=== PATIENT | female | born 1980 | race Two or more races ===

== ENCOUNTER 2020-09-22 17:05 | Outpatient (REF) | payer MEDICAID, SELFPAY | END 2020-09-22 17:06 | disposition home or self-care (01) | LOC: HO.LAB 17:05 | PROVIDERS: Visit Provider Internal Medicine | DX: Z20.828 Contact with and (suspected) exposure to other viral communicable diseases (principal) | CPT/HCPCS: U0003 ==

== ENCOUNTER 2021-02-01 07:57 | Emergency (ER) | payer MEDICAID, SELFPAY ==
[2021-02-01 08:07] VITALS: BP 135/83; PULSE 97; RESP 18; TEMP 37.4; O2SAT 100; BMI 24.9
--- NOTE | 2021-02-01 09:46 | ED_ITS ---
HPI - General Adult General Chief complaint: General Medical Stated complaint: sore throat, vomiting Time Seen by Provider: 02/01/21 09:06 Source: patient Mode of arrival: ambulatory Limitations: no limitations History of Present Illness HPI narrative: 40 female with complaints of sore throat since yesterday with chills. Painful swallowing. No difficulty swallowing. No fevers, cough, shortness of breath, chest pain, abdominal pain, vomiting, diarrhea. Patient tells me that she tested negative for COVID 2 days ago. She is fully vaccinated as well. Related Data Previous Rx's Medication Instructions Recorded amoxicillin 500 mg PO BID #14 cap 02/01/21 ibuprofen 600 mg PO Q8H PRN #20 tab 02/01/21 Allergies Allergy/AdvReac Type Severity Reaction Status Date / Time bee pollen [Bee Stings] Allergy Mild SWELLING Unverified 08/11/20 15:24 AT SITE Bee stings Allergy Unknown anaphylaxis Uncoded 12/08/18 00:00 Review of Systems Review of Systems: Yes all other systems are reviewed and are negative Constitutional: Constitutional: Reports no additional constitutional complaints, Denies body ache(s), Reports chills, Denies fever(s), Denies headache(s) and Denies weakness Eyes: Eyes: Reports no additional eye complaints and Denies change in vision ENT: Reports system reviewed and no additional complaints, except as documented, Denies dizziness, Denies headache(s), Denies nasal congestion, Denies nasal discharge, Denies neck pain and Reports sore throat Cardiovascular: Cardiovascular: Reports no additional cardiovascular complaints, Denies chest pain, Denies leg edema and Denies dyspnea Respiratory: Respiratory: Reports no additional respiratory complaints, Denies cough and Denies dyspnea Gastrointestinal: Gastrointestinal: Reports no additional gastrointestinal complaints, Denies abdominal pain, Denies diarrhea, Denies nausea and Denies vo miting Genitourinary: Genitourinary: Reports no additional female genitourinary complaints and Denies urinary incontinence Musculoskeletal: Musculoskeletal: Reports no additional musculoskeletal complaints, Denies back pain, Denies arthralgias, Denies joint swelling, Denies neck pain, Denies numbness and Denies tingling Integumentary/Breasts: Skin/Breast: Reports system reviewed and no additional complaints, except as docu and Denies rash Neurologic: Reports system reviewed and no additional complaints, except as d ocumented, Denies Abnormal speech present, Denies dizziness, Denies headache(s), Denies numbness, Denies tingling and Denies weakness [facility], LAT[facility] Past Medical History Attestation statement: The following information was validated with the patient. Source: old records reviewed and nursing notes reviewed Medical History No known health problems Social History Social History Advance Directives: Yes Advance Directives Information Provided: Yes Advance Directives on File: No Physical Exam Vital Signs: Vital Signs: Last Vital Signs Temp 99.3 F 02/01/21 08:07 Pulse 97 02/01/21 08:07 Resp 18 02/01/21 08:07 BP 135/83 02/01/21 08:07 Pulse Ox 100 02/01/21 08:07 Body Mass Index 24.9 Const: General: cooperative, healthy appearing, comfortable and no acute distress Orientation/consciousness: patient oriented x3 Limitations: no limitations HENMT: Head: Yes normal to inspection Ears: hearing grossly normal bilaterally General nose exam: Normal external nose present Face and sinus: Yes normal facial exam Mouth: Normal oral and palatal mucosa present Throat: Yes uvula midline and Yes abnormal tonsil (Bilateral tonsillar erythema and swelling. No exudate) Eyes: General: appearance normal, both eyes and all related structures Pupils: Equal, round and reactive pupils present Neck: Neck: Yes normal visual inspection Chest: Chest palpation & inspection: normal inspection of the chest Resp: Effort & Inspection: normal respiratory effort Auscultation: clear to auscultation bilaterally Cardio: Rate: regular rate Rhythm: regular rhythm Peripheral pulses: Peripheral pulses 2+ throughout GI: Inspection: Yes normal to inspection Palpation (GI): Soft to palpation and nontender Auscultation: normal bowel sounds Back/Spine/Pelvis: Thoracic/Lumbar Spine: thoracic and lumbar spine normal to inspection Skin: General skin exam: no rashes or lesions noted Neuro: General: patient oriented x3, no focal motor deficits and normal sensation to monofilament Cranial nerves: Yes Equal, round and reactive pupils present Cognition (Neuro): normal cognition Speech: No Abnormal speech present Gait exam (Neuro): Normal gait present Motor exam (neuro): 5/5 motor strength present throughout Extrem: General: Yes normal to inspection Course Course Course Narrative: Rapid strep negative. However exam is concerning for strep pharyngitis. Will send throat culture. Reviewed worrisome signs and symptoms and when to return to the emergency department. Comfortable discharge home. Discharge Plan Discharge Clinical Impression: Pharyngitis Patient Disposition: Home, Self-Care Instructions: Pharyngitis (ED) Additional Instructions: Salt water gargles take motrin or tylenol for pain or fever as needed Prescriptions: New amoxicillin 500 mg capsule 500 mg PO BID Qty: 14 RF: 0 ibuprofen 600 mg tablet 600 mg PO Q8H PRN (Reason: fever or pain) Qty: 20 RF: 0 Referrals: [facility] [Primary Care Provider] - 2 days Stand Alone Forms: Work/School Release Interventions: ED Discharge Assessment Last Done: 02/01/21 09:28 Discharge Date/Time: 02/01/21 09:29
== END 2021-02-01 09:29 | disposition home or self-care (01) ==
PROVIDERS: Emergency Provider Emergency Medicine Emergency Medical Services
DX: J02.9 Acute pharyngitis, unspecified (principal)
CPT/HCPCS: 87071; 87880; 99283

== ENCOUNTER 2021-06-28 06:27 | Emergency (ER) | payer MEDICAID, SELFPAY ==
--- NOTE | ~2021-06-28 | XR_ITS ---
EXAMINATION: XR CHEST CLINICAL INFORMATION: Cough and wheezing COMPARISON: Previous chest x-rays most recent January 2020 TECHNIQUE: Frontal view of the chest was obtained. FINDINGS: No significant abnormality is noted involving the heart, lungs, mediastinum, bony thorax or soft tissues. XR/XR chest 1V IMPRESSION: Unremarkable examination.
--- NOTE | 2021-06-28 07:02 | ED.SOB ---
HPI - SOB/Dyspnea General Chief Complaint: Upper Respiratory Symptoms Stated Complaint: Flu Like Time Seen by Provider: 06/28/21 07:02 Source: patient Mode of arrival: ambulatory Limitations: no limitations History of Present Illness HPI Narrative: shortness of breath and cough for 2 days. Patient is a [employer] full vaccinated. She has myalgias and feels bad MD elicited complaint: shortness of breath and cough Onset (ago): day(s) Timing: constant Severity: mild Related Data Previous Rx's Medication Instructions Recorded amoxicillin 500 mg capsule 500 mg PO BID #14 cap 02/01/21 ibuprofen 600 mg tablet 600 mg PO Q8H PRN #20 tab 02/01/21 Allergies Allergy/AdvReac Type Severity Reaction Status Date / Time bee pollen [Bee Stings] Allergy Mild SWELLING Unverified 08/11/20 15:24 AT SITE Bee stings Allergy Unknown anaphylaxis Uncoded 12/08/18 00:00 Review of Systems Constitutional: Constitutional: Reports no additional constitutional complaints Eyes: Eyes: Reports no additional eye complaints ENT: Denies dizziness Cardiovascular: Cardiovascular: Reports no additional cardiovascular complaints Respiratory: Respiratory: Reports as per HPI Gastrointestinal: Gastrointestinal: Reports no additional gastrointestinal complaints Genitourinary: Genitourinary: Reports no additional female genitourinary complaints Musculoskeletal: Musculoskeletal: Reports no additional musculoskeletal complaints Integumentary/Breasts: Skin/Breast: Denies rash Neurologic: Reports system reviewed and no additional complaints, except as documented, Denies dizziness and Denies Sensory deficit (Neuro) Psychiatric: Psychiatric: Denies anxiety [facility] Past Medical History Medical History No known health problems Social History Social History Advance Directives: No Patient : No Physical Exam Vital Signs: Vital Signs: Last Vital Signs Temp 99.8 F 06/28/21 07:39 Pulse 97 06/28/21 07:39 Resp 22 H 06/28/21 07:45 BP 138/62 06/28/21 07:39 Pulse Ox 100 06/28/21 07:39 Body Mass Index 29.2 Const: Other: feels warn out coughing Nutritional Appearance: average body habitus Orientation/consciousness: oriented to person and patient oriented x3 Limitations: no limitations HENMT: Head: Yes normal to inspection Ears: external ears normal General nose exam: Normal external nose present Mouth: Normal oral and palatal mucosa present and oropharynx normal Throat: Yes posterior oropharynx normal Eyes: General: appearance normal, both eyes and all related structures Neck: Other: supple Neck: Yes normal visual inspection Chest: Chest palpation & inspection: normal inspection of the chest Resp: Other: diffuse wheezing Cardio: Jugular venous distension: no JVD Rate: regular rate Rhythm: regular rhythm Heart sounds: S1 normal heart sound present and S2 normal heart sound present GI: Inspection: Yes normal to inspection Palpation (GI): Soft to palpation, nontender and No hepatosplenomegaly present Auscultation: normal bowel sounds : General: Yes no CVA tenderness Back/Spine/Pelvis: Back: no CVA tenderness Skin: General skin exam: no rashes or lesions noted Neuro: General: oriented to person and patient oriented x3 Cranial nerves: Yes CN's II-XII intact bilaterally Motor exam (neuro): 5/5 motor strength present throughout Sensory Exam: No Sensory deficit (Neuro) Extrem: General: Yes normal to inspection Psych: Appearance: grossly normal Course Reevaluation(s) Reevaluation #1: Patient with clear URI symptoms. COVID negative but suspect the patient to likely have COVID. Will dc on covid precaustions Time: 08:51 MDM - SOB/Dyspnea Lab Data Labs: Lab Results 06/28/21 Range/Units 07:51 Coronavirus (PCR) NEGATIVE (Negative) Influenza Type A (PCR) NEGATIVE (Negative) Influenza Type B (PCR) NEGATIVE (Negative) RSV RNA Qual (PCR) NEGATIVE (Negative) Imaging Data Chest x-ray: Radiologist's impression: IMPRESSION: Unremarkable examination. ? Discharge Plan Discharge Clinical Impression: COVID Upper respiratory infection Qualifiers: URI type: unspecified viral URI Qualified Code(s): J06.9 - Acute upper respiratory infection, unspecified Patient Disposition: Home, Self-Care Instructions: Acute Bronchitis (ED), Upper Respiratory Infection (ED), COVID-19 (Coronavirus Disease 2019) (ED) Additional Instructions: please exercise covid precautions Prescriptions: No Action amoxicillin 500 mg capsule 500 mg PO BID Qty: 14 RF: 0 ibuprofen 600 mg tablet 600 mg PO Q8H PRN (Reason: fever or pain) Qty: 20 RF: 0 Referrals: Physician,Unknown [Primary Care Provider] - 2 days
[2021-06-28 07:39] VITALS: BP 138/62; PULSE 97; RESP 18; TEMP 37.7; O2SAT 100; BMI 29.2
[2021-06-28 07:45] VITALS: RESP 22
[2021-06-28] MEDS: Albuterol Sulfate 90 MCG 8 GM INHALER 4 PUFF INHALE (07:50)
[2021-06-28 08:35] LABS: Influenza A PCR NEGATIVE (Negative); Influenza B PCR NEGATIVE (Negative); Resp Syncy Virus RNA Qual PCR NEGATIVE (Negative); SARS COV2 PCR INHOUSE NEGATIVE (Negative)
== END 2021-06-28 09:17 | disposition home or self-care (01) ==
PROVIDERS: Emergency Provider Emergency Medicine
DX: U07.1 COVID-19 (principal); J06.9 Acute upper respiratory infection, unspecified; R06.02 Shortness of breath
CPT/HCPCS: 0241U; 36415; 71045; 94640; 99283

== ENCOUNTER 2021-09-23 10:32 | Emergency (ER) | payer MEDICAID, SELFPAY ==
[2021-09-23 10:53] VITALS: BP 158/98; PULSE 86; RESP 18; TEMP 36.8; O2SAT 100; BMI 25.7
[2021-09-23] MEDS: Ibuprofen 600 MG TABLET PO (10:56)
[2021-09-23 11:54] LABS: Hematocrit 42.3 % (37.0-47.0); Hemoglobin 13.1 g/dl (12.0-16.0); Mean Corpuscular Hemoglobin 26.3 pg (27.0-33.0); Mean Corpuscular Volume 84.8 fL (80.0-98.0); Mean Platelet Volume 10.4 fL (9.4-12.3); Platelet Count 324 X10*3/uL (160-400); Red Blood Count 4.99 X10*6/uL (4.20-5.50); Red Cell Distribution Width 15.2 % (11.0-16.0)
[2021-09-23 11:57] LABS: Anion Gap 12 (12-20); Blood Urea Nitrogen 7 mg/dL (9-16); Calcium 9.7 mg/dL (8.4-10.2); Carbon Dioxide 27 mmol/L (22-29); Chloride 100 mmol/L (96-108); Creatinine Clr Calc Pharmacy 87.1; Estimated Glomerular Filt Rate > 60; Glucose Random 104 mg/dL (60-115); Potassium 3.9 mmol/L (3.3-5.1); Sodium 135 mmol/L (135-145)
--- NOTE | 2021-09-23 12:08 | ECG_ITS ---
Test Reason : DIZZYNESS Blood Pressure : / mmHG Vent. Rate : 083 BPM Atrial Rate : 083 BPM P-R Int : 136 ms QRS Dur : 084 ms QT Int : 372 ms P-R-T Axes : 074 056 048 degrees QTc Int : 437 ms Normal sinus rhythm Minimal voltage criteria for LVH, may be normal variant ( Sokolow-Chase ) Borderline ECG No significant changes seen Referred By: Emma Mandel Electronically Signed By:ANDREY HERRERA MD
--- NOTE | 2021-09-23 12:17 | ED_ITS ---
HPI - General Adult General Chief complaint: General Medical Stated complaint: HPB/headache Time Seen by Provider: 09/23/21 11:59 Source: patient Mode of arrival: ambulatory Limitations: no limitations History of Present Illness HPI narrative: 41-year-old female previously healthy here with complaints of generalized headache for the last 2 days and feeling anxious. No chest pain, shortness of breath, vision changes, nausea, vomiting, dizziness. No fevers or chills or neck pain. Patient took her blood pressure at home and noted to be 150/90. No history of hypertension. Not currently on any medications. Related Data Previous Rx's Medication Instructions Recorded amoxicillin 500 mg capsule 500 mg PO BID #14 cap 02/01/21 ibuprofen 600 mg tablet 600 mg PO Q8H PRN #20 tab 02/01/21 ondansetron HCl 4 mg tablet 4 mg PO Q8H PRN #10 tab 06/28/21 (Zofran) lorazepam 1 mg tablet (Ativan) 1 mg PO TID PRN #5 tab 09/23/21 Allergies Allergy/AdvReac Type Severity Reaction Status Date / Time bee pollen [Bee Stings] Allergy Mild SWELLING Unverified 08/11/20 15:24 AT SITE Bee stings Allergy Unknown anaphylaxis Uncoded 12/08/18 00:00 Review of Systems 2 Review of Systems: Yes all other systems are reviewed and are negative Constitutional: Constitutional: Reports no additional constitutional complaints, Denies body ache(s), Denies chills, Denies fever(s), Reports head ache(s) and Denies weakness Eyes: Eyes: Reports no additional eye complaints and Denies change in vision ENT: Reports system reviewed and no additional complaints, except as documented, Denies dizziness, Reports headache(s), Denies nasal congestion, Denies nasal discharge and Denies neck pain Cardiovascular: Cardiovascular: Reports no additional cardiovascular complaints, Denies chest pain, Denies leg edema and Denies dyspnea Respiratory: Respiratory: Reports no additional respiratory complaints, Denies cough and Denies dyspnea Gastrointestinal: Gastrointestinal: Reports no additional gastrointestinal complaints, Denies abdominal pain, Denies diarrhea, Denies nausea and Denies vomiting Genitourinary: Genitourinary: Reports no additional female genitourinary complaints and Denies urinary incontinence Musculoskeletal: Musculoskeletal: Reports no additional musculoskeletal complaints, Denies back pain, Denies arthralgias, Denies joint swelling, Denies neck pain, Denies numbness and Denies tingling Integumentary/Breasts: Skin/Breast: Reports system reviewed and no additional complaints, except as docu and Denies rash Neurologic: Reports system reviewed and no additional complaints, except as documented, Denies Abnormal speech present, Denies dizziness, Reports headache(s), Denies numbness, Denies tingling and Denies weakness Psychiatric: Psychiatric: Reports anxiety PMFSH Past Medical History Attestation statement: The following information was validated with the patient. Source: old records reviewed and nursing notes reviewed Medical History No known health problems Social History Social History Advance Directives: No Advance Directives Information Provided: No Patient : No Physical Exam Vital Signs: Vital Signs: Last Vital Signs Temp 98.2 F 09/23/21 10:53 Pulse 78 09/23/21 13:22 Resp 18 09/23/21 10:53 BP 137/95 H 09/23/21 13:22 Pulse Ox 100 09/23/21 10:53 Body Mass Index 25.7 Const: General: cooperative, healthy appearing, comfortable and no acute d istress Orientation/consciousness: patient oriented x3 Limitations: no limitations HENMT: Head: Yes normal to inspection Ears: hearing grossly normal bilaterally and TM's normal bilaterally General nose exam: Normal external nose present Face and sinus: Yes normal facial exam Mouth: Normal oral and palatal mucosa present Throat: Yes posterior oropharynx normal, Yes tonsils normal and Yes uvula midline Eyes: General: appearance normal, both eyes and all related structures Pupils: Equal, round and reactive pupils present Neck: Neck: Yes normal visual inspection, Yes full ROM and Yes no lymphadenopathy Chest: Chest palpation & inspection: normal inspection of the chest Resp: Effort & Inspection: normal respiratory effort Auscultation: clear to auscultation bilaterally Cardio: Rate: regular rate Rhythm: regular rhythm Peripheral pulses: Peripheral pulses 2+ throughout GI: Inspection: Yes normal to inspection Palpation (GI): Soft to palpation and nontender Auscultation: normal bowel sounds Back/Spine/Pelvis: Thoracic/Lumbar Spine: thoracic and lumbar spine normal to inspection Skin: General skin exam: no rashes or lesions noted Neuro: General: patient oriented x3, no focal motor deficits and normal sensation to monofilament Cranial nerves: Yes CN's II-XII intact bilaterally, Yes Equal, round and reactive pupils present, Yes Bilaterally intact EOM present, Yes Nystagmus not present and Yes Normal facial strength present Cognition (Neuro): normal cognition Speech: No Abnormal speech present Gait exam (Neuro): Normal gait present Motor exam (neuro): 5/5 motor strength present throughout Sensory Exam: Normal double simultaneous stimulation for sensation Extrem: General: Yes normal to inspection, Yes no pedal edema and Yes no calf tenderness Course Course Course Narrative: 41-year-old female here with complaints of feeling anxious, headache and noted to have high blood pressure at home with no history of same.. Normal neuro exam. Blood pressure on arrival 158/98. No history of same. Patient feels anxious and feels like her blood pressures related to her anxiety. Will check labs, EKG, UA. Provide Ativan p.o. and reassess 1330-blood work unremarkable. EKG shows no ischemic changes. Blood pressure on reassessment is 135/76. Patient is feeling improved. Reviewed worrisome signs and symptoms of when to return to the emergency department. Comfortable discharge home. Medical Decision Making MDM Narrative Medical decision making narrative: Uncontrolled hypertension, anxiety Medical Records Medical records reviewed: Yes I reviewed the patient's medical records. Lab Data Lab results reviewed: Yes I reviewed the patient's lab results. Result diagrams: 09/23/21 11:31 09/23/21 11:31 Labs: Lab Results 09/23/21 09/23/21 09/23/21 Range/Units 11:31 11:31 12:25 WBC 10.0 (4.8-10.8) X10*3/uL RBC 4.99 (4.20-5.50) X10*6/uL Hgb 13.1 (12.0-16.0) g/dl Hct 42.3 (37.0-47.0) % MCV 84.8 (80.0-98.0) fL MCH 26.3 L (27.0-33.0) pg MCHC 31.0 (31.0-35.0) g/dl RDW 15.2 (11.0-16.0) % Plt Count 324 (160-400) X10*3/uL MPV 10.4 (9.4-12.3) fL Absolute Nucleated RBC 0.000 (0.0-0.012) X10*3/uL Nucleated RBC % (auto) 0.0 (0.0-0.2) /100WBC Sodium 135 (135-145) mmol/L Potassium 3.9 (3.3-5.1) mmol/L Chloride 100 (96-108) mmol/L Carbon Dioxide 27 (22-29) mmol/L Anion Gap 12 (12-20) BUN 7 L (9-16) mg/dL Creatinine 0.73 (0.5-1.4) mg/dL Estim Creat Clear Calc 87.1 Estimated GFR > 60 Random Glucose 104 (60-115) mg/dL Calcium 9.7 (8.4-10.2) mg/dL Troponin I High Sens < 3.5 (<3.5-17.0) ng/L ECG Data Attestation: I personally reviewed and interpreted this ECG as follows: Interpretation: NSR with rate 83, normal pr, normal qrs, normal qt Discharge Plan Discharge Clinical Impression: Headache, Anxiety, Hypertension Patient Disposition: Home, Self-Care Instructions: Acute Headache (ED), Hypertension (ED), Anxiety (ED) Additional Instructions: Monitor blood pressure Take the medication as needed Blood work an EKG normal Prescriptions: New lorazepam [Ativan] 1 mg tablet 1 mg PO TID PRN (Reason: anxiety) Qty: 5 RF: 0 No Action amoxicillin 500 mg capsule 500 mg PO BID Qty: 14 RF: 0 ibuprofen 600 mg tablet 600 mg PO Q8H PRN (Reason: fever or pain) Qty: 20 RF: 0 ondansetron HCl [Zofran] 4 mg tablet 4 mg PO Q8H PRN (Reason: nausea and vomiting) Qty: 10 RF: 0 Referrals: Physician,Unknown J [Primary Care Provider] - 2 days Stand Alone Forms: Work/School Release
[2021-09-23] MEDS: LORazepam 1 MG TABLET PO (12:32)
[2021-09-23 12:49] LABS: Troponin-I High Sensitivity < 3.5 ng/L (<3.5-17.0)
[2021-09-23 13:22] VITALS: BP 137/95; PULSE 78
== END 2021-09-23 13:39 | disposition home or self-care (01) ==
PROVIDERS: Nurse Practitioner Family; Emergency Provider Emergency Medicine
DX: R51.9 Headache, unspecified (principal); I10 Essential (primary) hypertension; F41.1 Generalized anxiety disorder; F43.0 Acute stress reaction; Z79.899 Other long term (current) drug therapy
CPT/HCPCS: 36415; 80048; 84484; 85027; 93005; 99283

== ENCOUNTER 2021-10-11 10:11 | Outpatient (REF) | payer MEDICAID, SELFPAY ==
[2021-10-11 13:14] LABS: HBsAGNum1 0.16 S/CO (0.00-0.99); Hepatitis B Surface Antigen Negative (Negative); ~HepC Num1 0.05 S/CO (0.00-0.79); ~Hepatitis C Antibody Nonreactive (Nonreactive)
[2021-10-11 13:16] LABS: Syphilis Screen Nonreactive (Nonreactive)
[2021-10-11 13:24] LABS: HIV AB/AG Nonreactive (Nonreactive)
[2021-10-11 15:36] LABS: CT PCR NOT DETECTED (Not Detect.); NG PCR NOT DETECTED (Not Detect.)
[2021-10-12 09:45] LABS: BV Int Neg Control Negative (Negative); BV Int Pos Control Positive (Positive)
[2021-10-14 02:47] LABS: HPV mRNA E6/E7 rflx Not Detected (Not Detected)
== END 2021-10-11 10:12 | disposition home or self-care (01) ==
LOC: HO.LAB 10:11
PROVIDERS: Visit Provider Advanced Practice Midwife
DX: Z01.419 Encounter for gynecological examination (general) (routine) without abnormal findings (principal); Z11.4 Encounter for screening for human immunodeficiency virus [HIV]; Z11.51 Encounter for screening for human papillomavirus (HPV); Z20.2 Contact with and (suspected) exposure to infections with a predominantly sexual mode of transmission
CPT/HCPCS: 36415; 86780; 86803; 87340; 87389; 87480; 87491; 87510; 87591; 87624; 87660; 88142

== ENCOUNTER 2022-07-12 10:57 | Outpatient (REF) | payer MEDICAID, SELFPAY ==
[2022-07-13 06:20] LABS: CT PCR NOT DETECTED (Not Detect.); NG PCR NOT DETECTED (Not Detect.)
[2022-07-13 09:19] LABS: BV Int Neg Control Negative (Negative); BV Int Pos Control Positive (Positive)
== END 2022-07-12 10:58 | disposition home or self-care (01) ==
LOC: HO.LAB 10:57
PROVIDERS: PCP Internal Medicine; Visit Provider Advanced Practice Midwife
DX: Z11.3 Encounter for screening for infections with a predominantly sexual mode of transmission (principal)
CPT/HCPCS: 87480; 87491; 87510; 87591; 87660; 99212

== ENCOUNTER 2022-12-20 09:38 | Outpatient (REF) | payer MEDICAID, SELFPAY ==
[2022-12-24 20:23] LABS: HPV mRNA E6/E7 rflx Not Detected (Not Detected)
== END 2022-12-20 09:39 | disposition home or self-care (01) ==
LOC: HO.LNP 09:38
PROVIDERS: PCP Internal Medicine; Visit Provider Advanced Practice Midwife
DX: Z01.419 Encounter for gynecological examination (general) (routine) without abnormal findings (principal); Z11.51 Encounter for screening for human papillomavirus (HPV)
CPT/HCPCS: 0353U; 86780; 86803; 87340; 87389; 87480; 87510; 87624; 87660; 88142

== ENCOUNTER 2022-12-20 10:36 | Outpatient (REF) | payer MEDICAID, SELFPAY ==
[2022-12-20 15:26] LABS: CT PCR NOT DETECTED (Not Detect.); NG PCR NOT DETECTED (Not Detect.)
[2022-12-21 05:47] LABS: Syphilis Screen Nonreactive (Nonreactive)
[2022-12-21 06:25] LABS: HBsAGNum1 0.34 S/CO (0.00-0.99); HIV AB/AG Nonreactive (Nonreactive); HIV Num 1 0.08 S/CO (0.00-0.99); Hepatitis B Surface Antigen Negative (Negative); ~HepC Num1 0.07 S/CO (0.00-0.79); ~Hepatitis C Antibody Nonreactive (Nonreactive)
[2022-12-21 12:19] LABS: BV Int Neg Control Negative (Negative); BV Int Pos Control Positive (Positive)
== END 2022-12-20 10:37 | disposition home or self-care (01) ==
LOC: HO.LAB 10:36
PROVIDERS: PCP Internal Medicine; Visit Provider Advanced Practice Midwife
DX: Z12.4 Encounter for screening for malignant neoplasm of cervix (principal); Z11.3 Encounter for screening for infections with a predominantly sexual mode of transmission; Z11.4 Encounter for screening for human immunodeficiency virus [HIV]
CPT/HCPCS: 0353U; 86780; 86803; 87340; 87389; 87480; 87510; 87660

== ENCOUNTER 2023-02-01 09:18 | Outpatient (REF) | payer MEDICAID, SELFPAY ==
--- NOTE | ~2023-02-01 | MM_ITS ---
EXAMINATION: MM SCREENING DIGITAL BREAST TOMOSYNTHESIS, BILATERAL CLINICAL INFORMATION: Screening. Asymptomatic. No prior breast imaging. Age 42. No known family history breast cancer. The lifetime risk of breast cancer based on the Tyrer-Cuzick Model is 7%. COMPARISON: None (current study represents initial baseline exam). TECHNIQUE: Digital breast tomosynthesis is performed in both the craniocaudal and mediolateral oblique views along with computer-aided detection (CAD). Synthesized 2D images are generated from the tomosynthesis. FINDINGS: The breasts are heterogeneously dense, which may obscure small masses (ACR BI-RADS breast composition Category c). There is fine fibronodular parenchymal pattern. No abnormal calcifications. No architectural abnormality. Right breast shows no significant mass. The skin contours are smooth. Left breast has nodule posterior upper outer quadrant just under 1 cm, possibly intramammary node. Patient will be recalled for additional imaging to fully assess baseline appearance. MM/MM tomosynthesis screening BI IMPRESSION: Left: -Nodule posterior upper outer quadrant, possibly intramammary node. Right: -No mammographic evidence of malignancy. ASSESSMENT: BI-RADS 0: Incomplete - Need Additional Imaging Evaluation RECOMMENDATION: 1. Additional views left breast (spot CC, spot MLO). 2. Targeted ultrasound if warranted after review of the additional views. 3. Radiology department staff will contact the patient for additional imaging. This patient's information was entered into a reminder system with a target due date for their next mammogram.
== END 2023-02-01 09:19 | disposition home or self-care (01) ==
LOC: HO.MAMMO 09:18
PROVIDERS: Visit Provider Advanced Practice Midwife
DX: Z12.31 Encounter for screening mammogram for malignant neoplasm of breast (principal)
CPT/HCPCS: 77063; 77067

== ENCOUNTER 2023-03-04 14:16 | Outpatient (REF) | payer MEDICAID, SELFPAY ==
--- NOTE | ~2023-03-04 | MM_ITS ---
EXAMINATION: MM DIAGNOSTIC DIGITAL BREAST TOMOSYNTHESIS, LEFT US DIAGNOSTIC ULTRASOUND BREAST, LEFT CLINICAL INFORMATION: Recall from baseline exam for nodule posterior upper outer left breast. Age 42. TC score 7%. COMPARISON: Mammography: 02/01/2023 (baseline) TECHNIQUE: Digital breast tomosynthesis is performed. 2D images are generated from the tomosynthesis. The following views are obtained: Spot CC x2, spot MLO. Ultrasound left breast is targeted to the upper outer quadrant. Grayscale imaging and color Doppler are performed without and with harmonics. FINDINGS: The breasts are heterogeneously dense, which may obscure small masses (ACR BI-RADS breast composition Category c). The additional spot views confirm a smooth benign-appearing nodule in the area of interest posterior upper outer left breast. There is no fatty notch contour to suggest intramammary node. Ultrasound demonstrates a simple cyst posterior upper outer breast near the 3:00 position and measuring approximately 1.1 x 0.5 cm. There is some fine reverberation artifact near side. No internal septation or solid component. Contours are smooth and there is strong increased through-transmission of sound and no associated color flow. Results are discussed with the patient at time of visit. MM/MM tomosynthesis added views L IMPRESSION: -Simple cyst posterior upper outer left breast 1.1 cm corresponding to baseline mammography. ASSESSMENT: BI-RADS 2: Benign RECOMMENDATION: Routine annual mammography screening. This patient's information was entered into a reminder system with a target due date for their next mammogram.
== END 2023-03-04 14:17 | disposition home or self-care (01) ==
LOC: HO.MAMMO 14:16
PROVIDERS: PCP Internal Medicine; Visit Provider Advanced Practice Midwife
DX: N63.21 Unspecified lump in the left breast, upper outer quadrant (principal)
CPT/HCPCS: 76642; 77061; 77065

== ENCOUNTER 2023-04-08 19:49 | Emergency (ER) | payer MEDICAID, SELFPAY ==
--- NOTE | ~2023-04-08 | XR_ITS ---
EXAMINATION: XR CHEST CLINICAL INFORMATION: Coughing. COMPARISON: None available. TECHNIQUE: Frontal view of the chest was obtained. FINDINGS: No significant abnormality is noted involving the heart, lungs, mediastinum, bony thorax or soft tissues. XR/XR chest 1V IMPRESSION: Unremarkable chest examination.
[2023-04-08 19:54] VITALS: BP 151/102; PULSE 101; RESP 18; TEMP 36.8; O2SAT 97; BMI 25.7
--- NOTE | 2023-04-08 19:55 | ED.GENADULT ---
HPI - General Adult General Chief complaint: Upper Respiratory Symptoms Stated complaint: Flu like Symptoms Time Seen by Provider: 04/08/23 21:33 Source: patient Mode of arrival: ambulatory Limitations: no limitations History of Present Illness HPI narrative: 42-year-old female came in for evaluation of upper respiratory symptoms x1 day. 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 Related Data Home Medications Medication Instructions Recorded Confirmed hydroxyzine HCl 10 mg tablet 10 mg PO TID PRN 07/12/22 12/20/22 Previous Rx's Medication Instructions Recorded metronidazole 0.75 % (37.5 mg/5 1 appful vaginal BEDTIME 5 days 01/10/23 gram) vaginal gel #70 grams Allergies Allergy/AdvReac Type Severity Reaction Status Date / Time bee pollen [Bee Stings] Allergy Mild SWELLING Verified 12/20/22 09:55 AT SITE Bee stings Allergy Unknown anaphylaxis Uncoded 12/20/22 09:55 Review of Systems Review of Systems: All other systems are reviewed and are negative Constitutional: Reports as per HPI and Reports no additional constitutional complaints Eyes: Reports as per HPI and Reports no additional eye complaints Reports system reviewed and no additional complaints, except as documented Cardiovascular: Reports as per HPI and Reports no additional cardiovascular complaints Respiratory: Reports as per HPI and Reports no additional respiratory complaints Gastrointestinal: Reports as per HPI and Reports no additional gastrointestinal complaints Genitourinary: Reports no additional female genitourinary complaints Musculoskeletal: Reports no additional musculoskeletal complaints Skin/Breast: Reports system reviewed and no additional complaints, except as docu Psychiatric: Reports no additional psychiatric complaints Endocrine: Reports no additional endocrine complaints Hematologic/Lymphatic: Reports no additional hematologic/lymphatic complaints Allergic/Immunologic: Reports no additional allergic/immunologic complaints Reports system reviewed and no additional complaints, except as documented and Reports Abnormal speech present [facility] Past Medical History Medical History Anxiety No known health problems Surgical History History of tubal ligation Social History Social History Alcohol intake: current Alcohol intake frequency: holidays/special occasions only Patient Tobacco Use Status: Former Tobacco user Substance Use Type: Marijuana Gender identity: Female Physical Exam ED Vital Signs: Vital Signs - 24 hr 04/08/23 19:54 Temperature 98.2 F Pulse Rate 101 H Respiratory Rate 18 Blood Pressure 151/102 H Pulse Oximetry 97 Oxygen Delivery Method Room Air BMI result Body Mass Index 25.7 Vital signs have been reviewed as appeared to be correct. Blood pressure elevated. Heart rate elevated. Respiration rate normal. Temperature normal. Oxygen saturation normal. Appearance: Alert. Oriented X3. No acute distress. Head: Normal external exam. Normocephalic. Atraumatic. No Ferris signs noted. No raccoon eyes noted Eyes: PERRLA. EOMI. Conjunctiva and sclera normal. Eyelids normal. ENT: TM's Normal. Pharynx normal. Uvula midline. Moist mucous membranes. No trismus noted. No drooling noted. No muffled voice noted. Neck: Normal inspection. Neck supple. FROM. No adenopathy. Thyroid Normal. No meningeal signs. No neck mass noted. CVS: Normal heart rate and rhythm. Heart sound normal. No murmurs noted. Pulses normal throughout. Respiratory: No respiratory distress. Painless inspiration. Breath sounds normal. No wheezes/rales/rhonchi noted. Chest nontender. No accessory muscle usage noted or decreased air movement noted. Abdomen: Soft and nontender. Bowel sounds normal in all 4 quadrants. No distention noted. No organomegaly noted. No visible injury noted. Back: No CVA tenderness. Full range of motion noted. Skin: Skin warm and dry. Normal skin color. Normal skin turgor. No rashes/lesions/lacerations noted. Extremities: No lower extremity edema. Extremities exhibit normal range of motion. Extremities nontender. Neuro: Oriented X 3. Cranial nerve exam: II-XII are grossly intact No motor deficit. No sensory deficit. Reflexes normal. Course Course Course Narrative: This is a rapid medical exam. Defer additional HPI, ROS, PE to primary provider. 42yo female with no known medical history here with cough, congestion, chills, body aches since yesterday. Took Mucinex prior to arrival. Will send testing for flu, COVID, RSV. VSS Medical Decision Making Differential Diagnosis Differential Diagnoses: The differential diagnosis associated with the presentation includes (Influenza, COVID, pneumonia, common cold.) Lab Data [facility] Lab Attestation statement: I reviewed the patient's lab results. Independent Interpretation I performed an independent interpretation of an: Plain X-Ray (Chest: No acute pathology.) Radiology Impression Discussion of test interpretation with radiology: I have reviewed the radiologist's reading. Discharge Plan Discharge Clinical Impression: Upper respiratory infection Patient Disposition: Home, Self-Care Instructions: Viral Syndrome (ED) Prescriptions: No Action metronidazole 0.75 % (37.5mg/5 gram) gel 1 appful vaginal BEDTIME 5 Days Qty: 70 0RF hydroxyzine HCl 10 mg tablet 10 mg PO TID PRN Referrals: Laxmi Spear MD [Primary Care Provider] - Stand Alone Forms: Work/School Release
[2023-04-08 21:38] LABS: Influenza A PCR NEGATIVE (Negative); Influenza B PCR NEGATIVE (Negative); Resp Syncy Virus RNA Qual PCR NEGATIVE (Negative); SARS COV2 PCR INHOUSE NEGATIVE (Negative)
== END 2023-04-08 22:44 | disposition home or self-care (01) ==
PROVIDERS: Nurse Practitioner Family; Emergency Provider Emergency Medicine; PCP Internal Medicine
DX: J06.9 Acute upper respiratory infection, unspecified (principal); Z87.891 Personal history of nicotine dependence; Z20.822 Contact with and (suspected) exposure to COVID-19; Z20.828 Contact with and (suspected) exposure to other viral communicable diseases
CPT/HCPCS: 0241U; 71045; 99282; 99283

== ENCOUNTER 2023-07-18 13:08 | Outpatient (AMB) | payer MEDICAID, SELFPAY ==
[2023-07-18 13:14] VITALS: BP 104/66; BMI 22.8
--- NOTE | 2023-07-18 13:14 | MHC.OFFVIS ---
Intake Vital Signs 07/18/23 13:14 Height 5 ft 4 in Weight 133 lb BMI 22.8 BP 104/66 Intake Visit Reasons: std testing Intake Note: The patient agreed to use of a medical equipment repair technician during this encounter. Scribed for FELIX Stevenson by Yadira Guerrero, medical equipment repair technician, on 07/18/2023 at 1:35 pm EST. Site Project Manager: Site Project Manager Present (Ame) Allergies bee pollen [Bee Stings] Allergy (Mild, Verified 07/18/23 13:14) SWELLING AT SITE Bee stings Allergy (Unknown, Uncoded 12/20/22 09:55) anaphylaxis Is last menstrual period known: Yes Last menstrual period: 07/14/23 HPI HPI Comments History of Present Illness Details She is here for STD testing due to vaginal discharge. Denies urinary issues, vaginal odor or irritation, abdominal cramping or pelvic pain. Reports monthly menses. Currently sexually active. Tubal ligation for BC. [facility] Medical History (Updated 07/18/23 @ 13:54 by Yadira Guerrero) Anxiety No known health problems Surgical History History of tubal ligation Social History Alcohol intake: current Alcohol intake frequency: holidays/special occasions only Patient Tobacco Use Status: Former Tobacco user Substance Use Type: Marijuana Gender identity: Female Female Reproductive History Menstrual Age of Menarche: 17 Duration of menses: 3-5 days Date of last menstrual period: 07/14/23 Physical Exam Vital Signs: Last Vital Signs BP 104/66 07/18/23 13:14 BMI result Body Mass Index 22.8 Const General: cooperative, healthy appearing, comfortable, no acute distress, well developed, alert and awake Other: General: Yes bladder normal to palpation External Female Exam: erythema and external swelling Speculum Exam - Vagina: normal appearance of the vagina, normal palpation and abnormal vaginal discharge (green tinged and odorous) frothy Speculum Exam - Cervix: normal appearance of the cervix and normal palpation Bimanual exam- vagina & uterus: normal bimanual exam, normal palpation, bladder normal to palpation and normal palpation Bimanual Exam- Adnexa, other: normal adnexae and no masses Assessment & Plan Assessment & Plan (1) Potential exposure to STD: Code(s): Z20.2 - Contact with and (suspected) exposure to infections with a predominantly sexual mode of transmission Plan: Discussed: BV testing and GC/CT panel done today. STD blood work ordered. Await results and treat accordingly. Encouraged to use condoms for STD prevention. Encouraged patient to sign up for patient portal. All of her questions and concerns were addressed to the best of my ability and shared decision making. She is agreeable to plan of care. (2) Vaginal discharge: Code(s): N89.8 - Other specified noninflammatory disorders of vagina (3) Vaginitis: Code(s): N76.0 - Acute vaginitis (4) Vaginal odor: Code(s): N89.8 - Other specified noninflammatory disorders of vagina Orders: Orders Bacterial Vaginosis Panel Today N89.8 - Other specified noninflammatory disorders of vagina, Z20.2 - Contact with and (suspected) exposure to infections with a predominantly sexual mode of transmission CT NG by PCR Today Z20.2 - Contact with and (suspected) exposure to infections with a predominantly sexual mode of transmission Hepatitis B Core Antibody Today Z20.2 - Contact with and (suspected) exposure to infections with a predominantly sexual mode of transmission Hepatitis C Antibody Today Z20.2 - Contact with and (suspected) exposure to infections with a predominantly sexual mode of transmission HIV Ab/Ag Today Z20.2 - Contact with and (suspected) exposure to infections with a predominantly sexual mode of transmission Syphilis Screen Today Z20.2 - Contact with and (suspected) exposure to infections with a predominantly sexual mode of transmission Coding Level of Care Code Est Pt Level 3 (55741) Diagnoses Potential exposure to STD Z20.2 Vaginal discharge N89.8 Vaginitis N76.0 Vaginal odor N89.8
== END 2023-07-18 13:45 | disposition home or self-care (01) ==
LOC: HO.HWS 13:08
PROVIDERS: PCP Internal Medicine; Visit Provider Advanced Practice Midwife
DX: Z20.2 Contact with and (suspected) exposure to infections with a predominantly sexual mode of transmission (principal); N76.0 Acute vaginitis
CPT/HCPCS: 99213

== ENCOUNTER 2023-07-18 13:08 | Outpatient (REF) | payer MEDICAID, SELFPAY ==
[2023-07-19 15:43] LABS: BV Int Neg Control Negative (Negative); BV Int Pos Control Positive (Positive)
== END 2023-07-18 13:09 | disposition home or self-care (01) ==
LOC: HO.LAB 13:08
PROVIDERS: PCP Internal Medicine; Visit Provider Advanced Practice Midwife
DX: N76.0 Acute vaginitis (principal); Z20.2 Contact with and (suspected) exposure to infections with a predominantly sexual mode of transmission
CPT/HCPCS: 87480; 87510; 87660; 99213

== ENCOUNTER 2023-07-18 13:39 | Outpatient (REF) | payer MEDICAID, SELFPAY | END 2023-07-18 13:40 | disposition home or self-care (01) | LOC: HO.LNP 13:39 | PROVIDERS: Visit Provider Advanced Practice Midwife | DX: Z13.89 Encounter for screening for other disorder (principal) ==

== ENCOUNTER 2023-07-18 13:48 | Outpatient (REF) | payer MEDICAID, SELFPAY ==
[2023-07-19 03:52] LABS: Syphilis Screen Nonreactive (Nonreactive)
[2023-07-19 04:04] LABS: HBc Num1 0.16 S/CO (0.00-0.79); HIV AB/AG Nonreactive (Nonreactive); HIV Num 1 0.26 S/CO (0.00-0.99); Hepatitis B Core Antibody Nonreactive (Nonreactive); ~HepC Num1 0.07 S/CO (0.00-0.79); ~Hepatitis C Antibody Nonreactive (Nonreactive)
[2023-07-19 04:19] LABS: CT PCR NOT DETECTED (Not Detect.); NG PCR NOT DETECTED (Not Detect.)
== END 2023-07-18 13:49 | disposition home or self-care (01) ==
LOC: HO.LAB 13:48
PROVIDERS: Visit Provider Advanced Practice Midwife
DX: N89.8 Other specified noninflammatory disorders of vagina (principal); Z20.2 Contact with and (suspected) exposure to infections with a predominantly sexual mode of transmission
CPT/HCPCS: 0353U; 86704; 86780; 86803; 87389

== ENCOUNTER 2023-10-21 11:05 | Outpatient (REF) | payer MEDICAID, SELFPAY ==
[2023-10-22 02:42] LABS: CT PCR DETECTED (Not Detect.); NG PCR DETECTED (Not Detect.)
[2023-10-22 12:08] LABS: BV Int Neg Control Negative (Negative); BV Int Pos Control Positive (Positive)
== END 2023-10-21 11:06 | disposition home or self-care (01) ==
LOC: HO.LNP 11:05
PROVIDERS: PCP Internal Medicine; Visit Provider Advanced Practice Midwife
DX: Z11.3 Encounter for screening for infections with a predominantly sexual mode of transmission (principal); A59.9 Trichomoniasis, unspecified
CPT/HCPCS: 0353U; 87480; 87510; 87660; 99212

== ENCOUNTER 2023-10-21 11:05 | Outpatient (AMB) | payer MEDICAID, SELFPAY ==
[2023-10-21 11:06] VITALS: BP 106/66; BMI 22.3
--- NOTE | 2023-10-21 11:06 | A.OFFVIS_ITS ---
Intake Vital Signs 10/21/23 11:06 Height 5 ft 4 in Weight 130 lb BMI 22.3 BP 106/66 Intake Visit Reasons: 3 month LAURIE Inspection Machine Tender Required: No Information Interpreted: non-clinical & clinical Spring Internship: Spring Internship Present (Marcia) Allergies bee pollen [Bee Stings] Allergy (Mild, Verified 10/21/23 11:07) SWELLING AT SITE Bee stings Allergy (Unknown, Uncoded 10/21/23 11:07) anaphylaxis Medication List - Last Reconciled 10/21/23 by Catalina Richards CNM hydroxyzine HCl 10 mg PO TID PRN Is last menstrual period known: Yes Last menstrual period: 10/05/23 Post menopausal: No HPI 3 month LAURIE HPI Details Patient is here for test of cure for trichomoniasis. She thinks that she felt better in terms of the discharge after taking the medicine. She says she told her partner but she is not sure if he got treated she is having unprotected sex and is having sex with him. She is not having any abnormal discharge on offering testing for STIs she is interested in getting lab work for HIV hep B hep C and syphilis but not today. She does not know if she is on the portal or not. She does not really keep track of her last period but thinks it was on October 05. She had her tubes tied so she feels she does not need to.. She is not sure when her annual exam is. [facility] Medical History Anxiety No known health problems Surgical History History of tubal ligation Alcohol intake: current Alcohol intake frequency: holidays/special occasions only Patient Tobacco Use Status: Former Tobacco user Substance Use Type: Marijuana Gender identity: Female Female Reproductive History Menstrual Age of Menarche: 17 Duration of menses: 3-5 days Date of last menstrual period: 10/05/23 control method: other (tubal ligation) Total pregnancies: 2 Full term: 2 Number of Living Children: 2 Date of last pap smear: 12/20/22 (negative) Physical Exam Vital Signs: Last Vital Signs BP 106/66 10/21/23 11:06 BMI result Body Mass Index 22.3 External Female Exam: normal external appearance and normal appearance of the urethra Speculum Exam - Vagina: normal appearance of the vagina and normal vaginal discharge Speculum Exam - Cervix: normal appearance of the cervix and Cervical os closed Assessment & Plan Assessment & Plan (1) Screen for sexually transmitted diseases: Code(s): Z11.3 - Encounter for screening for infections with a predominantly sexual mode of transmission (2) Trichomoniasis: Comment: laurie being done today, reminded re safer sex Code(s): A59.9 - Trichomoniasis, unspecified Plan Tests of cure and testing for STIs done and labs placed in system that she can get done when she finds it convenient. Recommend she get portal information at the front line supervisor and that way she can look up her results herself after she gets the labs done. Reminded her of safer sex. Schedule annual exam whenever it is due. Orders: Orders Hepatitis B Surface Antigen Today A59.9 - Trichomoniasis, unspecified, Z11.3 - Encounter for screening for infections with a predominantly sexual mode of transmission Hepatitis C Antibody Today A59.9 - Trichomoniasis, unspecified, Z11.3 - Encounter for screening for infections with a predominantly sexual mode of tra nsmission HIV Ab/Ag Today A59.9 - Trichomoniasis, unspecified, Z11.3 - Encounter for screening for infections with a predominantly sexual mode of transmission Syphilis Screen Today A59.9 - Trichomoniasis, unspecified, Z11.3 - Encounter for screening for infections with a predominantly sexual mode of transmission Coding Level of Care Code Est Pt Level 3 (56707) Diagnoses Screen for sexually transmitted diseases Z11.3 Trichomoniasis A59.9
== END 2023-10-21 12:50 | disposition home or self-care (01) ==
PROVIDERS: PCP Internal Medicine; Visit Provider Advanced Practice Midwife
DX: Z11.3 Encounter for screening for infections with a predominantly sexual mode of transmission (principal); A59.9 Trichomoniasis, unspecified
CPT/HCPCS: 99213

== ENCOUNTER 2023-10-24 14:46 | Outpatient (AMB) | payer MEDICAID, SELFPAY ==
--- NOTE | 2023-10-24 15:16 | AM.OFFVISNUR ---
Intake Intake Visit Reasons: Ceftriaxone inj. Allergies bee pollen [Bee Stings] Allergy (Mild, Verified 10/21/23 11:07) SWELLING AT SITE Bee stings Allergy (Unknown, Uncoded 10/21/23 11:07) anaphylaxis Nursing Note Magnolia was here today for injection of Ceftriaxone for positive GC. Pt denies any allergies to Ceftriaxone. She was also advised to complete her labs today. Pt was informed no sexual activity x 2 weeks and then with condoms and not until her partner has been treated. Pt will need LAURIE in 3 mos. pt verbs understanding. Office Meds ceftriaxone 500 mg solution for injection Performing Provider: Robby Mcgraw MD Performing Location[place] [facility] Administered by: Linda Rico LPN on 10/24/23 15:19 Dose Route Admin Location Dispensed Lot Number Expiration Date [facility] [employer] 500 mg IM rt. gluteus 500 mg [id number] 03/24/25 3748-7261-83 HOSPIRA[employer]PFIZER Coding Level of Care Code Established Pt Est Pt Level 1 (47545) Patient Type Established History Problem Focused Medical Decision Making Low Complexity Time Spent (min) 25 Assessment & Plan Assessment & Plan Orders: Orders AMB Ceftriaxone Injection Today A54.9 - Gonococcal infection, unspecified
== END 2023-10-24 15:19 | disposition home or self-care (01) ==
PROVIDERS: PCP Internal Medicine; Visit Provider Advanced Practice Midwife
DX: A54.9 Gonococcal infection, unspecified (principal)

== ENCOUNTER 2023-10-24 14:46 | Outpatient (REF) | payer MEDICAID, SELFPAY ==
[2023-10-25 08:26] LABS: Syphilis Screen Nonreactive (Nonreactive)
[2023-10-25 08:27] LABS: HBsAGNum1 0.26 S/CO (0.00-0.99); HIV AB/AG Nonreactive (Nonreactive); HIV Num 1 0.06 S/CO (0.00-0.99); Hepatitis B Surface Antigen Negative (Negative); ~Hepatitis C Antibody Nonreactive (Nonreactive)
== END 2023-10-24 14:47 | disposition home or self-care (01) ==
LOC: HO.LAB 14:46
PROVIDERS: PCP Internal Medicine; Visit Provider Advanced Practice Midwife
DX: Z11.4 Encounter for screening for human immunodeficiency virus [HIV] (principal); A54.9 Gonococcal infection, unspecified; A59.9 Trichomoniasis, unspecified
CPT/HCPCS: 36415; 86780; 86803; 87340; 87389; 96372; 99211; J0696

== ENCOUNTER 2023-11-22 08:09 | Inpatient (IN) | payer MEDICAID, SELFPAY ==
[2023-11-22] VITALS (10 sets, daily range): BP systolic 114–147; BP diastolic 65–99; PULSE 94–125; RESP 15–20; TEMP 36.3–38.2; O2SAT 96–99; BMI 24.6; BMI 24.2
--- NOTE | ~2023-11-22 | CT_ITS ---
CT SOFT TISSUE NECK WITH CONTRAST CLINICAL INFORMATION: Pharyngitis. Question abscess. COMPARISON: None available. TECHNIQUE: Following the intravenous administration of 60 mL of Omnipaque 350 intravenous contrast, helical imaging was performed in the axial plane with generation of coronal and sagittal reformatted images. This CT examination was performed using dose optimization techniques as appropriate, variously including the following: *Automated exposure control *Adjustment of mA and/or kV according to patient size (this includes techniques or standardized protocols for targeted exams where dose is matched to indication/reason for exam; i.e. extremities or head) *Use of iterative reconstruction technique FINDINGS: Significant enlargement and heterogeneity of the palatine tonsils bilaterally in keeping with palatine tonsillitis resulting in partial effacement of the oropharynx. No peritonsillar abscess and no retropharyngeal cellulitis. Intraglandular ductal dilatation within the subarticular glands bilaterally without any radiopaque calculi along Duval's duct on either side. The parotid glands, the partially imaged orbital soft tissues, and the thyroid gland are unremarkable. Likely reactive cervical lymph nodes bilaterally. The superior mediastinum is unremarkable. The lung apices are clear. The mastoid air cells and visualized portions of the paranasal sinuses are well-aerated. The imaged portions of the brain parenchyma are unremarkable. CT/CT soft tissue neck w IV con IMPRESSION: - Significant enlargement and heterogeneity of the palatine tonsils bilaterally in keeping with palatine tonsillitis resulting in partial effacement of the oropharynx. No peritonsillar abscess and no retropharyngeal cellulitis. - Intraglandular ductal dilatation within the subarticular glands bilaterally without any radiopaque calculi along Duval's duct on either side.
[2023-11-22 09:03] LABS: MANUAL DIFF FLAG NO
[2023-11-22] MEDS: 0.9 % Sodium Chloride 1,000 ML 999 ML IV (09:03)
[2023-11-22] MEDS: Acetaminophen 325 MG TABLET 650 MG PO ×2 (09:05→19:56)
[2023-11-22 09:07] LABS: Basophils Percent Auto 0.2 % (0-2); Hematocrit 40.5 % (37.0-47.0); Hemoglobin 13.2 g/dl (12.0-16.0); Imm Gran Abs Auto 0.08 X10*3/uL (0.00-0.03); Imm Gran Pct Auto 0.5 % (0.0-0.4); Lymphocytes Absolute Auto 0.7 X10*3/uL (1.2-4.9); Mean Corpuscular HGB Conc 32.6 g/dl (31.0-35.0); Mean Corpuscular Hemoglobin 26.1 pg (27.0-33.0); Mean Corpuscular Volume 80.2 fL (80.0-98.0); Mean Platelet Volume 10.1 fL (9.4-12.3); Monocytes Absolute Auto 1.2 X10*3/uL (0.1-1.2); Monocytes Percent Auto 6.8 % (2-11); Neutrophils Absolute Auto 15.2 x10*3/uL (2.0-8.3); Neutrophils Percent Auto 88.5 % (45-73); Platelet Count 293 X10*3/uL (160-400); Red Blood Count 5.05 X10*6/uL (4.20-5.50); Red Cell Distribution Width 14.5 % (11.0-16.0); White Blood Count 17.1 X10*3/uL (4.8-10.8)
--- NOTE | 2023-11-22 09:10 | ED.GENADULT ---
HPI - General Adult General Chief complaint: General Medical Stated complaint: Sore Throat Vomiting X 2 Days Time Seen by Provider: 11/22/23 08:48 Source: patient Mode of arrival: ambulatory Limitations: no limitations History of Present Illness HPI narrative: This is a 43-year-old female history of gonorrhea, Trichomonas, presenting to the emergency department for evaluation of sore throat, fatigue, malaise, nausea, vomiting, body aches and pains for the past week, worsening since Saturday, patient reports she went to her doctor was told she had mononucleosis, was given azithromycin and since then symptoms have been worsening. Has not been able to eat or drink. It hurts a lot when she swallows. Denies sick contacts at home. Related Data Home Medications Medication Instructions Recorded Confirmed hydroxyzine HCl 10 mg tablet 10 mg PO TID PRN 07/12/22 10/21/23 Previous Rx's Medication Instructions Recorded doxycycline hyclate 100 mg tablet 100 mg PO BID #14 tabs 10/22/23 Allergies Allergy/AdvReac Type Severity Reaction Status Date / Time bee pollen [Bee Stings] Allergy Mild SWELLING Verified 11/22/23 08:56 AT SITE Bee stings Allergy Unknown anaphylaxis Uncoded 10/21/23 11:07 Review of Systems Review of Systems: Constitutional : No Weight loss, + Fever, + Chills, + Fatigue, + Malaise ENT/Mouth : + sore throat, No Rhinorrhea Eyes: No Eye Pain, No Swelling, No Redness Cardiovascular : No Chest Pain, No SOB, No Dyspnea on Exertion, No Orthopnea, No Edema, No Palpitations Respiratory : No Cough, No Sputum, No Wheezing Gastrointestinal : No Nausea, No Vomiting, No Diarrhea, No Constipation, No abdominal Pain, No Hematochezia, No Melena Genitourinary : No Dysuria, No Urinary Frequency, No Hematuria, Musculoskeletal : No joint pain, + Myalgias, No Joint Swelling Skin : No Skin Lesions, No rash Neuro : No Weakness, No Numbness, No Dizziness, No Headache Psych : No Anxiety/Panic, No Depression All other systems reviewed and are negative Yes all other systems are reviewed and are negative PMFSH Past Medical History Attestation statement: The following information was validated with the patient. Source: old records reviewed and nursing notes reviewed Medical History Anxiety No known health problems Surgical History History of tubal ligation Social History Social History Unable to assess alcohol history related to: Unknown Alcohol intake: current Alcohol intake frequency: holidays/special occasions only Patient Tobacco Use Status: Former Tobacco user Smoked in Last 30 Days: Yes Use of substances other than those prescribed or required for medical reasons: Yes Substance Use Type: Marijuana Substance Use Frequency: Chronic Longstanding Last Used Substance: Days (ago) Advance Directives: No Advance Directives Information Provided: Yes Gender identity: Female Physical Exam ED Vital Signs: Vital Signs - 24 hr 11/22/23 08:52 11/22/23 09:28 11/22/23 10:18 Temperature 100.7 F H 99.1 F Pulse Rate 125 H 103 H Pulse Rate [Monitor] 124 H Respiratory Rate 18 20 Blood Pressure 147/99 H 131/87 Pulse Oximetry 98 99 Oxygen Delivery Method Room Air Room Air 11/22/23 11:10 11/22/23 11:25 Temperature 98.9 F 100.5 F H Pulse Rate 95 96 Pulse Rate [Monitor] Respiratory Rate 15 18 Blood Pressure 114/65 116/79 Pulse Oximetry 96 97 Oxygen Delivery Method Room Air Room Air BMI result Body Mass Index 24.6 Patient tachycardic, febrile. Appearance: Alert.? Oriented X3.? No acute distress.? Head: Normocephalic, atraumatic, no step-offs or deformities Eyes: Pupils equal, round and reactive to light.? ENT: Pharynx with significant edema to bilateral tonsils with exudate, pushing uvula back. Patient appears evidently uncomfortable. Neck: Normal inspection.? Neck supple.? CVS: Rapid regular rhythm likely sinus tachycardia heart rate around 120 beats per minute Pulses normal.? Respiratory: No respiratory distress.? Breath sounds normal.? Abdomen: Soft and nontender.? Skin: Skin warm and dry.? Normal skin color.? Normal skin turgor.? Extremities: No lower extremity edema.? No calf ttp. 5/5 strength to bilateral upper and lower extremities Back: No midline tenderness, no C-spine tenderness, full range of motion, no CVA tenderness bilaterally Neuro: Oriented X 3.? No motor deficit.? No sensory deficit. CN 2-12 intact Course Reevaluation(s) Reevaluation #1: CBC with leukocytosis and left shift, patient is receiving antibiotic, chemistry with low potassium gave oral potassium. Magnesium normal. Lactic acid normal. Flu/COVID/RSV negative. Strep negative. Anson negative. CT pending Sign out to Heydi Neil. Time: 10:59 Reevaluation #2: will admit for tonsillitis no [employer]MENT [employer], no resp issues not eating or drinking much admit for tonsillitis poor PO intake Medications Administered Discontinued Medications Generic Name Dose Route Start Last Admin Trade Name Freq PRN Reason Stop Dose Admin Acetaminophen 650 mg 11/22/23 09:00 11/22/23 09:05 Acetaminophen 325 Mg Tablet PO 11/22/23 09:01 650 mg ONCE ONE Administration Acetaminophen 325 mg 11/22/23 11:41 11/22/23 11:45 Acetaminophen 325 Mg Tablet PO 11/22/23 11:42 325 mg ONCE ONE Administration Dexamethasone Sodium Phosphate 10 mg 11/22/23 09:08 11/22/23 09:22 Dexamethasone Sod Phosphate 10 Mg/Ml Vial IVPUSH 11/22/23 09:09 10 mg ONCE ONE Administration Sodium Chloride 1,000 mls @ 999 mls/hr 11/22/23 09:15 11/22/23 10:21 Ns IV 11/22/23 10:15 Infused .Q1H1M LEILANI Infusion Sodium Chloride 1,769.01 mls @ 1,769.01 mls/hr 11/22/23 09:08 11/22/23 10:30 Ns 30 ml/kg infuse over 1 hr (1769.01 ml) 11/22/23 10:07 Infused IV Infusion .Q1H STA Ceftriaxone Sodium 1 gm/ 50 mls @ 100 mls/hr 11/22/23 09:08 11/22/23 10:14 Sodium Chloride IV 11/22/23 09:37 Infused ONCE ONE Infusion Iohexol 60 ml 11/22/23 10:57 11/22/23 10:58 Iohexol 350 Mg/Ml 100 Ml Infus..Btl IV 11/22/23 10:58 60 ml ONCE ONE Administration Ketorolac Tromethamine 30 mg 11/22/23 09:09 11/22/23 09:22 Ketorolac Tromethamine 15 Mg/Ml Vial IVPUSH 11/22/23 09:10 30 mg ONCE ONE Administration Potassium Chloride 20 meq 11/22/23 09:34 11/22/23 09:48 Potassium Chloride Packet 20 Meq Packet PO 11/22/23 09:35 20 meq ONCE ONE Administration Medical Decision Making Medical Decision Making [facility] Narrative: 43-year-old female presents with fatigue, malaise, fevers, chills, sore throat, body aches and pains, nausea and vomiting for the past few days worsening currently on azithromycin however was told she had mononucleosis. Physical exam significant for Pharynx with significant edema to bilateral tonsils with exudate, pushing uvula back. Patient appears evidently uncomfortable. And sinus tachycardia on exam with a heart rate of 120. Patient unewell appearing History and physical exam concerning for possible strep pharyngitis versus sepsis versus worsening mononucleosis versus viral illness. Will rule out metabolic derangements. Due to tonsillar edema will order CT soft tissue neck with IV contrast to rule out peritonsillar and retropharyngeal abscess. At this time infection suspected. Blood cultures, lactic acid ordered. Will also order fluids, antibiotics. Differential Diagnosis Differential Diagnoses: The differential diagnosis associated with the presentation includes History and physical exam concerning for possible strep pharyngitis versus sepsis versus worsening mononucleosis versus viral illness. Will rule out metabolic derangements. Due to tonsillar edema will order CT soft tissue neck with IV contrast to rule out peritonsillar and retropharyngeal abscess. Admission/Observation Consideration of admission/observation: Escalation of care including admission/observation considered possible Lab Data [facility] Lab Attestation statement: I reviewed the patient's lab results. 11/22/23 09:00 11/22/23 09:00 Labs: Lab Results 11/22/23 11/22/23 11/22/23 Range/Units 08:59 09:00 09:06 WBC 17.1 H (4.8-10.8) X10*3/uL RBC 5.05 (4.20-5.50) X10*6/uL Hgb 13.2 (12.0-16.0) g/dl Hct 40.5 (37.0-47.0) % MCV 80.2 (80.0-98.0) fL MCH 26.1 L (27.0-33.0) pg MCHC 32.6 (31.0-35.0) g/dl RDW 14.5 (11.0-16.0) % Plt Count 293 (160-400) X10*3/uL MPV 10.1 (9.4-12.3) fL Immature Gran % (Auto) 0.5 H (0.0-0.4) % Neut % (Auto) 88.5 H (45-73) % Lymph % (Auto) 4.0 L (20-40) % [place] % (Auto) 6.8 (2-11) % Eos % (Auto) 0.0 (0-4) % Baso % (Auto) 0.2 (0-2) % Lymph # (Auto) 0.7 L (1.2-4.9) X10*3/uL [place] # (Auto) 1.2 (0.1-1.2) X10*3/uL Eos # (Auto) 0.0 (0.0-0.4) X10*3/uL Baso # (Auto) 0.0 (0.0-0.2) X10*3/uL Abs Immat Gran (auto) 0.08 H (0.00-0.03) X10*3/uL Absolute Neuts (auto) 15.2 H (2.0-8.3) x10*3/uL Absolute Nucleated RBC 0.000 (0.0-0.012) X10*3/uL Nucleated RBC % (auto) 0.0 (0.0-0.2) /100WBC Sodium 134 L (135-145) mmol/L Potassium 3.2 L (3.3-5.1) mmol/L Chloride 101 (96-108) mmol/L Carbon Dioxide 24 (22-29) mmol/L Anion Gap 12 (12-20) BUN 9 (9-16) mg/dL Creatinine 0.81 (0.5-1.4) mg/dL Estim Creat Clear Calc 75.4 Estimated GFR > 60 Random Glucose 166 H (60-115) mg/dL Lactic Acid (0.5-2.0) mmol/L Calcium 9.3 (8.4-10.2) mg/dL Magnesium 2.0 (1.6-2.6) mg/dL Total Bilirubin 0.4 (0.0-1.0) mg/dL AST 14 (5-31) U/L ALT 10 (0-31) U/L Alkaline Phosphatase 74 (39-117) U/L Total Protein 7.8 (6.5-8.0) g/dL Albumin 4.1 (3.5-5.0) g/dL Monoscreen (Negative) Influenza Type A (PCR) NEGATIVE (Negative) Influenza Type B (PCR) NEGATIVE (Negative) RSV RNA Qual (PCR) NEGATIVE (Negative) SARS-CoV-2 RNA (RT-PCR) NEGATIVE (Negative) S. pyogenes GrpA JAY Negative (Negative) 11/22/23 11/22/23 Range/Units 09:19 09:32 WBC (4.8-10.8) X10*3/uL RBC (4.20-5.50) X10*6/uL Hgb (12.0-16.0) g/dl Hct (37.0-47.0) % MCV (80.0-98.0) fL MCH (27.0-33.0) pg MCHC (31.0-35.0) g/dl RDW (11.0-16.0) % Plt Count (160-400) X10*3/uL MPV (9.4-12.3) fL Immature Gran % (Auto) (0.0-0.4) % Neut % (Auto) (45-73) % Lymph % (Auto) (20-40) % [place] % (Auto) (2-11) % Eos % (Auto) (0-4) % Baso % (Auto) (0-2) % Lymph # (Auto) (1.2-4.9) X10*3/uL [place] # (Auto) (0.1-1.2) X10*3/uL Eos # (Auto) (0.0-0.4) X10*3/uL Baso # (Auto) (0.0-0.2) X10*3/uL Abs Immat Gran (auto) (0.00-0.03) X10*3/uL Absolute Neuts (auto) (2.0-8.3) x10*3/uL Absolute Nucleated RBC (0.0-0.012) X10*3/uL Nucleated RBC % (auto) (0.0-0.2) /100WBC Sodium (135-145) mmol/L Potassium (3.3-5.1) mmol/L Chloride (96-108) mmol/L Carbon Dioxide (22-29) mmol/L Anion Gap (12-20) BUN (9-16) mg/dL Creatinine (0.5-1.4) mg/dL Estim Creat Clear Calc Estimated GFR Random Glucose (60-115) mg/dL Lactic Acid 0.8 (0.5-2.0) mmol/L Calcium (8.4-10.2) mg/dL Magnesium (1.6-2.6) mg/dL Total Bilirubin (0.0-1.0) mg/dL AST (5-31) U/L ALT (0-31) U/L Alkaline Phosphatase (39-117) U/L Total Protein (6.5-8.0) g/dL Albumin (3.5-5.0) g/dL Monoscreen Negative (Negative) Influenza Type A (PCR) (Negative) Influenza Type B (PCR) (Negative) RSV RNA Qual (PCR) (Negative) SARS-CoV-2 RNA (RT-PCR) (Negative) S. pyogenes GrpA JAY (Negative) Independent Interpretation I performed an independent interpretation of an: CT Scan Radiology Impression Discussion of test interpretation with radiology: I have reviewed the radiologist's reading. Critical Care Time Critical Care Time Critical Care Time: No Discharge Plan Discharge Clinical Impression: Sore throat, Tachycardia, Acute hypokalemia Acute tonsillitis Qualifiers: Pharyngitis/tonsillitis etiology: other specified organisms Qualified Code(s): J03.80 - Acute tonsillitis due to other specified organisms Patient Disposition: Admitted As Inpatient Prescriptions: No Action doxycycline hyclate 100 mg tablet 100 mg PO BID Qty: 14 0RF hydroxyzine HCl 10 mg tablet 10 mg PO TID PRN
[2023-11-22] MEDS: dexAMETHasone sod phosphate 10 MG/ML VIAL IVPUSH (09:22)
[2023-11-22] MEDS: Ketorolac Tromethamine 15 MG/ML VIAL 30 MG IVPUSH (09:22)
[2023-11-22 09:24] LABS: IDNOW Serial# 08D9AD1C; Strep A Nucleic Acid Negative (Negative)
--- NOTE | 2023-11-22 09:30 | PC.NURSE ---
Patient reporting from home, reporting n/v/d/bodyaches/chills/fever since saturday she reported going to the clinic and being told you have a throat infection mono Swabs sent from ED/lab work sent. IVF started, apap given for fever. Pt currenty sinus tach on monitor with occasional PVCs. Provider at bedside to assess patient, sepsis alert called, pt given education on course of care, pt tearful but in agreement. Pt reporting a child at home who is sick with a cold but no other contacts who are sick.
[2023-11-22 09:32] LABS: Alanine Aminotransferase 10 U/L (0-31); Albumin Level 4.1 g/dL (3.5-5.0); Alkaline Phosphatase 74 U/L (39-117); Anion Gap 12 (12-20); Aspartate Amino Transferase 14 U/L (5-31); Bilirubin Total 0.4 mg/dL (0.0-1.0); Blood Urea Nitrogen 9 mg/dL (9-16); Calcium 9.3 mg/dL (8.4-10.2); Carbon Dioxide 24 mmol/L (22-29); Chloride 101 mmol/L (96-108); Creatinine Clr Calc Pharmacy 75.4; Estimated Glomerular Filt Rate > 60; Glucose Random 166 mg/dL (60-115); Potassium 3.2 mmol/L (3.3-5.1); Sodium 134 mmol/L (135-145); Total Protein 7.8 g/dL (6.5-8.0)
[2023-11-22 09:36] LABS: Lactic Acid 0.8 mmol/L (0.5-2.0)
[2023-11-22] MEDS: cefTRIAXone sodium 1 GM in 0.9 % Sodium Chloride 50 ML IV (09:36)
[2023-11-22] MEDS: 0.9 % Sodium Chloride 1,769.01 ML 1769.01 ML IV (09:36)
[2023-11-22 09:45] LABS: Influenza A PCR NEGATIVE (Negative); Influenza B PCR NEGATIVE (Negative); Resp Syncy Virus RNA Qual PCR NEGATIVE (Negative); SARS COV2 PCR INHOUSE NEGATIVE (Negative)
[2023-11-22] MEDS: Potassium Chloride Packet 20 MEQ PACKET PO (09:48)
[2023-11-22 10:11] LABS: Monotest Negative (Negative)
[2023-11-22] MEDS: iohexoL 350 MG/ML 100 ML INFUS..BTL 60 ML IV (10:58)
--- NOTE | 2023-11-22 11:24 | PC.NURSE ---
assumed care of pt at 1100, some improvement in fever/HR, sepsis vitals completed. throat culture swabs obtained. no new orders at this time.
[2023-11-22] MEDS: Acetaminophen 325 MG TABLET PO (11:45)
--- NOTE | 2023-11-22 13:04 | PHA.MEDREC ---
Pharmacy Consult ? Medication Reconciliation Pharmacy has completed the medication reconciliation.
[2023-11-22] MEDS: 0.9 % Sodium Chloride 1,000 ML 125 ML IVCONT ×2 (13:10→21:20)
--- NOTE | 2023-11-22 13:14 | PC.NURSE ---
1L NS started at 125ml/hr. pt pending admission orders.
[2023-11-22] MEDS: Doxycycline Hyclate 100 MG in 0.9 % Sodium Chloride 250 ML 166.67 MG IV (14:32)
--- NOTE | 2023-11-22 15:51 | PC.NURSE ---
Addendum entered by [place] 11/22/23 15:56: Note by ZACHERY Madison Original Note: spoke w lab, unclear which swab to use for CT/NG throat swab, [facility] is out for the day and [facility] is suggesting a swab that [facility] doesn't carry - plan on deferring testing untill [facility] is able to confirm swab tomorrow.
--- NOTE | 2023-11-22 16:47 | P.HPHOSP_ITS ---
History of Present Illness Date of Service: 11/22/23 Chief Complaint: Sore throat 43-year-old female patient who was recently treated for gonorrhea and chlamydia, presented to the emergency room for evaluation of generalized weakness, sore throat nausea vomiting body aches, loss of appetite, decreased by mouth intake, headache, dizziness worsening in last couple days patient was seen by her PCP and was told that she has mononucleosis and was given azithromycin but since her symptoms were getting worse she came to the emergency room she denies history of sick contacts, no recent travel, denies shortness of breath, no cough, in the emergency [place] [address], potassium 3.2 blood sugar 166 lactic acid 0.8, low flu COVID and RSV negative, strep pyogenes negative, CT neck showed significant enlargement and heterogenicity of palatine tonsils bilaterally no peritonsillar abscess and no retropharyngeal cellulitis were noted, patient is being admitted to [facility] with a diagnosis of sepsis due to acute tonsillitis with inability to take by mouth. Review of Systems 2 Review of Systems: General headache, lightheadedness, fevers CVS no chest pain, no palpitation. Respiratory no cough no sob Gastrointestinal mild nausea ,no vomiting, no abdominal pain, no diarrhea. no urgency, no frequency PMFSH Medical History Anxiety No known health problems Pertinent family history: Not aware of father's medical history Mother is alive and healthy and has history of hypertension Surgical History History of tubal ligation Social History Household Members: Children Housing: Other Housing Other:: [employer] Do you presently have visiting nurse or other home services: No Unable to assess alcohol history related to: Unknown Alcohol intake: current Alcohol intake frequency: holidays/special occasions only Patient Tobacco Use Status: Former Tobacco user Smoked in Last 30 Days: Yes Use of substances other than those prescribed or required for medical reasons: Yes Substance Use Type: Marijuana Substance Use Frequency: Occasionally Last Used Substance: Days (ago) Have you been hit, kicked, punched, or otherwise hurt by someone within the past year? If so, by whom?: No Do you feel safe in your current relationship?: Yes Is there a partner from a previous relationship who is making you feel unsafe now?: No Are you made to feel afraid or neglected: No Advance Directives: No Advance Directives Information Provided: Yes Do you have thoughts of harming others: None Do you have a plan to hurt others: No Plan Recently lost weight without trying: No Nutrition Risks: No Nutritional Risk Patient : No : No Poor oral hygiene: No Gender identity: Female Meds Allergies Allergy/AdvReac Type Severity Reaction Status Date / Time bee pollen [Bee Stings] Allergy Mild SWELLING Verified 11/22/23 08:56 AT SITE Bee stings Allergy Unknown anaphylaxis Uncoded 10/21/23 11:07 Active Medications: Current Medications Acetaminophen (Acetaminophen 325 Mg Tablet) 650 mg PO Q6H PRN PRN Reason: Pain, Mild (Pain Scale 1-3) Hydroxyzine HCl (Hydroxyzine Hcl 10 Mg Tablet) 10 mg PO TID PRN PRN Reason: Anxiety Sodium Chloride (Ns) 1,000 mls @ 125 mls/hr IVCONT .Q8H [facility] Last Admin: 11/22/23 13:10 Dose: 125 mls/hr Doxycycline Hyclate 100 mg/ (Sodium Chloride) 250 mls @ 166.67 mls/hr IV Q12H [facility] Last Infusion: 11/22/23 16:20 Dose: Infused Ceftriaxone Sodium 1 gm/ (Sodium Chloride) 50 mls @ 100 mls/hr IV Q24H [facility] Ketorolac Tromethamine (Ketorolac Tromethamine 30 Mg/Ml Vial) 30 mg IVPUSH Q6H PRN PRN Reason: Pain, Moderate(Pain Scale 4-6) Magnesium Hydroxide (Milk Of Magnesia 30 Ml Oral.Susp) 30 ml PO DAILY PRN PRN Reason: Constipation Melatonin (Melatonin 3 Mg Tablet) 3 mg PO BEDTIME PRN PRN Reason: Insomnia Ondansetron HCl (Ondansetron Hcl 4 Mg/2 Ml Vial) 4 mg IVPUSH Q8H PRN PRN Reason: Nausea and Vomiting Sodium Chloride (0.9 % Sodium Chloride Flush 3 Ml Syringe) 3 ml IVFLUSH QSHIFT [facility] Last Admin: 11/22/23 15:11 Dose: Not Given Home Medications Medication Instructions Recorded Confirmed Last Taken Type hydroxyzine HCl 10 mg tablet 10 mg PO TID PRN Anxiety 07/12/22 11/22/23 1 Week Ago History ~11/15/23 Physical Exam 2 Vital Signs and Narrative: Vital Signs: Last Vital Signs Temp 98.5 F 11/22/23 14:30 Pulse 94 11/22/23 14:30 Resp 16 11/22/23 14:30 BP 136/87 11/22/23 14:30 Pulse Ox 98 11/22/23 14:30 O2 Del Method Room Air 11/22/23 14:30 BMI result Body Mass Index 24.6 Const: Other: General awake alert x3, in no acute distress. HEENT:PERRLA,EOMI Oral cavity bilateral enlarged tonsil hyperemic with white exudate. Neck is supple no JVD. CVS regular rate rhythm, Respiratory lungs clear to auscultation, no respiratory distress, no wheeze, no rhonchi. Gastrointestinal abdomen soft, nontender, bowel sounds audible, no no guarding , no rigidity. Extremities no edema. Neuro nonfocal. Skin no rash Psych appropriate affect Results Labs 11/23/23 05:10 11/23/23 05:10 Labs: Laboratory Results - last 24 hr 11/22/23 11/22/23 11/22/23 08:59 09:00 09:06 MCV 80.2 MCH 26.1 L MCHC 32.6 RDW 14.5 Plt Count 293 MPV 10.1 Immature Gran % (Auto) 0.5 H Neut % (Auto) 88.5 H Lymph % (Auto) 4.0 L [place] % (Auto) 6.8 Eos % (Auto) 0.0 Baso % (Auto) 0.2 Lymph # (Auto) 0.7 L [place] # (Auto) 1.2 Eos # (Auto) 0.0 Baso # (Auto) 0.0 Abs Immat Gran (auto) 0.08 H Absolute Neuts (auto) 15.2 H Absolute Nucleated RBC 0.000 Nucleated RBC % (auto) 0.0 Anion Gap 12 Estim Creat Clear Calc 75.4 Estimated GFR > 60 Random Glucose 166 H Lactic Acid Calcium 9.3 Magnesium 2.0 Total Bilirubin 0.4 AST 14 ALT 10 Alkaline Phosphatase 74 Total Protein 7.8 Albumin 4.1 Monoscreen Influenza Type A (PCR) NEGATIVE Influenza Type B (PCR) NEGATIVE RSV RNA Qual (PCR) NEGATIVE SARS-CoV-2 RNA (RT-PCR) NEGATIVE S. pyogenes GrpA JAY Negative 11/22/23 11/22/23 09:19 09:32 MCV MCH MCHC RDW Plt Count MPV Immature Gran % (Auto) Neut % (Auto) Lymph % (Auto) [place] % (Auto) Eos % (Auto) Baso % (Auto) Lymph # (Auto) [place] # (Auto) Eos # (Auto) Baso # (Auto) Abs Immat Gran (auto) Absolute Neuts (auto) Absolute Nucleated RBC Nucleated RBC % (auto) Anion Gap Estim Creat Clear Calc Estimated GFR Random Glucose Lactic Acid 0.8 Calcium Magnesium Total Bilirubin AST ALT Alkaline Phosphatase Total Protein Albumin Monoscreen Negative Influenza Type A (PCR) Influenza Type B (PCR) RSV RNA Qual (PCR) SARS-CoV-2 RNA (RT-PCR) S. pyogenes GrpA JAY Imaging Radiologist's Impressions: Impressions Soft Tissue Neck CT 11/22/23 10:40 IMPRESSION: - Significant enlargement and heterogeneity of the palatine tonsils bilaterally in keeping with palatine tonsillitis resulting in partial effacement of the oropharynx. No peritonsillar abscess and no retropharyngeal cellulitis. - Intraglandular ductal dilatation within the subarticular glands bilaterally without any radiopaque calculi along Union's duct on either side. Assessment and Plan (1) Acute tonsillitis: Qualifiers: Pharyngitis/tonsillitis etiology: other specified organisms Qualified Code(s): J03.80 - Acute tonsillitis due to other specified organisms Status: Acute (2) Acute hypokalemia: Status: Acute Plan 43-year-old female patient presented with sore throat, generalized weakness fevers nausea loss of appetite and decreased by mouth intake of few days duration patient diagnosed to have sepsis due to acute tonsillitis. Sepsis due to acute tonsillitis. Will treat with IV doxycycline and IV ceftriaxone Recent history of vaginal gonorrhea and chlamydia Will check chlamydia, gonorrhea throat test. IV fluid Gradually advanced to Soft diet as tolerated/analgesics/lozenges Follow CBC and BMP Hypokalemia will replete and follow labs. Code status full code Early ambulation Patient need 2 night inpatient hospitalization for management of acute tonsillitis with sepsis requiring IV fluids and IV antibiotics. Quality Stroke Does the patient have a stroke diagnosis?: No VTE Prior VTE?: No VTE Risk Level:: Medical - low VTE Device Contraindication: Treatment Not Indicated VTE Drug Contraindication: Treatment Not Indicated
[2023-11-23] MEDS: Doxycycline Hyclate 100 MG in 0.9 % Sodium Chloride 250 ML 166.67 MG IV (01:41)
[2023-11-23 03:37] VITALS: BP 137/61; PULSE 91; RESP 16; TEMP 36.3; O2SAT 99
[2023-11-23 05:42] LABS: Hemoglobin 10.7 g/dl (12.0-16.0); Mean Corpuscular HGB Conc 32.4 g/dl (31.0-35.0); Mean Corpuscular Hemoglobin 26.2 pg (27.0-33.0); Mean Corpuscular Volume 80.7 fL (80.0-98.0); Mean Platelet Volume 10.7 fL (9.4-12.3); Platelet Count 245 X10*3/uL (160-400); Red Blood Count 4.09 X10*6/uL (4.20-5.50); Red Cell Distribution Width 14.4 % (11.0-16.0); White Blood Count 10.8 X10*3/uL (4.8-10.8)
[2023-11-23 05:54] LABS: Anion Gap 12 (12-20); Blood Urea Nitrogen 8 mg/dL (9-16); Calcium 8.2 mg/dL (8.4-10.2); Carbon Dioxide 21 mmol/L (22-29); Chloride 108 mmol/L (96-108); Creatinine Clr Calc Pharmacy 112.5; Estimated Glomerular Filt Rate > 60; Glucose Random 100 mg/dL (60-115); Potassium 3.5 mmol/L (3.3-5.1); Sodium 137 mmol/L (135-145)
[2023-11-23 07:01] VITALS: BP 122/77; PULSE 90; RESP 18; TEMP 36; O2SAT 99
[2023-11-23] MEDS: 0.9 % Sodium Chloride 1,000 ML 125 ML IVCONT (09:01)
[2023-11-23] MEDS: cefTRIAXone sodium 1 GM in 0.9 % Sodium Chloride 50 ML IV (09:02)
[2023-11-23] MEDS: 0.9 % Sodium Chloride Flush 3 ML SYRINGE IVFLUSH (09:02)
[2023-11-23] MEDS: Acetaminophen 325 MG TABLET 650 MG PO (09:47)
--- NOTE | 2023-11-23 11:08 | P.DS_ITS ---
DS: Providers Provider Date of Service: 11/23/23 Date of admission: 11/22/23 13:36 Primary care physician: Laxmi Spear MD DS: Diagnosis Discharge Diagnosis (1) Acute tonsillitis: Status: Acute (2) Acute hypokalemia: Status: Acute DS: Summary Hospital Course Hospital Course: History of presenting illness. Date of Service: 11/22/23 Chief Complaint: Sore throat 43-year-old female patient who was recently treated for gonorrhea and chlamydia, presented to the emergency room for evaluation of generalized weakness, sore throat nausea vomiting body aches, loss of appetite, decreased by mouth intake, headache, dizziness worsening in last couple days patient was seen by her PCP and was told that she has mononucleosis and was given azithromycin but since her symptoms were getting worse she came to the emergency room she denies history of sick contacts, no recent travel, denies shortness of breath, no cough, in the emergency [place] [address], potassium 3.2 blood sugar 166 lactic acid 0.8, low flu COVID and RSV negative, strep pyogenes negative, CT neck showed significant enlargement and heterogenicity of palatine tonsils bilaterally no peritonsillar abscess and no retropharyngeal cellulitis were noted, patient is being admitted to [facility] with a diagnosis of sepsis due to acute tonsillitis with inability to take by mouth. Hospital course 43-year-old female patient presented with sore throat, generalized weakness fevers, nausea loss of appetite, and decreased by mouth intake of few days duration patient diagnosed to have sepsis due to acute tonsillitis and admitted to medical floor treated with IV doxycycline and IV ceftriaxone, patient responded rapidly to above treatment, WBC and potassium normalize, had no fevers tolerating diet, patient was recently treated for vaginal gonorrhea and chlamydia therefore throat swab obtained to rule out chlamydia/gonorrhea infection, Throat soft for beta-hemolytic strep is negative, mononucleosis is negative, blood cultures are pending but since patient is clinically stable and wishes to be discharged home will send her home on doxycycline and ceftriaxone, recommend to follow up with her primary care physician or cylindrical mixer to obtain lab results , HIV test pending. Recommend to drink plenty of fluids, saltwater gargles/lozenges. Time Attestation Discharge coordination time: Greater than 30 minutes Quality: Safe Use of Opioids Does Pt have an Active Cancer Diagnosis on the Problem List?: No Quality: Stroke Does the patient have a stroke diagnosis?: No Physical Exam Vital Signs: Vital Signs: Last Vital Signs Temp 96.8 F 11/23/23 07:01 Pulse 90 11/23/23 07:01 Resp 18 11/23/23 07:01 BP 122/77 11/23/23 07:01 Pulse Ox 99 11/23/23 07:01 O2 Del Method Room Air 11/23/23 07:01 BMI result Body Mass Index 24.2 Const: Other: General awake alert x3, in no acute distress. Oral cavity bilateral enlarged tonsil hyperemic with white exudate, improved from yesterday. Neck supple, no JVD. CVS regular rate rhythm, Respiratory lungs clear to auscultation, no respiratory distress, no wheeze, no rhonchi. Gastrointestinal abdomen soft, nontender, bowel sounds audible. Extremities no edema. Neuro non focal. Skin no rash Psych appropriate affect DS: Data Data Completed and Pending Labs on day of discharge: Laboratory Results - last 24 hr 11/23/23 05:10 WBC 10.8 RBC 4.09 L Hgb 10.7 L Hct 33.0 L MCV 80.7 MCH 26.2 L MCHC 32.4 RDW 14.4 Plt Count 245 MPV 10.7 Absolute Nucleated RBC 0.000 Nucleated RBC % (auto) 0.0 Sodium 137 Potassium 3.5 Chloride 108 Carbon Dioxide 21 L Anion Gap 12 BUN 8 L Creatinine 0.54 Estim Creat Clear Calc 112.5 Estimated GFR > 60 Random Glucose 100 Calcium 8.2 L D Preliminary micro results at discharge 11/22/23 11:14 Throat Culture - Preliminary Throat No Group A Beta-hemolytic Streptococci isolated to date. Discharge Plan Discharge Anticipated Discharge Date/Time: 11/23/23 10:57 Patient Disposition: Home, Self-Care Discharge Diagnosis: Acute tonsillitis Referrals: Laxmi Spear MD [Primary Care Provider] - 1 Week Discharge Medications: New doxycycline hyclate 100 mg capsule 100 mg PO BID Qty: 12 0RF cefuroxime axetil 500 mg tablet 500 mg PO Q12H Qty: 10 0RF Continued hydroxyzine HCl 10 mg tablet 10 mg PO TID PRN (Reason: Anxiety) Discharge Orders: Discharge Order (Routine); Ordered 11/23/23 Ordered By: London Rey Diet: soft diet Activity on Discharge: As tolerated Stand Alone Forms: Patient Portal Discharge page, Work/School Release Care Plan Goals: Take both antibiotics as prescribed, salt water gargles, soft diet, plenty of fluids Tylenol for pain Follow-up on blood test with OBGYN in 1 week Health Concerns: Return to check with worsening sore throat, high-grade fevers lightheadedness dizziness. Plan of Treatment: Outpatient follow-up with primary care physician or Obgyn call for appointment Assessment: As above
--- NOTE | 2023-11-23 15:19 | MHC.CM.PN ---
PT REPORTS SHE LIVES AT HOME WITH HER KIDS AND IS INDEPENDENT WITH CARE SHE DENIES USE OF DME AND [facility]ED [facility] PT COMPLETED A HCP TODAY NAMING HER MOTHER HER AGENT PCP: JORGE HAWKINS DCP: HOME TODAY, NO SERVICES PT SELF ARRANGED TRANSPORT
[2023-11-25 04:04] LABS: HIV AB/AG Nonreactive (Nonreactive); HIV Num 1 0.06 S/CO (0.00-0.99)
[2023-11-27 13:59] LABS: C. Trachomatis RNA TMA, Throat NOT DETECTED; N. gonorrhoeae RNA TMA, Throat NOT DETECTED
== END 2023-11-23 12:00 | disposition home or self-care (01) | DRG 720 ==
LOC: HO.ED 12:06 → HO.EDOVER 13:48 → HO.S3 15:43
PROVIDERS: Physician Assistant; Admitting Provider Hospitalist; Emergency Provider Emergency Medicine; PCP Internal Medicine; Visit Provider Hospitalist
DX: A41.9 Sepsis, unspecified organism (principal); E87.6 Hypokalemia; J03.90 Acute tonsillitis, unspecified; Z87.891 Personal history of nicotine dependence
CPT/HCPCS: 0241U; 36415; 70491; 80048; 80053; 83605; 83735; 85025; 85027; 86308; 87040; 87070; 87205; 87389; 87491; 87591; 87651; 99221; 99285; J0696; J1100; J1885; Q9967

== ENCOUNTER → 2023-11-22 13:36 | Outpatient (BNV) | payer MEDICAID, SELFPAY | PROVIDERS: Admitting Provider Hospitalist; Emergency Provider Emergency Medicine; PCP Internal Medicine; Visit Provider Hospitalist | DX: J03.80 Acute tonsillitis due to other specified organisms (principal); E87.6 Hypokalemia | CPT/HCPCS: 99223; 99239 ==

== ENCOUNTER 2023-12-13 10:16 | Outpatient (REF) | payer MEDICAID, SELFPAY ==
[2023-12-13 11:49] LABS: MANUAL DIFF FLAG NO
[2023-12-13 11:56] LABS: Potassium 4.1 mmol/L (3.3-5.1)
[2023-12-13 11:59] LABS: Basophils Percent Auto 0.6 % (0-2); Eosinophils Absolute Auto 0.3 X10*3/uL (0.0-0.4); Eosinophils Percent Auto 4.6 % (0-4); Hematocrit 40.4 % (37.0-47.0); Hemoglobin 12.5 g/dl (12.0-16.0); Imm Gran Abs Auto 0.02 X10*3/uL (0.00-0.03); Imm Gran Pct Auto 0.3 % (0.0-0.4); Lymphocytes Absolute Auto 2.2 X10*3/uL (1.2-4.9); Lymphocytes Percent Auto 30.9 % (20-40); Mean Corpuscular HGB Conc 30.9 g/dl (31.0-35.0); Mean Corpuscular Hemoglobin 26.1 pg (27.0-33.0); Mean Corpuscular Volume 84.3 fL (80.0-98.0); Mean Platelet Volume 10.9 fL (9.4-12.3); Monocytes Absolute Auto 0.5 X10*3/uL (0.1-1.2); Monocytes Percent Auto 6.6 % (2-11); Neutrophils Absolute Auto 4.1 x10*3/uL (2.0-8.3); Platelet Count 396 X10*3/uL (160-400); Red Blood Count 4.79 X10*6/uL (4.20-5.50); Red Cell Distribution Width 14.8 % (11.0-16.0); White Blood Count 7.2 X10*3/uL (4.8-10.8)
== END 2023-12-13 10:17 | disposition home or self-care (01) ==
LOC: HO.HHCL 10:16
PROVIDERS: Visit Provider Internal Medicine
DX: R03.0 Elevated blood-pressure reading, without diagnosis of hypertension (principal)
CPT/HCPCS: 36415; 84132; 85025

== ENCOUNTER 2024-01-23 18:05 | Outpatient (REF) | payer MEDICAID, SELFPAY ==
[2024-01-24 17:19] LABS: C. trachomatis RNA TMA NOT DETECTED (NOT DETECTED); N. gonorrhoeae RNA TMA NOT DETECTED (NOT DETECTED)
== END 2024-01-23 18:06 | disposition home or self-care (01) ==
LOC: HO.HHCLNP 18:05
PROVIDERS: Visit Provider Internal Medicine
DX: A74.9 Chlamydial infection, unspecified (principal)
CPT/HCPCS: 36415; 81513; 87491; 87591

== ENCOUNTER → 2024-02-03 10:15 | Outpatient (BNV) | payer MEDICAID, SELFPAY | PROVIDERS: PCP Internal Medicine; Visit Provider Radiology Diagnostic Radiology | DX: Z12.31 Encounter for screening mammogram for malignant neoplasm of breast (principal) | CPT/HCPCS: 77063; 77067 ==

== ENCOUNTER 2024-02-03 10:20 | Outpatient (REF) | payer MEDICAID, SELFPAY ==
--- NOTE | ~2024-02-03 | MM_ITS ---
EXAMINATION: MM SCREENING DIGITAL BREAST TOMOSYNTHESIS, BILATERAL CLINICAL INFORMATION: Screening. Asymptomatic. COMPARISON: Mammography: This study is compared with prior exams dating back to 2022. TECHNIQUE: Digital breast tomosynthesis is performed in both the craniocaudal and mediolateral oblique views along with computer-aided detection (CAD). Synthesized 2D images are generated from the tomosynthesis. FINDINGS: There are scattered areas of fibroglandular density (ACR BI-RADS breast composition Category b). There are no significant masses, abnormal calcifications, or other abnormalities. MM/MM tomosynthesis screening BI IMPRESSION: No mammographic evidence of malignancy. ASSESSMENT: BI-RADS BI-RADS 1 - Negative RECOMMENDATION: Routine annual mammography screening. 1 year F/U This examination should not preclude the clinical evaluation of a suspicious palpable abnormality. This patient's information was entered into a reminder system with a target due date for their next mammogram.
== END 2024-02-03 10:21 | disposition home or self-care (01) ==
LOC: HO.MAMMO 10:20
PROVIDERS: PCP Internal Medicine; Visit Provider Internal Medicine
DX: Z12.31 Encounter for screening mammogram for malignant neoplasm of breast (principal)
CPT/HCPCS: 77063; 77067

== ENCOUNTER 2024-02-13 09:20 | Outpatient (REF) | payer MEDICAID, SELFPAY ==
[2024-02-14 04:02] LABS: CT PCR NOT DETECTED (Not Detect.); NG PCR NOT DETECTED (Not Detect.)
[2024-02-14 12:54] LABS: BV Int Neg Control Negative (Negative); BV Int Pos Control Positive (Positive)
== END 2024-02-13 09:21 | disposition home or self-care (01) ==
LOC: HO.LNP 09:20
PROVIDERS: PCP Internal Medicine; Visit Provider Advanced Practice Midwife
DX: Z01.419 Encounter for gynecological examination (general) (routine) without abnormal findings (principal); Z11.3 Encounter for screening for infections with a predominantly sexual mode of transmission; Z86.19 Personal history of other infectious and parasitic diseases
CPT/HCPCS: 0353U; 87480; 87510; 87660; 99396

== ENCOUNTER 2024-02-13 09:20 | Outpatient (AMB) | payer MEDICAID, SELFPAY ==
[2024-02-13 09:21] VITALS: BP 124/76; BMI 23.6
--- NOTE | 2024-02-13 09:21 | MHC.OFFVIS ---
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 She says she has no condominium association manager concerns today she was last seen by this provider for test of cure for trichomoniasis and that test was negative and testing for other STIs was ordered for her she says that she went she has had a number of labs ordered by other providers as well and she says she is on the portal. She had negative Paps in 2020 and 2022 and has no history of abnormals in the past. 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 She says her exercises her work. She has no other concerns today. [facility] Medical History Anxiety No known health problems Surgical History History of tubal ligation Social History Household Members: Children Housing: Other Housing Other:: [employer] Do you presently have visiting nurse or other home services: No Unable to assess alcohol history related to: Unknown Alcohol intake: current Alcohol intake frequency: holidays/special occasions only Patient Tobacco Use Status: Former Tobacco user Substance Use Type: Marijuana service: No Gender identity: Female Female Reproductive History Menstrual Age of Menarche: 17 Duration of menses: 3-5 days Date of last menstrual period: 01/20/24 control method: permanent sterilization Permanent Sterilization: BTL Total pregnancies: 2 Full term: 2 Number of Living Children: 2 Date of last pap smear: 12/20/22 History of abnormal pap smear: No History of STI: Yes (trichomoniasis) Date of Mammogram: 02/03/24 Physical Exam Vital Signs: Last Vital Signs BP 124/76 02/13/24 09:21 BMI result Body Mass Index 23.6 Const General: healthy appearing, comfortable, no acute distress, well developed and alert Nutritional Appearance: average body habitus Orientation/consciousness: patient oriented x3 Limitations: no limitations HEENT Head: Yes normocephalic Neck Neck: Yes normal visual inspection Thyroid: Thyroid normal Chest Chest palpation & inspection: normal inspection of the chest Breast/axilla inspection: normal inspection of the breasts and normal inspection of the axillae Breast/axilla palpation: normal palpation of the breasts and normal palpation of the axillae Resp Effort & Inspection: normal respiratory effort GI Inspection: Yes normal to inspection, No Abdominal wall edema and No distended Palpation (GI): Soft to palpation and nontender Other: Speculum exam within normal limits vagina pink and moist there has a liquidy whitish yellowish homogeneous discharge. Cervix did not appear friable but did bleed from surface without touching. Testing was taken for gonorrhea chlamydia trichomoniasis Gardnerella and Leeanna. We will await the results to see if patient needs treatment for either trichomoniasis or gardnerella. Multiparous cervix long close thick mobile nontender uterus anteverted mobile nontender adnexa not enlarged good tone with Kegel General: Yes bladder normal to palpation External Female Exam: normal external appearance and normal appearance of the urethra Speculum Exam - Vagina: normal appearance of the vagina, normal palpation and normal vaginal discharge Speculum Exam - Cervix: normal appearance of the cervix, normal palpation and nontender Bimanual exam- vagina & uterus: normal bimanual exam, normal palpation, uterine size normal, bladder normal to palpation, consistency normal, normal palpation, uterine mobility normal, uterine shape normal, No Cervical tenderness present, non-tender and no cervical motion tenderness Bimanual Exam- Adnexa, other: normal adnexae, no masses, normal and No adnexal tenderness Neuro General: patient oriented x3 Results Reviewed Results Reviewed: Pap smear is negative 2020 in 2022 positive trichomoniasis 2022 negative test of cure, stated history of possible re exposure at that visit. Assessment & Plan Assessment & Plan (1) Breast cancer screening: Comment: Breast exam negative plus patient just had her mammogram. Code(s): Z12.39 - Encounter for other screening for malignant neoplasm of breast (2) Screen for sexually transmitted diseases: Code(s): Z11.3 - Encounter for screening for infections with a predominantly sexual mode of transmission (3) Cervical cancer screening: Comment: Hx [id number], 10/11/21 pap= neg, neg hpv. 12/20/22 pap done= negative with negative HPV. Code(s): Z12.4 - Encounter for screening for malignant neoplasm of cervix (4) Hx of sexually transmitted disease: Code(s): Z86.19 - Personal history of other infectious and parasitic diseases (5) Well woman exam with routine gynecological exam: Code(s): Z01.419 - Encounter for gynecological examination (general) (routine) without abnormal findings Plan -----Discussed in this visit the following: healthy balanced diet, regular and consistent exercise, getting recommended health screens, doing the best she can for her particular health concerns, kegel exercises, pap smear screening and followup recommendations, mammography screening and SBE, normal changes in cycles in her life stage--- She could not remember where she was last seen 2 weeks ago where STI testing was done but she had thought that she had been seen in the 5th floor office but that has not where the testing was done it was negative but done with different testing then is usually done in this practice. Upon reflection she remembers she may have gone to the same day care facility at the [facility].. We will await the testing of these results today to see if any treatment or re-treatment is necessary. She is up-to-date on her mammograms having just had 1. . Orders: Orders Bacterial Vaginosis Panel Today Z11.3 - Encounter for screening for infections with a predominantly sexual mode of transmission CT NG by PCR Today Z11.3 - Encounter for screening for infections with a predominantly sexual mode of transmission Coding Level of Care Code Est Pt Prev Care 40-64y(48220) Diagnoses Breast cancer screening Z12.39 Screen for sexually transmitted diseases Z11.3 Cervical cancer screening Z12.4 Hx of sexually transmitted disease Z86.19 Well woman exam with routine gynecological exam Z01.419
== END 2024-02-13 09:59 | disposition home or self-care (01) ==
LOC: HO.HWSM 09:21
PROVIDERS: PCP Internal Medicine; Visit Provider Advanced Practice Midwife
DX: Z12.39 Encounter for other screening for malignant neoplasm of breast (principal); Z11.3 Encounter for screening for infections with a predominantly sexual mode of transmission; Z12.4 Encounter for screening for malignant neoplasm of cervix; Z86.19 Personal history of other infectious and parasitic diseases; Z01.419 Encounter for gynecological examination (general) (routine) without abnormal findings
CPT/HCPCS: 99396

== ENCOUNTER 2024-06-30 10:56 | Emergency (ER) | payer OTHER, SELFPAY ==
--- NOTE | 2024-06-30 11:27 | ED.GENADULT ---
HPI - General Adult General Chief complaint: Upper Respiratory Symptoms Stated complaint: Vomiting, chills, headache Time Seen by Provider: 06/30/24 13:14 Source: patient, RN notes reviewed and old records reviewed Mode of arrival: ambulatory Limitations: no limitations History of Present Illness ED Provider: DONAVAN DIAZ PA-C HPI narrative: 43 year old female with past medical history significant for hypokalemia presents to the ED today for evaluation of headache, nasal congestion, decreased smell, chills x3 days. Admits to nausea and one episode of vomiting yesterday which has since resolved. 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 She took 2 home covid tests which returned negative however admits these tests were . Denies documented fever, sore throat, cough, sputum production, chest pain, sob, hemoptysis, abd pain, flank pain, dysuria, hematuria. Related Data Home Medications ?Medication ?Instructions ?Recorded ?Confirmed hydroxyzine HCl 10 mg tablet 10 mg PO TID PRN Anxiety 07/12/22 02/13/24 Previous Rx's ?Medication ?Instructions ?Recorded metronidazole 500 mg tablet 500 mg PO BID 7 days #14 tabs 02/17/24 metronidazole 0.75 % (37.5 mg/5 1 appful vaginal BEDTIME 5 days 04/28/24 gram) vaginal gel #70 grams Allergies Allergy/AdvReac Type Severity Reaction Status Date / Time bee pollen [Bee Stings] Allergy Mild SWELLING Verified 06/30/24 11:30 AT SITE Bee stings Allergy Unknown anaphylaxis Uncoded 02/13/24 09:21 Review of Systems Review of Systems: Constitutional: No fever, fatigue, night sweats, weight changes, +chills, +generalized weakness ENT/Mouth: No ear pain, hearing loss, +nasal congestion, No sinus pain, rhinorrhea, sore throat, dysphagia Eyes: No eye pain, swelling, redness, vision changes, discharge Cardio: No chest pain, palpitations, MCQUEEN, orthopnea, peripheral edema Pulm: No SOB, cough, sputum, wheezing, dyspnea, hemoptysis GI: No nausea, vomiting, hematemesis, abdominal pain, diarrhea, constipation, hematochezia, melena : No irregular bleeding, dysuria, frequency, urgency, hesitancy, hematuria, flank pain MSK: No back pain, neck pain, joint pain, myalgias Skin: No lesions, rashes Neuro: No weakness, numbness, paresthesias, LOC, dizziness, +headache All other systems reviewed and are negative. [facility] Past Medical History Attestation statement: The following information was validated with the patient. Source: old records reviewed and nursing notes reviewed Medical History Anxiety No known health problems Surgical History History of tubal ligation Social History Social History Household Members: Children Housing: Other Housing Other:: [employer] Do you presently have visiting nurse or other home services: No Unable to assess alcohol history related to: Unknown Alcohol intake: current Alcohol intake frequency: holidays/special occasions only Patient Tobacco Use Status: Former Tobacco user Substance Use Type: Marijuana Advance Directives: Yes Advance Directives on File: Yes Advance Directives Date on File: 11/27/23 service: No Gender identity: Female Physical Exam ED Vital Signs: Vital Signs - 24 hr 06/30/24 11:28 Temperature 98.9 F Pulse Rate 82 Respiratory Rate 16 Blood Pressure 161/95 H Pulse Oximetry 99 Oxygen Delivery Method Room Air BMI result Body Mass Index 23.0 Vital signs stable, afebrile Const General: cooperative, healthy appearing, comfortable and no acute distress Orientation/consciousness: patient oriented x3 Limitations: no limitations HENMT Other: + posterior oropharynx without erythema, no edema, uvula is midline, no tonsilar exudates or peritonsillar masses, controlling secretions and speaking in complete sentences + No pain on manipulation of left pinna or tragus. No mastoid tenderness. Left EAC without erythema, edema or discharge. TM intact without erythema, effusion, or bulging. + No pain on manipulation of right pinna or tragus. No mastoid tenderness. Right EAC without erythema, edema or discharge. TM intact without erythema, effusion, or bulging. Head: Yes normal to inspection, Yes normocephalic and Yes atraumatic Ears: hearing grossly normal bilaterally, external ears normal, TM's normal bilaterally, EAC's normal, mastoids normal and no periauricular adenopathy General nose exam: Normal external nose present and No nasal discharge present Face and sinus: Yes normal facial exam and Yes sinuses nontender Eyes General: appearance normal, both eyes and all related structures Pupils: Equal, round and reactive pupils present Neck Other: + no cervical, submandibular or submental LAD Neck: Yes normal visual inspection and Yes full ROM Resp Effort & Inspection: normal respiratory effort and able to speak in complete sentences Auscultation: clear to auscultation bilaterally Cardio Rate: regular rate Rhythm: regular rhythm GI Inspection: Yes normal to inspection Palpation (GI): Soft to palpation and nontender General: Yes no CVA tenderness Back/Spine/Pelvis Back: no CVA tenderness Skin General skin exam: no rashes or lesions noted Neuro General: patient oriented x3, gait normal and moves all extremities Cranial nerves: Yes Equal, round and reactive pupils present Extrem General: Yes normal to inspection Course Course Course Narrative: This is a Rapid Medical Examination (RME) performed by Mateo Diaz PA-C in triage. Full HPI, ROS, assessment and treatment plan per primary provider in the Main ED. 43 yo female w/ hx of hypokalemia here for eval of headache, nasal congestion, decreased smell, chills, generalized weakness, and one episode of vomiting which began 3 days ago. 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 she tested negative for covid at home. denies fever, sore throat, abd pain, flank pain, dysuria, hematuria. + abd soft, ND/NT, no rebound or guarding. exam nonfocal. Plan: labs, viral serology Reevaluation(s) Reevaluation #1: 1321 -- patient tested negative for rsv and flu. she tested positive for covid, consistent w/ history. CBC without leukocytosis or left shift. No anemia. H&H stable. Chemistry without acute electrolyte abnormality requiring intervention. Discussed work up results w/ patient. Educated on symptomatic treatment. Patient has remained stable throughout ED visit today. Discussed worrisome signs and symptoms and when to return to the ED. All questions answered at this time. Patient is agreeable with disposition and stable for discharge. Medical Decision Making Medical Decision Making [facility] Narrative: 43 year old female with past medical history significant for hypokalemia presents to the ED today for evaluation of headache, nasal congestion, decreased smell, chills x3 days. Patient hypertensive to 161/95, vitals otherwise WNL. Nontoxic appearing in no acute distress. Exam nonfocal. Ambulating with steady gait. Abdomen soft, ND/NT, no rebound or guarding. normoactive bs x4. no cvat bilaterally. skin w/d/i. Differential diagnosis includes viral syndrome, dehydration, anemia, electrolyte abnormality. Lower suspicion for strep, mono. Unlikely ICH, CVA/TIA, cerebellar stroke. Plan for basic labs, viral serology, and re-evaluation. Differential Diagnosis Differential Diagnoses: The differential diagnosis associated with the presentation includes as above. Admission/Observation Not indicated Lab Data MDM Lab Attestation statement: I reviewed the patient's lab results. as above 06/30/24 11:47 06/30/24 11:47 Labs: Lab Results 06/30/24 Range/Units 11:47 WBC 8.6 (4.8-10.8) X10*3/uL RBC 4.88 (4.20-5.50) X10*6/uL Hgb 13.1 (12.0-16.0) g/dl Hct 40.5 (37.0-47.0) % MCV 83.0 (80.0-98.0) fL MCH 26.8 L (27.0-33.0) pg MCHC 32.3 (31.0-35.0) g/dl RDW 14.9 (11.0-16.0) % Plt Count 316 (160-400) X10*3/uL MPV 10.1 (9.4-12.3) fL Immature Gran % (Auto) 0.3 (0.0-0.4) % Neut % (Auto) 76.6 H (45-73) % Lymph % (Auto) 14.4 L (20-40) % [place] % (Auto) 7.9 (2-11) % Eos % (Auto) 0.5 (0-4) % Baso % (Auto) 0.3 (0-2) % Lymph # (Auto) 1.2 (1.2-4.9) X10*3/uL [place] # (Auto) 0.7 (0.1-1.2) X10*3/uL Eos # (Auto) 0.0 (0.0-0.4) X10*3/uL Baso # (Auto) 0.0 (0.0-0.2) X10*3/uL Abs Immat Gran (auto) 0.03 (0.00-0.03) X10*3/uL Absolute Neuts (auto) 6.6 (2.0-8.3) x10*3/uL Absolute Nucleated RBC 0.000 (0.0-0.012) X10*3/uL Nucleated RBC % (auto) 0.0 (0.0-0.2) /100WBC Sodium 137 (135-145) mmol/L Potassium 4.0 (3.3-5.1) mmol/L Chloride 103 (96-108) mmol/L Carbon Dioxide 27 (22-29) mmol/L Anion Gap 11 L (12-20) BUN 8 L (9-16) mg/dL Creatinine 0.71 (0.5-1.4) mg/dL Estim Creat Clear Calc 78.6 Estimated GFR > 60 Random Glucose 92 (60-115) mg/dL Calcium 9.3 D (8.4-10.2) mg/dL Magnesium 2.1 (1.6-2.6) mg/dL Total Bilirubin 0.4 (0.0-1.0) mg/dL AST 13 (5-31) U/L ALT 10 (0-31) U/L Alkaline Phosphatase 64 (39-117) U/L Total Protein 7.1 (6.5-8.0) g/dL Albumin 4.1 (3.5-5.0) g/dL Lipase 21 (8-78) U/L Beta HCG, Quant < 2 mIU/mL Influenza Type A (PCR) NEGATIVE (Negative) Influenza Type B (PCR) NEGATIVE (Negative) RSV RNA Qual (PCR) NEGATIVE (Negative) SARS-CoV-2 RNA (RT-PCR) POSITIVE A (Negative) External Record Review External record reviewed: Inpatient record Social Determinants Patient?s care significantly limited by Social Determinants of Health including: Other Social Determinant of Health Critical Care Time Critical Care Time Critical Care Time: No Discharge Plan Discharge Clinical Impression: COVID-19 Patient Disposition: Home, Self-Care Instructions: COVID-19 (Coronavirus Disease 2019) (ED) Additional Instructions: You tested negative for rsv and influenza. Today you tested positive for COVID-19.? Take Ibuprofen or Tylenol as needed for fevers or body aches.? Quarantine for 5 days and ensure you wear a mask. After 5 days you should wear a mask for 5 days after that.? Practice social distancing and good hand hygiene. Drink plenty of fluids. Follow-up with your primary care provider next week. Return to the emergency department with new or worsening symptoms. In case of emergency call 911 You can purchase a pulse oximeter from your local pharmacy or grocery store, and monitor your oxygen saturation if it goes below 94% you should return to the emergency department for further evaluation. Prescriptions: No Action metronidazole 500 mg tablet 500 mg PO BID 7 Days Qty: 14 0RF Rx Instructions: Take with food, Avoid alcohol and vinegar products metronidazole 0.75 % (37.5mg/5 gram) gel 1 appful vaginal BEDTIME 5 Days Qty: 70 0RF hydroxyzine HCl 10 mg tablet 10 mg PO TID PRN (Reason: Anxiety) Referrals: Laxmi Spear MD [Primary Care Provider] - Stand Alone Forms: Work/School Release Discharge Date/Time: 06/30/24 13:31 Print Language: Spanish
[2024-06-30 11:28] VITALS: BP 161/95; PULSE 82; RESP 16; TEMP 37.2; O2SAT 99; BMI 23.0
[2024-06-30 11:54] LABS: MANUAL DIFF FLAG NO
[2024-06-30 11:56] LABS: Basophils Percent Auto 0.3 % (0-2); Eosinophils Percent Auto 0.5 % (0-4); Hematocrit 40.5 % (37.0-47.0); Hemoglobin 13.1 g/dl (12.0-16.0); Imm Gran Abs Auto 0.03 X10*3/uL (0.00-0.03); Imm Gran Pct Auto 0.3 % (0.0-0.4); Lymphocytes Absolute Auto 1.2 X10*3/uL (1.2-4.9); Lymphocytes Percent Auto 14.4 % (20-40); Mean Corpuscular HGB Conc 32.3 g/dl (31.0-35.0); Mean Corpuscular Hemoglobin 26.8 pg (27.0-33.0); Mean Platelet Volume 10.1 fL (9.4-12.3); Monocytes Absolute Auto 0.7 X10*3/uL (0.1-1.2); Monocytes Percent Auto 7.9 % (2-11); Neutrophils Absolute Auto 6.6 x10*3/uL (2.0-8.3); Neutrophils Percent Auto 76.6 % (45-73); Platelet Count 316 X10*3/uL (160-400); Red Blood Count 4.88 X10*6/uL (4.20-5.50); Red Cell Distribution Width 14.9 % (11.0-16.0); White Blood Count 8.6 X10*3/uL (4.8-10.8)
[2024-06-30 12:10] LABS: Alanine Aminotransferase 10 U/L (0-31); Albumin Level 4.1 g/dL (3.5-5.0); Alkaline Phosphatase 64 U/L (39-117); Anion Gap 11 (12-20); Aspartate Amino Transferase 13 U/L (5-31); Bilirubin Total 0.4 mg/dL (0.0-1.0); Blood Urea Nitrogen 8 mg/dL (9-16); Calcium 9.3 mg/dL (8.4-10.2); Carbon Dioxide 27 mmol/L (22-29); Chloride 103 mmol/L (96-108); Creatinine Clr Calc Pharmacy 78.6; Estimated Glomerular Filt Rate > 60; Glucose Random 92 mg/dL (60-115); Lipase 21 U/L (8-78); Magnesium 2.1 mg/dL (1.6-2.6); Sodium 137 mmol/L (135-145); Total Protein 7.1 g/dL (6.5-8.0)
[2024-06-30 12:32] LABS: Influenza A PCR NEGATIVE (Negative); Influenza B PCR NEGATIVE (Negative); Resp Syncy Virus RNA Qual PCR NEGATIVE (Negative); SARS COV2 PCR INHOUSE POSITIVE (Negative)
[2024-06-30 17:15] LABS: HCG Quantitative < 2 mIU/mL
== END 2024-06-30 13:31 | disposition home or self-care (01) ==
PROVIDERS: Physician Assistant Medical; Emergency Provider Emergency Medicine; PCP Internal Medicine
DX: U07.1 COVID-19 (principal); R51.9 Headache, unspecified; R09.81 Nasal congestion; R68.83 Chills (without fever); R11.2 Nausea with vomiting, unspecified
CPT/HCPCS: 0241U; 80053; 83690; 83735; 84702; 85025; 99281; 99283

== ENCOUNTER 2024-07-10 13:50 | Outpatient (REF) | payer OTHER, SELFPAY ==
[2024-07-11 06:43] LABS: CT PCR NOT DETECTED (Not Detect.); NG PCR NOT DETECTED (Not Detect.)
[2024-07-11 11:43] LABS: Bacterial Vaginosis PCR POSITIVE (Negative); Candida Group PCR NOT DETECTED (Not Detect); Candida glab krusei PCR NOT DETECTED (Not Detect); Trichomonas vaginalis PCR DETECTED (Not Detect)
== END 2024-07-10 13:51 | disposition home or self-care (01) ==
LOC: HO.LAB 13:50
PROVIDERS: PCP Internal Medicine; Visit Provider Advanced Practice Midwife
DX: N89.8 Other specified noninflammatory disorders of vagina (principal); Z20.2 Contact with and (suspected) exposure to infections with a predominantly sexual mode of transmission; Z86.19 Personal history of other infectious and parasitic diseases; A74.9 Chlamydial infection, unspecified; A54.9 Gonococcal infection, unspecified; A59.9 Trichomoniasis, unspecified; Z11.3 Encounter for screening for infections with a predominantly sexual mode of transmission
CPT/HCPCS: 0352U; 87491; 87591; 99212

== ENCOUNTER 2024-07-10 13:50 | Outpatient (AMB) | payer OTHER, SELFPAY ==
[2024-07-10 14:26] VITALS: BP 116/68; BMI 20.1
--- NOTE | 2024-07-10 14:26 | A.OFFVIS_ITS ---
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 She does not like using condoms she says she finds them irritating. She has sex with just the 1 partner so that is how she justifies not using condoms. She had COVID last week she has feels fine now she says this is the 4th time she has had it. She thinks she probably got it at work because it was around previously though it is all gone from her unit now. [facility] Medical History (Updated 07/10/24 @ 14:51 by Catalina Richards CNM) COVID-19 Anxiety No known health problems Surgical History History of tubal ligation Social History Household Members: Children Housing: Other Housing Other:: Duplex Do you presently have visiting nurse or other home services: No Unable to assess alcohol history related to: Unknown Alcohol intake: current Alcohol intake frequency: holidays/special occasions only Patient Tobacco Use Status: Former Tobacco user Substance Use Type: Marijuana Advance Directives Date on File: 11/27/23 service: No Gender identity: Female Female Reproductive History Menstrual Age of Menarche: 17 Duration of menses: <3 days Date of last menstrual period: 07/01/24 control method: permanent sterilization Total pregnancies: 2 Full term: 2 Physical Exam Vital Signs: Last Vital Signs BP 116/68 07/10/24 14:26 BMI result Body Mass Index 20.1 External Female Exam: normal external appearance and normal appearance of the urethra Speculum Exam - Vagina: normal appearance of the vagina and vaginal discharge abnormal Speculum Exam - Cervix: normal appearance of the cervix, Cervical os closed and Abnormal cervical discharge present (Copious frothy yellow white discharge.) Results Reviewed Results Reviewed: Name: Magnolia Rodas Age/Sex: 42/F Attending: Catalina Richards CNM : 1980 Submitted by: Catalina Richards CNM Copies to: Laxmi Spear MD MR #: [id number] Status: DEP REF Collected: 12/20/22 Location: [facility] Received: 12/20/22 Interpretation Satisfactory for evaluation. Negative for intraepithelial lesion or malignancy. HPV mRNA E6/E7: NOT DETECTED This assay detects E6/E7 viral messenger RNA (mRNA) from 14 high-risk HPV types (16, 18, 31, 33, 35, 39, 45, 51, 52, 56, 58, 59, 66, 68) HPV testing performed by [employer], [place], [place]. See reference laboratory portion of the EMR for entire report. Copies To Laxmi Spear MD [address] [place] [id number] Catalina Richards CNM [address] [place] [address] Dr. Nagel [address] [place] [phone] Electronically Signed By: Alisa Pedraza 12/28/22 9324 The Pap Test is a screening procedure with the inherent possibility of both false negative and false positive results. Results should be interpreted in the context of historic and current clinical findings. Reliability of the Pap Test is enhanced by performing the test on a regular repetitive basis. Patient: Magnolia Rodas Age/Sex: 42/F MR#: [id number] Page 1 of 1 Name: Magnolia Rodas Age/Sex: 43/F : 1980 [id number] [id number] Attend Dr: Catalina Richards CNM Re10/21/23 Status: DEP REF Location: [facility] Disch: SPEC : [id number] OLENA: 10/21/23 STATUS: COMP REQ : [id number] RECD: 10/21/[address]: Catalina Richards CNM COMP: 10/22/23 ENTERED: 10/21/[address]: Laxmi Spear MD ORDERED: CT NG by PCR QUERIES: CT NG Source: Vaginal Test Result Flag Reference CT PCR DETECTED A Not Detect. Detected results may be observed after successful antibiotic treatment due to target nucleic acids from residual non-viable chlamydia. As with many diagnostic tests, results from the Xpert CT/NG assay should be interpreted in conjunction with other laboratory and clinical data available to the clinician. Xpert CT/NG performance has not been evaluated in patients less than 14 years of age. The assay should not be used for the evaluation of suspected sexual abuse or for other medico-legal indications. Additional testing is recommended in any circumstance when false positive or false negative results could lead to adverse medical, social or psychological consequences. These results must be reported by the ordering clinician or clinical facility to the [facility] as required by state law. NG PCR DETECTED A Not Detect. As with many diagnostic tests, results from the Xpert CT/NG assay should be interpreted in conjunction with other laboratory and clinical data available to the clinician. Xpert CT/NG performance has not been evaluated in patients less than 14 years of age. The assay should not be used for the evaluation of suspected sexual abuse or for other medico-legal indications. Additional testing is recommended in any circumstance when false positive or false negative results could lead to adverse medical, social or psychological consequences. These results must be reported by the ordering clinician or clinical facility to the [facility] as required by state law. Specimen Inquiry Name: Magnolia Rodas Age/Sex: 42/F : 1980 Unit#: [id number] Attend Dr: Venecia Toribio [facility] Re07/18/23 Status: DEP REF Location: [facility].LAB Disch: SPEC : [id number] OLENA: 07/18/238 STATUS: COMP REQ : [id number] RECD: 07/18/[address]: Venecia Toribio Jamil COMP: 07/19/23-154 ENTERED: 07/18/23-[address]: Laxmi Spear MD ORDERED: BV Panel Test Result Flag Reference Trichomonas DNA Positive A Negative Gardnerella DNA Positive A Negative Leeanna DNA Negative Negative RUN: 07/10/24 1432 PAGE 1 [facility] [address] [place] [phone] Desktop Specialist: Moe Shelton M.D. Specimen Inquiry Name: Magnolia Rodas Age/Sex: 43/F : 1980 Unit#: [id number] Attend Dr: Randal Glover MD Re06/30/24 Status: DEP ER Location: HO.ED Disch: SPEC : [id number] OLENA: 06/30/24-1147 STATUS: COMP REQ : [id number] RECD: 06/30/24-[address]: Sylwia Diaz COMP: 06/30/241232 ENTERED: 06/30/[address]: Physician,Unknown ORDERED: SARS/FLU/RSV Test Result Flag Reference Influenza A PCR NEGATIVE Negative Influenza B PCR NEGATIVE Negative RSV RNA QualPCR NEGATIVE Negative SARSCOV2 RT-PCR POSITIVE A Negative All test results must be correlated with clinical findings. Negative results do not preclude SARS-CoV2, influenza A virus, influenza B virus and/or RSV infection and should not be used as the sole basis for treatment or other patient management decisions. Negative results must be combined with clinical observations, patient history, and epidemiological information. This test has not been evaluated for monitoring treatment of infection. This test has been authorized by the FDA under an Emergency Use Authorization (EUA) for use by authorized laboratories. Testing performed on the [employer] GeneXpert utilizing real-time RT-PCR. All SARS CoV2 and positive influenza A/B results are reported to [facility]. Assessment & Plan Assessment & Plan (1) Hx of sexually transmitted disease: Code(s): Z86.19 - Personal history of other infectious and parasitic diseases Category: Medical (2) Chlamydia infection: Comment: History of; suspicious for repeat today Code(s): A74.9 - Chlamydial infection, unspecified Category: Medical (3) Gonorrhea: Comment: History of; discharge suspicious today Code(s): A54.9 - Gonococcal infection, unspecified Category: Medical (4) Trichomoniasis: Comment: sarah being done today, reminded re safer sex; history of, discharge is extremely consistent with this today but we will await results of testing... Code(s): A59.9 - Trichomoniasis, unspecified Category: Medical (5) Screen for sexually transmitted diseases: Code(s): Z11.3 - Encounter for screening for infections with a predominantly sexual mode of transmission Category: Medical Plan Testing done for gonorrhea chlamydia trichomoniasis Gardnerella/bacterial vaginosis and yeast. Explored again reasons and rationale for not using condoms and strongly suggested use of condoms. Her discharge is extremely suspicious for trichomoniasis at least the would could simply be bacterial vaginosis though g onorrhea and chlamydia can not be ruled out as well. We will await testing results which should be available by Saturday. Also explored her 4th time she has had COVID and suggested care with masking and being aware and precautions. Await test results she expressed concern as medication can be expensive. Reviewed that most of the medications that treat STDs are not the most expensive but if any of these STDs are present she would need the by mouth medications. She asked if a cream or gel could be used and I shared that if she had BV only then the Metrogel definitely be used but not for the other 3 infections of concern. Coding Level of Care Code Est Pt Level 3 (91805) Diagnoses Hx of sexually transmitted disease Z86.19 Chlamydia infection A74.9 Gonorrhea A54.9 Trichomoniasis A59.9 Screen for sexually transmitted diseases Z11.3
== END 2024-07-10 14:49 | disposition home or self-care (01) ==
LOC: HO.HWSM 13:50
PROVIDERS: PCP Internal Medicine; Visit Provider Advanced Practice Midwife
DX: Z86.19 Personal history of other infectious and parasitic diseases (principal); A74.9 Chlamydial infection, unspecified; A54.9 Gonococcal infection, unspecified; A59.9 Trichomoniasis, unspecified; Z11.3 Encounter for screening for infections with a predominantly sexual mode of transmission
CPT/HCPCS: 99213

== ENCOUNTER 2024-08-31 10:09 | Outpatient (REF) | payer OTHER, SELFPAY ==
[2024-08-31 11:25] LABS: Appearance Urine Clear; Color Urine Yellow; Glucose Urine UA Negative (Negative); Leukocyte Esterase Urine Negative (Negative); Nitrite Urine Negative (Negative); Urine Blood Negative (Negative); Urine Ketones Negative (Negative); Urine Protein Negative (Neg-Trace)
[2024-08-31 11:30] LABS: Bacteria Urine None Seen (None Seen); Hyaline Casts Urine 0-2 /LPF (0-2); RBC Urine 0-2 /HPF (0-2); Squamous Epithelial Cell Urine 0-2 /HPF (0-2); WBC Urine 0-5 /HPF (0-5)
[2024-08-31 11:50] LABS: Estimated Average Glucose 111 mg/dL; Hemoglobin A1C 112.6428 umol/L; Hemoglobin A1c % 5.5 % (<6.0); Total Hemoglobin (HGBA1C) 3035.5866 umol/L
[2024-08-31 12:03] LABS: Anion Gap 9 (12-20); Blood Urea Nitrogen 11 mg/dL (9-16); Calcium 9.1 mg/dL (8.4-10.2); Carbon Dioxide 27 mmol/L (22-29); Chloride 104 mmol/L (96-108); Cholesterol 130 mg/dL (<200); Estimated Glomerular Filt Rate > 60; Glucose Random 94 mg/dL (60-115); HDL Cholesterol 58 mg/dL (>40); LDL Cholesterol Calculated 65 mg/dL (<100); Potassium 4.1 mmol/L (3.3-5.1); Sodium 136 mmol/L (135-145); TSH reflex Free T4 0.95 uIU/mL (0.32-4.0); Triglycerides 37 mg/dL (<150); Vitamin D 25-OH Total 21.4 ng/mL (>30)
[2024-08-31 12:05] LABS: HBsAGNum1 0.34 S/CO (0.00-0.99); HIV AB/AG Nonreactive (Nonreactive); HIV Num 1 0.04 S/CO (0.00-0.99); Hepatitis B Surface Antigen Negative (Negative); ~HepC Num1 0.11 S/CO (0.00-0.79); ~Hepatitis C Antibody Nonreactive (Nonreactive)
[2024-08-31 12:06] LABS: Syphilis Screen Nonreactive (Nonreactive)
[2024-08-31 13:49] LABS: Reflex LDLD? No
[2024-09-01 08:49] LABS: Lutenizing Hormone 23.2 mIU/mL
[2024-09-01 09:04] LABS: DHEA Sulfate 196 mcg/dL (15-205)
== END 2024-08-31 10:10 | disposition home or self-care (01) ==
LOC: HO.HHCL 10:09
PROVIDERS: Referring Provider Obstetrics & Gynecology; Visit Provider Internal Medicine
DX: Z20.2 Contact with and (suspected) exposure to infections with a predominantly sexual mode of transmission (principal); R03.0 Elevated blood-pressure reading, without diagnosis of hypertension; L68.0 Hirsutism
CPT/HCPCS: 36415; 80048; 80061; 81001; 82306; 82627; 83001; 83002; 83036; 84443; 86780; 86803; 87340; 87389

== ENCOUNTER 2024-10-07 07:52 | Emergency (ER) | payer OTHER, SELFPAY ==
--- NOTE | ~2024-10-07 | XR_ITS ---
EXAMINATION: XR WRIST, LEFT CLINICAL INFORMATION: Left wrist pain. COMPARISON: No prior available. TECHNIQUE: PA, lateral, and oblique views of the left wrist. FINDINGS: Normal bony mineralization. There is no fracture, dislocation, or focal bony abnormality. There is very mild joint space narrowing involving the radiocarpal joint. Joint spaces are otherwise preserved. No periarticular erosions. There is probable old healed fracture of the distal radius and ulnar styloid. Carpal bones intact and normally aligned. Soft tissues appear normal. XR/XR wrist LT 2V IMPRESSION: -No acute findings left wrist. -Mild radiocarpal joint space narrowing, possibly posttraumatic from old distal radial fracture. Electronically signed by: Baltazar Wolf MD 10/07/2024 09:48 AM [facility]
[2024-10-07 08:00] VITALS: BP 112/74; PULSE 80; RESP 16; TEMP 37; O2SAT 100; BMI 23.5
--- NOTE | 2024-10-07 10:56 | ED.EXTPRO ---
HPI - Extremity Problem General Chief complaint: Extremity Problem Stated complaint: L wrist pain Time Seen by Provider: 10/07/24 10:18 Source: patient and RN notes reviewed Mode of arrival: ambulatory Limitations: no limitations History of Present Illness ED Provider: Alisa Allan PA-C HPI Narrative: This is a 44-year-old male, with no known medical problems, who presents emergency department with complaints of atraumatic left wrist pain x4 days. She denies any recent trauma or injury. 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 She denies any specific movement to cause her to have this pain. She states that the pain is in her wrist and occasionally radiates up into her forearm and into her fingers. She denies any numbness or tingling. No weakness. She is right-hand dominant. No fevers or chills. Denies history of trauma to this wrist in the past. Denies taking any medications at home to treat her current pain. No other complaints or concerns at this time. MD Complaint: extremity pain Location: left and upper extremity Quality: aching Radiation: proximal and distal Relieving factors: rest Exacerbating factors: range of motion and palpation Associated symptoms: denies other symptoms Related Data Home Medications ?Medication ?Instructions ?Recorded ?Confirmed hydroxyzine HCl 10 mg tablet 10 mg PO TID PRN Anxiety 07/12/22 02/13/24 Previous Rx's ?Medication ?Instructions ?Recorded metronidazole 0.75 % (37.5 mg/5 1 appful vaginal BEDTIME 5 days 04/28/24 gram) vaginal gel #70 grams metronidazole 500 mg tablet 500 mg PO BID 7 days #14 tabs 07/13/24 metronidazole 500 mg tablet 500 mg PO Q12H #14 tabs 07/13/24 ibuprofen 600 mg tablet 600 mg PO Q6H PRN pain 30 days #30 10/07/24 tabs Allergies Allergy/AdvReac Type Severity Reaction Status Date / Time bee pollen [Bee Stings] Allergy Mild SWELLING Verified 10/07/24 08:01 AT SITE Bee stings Allergy Unknown anaphylaxis Uncoded 07/10/24 14:27 Review of Systems Review of Systems: Yes all other systems are reviewed and are negative Constitutional: Constitutional: Reports as per [facility] Past Medical History Medical History (Updated 10/07/24 @ 11:05 by CHYNA Tamayo) COVID-19 Anxiety No known health problems Surgical History History of tubal ligation Social History Social History Household Members: Children Housing: Other Housing Other:: Duplex Do you presently have visiting nurse or other home services: No Unable to assess alcohol history related to: Unknown Alcohol intake: current Alcohol intake frequency: holidays/special occasions only Patient Tobacco Use Status: Former Tobacco user Substance Use Type: Marijuana Advance Directives: Yes Advance Directives on File: Yes Advance Directives Date on File: 11/27/23 service: No Gender identity: Female Physical Exam Vital Signs: Vital Signs: Last Vital Signs Temp 98.6 F 10/07/24 08:00 Pulse 80 10/07/24 08:00 Resp 16 10/07/24 08:00 BP 112/74 10/07/24 08:00 Pulse Ox 100 10/07/24 08:00 O2 Del Method Room Air 10/07/24 08:00 BMI result Body Mass Index 23.5 Const: General: cooperative, comfortable and no acute distress Orientation/consciousness: patient oriented x3 Limitations: no limitations HEENT: Head: Yes normal to inspection, Yes normocephalic and Yes atraumatic Ears: hearing grossly normal bilaterally General nose exam: Normal external nose present Face and sinus: Yes normal facial exam Mouth: Normal oral and palatal mucosa present, oropharynx normal and moist mucous membranes Throat: Yes posterior oropharynx normal Eyes: General: appearance normal, both eyes and all related structures Eyelids: Yes eyelids normal Conjunctivae: conjunctivae normal Sclerae: sclerae normal Pupils: Equal, round and reactive pupils present EOM: EOMs intact bilaterally Neck: Neck: Yes normal visual inspection, Yes full ROM and Yes no lymphadenopathy Lymphatic: no lymphadenopathy noted Chest: Chest palpation & inspection: normal inspection of the chest Resp: Effort & Inspection: normal respiratory effort and able to speak in complete sentences Auscultation: clear to auscultation bilaterally, no crackles, no rales, no rhonchi and no wheezes Cardio: Rate: regular rate Rhythm: regular rhythm Heart sounds: S1 normal heart sound present and S2 normal heart sound present GI: Inspection: Yes normal to inspection Skin: General skin exam: no rashes or lesions noted Trauma: no lacerations or abrasions Wounds: no wounds Neuro: General: patient oriented x3 and moves all extremities Cranial nerves: Yes Equal, round and reactive pupils present Extrem: Other: Left wrist with tenderness palpation throughout the distal radius and ulna. Full range of motion of the wrist with pain elicited. Strong radial pulse. No numbness or tingling. Negative Chrissy's test, negative prayer sign. General: Yes normal to inspection Right upper extremity: normal to inspection Left upper extremity: normal to inspection Right lower extremity: normal to inspection Left lower extremity: normal to inspection Medical Decision Making Medical Decision Making MDM Narrative: This is a 44-year-old female who presents emergency department with complaints of left wrist pain, atraumatic. On arrival, vital signs within normal limits. Left wrist is diffusely tender without any specific point tenderness. She does have mild tenderness palpation along the distal radius and ulna, full range of motion, no overlying erythema or warmth to suggest septic arthritis. Strong radial pulse. X-rays were performed, revealing no acute bony abnormality however does show joint narrowing suggestive of previous radius fracture. She has no snuffbox tenderness. Given no trauma or injury. Will treat with wrist splint, NSAIDs, and given orthopedic referral should her symptoms persist. She understands and agrees with plan. Given return precautions. Patient stable for discharge. Differential Diagnosis Differential Diagnoses: The differential diagnosis associated with the presentation includes Sprain, strain, contusion, fracture, carpal tunnel Admission/Observation Consideration of admission/observation: Escalation of care including admission/observation considered Radiology Impression Discussion of test interpretation with radiology: I have reviewed the radiologist's reading. Radiologist Impression: XR/XR KUB IMPRESSION: Unremarkable study. Electronically signed by: Tyrese Tavera MD 10/07/2024 09:52 AM [facility] Dictated By: Tyrese Tavera MD Discharge Plan Discharge Clinical Impression: Left wrist pain Patient Disposition: Home, Self-Care Instructions: Wrist Injury (ED), Arthralgia (ED) Additional Instructions: You were seen in the emergency department due to left wrist pain. Your x-ray does not show any new broken bones however it does show joint space narrowing which can suggest that had a fracture in the past. Please rest, ice, take ibuprofen, and wear splint for the next several days. Gentle range of motion and stretching can also help with your symptoms. Please follow-up with the loss prevention specialist if you continue to have pain and symptoms in your wrist. If any new or worsening symptoms occur including but not limited to worsening pain, inability to move your wrist, please return for re-evaluation. Prescriptions: New ibuprofen 600 mg tablet 600 mg PO Q6H PRN (Reason: pain) 30 Days Qty: 30 0RF No Action metronidazole 0.75 % (37.5mg/5 gram) gel 1 appful vaginal BEDTIME 5 Days Qty: 70 0RF metronidazole 500 mg tablet 500 mg PO Q12H Qty: 14 0RF metronidazole 500 mg tablet 500 mg PO BID 7 Days Qty: 14 0RF Rx Instructions: Take with food, Avoid alcohol and vinegar products hydroxyzine HCl 10 mg tablet 10 mg PO TID PRN (Reason: Anxiety) Referrals: [facility] [Provider Group] Stand Alone Forms: Work/School Release Print Language: Belarusian
[2024-10-07 11:32] VITALS: BP 123/68; PULSE 73; RESP 16; TEMP 36.6; O2SAT 96
== END 2024-10-07 11:33 | disposition home or self-care (01) ==
PROVIDERS: Emergency Provider Student in an Organized Health Care Education/Training Program; PCP Internal Medicine
DX: M25.532 Pain in left wrist (principal); Z79.899 Other long term (current) drug therapy
CPT/HCPCS: 73100; 99282; 99283

== ENCOUNTER → 2024-10-07 09:00 | Outpatient (BNV) | payer OTHER, SELFPAY | PROVIDERS: PCP Internal Medicine; Visit Provider Radiology Diagnostic Radiology | DX: M25.532 Pain in left wrist (principal) | CPT/HCPCS: 73100 ==

== ENCOUNTER 2024-11-09 09:06 | Outpatient (REF) | payer OTHER, SELFPAY | END 2024-11-09 09:07 | disposition home or self-care (01) | LOC: HO.HOSX 09:06 | DX: Z13.89 Encounter for screening for other disorder (principal) ==

== ENCOUNTER 2024-12-21 09:18 | Outpatient (REF) | payer OTHER, SELFPAY ==
[2024-12-21 11:58] LABS: Anion Gap 11 (12-20); Blood Urea Nitrogen 10 mg/dL (9-16); Calcium 8.6 mg/dL (8.4-10.2); Carbon Dioxide 24 mmol/L (22-29); Chloride 107 mmol/L (96-108); Estimated Glomerular Filt Rate > 60; Glucose Random 111 mg/dL (60-115); Potassium 3.8 mmol/L (3.3-5.1); Sodium 138 mmol/L (135-145)
[2024-12-21 12:15] LABS: Thyroid Stimulating Hormone 1.89 uIU/mL (0.32-4.0)
--- OUTSIDE RECORDS SUMMARY | 2024-12-21 13:39 | XMS_ITS | Encounter Summary ---
Author Organization [employer] Address [address] [place] [address] Care Team Providers Care Recycling Collections Driver Name Role Phone Laxmi Spear MD Primary Care Provider + Reason for Visit * Reason Onset Date Comments Chart prep 12/18/2024 Encounter Details Date Type Department Care Team ([facility] Contact Info) Description 12/18/2024 Telephone [facility]INE [address] [place] [address] Tara Bella MA Chart prep Social History Tobacco Use Types Packs/Day Years Used Date Smoking Tobacco: Never Passive Smoke Exposure: Never Smokeless Tobacco: Never Alcohol Use Standard Drinks/Week Comments Yes 0 (1 standard drink = 0.6 oz pur e alcohol) oca Housing Stability Answer Date Recorded What is your housing situation today? I have yoli byrd 11/28/[address] you li ve. Do you have problems with any of the following? None of the above 11/28/2023 Food Insecurity Answer Date Recorded Within the past 12 months, y ou worried that your food would run out before you got money to buy more: Never True 11/28/2023 Within the past 12 months,th e food you bought just didn't last and you didn't have enough money to get more: Never True 02/2024 Transportation Answer Date Recorded In the past 12 months, has l ack of transportation kept you from medical appts, meetings, work or from getting things needed for daily living? No 11/28/2023 Utilities Answer Date Recorded In the past 12 months, has t he electric, gas, oil or water company threatened to shut off services in your home? No 11/28/2023 Depression Answer Date Recorded Patient Health Questionnaire-2 Score 0 12/13/2023 Comments No Sex and Gender Information Value Date Recorded Sex Assigned at Female 09/24/2022 10:17 AM EDT Legal Sex Female 10:17 AM EDT Gender Identity Female 09/24/2022 10:17 AM EDT Sexual Orientation Straight 09/24/2022 10 :17 AM EDT documented as of this encounter Miscellaneous Notes * Telephone Encounter - Tara Bella MA - 12/18/2024 10:01 AM EST Chart Prep Labs: not done Images: not done Vaccines due: yes Referrals: complete Screenings: N/A Overdue care gaps: SDOH, PHQ-9 documented in this encounter Plan of Treatment Upcoming Encounters Date Type Department Care Team (Late st Contact Info) Description 03/19/2025 11:30 AM EDT Office Visit [facility] MEDICINE [address] [place] [address] Laxmi Spear MD [address] [place] [address] documented as of this encounter Visit Diagnoses Not on filedocumented in this encounter Care Teams Recycling Collections Driver Relationship Specialty Start Date End Date Laxmi Spear MD [address] [place] [address] PCP - General Family Medicine 07/15/17 documented as of this encounter
--- OUTSIDE RECORDS SUMMARY | 2024-12-21 13:39 | XMS_ITS | Encounter Summary ---
Author Organization [employer] Address [address] [place] [address] Care Team Providers Care Solid Waste Truck Driver Name Role Phone Laxmi Spear MD Primary Care Provider + Encounter Details Date Type Department Care Team ([facility] st Contact Info) Description 12/21/2024 Telephone [facility] MEDICINE [address] [place], [place] [phone] Laxmi Spear MD [address] [place] [address] Social History Tobacco Use Types Packs/Day Years Used Date Smoking Tobacco: Never Passive Smoke Exposure: Never Smokeless Tobacco: Never Alcohol Use Standard Drinks/Week Comments Yes 0 (1 standard drink = 0.6 oz pur e alcohol) oca Depression Answer Date Recorded Patient Health Questionnaire-9 Score 0 12/21/2024 Patient Health Questionnaire-9 Score 0 12/21/2024 Last PHQ-9: Questionnaire Data Not on file 0 12/21/2024 Housing Stability Answer Date Recorded What is [...] Date Recorded Patient Health Questionnaire-2 Score 0 12/21/2024 Comments No Sex and Gender Information Value Date Recorded Sex Assigned at Female 09/24/2022 10:17 AM EDT Legal Sex Female 10:17 AM EDT Gender Identity Female 09/24/2022 10:17 AM EDT Sexual Orientation Straight 09/24/2022 10 :17 AM EDT documented as of this encounter Miscellaneous Notes * Telephone Encounter - Jessica Dasilva - 12/21/2024 9:16 AM EST Pt walked in for appt on 12/21/24 @9:03 but her insurance [employer] pcp is from somewhere else , I informed pt she needs to call her insurance and tell them to assign as her pcp , pt said no problem she will call and she will call us back to rs whenever she fixes this issue. documented in this encounter Plan of Treatment Upcoming Encounters Date Type Department Care Team (Late st Contact Info) Description 03/19/2025 11:30 AM EDT Office Visit [facility] MEDICINE [address] [place] [address] Laxmi Spear MD [address] [place] [address] documented as of this encounter Visit Diagnoses Not on filedocumented in this encounter Additional Health Concerns Assessment Noted Time PHQ-9 Depression Total Score: 0 12/21/19 10:49 AM EST documented as of this encounter Care Teams Solid Waste Truck Driver Relationship Specialty Start Date End Date Laxmi Spear MD [address] [place] [phone] PCP - General Family Medicine 07/15/17 documented as of this encounter
--- OUTSIDE RECORDS SUMMARY | 2024-12-21 13:39 | XMS_ITS | Encounter Summary ---
Author Organization [facility] Address [address] [place] [address] 7t [place] [address] Care Team Providers Care Flake Miller Helper Name Role Phone Laxmi Spear MD Primary Care Provider + Reason for Visit * Reason Comments Med Refill Encounter Details Date Type Department Care Team ([facility] Contact Info) Description 08/02/2023 Refill [facility] [address] [place], [place] [phone] Laxmi Spear MD [address] [place], [place] [phone] Anxiety Social History Tobacco Use Types Packs/Day Years Used Date Smoking Tobacco: Never Passive Smoke Exposure: Never Smokeless Tobacco: Never Comments Unknown Sex and Gender Information Value Date Recorded Sex Assigned at Female 09/24/2022 10:17 AM EDT Legal Sex Female 10:17 AM EDT Gender Identity Female 09/24/2022 10:17 AM EDT Sexual Orientation Straight 09/24/2022 10 :17 AM EDT documented as of this encounter Plan of Treatment Upcoming Encounters Date Type Department Care Team (Late Contact Info) Description 03/19/2025 11:30 AM EDT Office Visit [facility] [address] [place] [address] [phone] Laxmi Spear MD [address] [place], [place] [phone] documented as of this encounter Visit Diagnoses Diagnosis Anxiety Anxiety state, unspecified documented in this encounter Care Teams Flake Miller Helper Relationship Specialty Start Date End Date Laxmi Spear MD [address] [place] [phone] PCP - General Family Medicine 07/15/17 documented as of this encounter
--- OUTSIDE RECORDS SUMMARY | 2024-12-21 13:39 | XMS_ITS | Encounter Summary ---
Author Organization [facility] Address [address] [place] [address] 7[address] [place] [address] Care Team Providers Care Canvas Marker Name Role Phone Laxmi Spear MD Primary Care Provider + Encounter Details Date Type Department Care Team (Late st Contact Info) Description 08/30/2023 Abstract [facility] [address] [place] [address] [phone] Annel Campos Social History Tobacco Use Types Packs/Day Years [...] Description 03/19/2025 11:30 AM EDT Office Visit [facility] [address] [place] [phone] Laxmi Spear MD [address] [place] [phone] documented as of this encounter Procedures Procedure Name Priority Date/Time Associated Diagnosis Comments HM PAP/HPV Routine 10/11/2021 documented in this encounter Results * Hm Pap Smear (10/11/2021) Pap Negative for intraephithelial lesion or malignancy Negative for intraephithelial lesion or malignancy, Other HPV Undetected us Historical Provider HEALTH MAINTENANCE Final Result documented in this encounter Visit Diagnoses Not on filedocumented in this encounter Care Teams Canvas Marker Relationship Specialty Start Date End Date Laxmi Spear MD [address] [place] [phone] PCP - General Family Medicine 07/15/17 documented as of this encounter
--- OUTSIDE RECORDS SUMMARY | 2024-12-21 13:39 | XMS_ITS | Encounter Summary ---
Author Organization [employer] Address [address] [facility] [address]t [place] [address] Care Team Providers Care High Risk Case Manager Name Role Phone Laxmi Spear MD Primary Care Provider + Reason for Visit * Reason Onset Date Comments Nurse Triage 12/03/2023 Encounter Details Date Type Department Care Team ([facility] st Contact Info) Description 12/03/2023 Telephone [facility] [address] [place], [place] [phone] Laxmi Spear MD [address] [place], [place] [phone] Nurse Triage Social History Tobacco Use Types Packs/Day Years Used Date Smoking Tobacco: Never Passive Smoke Exposure: Never Smokeless Tobacco: Never Housing Stability Answer Date Recorded What is [...] off services in your home? No 11/28/2023 Comments Unknown Sex and Gender Information Value Date Recorded Sex Assigned at Female 09/24/2022 10:17 AM EDT Legal Sex Female 10:17 AM EDT Gender Identity Female 09/24/2022 10:17 AM EDT Sexual Orientation Straight 09/24/2022 10 :17 AM EDT documented as of this encounter Miscellaneous Notes * Telephone Encounter - Laurie Bateman RN - 12/03/2023 12:44 PM EST Triage call Pt reports tested + Covid 12/02/23 with home test. Pt went to work today and tested + as well. Pt sx are nasal congestion, runny nose, headache, bodyaches, tactile fever. Pt is advised if fever of 103, difficulty breathing with chest pain /pressure seek assist in nearest hospital. Pt is taking theraflu tea at this time . Pt is advised to increase liquids to 6-8 glasses a day, warm liquids decaf tea and broth are good, tylenol/motrin for headaches and bodyaches, cough drops for throat irritation , honey 1-2 tsp for sore throat and cough. Hot shower steam to help with humidity. Pt will be on 5 days of isolation starting today 12/03/23. If no fever and not taking tylenol/motrin for 24 hrs and symptoms are better can come off isolation after the 5th day. Pt is given 3rd constitution party tele visit for jose f , number is [phone]. Pt reports this is the 3rd time Pt has had Covid. Pt is a [employer] O[employer] in a [employer]. No further questions offered. Pt agrees with disposition. Protocol Used: COVID-19 - Diagnosed or Suspected (Adult) Protocol-Based Disposition: Home Care Positive Triage Question: * COVID-19 diagnosed by positive lab test (e.g., PCR, rapid self-test kit) and mild symptoms (e.g.,cough, fever, others) and no complications or SOB * All higher-acuity triage questions were negative Care Advice Discussed: * Reassurance and Education - Positive COVID-19 Lab Test and Mild Symptoms * General Care Advice for COVID-19 Symptoms * Cough Medicines * Coughing Spells * Pain and Fever Medicines * Reasons To Call Back - Fever over 103 F (39.4 C) - Fever lasts over 3 days - Fever returns after being gone for 24 hours - Chest pain or difficulty breathing occurs - You become worse * COVID-19 - How to Protect Others - When You Are Sick With COVID-19 * Clean Your Hands Often * Telephone Encounter - Tonyjose Colton Leonard - 12/03/2023 12:25 PM EST Symptom: COVID-19 Suspected Outcome: Schedule a same-day appointment or talk to a nurse or provider today Reason: Caller denied all higher acuity questions The caller accepted this outcome Please contact pt @ [phone] Pt is requesting the AntiBiotics documented in this encounter Plan of Treatment Upcoming Encounters Date Type Department Care Team (Late st Contact Info) Description 03/19/2025 11:30 AM EDT Office Visit [facility] [address] [place] [phone] Laxmi Spear MD [address] [place] [address] documented as of this encounter Visit Diagnoses Not on filedocumented in this encounter Care Teams High Risk Case Manager Relationship Specialty Start Date End Date Laxmi Spear MD [address] [place] [address] PCP - General Family Medicine 07/15/17 documented as of this encounter
--- OUTSIDE RECORDS SUMMARY | 2024-12-21 13:39 | XMS_ITS | Encounter Summary ---
Author Organization [employer] Address [address] [place] [address] Care Team Providers Care E Business Project Manager Name Role Phone Laxmi Spear MD Primary Care Provider + Encounter Details Date Type Department Care Team (Latest Contact Info) Description 12/21/2024 Travel Social History Tobacco Use Types Packs/Day Years [...] Description 03/19/2025 11:30 AM EDT Office Visit [facility] [address] [place] [address] Laxmi Spear MD [address] [place] [address] documented as of this encounter Visit Diagnoses Not on filedocumented in this encounter Additional Health Concerns Assessment Noted Time PHQ-9 Depression Total Score: 0 12/21/19 25 10:49 AM EST documented as of this encounter Care Teams E Business Project Manager Relationship Specialty Start Date End Date Laxmi Spear MD [address] [place] [phone] PCP - General Family Medicine 07/15/17 documented as of this encounter
--- OUTSIDE RECORDS SUMMARY | 2024-12-21 13:39 | XMS_ITS | Encounter Summary ---
Author Organization [employer] Address [address] [facility] 7t [place] [address] Care Team Providers Care Fleet Assistant Name Role Phone Laxmi Spear MD Primary Care Provider + Encounter Details Date Type Department Care Team (Late Contact Info) Description 01/24/2023 Orders Only [facility] [address] [place] [address] Candis Dixon LPN Social History Tobacco Use Types Packs/Day Years Used Date Smoking Tobacco: Never Smokeless Tobacco: Never Comments Unknown Sex and Gender Information Value Date Recorded Sex Assigned at Female 09/24/2022 10:17 AM EDT Legal Sex Female 10:17 AM EDT Gender Identity Female 09/24/2022 10:17 AM EDT Sexual Orientation Straight 09/24/2022 10 :17 AM EDT COVID-19 Exposure Response Date Recorded In the last 10 days, have yo u been in contact with someone who was confirmed or suspected to have Coronavirus/COVID-19? No / Unsure 01/01/2023 10:11 AM EST documented as of this encounter Plan of Treatment Upcoming Encounters Date Type Department Care Team (Late Contact Info) Description 03/19/2025 11:30 AM EDT Office Visit [facility] [address] [place], [place] [phone] Laxmi Spear MD [address] [place], [place] [phone] documented as of this encounter Visit Diagnoses Not on filedocumented in this encounter Care Teams Fleet Assistant Relationship Specialty Start Date End Date Laxmi Spear MD [address] [place] [phone] PCP - General Family Medicine 07/15/17 documented as of this encounter
--- OUTSIDE RECORDS SUMMARY | 2024-12-21 13:39 | XMS_ITS | Clinical Summary ---
Author Organization [employer] Address [address] [facility] [address] [place] [address] Care Team Providers Care Registered Vascular Technologist (Rvt) Name Role Phone Laxmi Spear MD Primary Care Provider + Allergies Active Allergy Reactions Criticality Noted Date Comments Bee Venom 06/13/2015 Medications acetaminophen (Tylenol) 500 MG tablet Take 2 tablets (1,000 mg) by mouth every 6 (six) hours if needed for moderate pain or fever for up to 25 doses. 50 tablet 11/20/20 23 Active ibuprofen 400 MG tablet Take 1 tablet (400 mg) by mouth every 6 (six) hours if needed for moderate pain or fever for up to 30 doses. 30 tablet 11/20/20 23 Active hydrOXYzine HCl (Atarax) 10 MG tabletIndicati ons:Anxiety TAKE 1 TO 2 TABLETS BY MOUTH TWICE A DAY NEEDED FOR ANXIETY 180 tablet 1 02/11/20 24 Active Blood Pressure kit 1 kit Once per day. 1 kit 08/18/20 24 Active ergocalciferol (Vitamin D2) 1.25 MG (87662 UT) capsule Take 1 capsule (1.25 mg) by mouth 1 (one) time per week. 12 capsule 1 09/08/20 24 025 Active spironolactone (Aldactone) 25 MG tablet Take 1 tablet (25 mg) by mouth Once per day. 90 tablet 3 12/21/19 25 026 Active spironolactone (Aldactone) 25 MG tablet Take 1 tablet (25 mg) by mouth Once per day. 30 tablet 11 10/15/20 24 025 Discontinued(Re order (will not trigger notification to Pharmacy)) Active Problems Problem Noted Date Diagnosed Date Hair loss 10/15/2024 Assessment & Plan (12/21/2024 12:02 PM EST): Continue on Spironolactone and FU lab results. We will call Dermatology to schedule an appointment. Weight loss 10/15/2024 Assessment & Plan (12/21/2024 12:00 PM EST): Still pending lab results. Will order CT of abdomen to rule out malignancy. She gained 5 lbs within the past 2 months, unclear if related to recent URI/COVID. FU in 3 months. Assessment & Plan (10/15/2024 2:02 PM EST): Rule out Hyperthyroidism, order labs. Baseline initial malignancy is negative and utd, order CT scan of the abdomen. Hirsutism 08/28/2024 Assessment & Plan (10/15/2024 2:00 PM EST): Hormonal profile within normal range, unclear if she has PCOS. Start Spironolactone and consider referral if symptoms do not improve. Assessment & Plan (08/28/2024 11:25 AM EDT): R/o PCOS vs Androgenic disorders. Chlamydia infection 12/13/2023 Assessment & Plan (12/13/2023 10:17 AM EST): Sp Rx w doxy on 11/25/23 Needs test of cure on or after 01/13, will schedule an appt for vaginal swab. Counseled to use condoms at all times, STI testing repeated today. D/w her re PrEP, she's not interested at this time. Patient is denise of our STI clinic for testing prn. Gonorrhea 12/13/2023 Assessment & Plan (12/13/2023 10:18 AM EST): Sp Rx w cefuroxime on 11/25/23, partner Apparently not treated (he didn't want to at the time). Needs test of cure on or after 01/13, will schedule an appt for vaginal swab. Counseled to use condoms at all times, STI testing repeated today. D/w her re PrEP, she's not interested at this time. Patient is denise of our STI clinic for testing prn. Hypokalemia 12/13/2023 Assessment & Plan (12/13/2023 10:18 AM EST): Repeat K and fu prn Tonsillar abscess 12/13/2023 Assessment & Plan (12/13/2023 10:18 AM EST): Resolved. Elevated blood pressure reading 12/12/2023 12/12/2023 Assessment & Plan (12/21/2024 11:57 AM EST): Patient seems to have pre-HTN, will continue on low dose Spirinolactone. FU in 3 months. I will review labs that were done today once I have the results. I will call her back PRN abnormal labs. Assessment & Plan (10/15/2024 1:59 PM EST): Pt has essential HTN, controlled with Lisinopril 10 mg. Will dc Lisinopril and start Spironolactone that will have a better profile to block some of the potential androgenic fissures. Check BMP in 1-2 weeks. Fu with me in 4-6 weeks. Assessment & Plan (08/28/2024 11:24 AM EDT): BP significantly lower with Lisinopril 10 mg, continue with Sx. I will decrease to 5 mg and follow up in 6 weeks with labs. R/o PCOS or other endocrine conditions. Pt declined Flu immunization today. Assessment & Plan (12/13/2023 10:13 AM EST): Borderline Reminded her to check BP at home at least 2x/w, mother has HTN Counseled re low salt diet/increase moderate physical activity. Check home BP BIW and prn CP/HAMEED/MCQUEEN Non smoking patient. FU in 6m Exposure to COVID-19 virus 12/12/202312/12 Comedonal acne 04/07/2019 12/12/2023 Assessment & Plan (10/15/2024 2:01 PM EST): Failed topical creams. Start Spironolactone. Fu with me in 4-6 weeks. Allergic rhinitis 03/22/2014 12/12/2023 Impaired glucose tolerance 03/22/201412/12 Assessment & Plan (10/15/2024 1:59 PM EST): Resolved, pt lost 8 pounds in 1 year. No need for additional fu. Encounters Date Type Department Care Team Description 12/21/2024 11:15 AM EST Office Visit [address] [address] Laxmi Spear MD Elevated blood pressure reading (Primary Dx); Weight loss; Hair loss 12/21/[address] [address] Laxmi Spear MD 12/21/2024 Travel 12/18/[address] [address] Tara Bella [place] Chart prep 10/27/2024 Telephone [facility] [address] [place] [phone] Laxmi Spear MD 10/15/2024 11:30 AM EST Office Visit [address] [address] Laxmi Spear MD Elevated blood pressure reading (Primary Dx); Impaired glucose tolerance; Hirsutism; Comedonal acne; Hair loss; Weight loss 10/15/2024 Travel 10/14/[address] [address] Tara Bella [place] Chart prep 10/13/[address] [address] Laxmi Spear MD from Last 3 Months Immunizations Name Administration Dates Next Due DTP 04/25/1987 Hep B, Adolescent or Pediatric 12/23/1998,1997,12/24/1997 Influenza, IIV3, injectable 09/28/2013 MMR 07/06/1993 OPV 04/25/1987 Td (adult), 5 Lf tetanus tox oid, preservative free, adsorbed 02/22/2016,08/09/1997 Tdap 05/24/2011 Social History Tobacco Use Types Packs/Day Years Used Date Smoking Tobacco: Never Passive Smoke Exposure: Never Smokeless Tobacco: Never Tobacco Cessation:Counseling Given: Not Answered Alcohol Use Standard Drinks/Week Comments Yes 0 (1 standard drink = 0.6 oz pur e alcohol) oca Depression Answer Date Recorded Patient Health Questionnaire-9 Score 0 12/21/2024 Patient Health Questionnaire-9 Score 0 12/21/2024 Last PHQ-9: Questionnaire Data Not on file 0 12/21/2024 Housing Stability Answer Date Recorded What is your housing situation today? I have yoliелена byrd 11/28/[address] you [...] Orientation Straight 09/24/2022 10 :17 AM EDT Last Filed Vital Signs Vital Sign Reading Time Taken Comments Blood Pressure 126/86 12/21/2024 10:48 AM EST Pulse 97 12/21/2024 10:48 AM EST Temperature 36 ??C (96.8 ??F) 12/21/2024 10:48 AM EST Respiratory Rate 17 12/21/2024 10:48 AM EST Oxygen Saturation 100% 12/21/2024 10:48 AM EST Inhaled Oxygen Concentration - - Weight 57.8 kg (127 lb 6.4 oz) 12/21/2024 10:48 AM EST Height 154.9 cm (5' 1 ) 12/21/2024 10:48 AM EST Body Mass Index 24.07 12/21/2024 10:48 AM EST Plan of Treatment Upcoming Encounters Date Type Department Care Team (Late st Contact Info) Description 03/19/2025 11:30 AM EDT Office Visit [facility] [address], [place] [phone] Laxmi Spear MD [address] [place], [place] [phone] Health Maintenance Due Date Last Done Comments IPV Vaccines (2 of 3 - 4-dose series) 05/23/1987 04/25/1987 Alcohol/Substance Use Screening 1994 COVID-19 Vaccine ( season) 2024 12/29/2021, 12/21/2020, 11/30/2020 SDOH Screening 11/28/2024 11/28/2023 Family Planning (PISQ) 08/28/2025 08/28/2024 Pap Smear 12/20/2025 12/20/2022, 10/11/2021 Depression Screening 12/21/2025 12/21/2024, 12/21/19 25 Tobacco Screening 12/21/2025 12/21/2024 Mammogram 02/02/2026 02/03/2024 DTaP/Tdap/Td Vaccines (5 - Td or Tdap) 02/21/2026 02/22/2016, 05/24/2011, 08/09/1997, Additional history exists Cervical Cancer Screening 12/20/2027 HPV/Cotest 12/20/2027 12/20/2022, 09/25, 10/11/2021, Additional history exists Zoster Vaccines (1 of 2) 2032 RSV Patients and Patients Aged 60 years or older (1 - 1-dose 75+ series) 2057 Hepatitis B Vaccines Completed 12/23/1998, 02/22/1998, 12/24/1997 HIV Screening Completed 08/31/2024, 09/27, 12/20/2022, Additional history exists Hepatitis C Screening Completed 08/31/2024 , 10/24/2023, 12/20/2022, Additional history exists Influenza Vaccine Completed 09/22/2024, 09/28/2013 HIB Vaccines Aged Out No longer eligi ble based on patient's age to complete this topic HPV Vaccines Aged Out No longer eligi ble based on patient's age to complete this topic Hepatitis A Vaccines Aged Out No long er eligible based on patient's age to complete this topic Meningococcal Vaccine Aged Out No sasha celestine eligible based on patient's age to complete this topic Pneumococcal Vaccine: Pediatrics (0 to 5 Years) and At-Risk Patients (6 to 64 Years) Aged Out No longer eligible based on patient's age to complete this topic RSV under 20 months Aged Out No longe r eligible based on patient's age to complete this topic Rotavirus Vaccines Aged Out No longer eligible based on patient's age to complete this topic Procedures Procedure Name Priority Date/Time Associated Diagnosis Comments BASIC METABOLIC PANEL Routine 12/21/2024 9:20 AM EST Elevated blood pressure reading T4 (THYROXINE), TOTAL Routine 12/21/2024 9:20 AM EST Weight loss TSH Routine 12/21/2024 9:20 AM EST Weight loss T4, FREE Routine 12/21/2024 9:20 AM EST Weight loss XR WRIST 1-2 VIEWS LEFT Routine 10/07/2024 9:00 AM EST HEPATITIS C ANTIBODY Routine 08/31/2024 10:19 AM EDT HIV 1/2 ANTIGEN/ANTIBODY, FOURTH GENERATION W/RFL Routine 08/31/2024 10:19 AM EDT BI MAMMOGRAM SCREENING TOMOSYNTHESIS BILATERAL Routine 02/03/2024 10:40 AM EDT HPV MRNA E6/E7 REFLEX TO HPV 16, 18/45 Routine 12/20/2022 10:30 AM EST PAP SMEAR Routine 12/20/2022 10:30 AM EST from Last 3 Months or Most Recently Relevant to Health Maintenance Results * TSH (12/21/2024 9:20 AM EST) Thyroid Stimulating Hormone 1.89 0.32 - 4.0 uIU/mL [facility] Comment:TSH 3rd Generation ( [facility]) Blood Venous blood specimen / Unknown 12/21/2024 9:20 AM EST 12/21/2024 11:30 AM EST Laxmi Spear MD LAB BLOOD ORDERABLES Fin al Result [facility] [address] [place] [phone] * T4, Free (12/21/2024 9:20 AM EST) Free T4 (Free Thyroxine) 0.90 0.71 - 1.85 ng/dL [facility] Blood Venous blood specimen / Unknown 12/21/2024 9:20 AM EST 12/21/2024 11:30 AM EST Laxmi Spear MD LAB BLOOD ORDERABLES Fin al Result [facility] [address] [place] [phone] * T4 (Thyroxine), Total (12/21/2024 9:20 AM EST) T4 Thyroxine 6.0 4.5 - 12.0 ug/dL [facility] Blood Venous blood specimen / Unknown 12/21/2024 9:20 AM EST 12/21/2024 11:30 AM EST us Laxmi Spear MD LAB BLOOD ORDERABLES Fin al Result Performing Organization Address [facility] Co de Phone Number [facility] [address] [place] [address] [phone] * (ABNORMAL) Basic Metabolic Panel (12/21/2024 9:20 AM EST) Sodium 138 135 - 145 mmol/L [facility] Potassium 3.8 3.3 - 5.1 mmol/L [facility] Chloride 107 96 - 108 mmol/L [facility] Carbon Dioxide 24 22 - 29 mmol/L [facility] Anion Gap 11(L) 12 - 20 [facility] Urea Nitrogen (BUN) 10 9 - 16 mg/dL [facility] Creatinine, Serum 0.66 0.5 - 1.4 mg/dL [facility] Estimated Glomerular Filt Rate >60 [facility] Comment:Chronic Kidney Disea se: Estimated GFR < 60 mL/min/1.77c2Fzruvs Kidney Disease: Estimated GFR < 15 mL/min/1.73m2 Glucose 111 60 - 115 mg/dL [facility] Calcium 8.6 8.4 - 10.2 mg/dL [facility] Blood Venous blood specimen / Unknown 12/21/2024 9:20 AM EST 12/21/2024 11:30 AM EST us Laxmi Spear MD LAB BLOOD ORDERABLES Fin al Result Performing Organization Address City/[facility]/ZIP Co de Phone Number [facility] [address] [place] [address] [phone] * XR Wrist 1-2 Views Left (10/07/2024 9:00 AM EST) Anatomical Region Laterality Modality Upper Extremities, Wrist Left Radiogr aphic Imaging 10/07/2024 9:00 AM EST Narrative 10/07/2024 9:51 AM EST ? [facility] ?[address] ?[place] [address] ?XRay Report ? Signed ? Patient: Rodas,Magnolia ?MR#: [id number] ? : 1980 ?Acct:[id number] ? Age/Sex: 44 / F ?ADM Date: 10/07/24 ? Loc: HO.ED ? Attending Dr: ? Ordering Physician: Generic ED Physician ?? Date of Service: 10/07/24 ?? Procedure(s): XR wrist LT 2V ?? Accession Number(s): [id number] ? cc: Laxmi Spear MD; Generic ED Physician ? EXAMINATION: ?? XR WRIST, LEFT ? CLINICAL INFORMATION: ?? Left wrist pain. ? COMPARISON: ?? No prior available. ? TECHNIQUE: ?? PA, lateral, and oblique views of the left wrist. ? FINDINGS: ?? Normal bony mineralization. ? There is no fracture, dislocation, or focal bony abnormality. There is ?? very mild joint space narrowing involving the radiocarpal joint. Joint ?? spaces are otherwise preserved. No periarticular erosions. There is ?? probable old healed fracture of the distal radius and ulnar styloid. ? Carpal bones intact and normally aligned. ? Soft tissues appear normal. ? XR/XR wrist LT 2V ?? IMPRESSION: ?? -No acute findings left wrist. ? -Mild radiocarpal joint space narrowing, possibly posttraumatic from ?? old distal radial fracture. ? Electronically signed by: ??Baltazar Wolf MD ??10/07/2024 09:48 AM EST RP ?? Workstation: [id number] ? Dictated By: ?Baltazar Wolf MD ? Signed By: ?<Electronically signed by Baltazar Wolf MD in OV> ?10/07/24 0948 ? DD/ 0900 ? TD/TT: 10/07/24 0905 ? Care Process Manager: ? Procedure Note Aroldo Claudio - 10/07/[address] [address] XRay Report Signed Patient: Antionette RodasRiana#: [id number] : 1980Acct:[id number] Age/Sex: 44 / FADM Date: 10/07/24 Loc: HO.ED Attending Dr: Ordering Physician: Generic ED Physician Date of Service: 10/07/24 Procedure(s): XR wrist LT 2V Accession Number(s): [id number] cc: Laxmi Spear MD; Generic ED Physician EXAMINATION: XR WRIST, LEFT CLINICAL INFORMATION: Left wrist pain. COMPARISON: No prior available. TECHNIQUE: PA, lateral, and oblique views of the left wrist. FINDINGS: Normal bony mineralization. There is no fracture, dislocation, or focal bony abnormality. There is very mild joint space narrowing involving the radiocarpal joint. Joint spaces are otherwise preserved. No periarticular erosions. There is probable old healed fracture of the distal radius and ulnar styloid. Carpal bones intact and normally aligned. Soft tissues appear normal. XR/XR wrist LT 2V IMPRESSION: -No acute findings left wrist. -Mild radiocarpal joint space narrowing, possibly posttraumatic from old distal radial fracture. Electronically signed by: Baltazar Wolf MD 10/07/2024 09:48 AM EST Dictated By: Baltazar Wolf MD Signed By: <Electronically signed by Baltazar Wolf MD in OV> 10/07/24947 DD/ 9 TD/TT: 10/07/24904 Care Process Manager: [facility] External Provider IMG XR PROCEDURES Final Result * Hepatitis C Ab (08/31/2024 10:19 AM EDT) Hepatitis C Antibody Nonreactive Nonreactive [facility] Comment:Antibodies to HCV no t detected; does not exclude early acuteHCV infection. 08/31/2024 10:1 9 AM EDT 08/31/2024 10:55 AM EDT Generic External Data Provider LAB BLOOD ORDERAB LES Final Result [facility] [address] [place] [phone] * HIV-1/2 Antigen and Antibodies, Fourth Generation, with Reflexes (08/31/2024 10:19 AM EDT) HIV AB/AG Nonreactive Nonreactive [facility] Comment:HIV-1 p24 Ag and/or HIV-1/HIV-2 Ab not detected.A test result that is nonreactive does not exclude thepossibility of exposure to or infection with HIV-1 and/orHIV-2. Nonreactive results in this assay for individualswith prior exposure to HIV-1 and/or HIV-2 may be due toantigen and antibody levels that are below the limit ofdetection of this assay.The [employer] HIV Ag/Ab Combo assay result andsupplemental assay results should be interpreted inconjunction with the patient's clinical presentation,history and other laboratory results. If the results areinconsistent with clinical evidence, additional testing issuggested to confirm the result. 08/31/2024 10:1 9 AM EDT 08/31/2024 10:55 AM EDT us Generic External Data Provider LAB BLOOD ORDERAB LES Final Result [facility] [address] [place] [phone] * BI Mammogram Screening Tomosynthesis Bilateral (02/03/2024 10:40 AM EDT) Anatomical Region Laterality Modality Breast Bilateral Mammography 02/03/2024 10:4 0 AM EDT Narrative 02/29/2024 11:08 AM EDT ? [facility] ? [address] ?[place] [address] ? Mammography Report ? Signed ? Patient: Rodas,Magnolia ?MR#: [id number] ? : 1980 ?Acct:[id number] ? Age/Sex: 43 / F ?ADM Date: 03/11/24 ? Loc: HO.MAMMO ? Attending Dr: Laxmi Spear MD ? Ordering Physician: Laxmi Spear MD ?Results: 1Ne ?? gative ? Date of Service: 02/03/24 ?Follow Up: 1 Year From Orig ?? inal Mammogram ? Procedure(s): MM tomosynthesis screening BI ?? Accession Number(s): [id number] ? cc: Laxmi Spear MD ? EXAMINATION: ?? MM SCREENING DIGITAL BREAST TOMOSYNTHESIS, BILATERAL ? CLINICAL INFORMATION: ? Screening. Asymptomatic. ? COMPARISON: ?? Mammography: This study is compared with prior exams dating back to ?? 2022. ? TECHNIQUE: ?? Digital breast tomosynthesis is performed in both the craniocaudal and ?? mediolateral oblique views along with computer-aided detection (CAD). ?? Synthesized 2D images are generated from the tomosynthesis. ? FINDINGS: ?? There are scattered areas of fibroglandular density (ACR BI-RADS breast ?? composition Category b). ? There are no significant masses, abnormal calcifications, or other ?? abnormalities. ? MM/MM tomosynthesis screening BI ?? IMPRESSION: ?? No mammographic evidence of malignancy. ? ASSESSMENT: ? BI-RADS BI-RADS 1 - Negative ? RECOMMENDATION: ?? Routine annual mammography screening. ? 1 year F/U ? This examination should not preclude the clinical evaluation of a ?? suspicious palpable abnormality. ? This patient's information was entered into a reminder system with a ?? target due date for their next mammogram. ? Dictated By: ?Bri Watkins MD ? Signed By: ?<Electronically signed by Bri Watkins MD in OV> ? 02/29/244 ? DD/ 1040 ? TD/TT: ? Care Process Manager: ? Procedure Note Donotwaqasinterpreter, Image - 02/29/2024 [facility] [address] [place] [address] Mammography Report Signed Patient: Delicia Rodas#: [id number] : 1980Acct:[id number] Age/Sex: 43 / FADM Date: 02/03/24 Loc: [facility] Attending Dr: Laxmi Spear MD Ordering Physician: Laxmi Spear MDResults: 1Ne gative Date of Service: 02/03/24Follow Up: 1 Year From Orig ina Mammogram Procedure(s): MM tomosynthesis screening BI Accession Number(s): [id number] cc: Laxmi Spear MD EXAMINATION: MM SCREENING DIGITAL BREAST TOMOSYNTHESIS, BILATERAL CLINICAL INFORMATION: Screening. Asymptomatic. COMPARISON: Mammography: This study is compared with prior exams dating back to 2022. TECHNIQUE: Digital breast tomosynthesis is performed in both the craniocaudal and mediolateral oblique views along with computer-aided detection (CAD). Synthesized 2D images are generated from the tomosynthesis. FINDINGS: There are scattered areas of fibroglandular density (ACR BI-RADS breast composition Category b). There are no significant masses, abnormal calcifications, or other abnormalities. MM/MM tomosynthesis screening BI IMPRESSION: No mammographic evidence of malignancy. ASSESSMENT: BI-RADS BI-RADS 1 - Negative RECOMMENDATION: Routine annual mammography screening. 1 year F/U This examination should not preclude the clinical evaluation of a suspicious palpable abnormality. This patient's information was entered into a reminder system with a target due date for their next mammogram. Dictated By: Bri Watkins MD Signed By: <Electronically signed by Bri Watkins MD in OV> 02/29/24 1104 DD/ 1040 TD/TT: Care Process Manager: Laxmi Spear MD IMG BI PROCEDURES Final Result * HPV mRNA E6/E7 w/Reflex to HPV Genotypes 16, 18/45 (12/20/2022 10:30 AM EST) HPV nRNA E6/E7 Not Detected Not Detected [facility] Comment:Methodology: Transcr iption-Mediated AmplificationThis assay detects E6/E7 viral messenger RNA (mRNA) from 14high-risk HPV types (16,18,31,33,35,39,45,51,52,56,58,59,66,68).Cervical sources are required for HPV testing.If a vaginal source from a patient who has had atotal hysterectomy with removal of cervix wassubmitted, please contact the testing laboratoryfor alternative testing options.For additional information, please refer [email or web address](This link if provided for information/educational purposes only.)THIS TEST WAS PERFORMED AT:[address] [place] [address] (1)[place] [address]CWZMVOPHELIA CONRAD MD HPV mRNA E6/E7 [facility] HPV 16 RNA [facility] HPV 18/45 RNA [facility] 12/20/2022 10:3 0 AM EST 12/20/2022 4:15 PM EST us [facility] External Provider LAB CYT OLOGY ORDERABLES Final Result [facility] [address] [place] [address] [phone] * Pap Smear (12/20/2022 10:30 AM EST) 12/20/2022 10:3 0 AM EST 12/20/2022 4:15 PM EST Narrative [facility] - 12/28/2022 6:32 PM EST ----- ------- Name: Magnolia Rodas ? Age/Sex: 42/F ? : 1980 Unit#: [id number] ?? Attend Dr: Catalina Richards CNM ?Re12/20/22 ?Status: DEP REF ? Location: HO.LNP ?Disch: ? ----- ------- SPEC : [id number] ? RECD: 12/20/22-1614 ? STATUS: ??SOUT ? REQ NUM: [id number] ? OLENA: 12/20/22-0 ? SUBM DR: Catalina Richards CNM ? ENTERED: ??12/20/22-1718 ?SP TYPE: Pap Smr ?OTHR DR: Laxmi Spear MD ? ORDERED: ??Pap Smear ? Interpretation ?? Satisfactory for evaluation. ?? Negative for intraepithelial lesion or malignancy. ? HPV mRNA E6/E7: ?NOT DETECTED ? This assay detects E6/E7 viral messenger RNA (mRNA) from 14 high-risk HPV types (16, 18, ?? 31, 33, 35, 39, 45, 51, 52, 56, 58, 59, 66, 68) ? HPV testing performed by [employer], [place], [place]. ??See reference laboratory ?? portion of the EMR for entire report. Copies To: ?? Laxmi Spear MD ?? [address] [facility] ?? [place] [address] ? Catalina Richards CNM ?? [address] [place] [address] Dr. Nagel [facility] ?? [place] [address] ?? [phone] ----- ------- Signed (signature on file) Alisa Cristina Keila 12/28/221831 ? ----- ------- ? END OF REPORT ? [facility] External Provider LAB CYT OLOGY ORDERABLES Final Result [facility] [address] [place] [address] [phone] from Last 3 Months or Most Recently Relevant to Health Maintenance Insurance [employer] [facility] [facility] Care Teams Registered Vascular Technologist (Rvt) Relationship Specialty Start Date End Date Laxmi Spear MD [address] [place] [address] PCP - General Family Medicine 07/15/17
[2024-12-22 07:12] LABS: Triiodothyronine T3 Free 3.4 pg/mL (2.3-4.2); Triiodothyronine T3 Total 84 ng/dL (76-181)
== END 2024-12-21 09:19 | disposition home or self-care (01) ==
LOC: HO.HHCL 09:18
PROVIDERS: Visit Provider Internal Medicine
DX: R03.0 Elevated blood-pressure reading, without diagnosis of hypertension (principal); R63.4 Abnormal weight loss
CPT/HCPCS: 36415; 80048; 84436; 84439; 84443; 84480; 84481

== ENCOUNTER 2025-02-05 10:08 | Outpatient (AMB) | payer OTHER, SELFPAY ==
--- NOTE | 2025-02-05 10:09 | MHC.OFFVIS ---
Vital Signs 02/05/25 10:26 Height 5 ft 1 in Weight 124 lb BMI 23.4 BP 120/72 Intake Visit Reasons: STD screening Cloud Security Architect: Cloud Security Architect Present (Annika) Accompanied by: Self / Same As Patient Allergies bee pollen [Bee Stings] Allergy (Mild, Verified 02/05/25 10:14) SWELLING AT SITE Bee stings Allergy (Unknown, Uncoded 07/10/24 14:27) anaphylaxis Medication List - Last Reconciled 02/05/25 by Catalina Richards CNM hydroxyzine HCl 10 mg PO TID PRN spironolactone 25 mg PO DAILY Is last menstrual period known: Yes Last menstrual period: 01/18/25 Post menopausal: No Patient : No HPI HPI STD screening: Details: Patient is here for an STD screen. She has had trichomoniasis before recently and she thinks she took the medicine the did taste nasty she thinks she would prefer the suppositories this time if she has a back again but I informed her that the medication to treat the trichomoniasis is the oral medication and I did agree with her that the medication tastes very bad and I discussed ways to take it to avoid letting it sit on her tongue and to definitely have food in her stomach and to perhaps to some gum or have a mid afterwards if she has to take it again during the visit I told her that I thought she still had it by virtue of the appearance of the discharge and I offered her the treatment today but she wants to wait and see if she really does have it before she takes the medicine in addition she wants to get blood work for all other STDs and she wants to arrange so that she gets a paper record of her results because she has difficulty getting into the portal and she wants a written record of her results. [facility] Medical History COVID-19 Anxiety No known health problems Surgical History History of tubal ligation Social History Household Members: Children Housing: Other Housing Other:: Duplex Do you presently have visiting nurse or other home services: No Unable to assess alcohol history related to: Unknown Alcohol intake: current Alcohol intake frequency: holidays/special occasions only Patient Tobacco Use Status: Former Tobacco user Substance Use Type: Marijuana Advance Directives Date on File: 11/27/23 Patient : No service: No Gender identity: Female Female Reproductive History Menstrual Age of Menarche: 17 Duration of menses: 3-5 days Date of last menstrual period: 01/18/25 control method: permanent sterilization Total pregnancies: 2 Full term: 2 Date of last pap smear: 12/20/22 (negative hpv, negative pap smear) History of abnormal pap smear: Yes (CIN1) Date of Mammogram: 02/03/24 (Bi rad 1) Physical Exam Vital Signs: Last Vital Signs BP 120/72 02/05/25 10:26 BMI result Body Mass Index 23.4 Other: Vagina pink and moist multiparous cervix abundant yellowish runny bubbly discharge which is consistent with trichomoniasis at the least. Patient wants to wait for test results before treating, though I did offer her treatment today. External Female Exam: normal external appearance and normal appearance of the urethra Speculum Exam - Vagina: normal appearance of the vagina Speculum Exam - Cervix: normal appearance of the cervix and Cervical os closed Assessment & Plan Assessment & Plan (1) Potential exposure to STD: Code(s): Z20.2 - Contact with and (suspected) exposure to infections with a predominantly sexual mode of transmission Category: Medical (2) Trichomoniasis: Comment: sarah being done today, reminded re safer sex; history of, discharge is extremely consistent with this today but we will await results of testing- 07/10/24 testing is pos for trich as expected, needs reteaching, partner rx and sarah.; 02/05/2025 being retested for all STIs discharge is very suspicious for trichomoniasis at least we will await test results to determine treatment Code(s): A59.9 - Trichomoniasis, unspecified Category: Medical (3) Hx of sexually transmitted disease: Comment: GC, chlamydia, and trich; Code(s): Z86.19 - Personal history of other infectious and parasitic diseases Category: Medical Plan Patient is here for an STD screen. She has had trichomoniasis before recently and she thinks she took the medicine the did taste nasty she thinks she would prefer the suppositories this time if she has a back again but I informed her that the medication to treat the trichomoniasis is the oral medication and I did agree with her that the medication tastes very bad and I discussed ways to take it to avoid letting it sit on her tongue and to definitely have food in her stomach and to perhaps to some gum or have a mid afterwards if she has to take it again during the visit I told her that I thought she still had it by virtue of the appearance of the discharge and I offered her the treatment today but she wants to wait and see if she really does have it before she takes the medicine in addition she wants to get blood work for all other STDs and she wants to arrange so that she gets a paper record of her results because she has difficulty getting into the portal and she wants a written record of her results. Testing ordered for HIV hep B hep C and syphilis. Patient wants to await the test results to see if she needs treatment for trich and anything else. She has trouble getting into the portal I instructed her to call on Saturday to get her test results and so we can arrange any treatment necessary. She declined treatment today until we know for sure what it is.. Discussed how to take metronidazole if she has to again. Safer sex advised as always. Orders: Orders Hepatitis B Surface Antigen Today A59.9 - Trichomoniasis, unspecified, Z20.2 - Contact with and (suspected) exposure to infections with a predominantly sexual mode of transmission, Z86.19 - Personal history of other infectious and parasitic diseases Hepatitis C Antibody Today A59.9 - Trichomoniasis, unspecified, Z20.2 - Contact with and (suspected) exposure to infections with a predominantly sexual mode of transmission, Z86.19 - Personal history of other infectious and parasitic diseases HIV Ab/Ag Today A59.9 - Trichomoniasis, unspecified, Z20.2 - Contact with and (suspected) exposure to infections with a predominantly sexual mode of transmission, Z86.19 - Personal history of other infectious and parasitic diseases Syphilis Screen Today A59.9 - Trichomoniasis, unspecified, Z20.2 - Contact with and (suspected) exposure to infections with a predominantly sexual mode of transmission, Z86.19 - Personal history of other infectious and parasitic diseases Coding Level of Care Code Est Pt Level 3 (16519) Diagnoses Potential exposure to STD Z20.2 Trichomoniasis A59.9 Hx of sexually transmitted disease Z86.19
[2025-02-05 10:26] VITALS: BP 120/72; BMI 23.4
--- OUTSIDE RECORDS SUMMARY | 2025-02-05 11:24 | XMS_ITS | Encounter Summary ---
Author Organization [facility] Address [address] [place] [address] [address]t [place] [address] Care Team Providers Care Maitre D Name Role Phone Laxmi Spear MD Primary Care Provider + Reason for Visit * Reason Comments Med Refill Encounter Details Date Type Department Care Team ([facility] Contact Info) Description 08/02/2023 Refill [facility] [address] [place] [address] [phone] Laxmi Spear MD [address] [place], [place] [phone] Anxiety Social History Tobacco Use Types Packs/Day [...] Description 03/19/2025 11:30 AM EDT Office Visit [facility] [address] [place] [address] [phone] Laxmi Spear MD [address] [place], [place] [phone] documented as of this encounter Visit Diagnoses Diagnosis Anxiety Anxiety state, unspecified documented in this encounter Care Teams Maitre D Relationship Specialty Start Date End Date Laxmi Spear MD [address] [place] [phone] PCP - General Family Medicine 07/15/17 documented as of this encounter
--- OUTSIDE RECORDS SUMMARY | 2025-02-05 11:24 | XMS_ITS | Encounter Summary ---
Author Organization [employer] Address [address] [facility] 7t [place] [address] Care Team Providers Care Medical Communication Specialist Name Role Phone Laxmi Spear MD Primary Care Provider + Reason for Visit * Reason Onset Date Comments Nurse Triage 12/03/2023 Encounter Details Date Type Department Care Team ([facility] st Contact Info) Description 12/03/2023 Telephone [facility] [address] [place], [place] [phone] Laxmi Spear MD [address] [place], [place] [phone] Nurse Triage Social History Tobacco Use Types [...] the 5th day. Pt is given 3rd republican tele visit for jose f , number is [phone]. Pt reports this is the 3rd time Pt has had Covid. 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 No further questions offered. Pt agrees with [...] accepted this outcome Please contact pt @ [phone] Pt is requesting the AntiBiotics documented in this encounter Plan of Treatment Upcoming Encounters Date Type Department Care Team (Late st Contact Info) Description 03/19/2025 11:30 AM EDT Office Visit [facility] [address] [place] [address] Laxmi Spear MD [address] [place] [address] documented as of this encounter Visit Diagnoses Not on filedocumented in this encounter Care Teams Medical Communication Specialist Relationship Specialty Start Date End Date Laxmi Spear MD [address] [place] [phone] PCP - General Family Medicine 07/15/17 documented as of this encounter
--- OUTSIDE RECORDS SUMMARY | 2025-02-05 11:24 | XMS_ITS | Encounter Summary ---
Author Organization [facility] [employer] Address [address] [facility] 7t [place] [address] Care Team Providers Care Diesel Pile Driver Operator Name Role Phone Laxmi Spear MD Primary Care Provider + Encounter Details Date Type Department Care Team (Late Contact Info) Description 01/24/2023 Orders Only [facility] [address] [place] [address] Candis Dixon LPN Social History Tobacco Use [...] Description 03/19/2025 11:30 AM EDT Office Visit [facility] [address] [place], [place] [phone] Laxmi Spear MD [address] [place], [place] [phone] documented as of this encounter Visit Diagnoses Not on filedocumented in this encounter Care Teams Diesel Pile Driver Operator Relationship Specialty Start Date End Date Laxmi Spear MD [address] [place] [phone] PCP - General Family Medicine 07/15/17 documented as of this encounter
--- OUTSIDE RECORDS SUMMARY | 2025-02-05 11:24 | XMS_ITS | Clinical Summary ---
Author Organization [employer] Address [address] [facility] 7t [place] [address] Care Team Providers Care Flat Clothier Name Role Phone Laxmi Spear MD Primary Care Provider + Allergies Active Allergy Reactions Criticality Noted Date Comments Bee Venom 06/13/2015 Medications acetaminophen (Tylenol) 500 MG tablet Take 2 tablets (1,000 mg) by mouth every 6 (six) hours if needed for moderate pain or fever for up to 25 doses. 50 tablet 11/20/2023 Active ibuprofen 400 MG tablet Take 1 tablet (400 mg) by mouth every 6 (six) hours if needed for moderate pain or fever for up to 30 doses. 30 tablet 11/20/2023 Active hydrOXYzine HCl (Atarax) 10 MG tabletIndicatio ns:Anxiety TAKE 1 TO 2 TABLETS BY MOUTH TWICE A DAY NEEDED FOR ANXIETY 180 tablet 1 02/11/2024 Active Blood Pressure kit 1 kit Once per day. 1 kit 08/18/2024 Active ergocalciferol (Vitamin D2) 1.25 MG (94578 UT) capsule Take 1 capsule (1.25 mg) by mouth 1 (one) time per week. 12 capsule 1 09/08/2024 03/07/20 25 Active spironolactone (Aldactone) 25 MG tablet Take 1 tablet (25 mg) by mouth Once per day. 90 tablet 3 12/21/2024 12/21/19 26 Active Active Problems Problem Noted Date Diagnosed Date Hair loss 10/15/2024 Assessment & Plan (12/21/2024 12:02 PM EST): Continue on Spironolactone and FU lab results. We will call Dermatology to schedule an appointment. Weight loss 10/15/2024 Assessment & Plan (12/21/2024 5:14 PM EST): Still pending lab results. CT scan abd was declined by insurance She gained 5 lbs within the past [...] Description 12/21/2024 11:15 AM EST Office Visit [facility] [address] [place] [address] Laxmi Spear MD Elevated blood pressure reading (Primary Dx); Weight loss; Hair loss 12/21/[address] [facility] [address] [place] [address] Laxmi Spear MD 12/21/2024 Travel 12/18/[address] [facility] [address] [place] [address] Tara Bella [place] Chart prep from Last 3 Months Immunizations Name Administration [...] Description 03/19/2025 11:30 AM EDT Office Visit [facility] [address] [place] [address] Laxmi Spear MD [address] [place], [place] [phone] Health Maintenance Due Date Last Done Comments IPV Vaccines (2 of 3 - 4-dose series) 05/23/1987 04/25/1987 Alcohol/Substance Use Screening 1994 COVID-19 Vaccine ( season) 2024 12/29/2021, 12/21/2020, 11/30/2020 SDOH Screening 11/28/2024 11/28/2023 Family Planning (PISQ) 08/28/2025 08/28/2024 Pap Smear 12/20/2025 12/20/2022, 10/11/2021 Depression Screening 12/21/2025 12/21/2024, 12/21/19 Tobacco Screening 12/21/2025 12/21/2024 Mammogram 02/02/2026 02/03/2024 [...] 5 Years) and At-Risk Patients (6 to 49) Years) Aged Out No longer eligible based [...] Routine 12/21/2024 9:20 AM EST Weight loss T3, TOTAL Routine 12/21/2024 9:20 AM EST Weight loss T3, FREE Routine 12/21/2024 9:20 AM EST Weight loss HEPATITIS C ANTIBODY Routine 08/31/2024 10:19 AM EDT HIV 1/2 ANTIGEN/ANTIBODY, FOURTH GENERATION W/RFL Routine 08/31/2024 10:19 AM EDT BI MAMMOGRAM SCREENING TOMOSYNTHESIS BILATERAL Routine 02/03/2024 10:40 AM EDT HPV MRNA E6/E7 REFLEX TO HPV 16, 18/45 Routine 12/20/2022 10:30 AM EST PAP SMEAR Routine 12/20/2022 10:30 AM EST from Last 3 Months or Most Recently Relevant to Health Maintenance Results * T3, Free (12/21/2024 9:20 AM EST) T3, Free 3.4 2.3 - 4.2 pg/mL [facility] Comment:THIS TEST WAS PERFOR MED AT:[facility] [place] [phone] CONRAD MD Blood Venous blood specimen / Unknown 12/21/2024 9:20 AM EST 12/21/2024 11:30 AM EST Laxmi Spear MD LAB BLOOD ORDERABLES Fin al Result Performing Organization Address [facility] Co de Phone Number [facility] [address] [place] [phone] * T3, Total (12/21/2024 9:20 AM EST) T3, Total 84 76 - 181 ng/dL [facility] Comment:THIS TEST WAS PERFOR MED AT:[facility] [place] [phone] CONRAD MD Blood Venous blood specimen / Unknown 12/21/2024 9:20 AM EST 12/21/2024 11:30 AM EST Laxmi Spear MD LAB BLOOD ORDERABLES Fin al Result Performing Organization Address [facility] Co de Phone Number [facility] [address] [place] [phone] * TSH (12/21/2024 9:20 AM EST) Thyroid Stimulating Hormone 1.89 0.32 - 4.0 uIU/mL [facility] Comment:TSH 3rd Generation ( [facility]) Blood Venous blood specimen / Unknown 12/21/2024 9:20 AM EST 12/21/2024 11:30 AM EST Laxmi Spear MD LAB BLOOD ORDERABLES Fin al Result Performing Organization Address [facility] Co de Phone Number [facility] [address] [place] [phone] * T4, Free (12/21/2024 9:20 AM EST) Free T4 (Free Thyroxine) 0.90 0.71 - 1.85 ng/dL [facility] Blood Venous blood specimen / Unknown 12/21/2024 9:20 AM EST 12/21/2024 11:30 AM EST Laxmi Spear MD LAB BLOOD ORDERABLES Fin al Result Performing Organization Address [facility] Co de Phone Number [facility] [address] [place] [phone] * T4 (Thyroxine), Total (12/21/2024 9:20 AM EST) T4 Thyroxine 6.0 4.5 - 12.0 ug/dL [facility] Blood Venous blood specimen / Unknown 12/21/2024 9:20 AM EST 12/21/2024 11:30 AM EST Laxmi Spear MD LAB BLOOD ORDERABLES Fin al Result Performing Organization Address [facility] de Phone Number [facility] [address] [place] [phone] * (ABNORMAL) Basic Metabolic Panel (12/21/2024 9:20 AM EST) Sodium 138 135 - 145 mmol/L [facility] Potassium 3.8 3.3 - 5.1 mmol/L [facility] Chloride 107 96 - 108 mmol/L [facility] Carbon Dioxide 24 22 - 29 mmol/L [facility] Anion Gap 11(L) 12 - 20 [facility] Urea Nitrogen (BUN) 10 9 - 16 mg/dL [facility] Creatinine, Serum 0.66 0.5 - 1.4 mg/dL [facility] Estimated Glomerular Filt Rate >60 [facility] Comment:Chronic Kidney Disea se: Estimated GFR < 60 mL/min/1.06x3Zgtorn Kidney Disease: Estimated GFR < 15 mL/min/1.73m2 Glucose 111 60 - 115 mg/dL [facility] Calcium 8.6 8.4 - 10.2 mg/dL [facility] Blood Venous blood specimen / Unknown 12/21/2024 9:20 AM EST 12/21/2024 11:30 AM EST us Laxmi Spear MD LAB BLOOD ORDERABLES Fin al Result Performing Organization Address [facility]/ZIP Co de Phone Number [facility] [address] [place] [phone] * Hepatitis C Ab (08/31/2024 10:19 AM EDT) Hepatitis C Antibody Nonreactive Nonreactive [facility] Comment:Antibodies to HCV no t detected; does not exclude early acuteHCV infection. 08/31/2024 10:1 9 AM EDT 08/31/2024 10:55 AM EDT us Generic External Data Provider LAB BLOOD ORDERAB LES Final Result Performing Organization Address [facility] de Phone Number [facility] [address] [place] [phone] * HIV-1/2 Antigen and Antibodies, Fourth Generation, with Reflexes (08/31/2024 10:19 AM EDT) HIV AB/AG Nonreactive Nonreactive [facility] Comment:HIV-1 p24 Ag and/or HIV-1/HIV-2 Ab not detected.A test result that is nonreactive does not exclude thepossibility of exposure to or infection with HIV-1 and/orHIV-2. Nonreactive results in this assay for individualswith prior exposure to HIV-1 and/or HIV-2 may be due toantigen and antibody levels that are below the limit ofdetection of this assay.The Sidecar HIV Ag/Ab Combo assay result andsupplemental assay results should be interpreted inconjunction with the patient's clinical presentation,history and other laboratory results. If the results areinconsistent with clinical evidence, additional testing issuggested to confirm the result. 08/31/2024 10:1 9 AM EDT 08/31/2024 10:55 AM EDT us Generic External Data Provider LAB BLOOD ORDERAB LES Final Result [facility] [address] [place] [address] [phone] * BI Mammogram Screening Tomosynthesis Bilateral (02/03/2024 10:40 AM EDT) Anatomical Region Laterality Modality Breast Bilateral Mammography 02/03/2024 10:4 0 AM EDT Narrative 02/29/2024 11:08 AM EDT ? [facility] ? [address] ?[place] [address] ? Mammography Report ? Signed ? Patient: RodasAntionetteMagnolia ?MR#: [id number] ? : 1980 ?Acct:[id number] ? Age/Sex: 43 / F ?ADM Date: 02/03/24 ? Loc: HO.MAMMO ? Attending Dr: Laxmi Spear MD ? Ordering Physician: Laxmi Spear MD ?Results: 1Ne ?? gative ? Date of Service: 02/03/24 ?Follow Up: 1 Year From Orig ?? inal Mammogram ? Procedure(s): MM tomosynthesis screening BI ?? Accession Number(s): [id number] ? cc: Laxmi Spear MD ? EXAMINATION: [...] by Bri Watkins MD in OV> ? 02/29/24 1104 ? DD/ 1040 ? TD/TT: ? Core Composer Machine Tender: ? Procedure Note Shanon, Image - 02/29/2024 [facility] [address] [place] [address] Mammography Report Signed Patient: Delicia Rodas#: [id number] : 1980Acct:[id number] Age/Sex: 43 / FADM Date: 02/03/24 Loc: [facility]AIL[facility] Attending Dr: Laxmi Spear MD Ordering Physician: Laxmi Spearults: 1Ne gative Date of Service: 02/03/24Follow Up: 1 Year From Orig inal Mammogram Procedure(s): MM tomosynthesis screening BI Accession Number(s): [id number] cc: Laxmi Spear MD EXAMINATION: MM SCREENING [...] in OV> 02/29/24 1104 DD/ 1040 TD/TT: Core Composer Machine Tender: Laxmi Spear MD IMG BI PROCEDURES Final Result * HPV mRNA E6/E7 w/Reflex to HPV Genotypes 16, 18/45 (12/20/2022 10:30 AM EST) HPV nRNA E6/E7 Not Detected Not Detected [facility] Comment:Methodology: Transcr iption-Mediated AmplificationThis assay detects E6/E7 viral messenger RNA (mRNA) from 14high-risk HPV types (16,18,31,33,35,39,45,51,52,56,58,59,66,68).Cervical sources are required for HPV testing.If a vaginal source from a patient who has had atotal hysterectomy with removal of cervix wassubmitted, please contact the testing laboratoryfor alternative testing options.For additional information, please refer [email or web address](This link if provided for information/educational purposes only.)THIS TEST WAS PERFORMED AT:[facility] [place] [address] STREET (NL1)[place] [phone] CONRAD MD HPV mRNA E6/E7 TNP [facility] HPV 16 RNA TNP [facility] HPV 18/45 RNA TNP [facility] 12/20/2022 10:3 0 AM EST 12/20/2022 4:15 PM EST us [facility] External Provider LAB CYT OLOGY ORDERABLES Final Result [facility] [address] [place] [address] [phone] * Pap Smear (12/20/2022 10:30 AM EST) 12/20/2022 10:3 0 AM EST 12/20/2022 4:15 PM EST Narrative [facility] - 12/28/2022 6:32 PM EST ----- ------- Name: Magnolia Rodas ? Age/Sex: 42/F ? : 1980 Unit#: [id number] ?? Attend Dr: Catalina Richards CNM ?Re12/20/22 ?Status: DEP REF ? Location: HO.LNP ?Disch: ? ----- ------- SPEC : [id number] ? RECD: 12/20/22 ? STATUS: ??SOUT ? REQ NUM: [id number] ? OLENA: 12/20/22 ? SUBM DR: Catalina Richards Jamil ? ENTERED: ??12/20/22 ?SP TYPE: Pap Smr ?OTHR DR: Laxmi [...] 66, 68) ? HPV testing performed by [facility], [place], [place]. ??See reference laboratory ?? portion of the EMR for entire report. Copies To: ?? Laxmi Spear MD ?? [address] ?? [place] [address] ? SusieCatalina FRANCIAJamil ?? [address] [facility] ?? [place] [address] ?? [phone] ----- ------- Signed (signature on file) Alisa Jonnie Pedraza 12/28/221831 ? ----- ------- ? END OF REPORT ? [facility] External Provider LAB [facility] ORDERABLES Final Result [facility] [address] [place] [phone] from Last 3 Months or Most Recently Relevant to Health Maintenance Insurance [facility] Care Teams Flat Clothier Relationship Specialty Start Date End Date Laxmi Spear MD [address] [place] [phone] PCP - General Family Medicine 07/15/17
--- OUTSIDE RECORDS SUMMARY | 2025-02-05 11:24 | XMS_ITS | Encounter Summary ---
Author Organization [facility] Address [address] [place] [address] 7t [place] [address] Care Team Providers Care Setter Automatic Spinning Lathe Name Role Phone Laxmi Spear MD Primary Care Provider + Encounter Details Date Type Department Care Team (Late st Contact Info) Description 08/30/2023 Abstract [facility] [address] [place] [address] [phone] Annel Campos Social History Tobacco Use Types [...] Description 03/19/2025 11:30 AM EDT Office Visit [facility] [address] [place] [phone] Laxmi Spear MD [address] [place] [address] documented as of this encounter Procedures Procedure [...] on filedocumented in this encounter Care Teams Setter Automatic Spinning Lathe Relationship Specialty Start Date End Date Laxmi Spear MD [address] [place] [phone] PCP - General Family Medicine 07/15/17 documented as of this encounter
== END 2025-02-05 11:17 | disposition home or self-care (01) ==
LOC: HO.HWS 10:09
PROVIDERS: PCP Internal Medicine; Visit Provider Advanced Practice Midwife
DX: Z20.2 Contact with and (suspected) exposure to infections with a predominantly sexual mode of transmission (principal); A59.9 Trichomoniasis, unspecified; Z86.19 Personal history of other infectious and parasitic diseases
CPT/HCPCS: 99213

== ENCOUNTER 2025-02-05 10:08 | Outpatient (REF) | payer OTHER, SELFPAY ==
--- OUTSIDE RECORDS SUMMARY | 2025-02-05 12:52 | XMS_ITS | Clinical Summary ---
Author Organization [facility] [employer] Address [address] [facility] 7t [place] [address] Care Team Providers Care Ship Harbor Pilot Name Role Phone Laxmi Spear MD Primary [...] 08/18/2024 Active ergocalciferol (Vitamin D2) 1.25 MG (92754 UT) capsule Take 1 capsule (1.25 mg) [...] Description 12/21/2024 11:15 AM EST Office Visit [facility] [address] [place] [address] Laxmi Spear MD Elevated blood pressure reading (Primary Dx); Weight loss; Hair loss 12/21/2024 Telephone [facility] [address] [place] [address] Laxmi Spear MD 12/21/2024 Travel 12/18/2024 Telephone [facility] [address] [place] [address] Tara Bella [place] Chart prep from Last [...] Description 03/19/2025 11:30 AM EDT Office Visit [facility] [address] [place] [address] Laxmi Spear MD 230 [place], [place] [phone] Health Maintenance Due Date Last Done Comments [...] T3, Free 3.4 2.3 - 4.2 pg/mL [facility] Comment:THIS TEST WAS PERFOR MED AT:[email or web address] [place] [phone] CONRAD MD Blood Venous blood specimen / Unknown 12/21/2024 9:20 AM EST 12/21/2024 11:30 AM EST Laxmi Spear MD LAB BLOOD ORDERABLES Fin al Result Performing Organization Address [facility] Co de Phone Number [facility] [address] [place] [phone] * T3, Total (12/21/2024 9:20 AM EST) T3, Total 84 76 - 181 ng/dL [facility] Comment:THIS TEST WAS PERFOR MED AT:[email or web address] [place] [phone] CONRAD MD Blood Venous blood specimen / Unknown 12/21/2024 9:20 AM EST 12/21/2024 11:30 AM EST Laxmi Spear MD LAB BLOOD ORDERABLES Fin al Result Performing Organization Address [facility] Co de Phone Number [facility] [address] [place] [phone] * TSH (12/21/2024 9:20 AM EST) Thyroid Stimulating Hormone 1.89 0.32 - 4.0 uIU/mL [facility] Comment:TSH 3rd Generation ( [facility]) Blood Venous blood specimen / Unknown 12/21/2024 9:20 AM EST 12/21/2024 11:30 AM EST Laxmi Spear MD LAB BLOOD ORDERABLES Fin al Result Performing Organization Address [facility] Co de Phone Number [facility] [address] [place] [phone] * T4, Free (12/21/2024 9:20 AM EST) Free T4 (Free Thyroxine) 0.90 0.71 - 1.85 ng/dL [facility] Blood Venous blood specimen / Unknown 12/21/2024 9:20 AM EST 12/21/2024 11:30 AM EST Laxmi Spear MD LAB BLOOD ORDERABLES Fin al Result Performing Organization Address City/[facility] Co de Phone Number [facility] [address] [place] [phone] * T4 (Thyroxine), Total (12/21/2024 9:20 AM EST) T4 Thyroxine 6.0 4.5 - 12.0 ug/dL [facility] Blood Venous blood specimen / Unknown 12/21/2024 9:20 AM EST 12/21/2024 11:30 AM EST Laxmi Spear MD LAB BLOOD ORDERABLES Fin al Result Performing Organization Address [facility] de Phone Number [facility] [address] [place] [address] [phone] * (ABNORMAL) Basic Metabolic Panel (12/21/2024 9:20 AM EST) Sodium 138 135 - 145 mmol/L [facility] Potassium 3.8 3.3 - 5.1 mmol/L [facility] Chloride 107 96 - 108 mmol/L [facility] Carbon Dioxide 24 22 - 29 mmol/L [facility] Anion Gap 11(L) 12 - 20 [facility] Urea Nitrogen (BUN) 10 9 - 16 mg/dL [facility] Creatinine, Serum 0.66 0.5 - 1.4 mg/dL [facility] Estimated Glomerular Filt Rate >60 [facility] Comment:Chronic Kidney Disea se: Estimated GFR < 60 mL/min/1.77b5Empfkz Kidney Disease: Estimated GFR < 15 mL/min/1.73m2 Glucose 111 60 - 115 mg/dL [facility] Calcium 8.6 8.4 - 10.2 mg/dL [facility] Blood Venous blood specimen / Unknown 12/21/2024 9:20 AM EST 12/21/2024 11:30 AM EST us Laxmi Spear MD LAB BLOOD ORDERABLES Fin al Result Performing Organization Address [facility]/ZIP Co de Phone Number [facility] [address] [place] [phone] * Hepatitis C Ab (08/31/2024 10:19 AM EDT) Hepatitis C Antibody Nonreactive Nonreactive [facility] Comment:Antibodies to HCV no t detected; does not exclude early acuteHCV infection. 08/31/2024 10:1 9 AM EDT 08/31/2024 10:55 AM EDT us Generic External Data Provider LAB BLOOD ORDERAB LES Final Result Performing Organization Address [facility] de Phone Number [facility] [address] [place] [phone] * HIV-1/2 Antigen and Antibodies, Fourth Generation, with Reflexes (08/31/2024 10:19 AM EDT) HIV AB/AG Nonreactive Nonreactive [facility] Comment:HIV-1 p24 Ag and/or HIV-1/HIV-2 Ab not detected.A test result that is nonreactive does not exclude thepossibility of exposure to or infection with HIV-1 and/orHIV-2. Nonreactive results in this assay for individualswith prior exposure to HIV-1 and/or HIV-2 may be due toantigen and antibody levels that are below the limit ofdetection of this assay.The [employer] HIV Ag/Ab Combo assay result andsupplemental assay results should be interpreted inconjunction with the patient's clinical presentation,history and other laboratory results. If the results areinconsistent with clinical evidence, additional testing issuggested to confirm the result. 08/31/2024 10:1 9 AM EDT 08/31/2024 10:55 AM EDT us Generic External Data Provider LAB BLOOD ORDERAB LES Final Result [facility] [address] [place] [address] [phone] * BI Mammogram Screening Tomosynthesis Bilateral (02/03/2024 10:40 AM EDT) Anatomical Region Laterality Modality Breast Bilateral Mammography 02/03/2024 10:4 0 AM EDT Narrative 02/29/2024 11:08 AM EDT ? [facility] [place] ? [address] ?[place] [address] ? Mammography Report ? Signed ? Patient: RodasAntionetteMagnolia ?MR#: [id number] ? : 1980 ?Acct:[id number] ? Age/Sex: 43 / F ?ADM Date: 02/03/24 ? Loc: HO.MAMMO ? Attending Dr: Laxmi Spear MD ? Ordering Physician: Laxmi Spear MD ?Results: 1Ne ?? gative ? Date of Service: 02/03/24 ?Follow Up: 1 Year From Orig ?? inal Mammogram ? Procedure(s): MM tomosynthesis screening BI ?? Accession Number(s): [id number] ? cc: Laxmi Spear MD ? EXAMINATION: [...] 1104 ? DD/ 1040 ? TD/TT: ? Cdl Truck Driver: ? Procedure Note Shanon, Image - 02/29/2024 [facility] [address] [place] [address] Mammography Report Signed Patient: Delicia Rodas#: [id number] : 1980Acct:[id number] Age/Sex: 43 / FADM Date: 02/03/24 Loc: KAILASH Attending Dr: Laxmi Spear MD Ordering Physician: Laxmi Spearults: 1Ne gative Date of Service: 02/03/24Follow Up: 1 Year From Orig inal Mammogram Procedure(s): MM tomosynthesis screening BI Accession Number(s): [id number] cc: Laxmi Spear MD EXAMINATION: MM SCREENING [...] in OV> 02/29/24 1104 DD/ 1040 TD/TT: Cdl Truck Driver: Laxmi Spear MD IMG BI PROCEDURES Final Result * HPV mRNA E6/E7 w/Reflex to HPV Genotypes 16, 18/45 (12/20/2022 10:30 AM EST) HPV nRNA E6/E7 Not Detected Not Detected [facility] Comment:Methodology: Transcr iption-Mediated AmplificationThis assay detects E6/E7 viral messenger RNA (mRNA) from 14high-risk HPV types (16,18,31,33,35,39,45,51,52,56,58,59,66,68).Cervical sources are required for HPV testing.If a vaginal source from a patient who has had atotal hysterectomy with removal of cervix wassubmitted, please contact the testing laboratoryfor alternative testing options.For additional information, please refer [email or web address](This link if provided for information/educational purposes only.)THIS TEST WAS PERFORMED AT:[facility] [place] [address] STREET (NL1)[place] [phone] CONRAD MD HPV mRNA E6/E7 [facility] HPV 16 RNA TNP [facility] HPV 18/45 RNA TNP [facility] 12/20/2022 10:3 0 AM EST 12/20/2022 4:15 PM EST us [facility] External Provider LAB CYT OLOGY ORDERABLES Final Result [facility] [address] [place] [address] [phone] * Pap Smear (12/20/2022 10:30 AM EST) 12/20/2022 10:3 0 AM EST 12/20/2022 4:15 PM EST Narrative [facility] - 12/28/2022 6:32 PM EST ----- ------- Name: Magnolia Rodas ? Age/Sex: 42/F ? : 1980 Unit#: [id number] ?? Attend Dr: Catalina Richards CNM ?Re12/20/22 ?Status: DEP REF ? Location: HO.LNP ?Disch: ? ----- ------- SPEC : [id number] ? RECD: 12/20/22 ? STATUS: ??SOUT ? REQ NUM: [id number] ? OLENA: 12/20/22 ? SUBM DR: Catalina [...] 66, 68) ? HPV testing performed by [facility], [place], [place]. ??See reference laboratory ?? portion of the EMR for entire report. Copies To: ?? Laxmi Spear MD ?? [address] ?? [place] [address] ? SusieCatalina FRANCIAJamil ?? [address] [facility] [address] [place] ?? [place] [address] ?? [phone] ----- ------- Signed (signature on file) Alisa Jonnie Pedraza 12/28/221831 ? ----- ------- ? END OF REPORT ? [facility] External Provider LAB [facility] ORDERABLES Final Result [facility] [address] [place] [phone] from Last 3 Months or Most Recently Relevant to Health Maintenance Insurance [facility] [place] [address] Care Teams Ship Harbor Pilot Relationship Specialty Start Date End Date Laxmi Spear MD [address] [place] [phone] PCP - General Family Medicine 07/15/17
--- OUTSIDE RECORDS SUMMARY | 2025-02-05 12:52 | XMS_ITS | Encounter Summary ---
Author Organization [facility] Address [address] [place] [address] 7t [place] [address] Care Team Providers Care Diesel Stationary Engineer Name Role Phone Laxmi Spear MD Primary Care Provider + Encounter Details Date Type Department Care Team (Late st Contact Info) Description 08/30/2023 Abstract [facility] [address] [place] [address] [phone] Annel Campos Social History Tobacco Use Types [...] Description 03/19/2025 11:30 AM EDT Office Visit [facility] [address] [place] [phone] Laxmi Spear MD [address] [place] [address] documented as of this encounter Procedures Procedure [...] filedocumented in this encounter Care Teams Diesel Stationary Engineer Relationship Specialty Start Date End Date Laxmi Spear MD [address] [place] [phone] PCP - General Family Medicine 07/15/17 documented as of this encounter
--- OUTSIDE RECORDS SUMMARY | 2025-02-05 12:52 | XMS_ITS | Encounter Summary ---
Author Organization [employer] Address [address] [facility] 7t [place] [address] Care Team Providers Care Cut Off Machine Unloader Name Role Phone Laxmi Spear MD Primary Care Provider + Encounter Details Date Type Department Care Team (Late Contact Info) Description 01/24/[address] [facility] [address] [place] [address] Candis Dixon LPN Social History Tobacco Use [...] 03/19/2025 11:30 AM EDT Office Visit [facility] [address] [place], [place] [phone] Laxmi Spear MD 230 [place], [place] [phone] documented as of this encounter Visit Diagnoses Not on filedocumented in this encounter Care Teams Cut Off Machine Unloader Relationship Specialty Start Date End Date Laxmi Spear MD [address] [place] [phone] PCP - General Family Medicine 07/15/17 documented as of this encounter
--- OUTSIDE RECORDS SUMMARY | 2025-02-05 12:52 | XMS_ITS | Encounter Summary ---
Author Organization [employer] Address [address] [facility] 7t [place] [address] Care Team Providers Care Returning Officer Name Role Phone Laxmi Spear MD Primary Care Provider + Reason for Visit * Reason Onset Date Comments Nurse Triage 12/03/2023 Encounter Details Date Type Department Care Team ([facility] st Contact Info) Description 12/03/2023 Telephone [facility] [address] [place], [place] [phone] Laxmi Spear MD [address] [place], [place] [phone] Nurse Triage Social History Tobacco Use Types [...] the 5th day. Pt is given 3rd alliance party tele visit for jose f , number is [phone]. Pt reports this is the 3rd time Pt has had Covid. 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 No further questions offered. [...] accepted this outcome Please contact pt @ [phone] Pt is requesting the AntiBiotics documented in this encounter Plan of Treatment Upcoming Encounters Date Type Department Care Team (Late st Contact Info) Description 03/19/2025 11:30 AM EDT Office Visit [facility] [address] [place] [address] Laxmi Spear MD [address] [place] [address] documented as of this encounter Visit Diagnoses Not on filedocumented in this encounter Care Teams Returning Officer Relationship Specialty Start Date End Date Laxmi Spera MD [address] [place] [phone] PCP - General Family Medicine 07/15/17 documented as of this encounter
--- OUTSIDE RECORDS SUMMARY | 2025-02-05 12:52 | XMS_ITS | Encounter Summary ---
Author Organization [facility] Address [address] [place] [address] 7t [place] [address] Care Team Providers Care Ball Point Splitter Name Role Phone Laxmi Spear MD Primary Care Provider + Reason for Visit * Reason Comments Med Refill Encounter Details Date Type Department Care Team ([facility] Contact Info) Description 08/02/2023 Refill [facility] [address] [place] [address] [phone] Lxami Spear MD [address] [place], [place] [phone] Anxiety Social History Tobacco Use Types Packs/Day [...] Description 03/19/2025 11:30 AM EDT Office Visit [facility] [address] [place] [address] [phone] Laxmi Spear MD [address] [place], [place] [phone] documented as of this encounter Visit Diagnoses Diagnosis Anxiety Anxiety state, unspecified documented in this encounter Care Teams Ball Point Splitter Relationship Specialty Start Date End Date Laxmi Spear MD [address] [place] [phone] PCP - General Family Medicine 07/15/17 documented as of this encounter
[2025-02-06 06:09] LABS: CT PCR NOT DETECTED (Not Detect.); NG PCR NOT DETECTED (Not Detect.)
[2025-02-06 08:43] LABS: Bacterial Vaginosis PCR POSITIVE (Negative); Candida Group PCR NOT DETECTED (Not Detect); Candida glab krusei PCR NOT DETECTED (Not Detect); Trichomonas vaginalis PCR NOT DETECTED (Not Detect)
== END 2025-02-05 10:09 | disposition home or self-care (01) ==
LOC: HO.LNP 10:08
PROVIDERS: PCP Internal Medicine; Visit Provider Advanced Practice Midwife
DX: A59.9 Trichomoniasis, unspecified (principal); Z20.2 Contact with and (suspected) exposure to infections with a predominantly sexual mode of transmission; Z86.19 Personal history of other infectious and parasitic diseases
CPT/HCPCS: 81515; 87491; 87591; 99212

== ENCOUNTER 2025-02-08 12:05 | Outpatient (REF) | payer OTHER, SELFPAY ==
[2025-02-08 13:31] LABS: Syphilis Screen Nonreactive (Nonreactive)
[2025-02-08 13:34] LABS: HBsAGNum1 0.26 S/CO (0.00-0.99); HIV AB/AG Nonreactive (Nonreactive); HIV Num 1 0.08 S/CO (0.00-0.99); Hepatitis B Surface Antigen Negative (Negative); ~HepC Num1 0.09 S/CO (0.00-0.79); ~Hepatitis C Antibody Nonreactive (Nonreactive)
== END 2025-02-08 12:06 | disposition home or self-care (01) ==
LOC: HO.LAB 12:05
PROVIDERS: PCP Internal Medicine; Visit Provider Advanced Practice Midwife
DX: Z20.2 Contact with and (suspected) exposure to infections with a predominantly sexual mode of transmission (principal); A59.9 Trichomoniasis, unspecified; Z86.19 Personal history of other infectious and parasitic diseases
CPT/HCPCS: 36415; 86780; 86803; 87340; 87389

== ENCOUNTER → 2025-02-11 10:30 | Outpatient (BNV) | payer OTHER, SELFPAY | PROVIDERS: PCP Internal Medicine; Visit Provider Internal Medicine | DX: Z12.31 Encounter for screening mammogram for malignant neoplasm of breast (principal) | CPT/HCPCS: 77063; 77067 ==

== ENCOUNTER 2025-02-11 10:39 | Outpatient (REF) | payer OTHER, SELFPAY ==
--- OUTSIDE RECORDS SUMMARY | 2025-02-11 12:27 | XMS_ITS | Encounter Summary ---
Author Organization [employer] Address [address] [facility] 7t [place] [address] Care Team Providers Care Electrical Prospecting Observer Name Role Phone Laxmi Spear MD Primary Care Provider + Encounter Details Date Type Department Care Team ([facility] st Contact Info) Description 02/05/2025 Orders Only GENERIC EXTERNAL DATA DEPARTMENT Provider, Generic External Data Social History Tobacco Use Types Packs/Day Years [...] as of this encounter Miscellaneous Notes * Result Encounter Note - Laxmi Spear MD - 02/05/2025 11:59 PM EDT Vaginal swab on 314 at the tank car loader's office showed BV. [facility] should follow-up on the results,they had already discussed potential results with patient and she can reportedly check on her portal. documented in this encounter Plan of Treatment Upcoming Encounters Date Type Department Care Team (Late st Contact Info) Description 03/19/2025 11:30 AM EDT Office Visit [facility] [address] [place] [phone] Laxmi Spear MD [address] [place] [address] documented as of this encounter Procedures Procedure Name Priority Date/Time Associated Diagnosis Comments BACTERIAL VAGINOSIS PANEL Routine 02/05/2025 10:00 AM EDT CHLAMYDIA/N. GONORRHOEAE RNA, TMA, UROGENITAL Routine 02/05/2025 10:00 AM EDT documented in this encounter Results * (ABNORMAL) Bacterial Vaginosis (02/05/2025 10:00 AM EDT) TRICHOMONAS VAGINALIS DETECTION BY PCR NOT DETECTED Not Detect [facility] BACTERIAL VAGINOSIS DETECTION BY PCR POSITIVE(A) Negative [facility] Comment:The BV organism targ ets of the Xpert Xpress MVP test can becommensal in women; Xpert Xpress MVP positive results forbacterial vaginosis should be considered in conjunction withother clinical and patient information to determine thedisease status. Organisms that are not detected by the XpertXpress MVP test have also been reported to be associatedwith BV and aerobic vaginitis.The Xpert Xpress MVP test performance has not been evaluatedin patients under the age of 14. LEEANNA GROUP DETECTION BY PCR NOT DETECTED Not Detect [facility] Leeanna glab krusei PCR NOT DETECTED Not Detect [facility] 02/05/2025 10:0 0 AM EDT 02/05/2025 3:05 PM EDT us Generic External Data Provider LAB MICROBIOLOGY - GENERAL ORDERABLES Final Result [facility] [address] [place] [phone] * Chlamydia/N. Gonorrhoeae RNA, TMA, Urogenitial (02/05/2025 10:00 AM EDT) CT PCR NOT DETECTED Not Detect. [facility] Comment:A not detected test result does not exclude the possibilityof infection because test results can be affected byimproper specimen collection, concurrent antibiotic therapy,or the number of organisms in the specimen which may bebelow the sensitivity of the test. As with many diagnostictests, results from the Xpert CT/NG assay should beinterpreted in conjunction with other laboratory andclinical data available to the clinician.Xpert CT/NG performance has not been evaluated in patientsless than 14 years of age. The assay should not be used forthe evaluationof suspected sexual abuse or for other medico-legalindications. Additional testing is recommended in anycircumstance when false positive or false negative resultscould lead to adverse medical, social or psychologicalconsequences. NG PCR NOT DETECTED Not Detect. [facility] Comment:A not detected test result does not exclude the possibilityof infection because test results can be affected byimproper specimen collection, concurrent antibiotic therapy,or the number of organisms in the specimen which may bebelow the sensitivity of the test. As with many diagnostictests, results from the Xpert CT/NG assay should beinterpreted in conjunction with other laboratory andclinical data available to the clinician.Xpert CT/NG performance has not been evaluated in patientsless than 14 years of age. The assay should not be used forthe evaluationof suspected sexual abuse or for other medico-legalindications. Additional testing is recommended in anycircumstance when false positive or false negative resultscould lead to adverse medical, social or psychologicalconsequences. 02/05/2025 10:0 0 AM EDT 02/05/2025 3:05 PM EDT Narrative [facility] - 02/06/2025 6:10 AM EDT Vaginal us Generic External Data Provider LAB MICROBIOLOGY - GENERAL ORDERABLES Final Result [facility] [address] [place] [address] [phone] documented in this encounter Visit Diagnoses Not on filedocumented in this encounter Additional Health Concerns Assessment Noted Time PHQ-9 Depression Total Score: 0 12/21/19 25 10:49 AM EST documented as of this encounter Care Teams Electrical Prospecting Observer Relationship Specialty Start Date End Date Laxmi Spear MD [address] [place] [address] PCP - General Family Medicine 07/15/17 documented as of this encounter
--- OUTSIDE RECORDS SUMMARY | 2025-02-11 12:27 | XMS_ITS | Encounter Summary ---
Author Organization [employer] Address [address] [facility] 7t [place] [address] Care Team Providers Care Parking Meter Servicer Name Role Phone Laxmi Spear MD Primary Care Provider + Encounter Details Date Type Department Care Team (Late Contact Info) Description 01/24/2023 Orders Only [facility] [address] [place] [address] Candis Dixon LPN Social History Tobacco Use [...] Description 03/19/2025 11:30 AM EDT Office Visit [facility] [address] [place], [place] [phone] Laxmi Spear MD 230 [place], [place] [phone] documented as of this encounter Visit Diagnoses Not on filedocumented in this encounter Care Teams Parking Meter Servicer Relationship Specialty Start Date End Date Laxmi Spear MD [address] [place] [phone] PCP - General Family Medicine 07/15/17 documented as of this encounter
--- OUTSIDE RECORDS SUMMARY | 2025-02-11 12:27 | XMS_ITS | Encounter Summary ---
Author Organization [facility] Address [address] [place] [address] 7t [place] [address] Care Team Providers Care Shingle Catcher Name Role Phone Laxmi Spear MD Primary Care Provider + Reason for Visit * Reason Comments Med Refill Encounter Details Date Type Department Care Team ([facility] Contact Info) Description 08/02/2023 Refill [facility] [address] [place], [place] [phone] Laxmi Spear MD 230 [place], [place] [phone] Anxiety Social History Tobacco Use Types Packs/Day [...] Description 03/19/2025 11:30 AM EDT Office Visit [facility] [address] [place] [address] [phone] Laxmi Spear MD 230 [place], [place] [phone] documented as of this encounter Visit Diagnoses Diagnosis Anxiety Anxiety state, unspecified documented in this encounter Care Teams Shingle Catcher Relationship Specialty Start Date End Date Laxmi Spear MD [address] [place] [phone] PCP - General Family Medicine 07/15/17 documented as of this encounter
--- OUTSIDE RECORDS SUMMARY | 2025-02-11 12:27 | XMS_ITS | Clinical Summary ---
Author Organization [employer] Address [address] [facility] 7t [place] [address] Care Team Providers Care Photographic Machine Operator Name Role Phone Laxmi Spear MD [...] 08/18/2024 Active ergocalciferol (Vitamin D2) 1.25 MG (29157 UT) capsule Take 1 capsule (1.25 mg) [...] Encounters Date Type Department Care Team Description 02/08/2025 Orders Only GENERIC EXTERNAL DATA DEPARTMENT Provider, Generic External Data 02/05/2025 Orders Only GENERIC EXTERNAL DATA DEPARTMENT Provider, Generic External Data 12/21/2024 11:15 AM EST Office Visit [facility] [address] [place] [address] Laxmi Spear MD Elevated blood pressure reading (Primary Dx); Weight loss; Hair loss 12/21/2024 Telephone [facility] [address] [place] [address] Laxmi Spear MD 12/21/2024 Travel 12/18/[address] [facility] [address] [place], [place] [phone] Tara Bella MA Chart prep from Last [...] 11:30 AM EDT Office Visit [facility] [address] [place], [place] [phone] Laxmi Spear MD [address] [place], [place] [phone] Health Maintenance Due Date Last Done Comments IPV Vaccines (2 of 3 - 4-dose series) 05/23/1987 04/25/1987 Alcohol/Substance Use Screening 1994 COVID-19 Vaccine ( - season) 2024 12/29/2021, 12/21/2020, 11/30/2020 SDOH Screening [...] Hepatitis B Vaccines Completed 12/23/1998, 02/22/1998, 12/24/1997 Influenza Vaccine Completed 09/22/2024, 09/28/2013 HIV Screening Completed 02/08/2025, 05/2024, 10/24/2023, Additional history exists Hepatitis C Screening Completed 02/08/2025 , 08/31/2024, 10/24/2023, Additional history exists HIB Vaccines Aged Out No longer eligi [...] Procedure Name Priority Date/Time Associated Diagnosis Comments HEPATITIS B SURFACE ANTIGEN, EIA Routine 02/08/2025 12:12 PM EDT HIV 1/2 ANTIGEN/ANTIBODY, FOURTH GENERATION W/RFL Routine 02/08/2025 12:12 PM EDT HEPATITIS C ANTIBODY Routine 02/08/2025 12:12 PM EDT SYPHILIS SCREEN Routine 02/08/2025 12:12 PM EDT BACTERIAL VAGINOSIS PANEL Routine 02/05/2025 10:00 AM EDT CHLAMYDIA/N. GONORRHOEAE RNA, TMA, UROGENITAL Routine 02/05/2025 10:00 AM EDT BASIC METABOLIC PANEL Routine 12/21/2024 9:20 AM EST Elevated blood pressure reading T4 (THYROXINE), TOTAL Routine 12/21/2024 9:20 AM EST Weight loss TSH Routine 12/21/2024 9:20 AM EST Weight loss T4, FREE Routine 12/21/2024 9:20 AM EST Weight loss T3, TOTAL Routine 12/21/2024 9:20 AM EST Weight loss T3, FREE Routine 12/21/2024 9:20 AM EST Weight loss BI MAMMOGRAM SCREENING TOMOSYNTHESIS BILATERAL Routine 02/03/2024 10:40 AM EDT HPV MRNA E6/E7 REFLEX TO HPV 16, 18/45 Routine 12/20/2022 10:30 AM EST PAP SMEAR Routine 12/20/2022 10:30 AM EST from Last 3 Months or Most Recently Relevant to Health Maintenance Results * Syphilis Screen (02/08/2025 12:12 PM EDT) Syphilis Screen Nonreactive Nonreactive [facility] 02/08/2025 12:1 2 PM EDT 02/08/2025 12:12 PM EDT Generic External Data Provider LAB BLOOD ORDERAB LES Final Result Performing Organization Address [facility] Co de Phone Number [facility] [address] [place] [phone] * Hepatitis C Ab (02/08/2025 12:12 PM EDT) Pathologist [facility] Hepatitis C Antibody Nonreactive Nonreactive [facility] Comment:Antibodies to HCV no t detected; does not exclude early acuteHCV infection. 02/08/2025 12:1 2 PM EDT 02/08/2025 12:12 PM EDT Generic External Data Provider LAB BLOOD ORDERAB LES Final Result Performing Organization Address [facility] Co de Phone Number [facility] [address] [place] [phone] * Hepatitis B surface antigen, EIA (02/08/2025 12:12 PM EDT) Pathologist [facility] Hepatitis B Surface Ag Negative Negative [facility] 02/08/2025 12:1 2 PM EDT 02/08/2025 12:12 PM EDT Generic External Data Provider LAB BLOOD ORDERAB LES Final Result Performing Organization Address [facility] Co de Phone Number [facility] [address] [place] [phone] * HIV-1/2 Antigen and Antibodies, Fourth Generation, with Reflexes (02/08/2025 12:12 PM EDT) HIV AB/AG Nonreactive Nonreactive [facility] Comment:HIV-1 p24 Ag and/or HIV-1/HIV-2 Ab not detected.A test result that is nonreactive does not exclude thepossibility of exposure to or infection with HIV-1 and/orHIV-2. Nonreactive results in this assay for individualswith prior exposure to HIV-1 and/or HIV-2 may be due toantigen and antibody levels that are below the limit ofdetection of this assay.The [employer] HIV Ag/Ab Combo assay result andsupplemental assay results should be interpreted inconjunction with the patient's clinical presentation,history and other laboratory results. If the results areinconsistent with clinical evidence, additional testing issuggested to confirm the result. 02/08/2025 12:1 2 PM EDT 02/08/2025 12:12 PM EDT us Generic External Data Provider LAB BLOOD ORDERAB LES Final Result [facility] [address] [place] [phone] * (ABNORMAL) Bacterial Vaginosis (02/05/2025 10:00 AM EDT) TRICHOMONAS VAGINALIS DETECTION BY PCR NOT DETECTED Not Detect [facility] BACTERIAL VAGINOSIS DETECTION BY PCR POSITIVE(A) Negative [facility] Comment:The BV organism targ ets of [...] DETECTION BY PCR NOT DETECTED Not Detect [facility] Leeanna glab krusei PCR NOT DETECTED Not Detect [facility] 02/05/2025 10:0 0 AM EDT 02/05/2025 3:05 PM EDT us Generic External Data Provider LAB MICROBIOLOGY - GENERAL ORDERABLES Final Result [facility] [address] [place] [phone] * Chlamydia/N. Gonorrhoeae RNA, TMA, Urogenitial (02/05/2025 10:00 AM EDT) CT PCR NOT DETECTED Not Detect. [facility] Comment:A not detected test result does [...] psychologicalconsequences. NG PCR NOT DETECTED Not Detect. [facility] Comment:A not detected test result does [...] AM EDT 02/05/2025 3:05 PM EDT Narrative [facility] - 02/06/2025 6:10 AM EDT Vaginal Generic External Data Provider LAB MICROBIOLOGY - GENERAL ORDERABLES Final Result Performing Organization Address [facility] Co de Phone Number [facility] [address] [place] [phone] * T3, Free (12/21/2024 9:20 AM EST) T3, Free 3.4 2.3 - 4.2 pg/mL [facility] Comment:THIS TEST WAS PERFOR MED AT:[facility] [address] [phone] CONRAD MD Blood Venous blood specimen / Unknown 12/21/2024 9:20 AM EST 12/21/2024 11:30 AM EST us Laxmi Spear MD LAB BLOOD ORDERABLES Fin al Result Performing Organization Address [facility] de Phone Number [facility] [address] [place] [phone] * T3, Total (12/21/2024 9:20 AM EST) T3, Total 84 76 - 181 ng/dL [facility] Comment:THIS TEST WAS PERFOR MED AT:[facility] [address] [phone] CONRAD MD Blood Venous blood specimen / Unknown 12/21/2024 9:20 AM EST 12/21/2024 11:30 AM EST Laxmi Spear MD LAB BLOOD ORDERABLES Fin al Result Performing Organization Address [facility] Co de Phone Number [facility] [address] [place] [phone] * TSH (12/21/2024 9:20 AM EST) Thyroid Stimulating Hormone 1.89 0.32 - 4.0 uIU/mL [facility] Comment:TSH 3rd Generation ( [facility]) Blood Venous blood specimen / Unknown 12/21/2024 9:20 AM EST 12/21/2024 11:30 AM EST us Laxmi Spear MD LAB BLOOD ORDERABLES Fin al Result [facility] [address] [place] [phone] * T4, Free (12/21/2024 9:20 AM EST) Free T4 (Free Thyroxine) 0.90 0.71 - 1.85 ng/dL [facility] Blood Venous blood specimen / Unknown 12/21/2024 9:20 AM EST 12/21/2024 11:30 AM EST Laxmi Spear MD LAB BLOOD ORDERABLES Fin al Result Performing Organization Address [facility]/ZIP Co de Phone Number [facility] [address] [place] [phone] * T4 (Thyroxine), Total (12/21/2024 9:20 AM EST) T4 Thyroxine 6.0 4.5 - 12.0 ug/dL [facility] Blood Venous blood specimen / Unknown 12/21/2024 9:20 AM EST 12/21/2024 11:30 AM EST Laxmi Spear MD LAB BLOOD ORDERABLES Fin al Result Performing Organization Address City/[facility]/ZIP Co de Phone Number [facility] [address] [place] [phone] * (ABNORMAL) Basic Metabolic Panel (12/21/2024 9:20 AM EST) Sodium 138 135 - 145 mmol/L [facility] Potassium 3.8 3.3 - 5.1 mmol/L [facility] Chloride 107 96 - 108 mmol/L [facility] Carbon Dioxide 24 22 - 29 mmol/L [facility] Anion Gap 11(L) 12 - 20 [facility] Urea Nitrogen (BUN) 10 9 - 16 mg/dL [facility] Creatinine, Serum 0.66 0.5 - 1.4 mg/dL [facility] Estimated Glomerular Filt Rate >60 [facility] Comment:Chronic Kidney Disea se: Estimated GFR < 60 mL/min/1.49c2Btvczd Kidney Disease: Estimated GFR < 15 mL/min/1.73m2 Glucose 111 60 - 115 mg/dL [facility] Calcium 8.6 8.4 - 10.2 mg/dL [facility] Blood Venous blood specimen / Unknown 12/21/2024 9:20 AM EST 12/21/2024 11:30 AM EST us Laxmi Spear MD LAB BLOOD ORDERABLES Fin al Result Performing Organization Address City/State/[facility] Co de Phone Number [facility] [address] [place] [phone] * BI Mammogram Screening Tomosynthesis Bilateral (02/03/2024 10:40 AM EDT) Anatomical Region Laterality Modality Breast Bilateral Mammography 02/03/2024 10:4 0 AM EDT Narrative 02/29/2024 11:08 AM EDT ? [facility] ? [address] ?[place] [address] ? Mammography Report ? Signed ? Patient: Rodas,Magnolia ?MR#: [id number] ? : 1980 ?Acct:[id number] ? Age/Sex: 43 / F ?ADM Date: //24 ? Loc: HO.MAMMO ? Attending Dr: Laxmi Spear MD ? Ordering Physician: Laxmi Spear MD ?Results: 1Ne ?? gative ? Date of Service: 02/03/24 ?Follow Up: 1 Year From Orig ?? inal Mammogram ? Procedure(s): MM tomosynthesis screening BI ?? Accession Number(s): [id number] ? cc: Laxmi Spear MD ? EXAMINATION: [...] by Bri Watkins MD in OV> ? 02/29/241103 ? DD/ 1040 ? TD/TT: ? [employer]: ? Procedure Note Donotuseinterpreter, Image - 02/29/2024 [facility] [address] [place], [place] [address] Mammography Report Signed Patient: Delicia Rodas#: [id number] : 1980Acct:[id number] Age/Sex: 43 / FADM Date: 02/03/24 Loc: HO.MAMMO Attending Dr: Laxmi Spear MD Ordering Physician: Laxmi Spear MDResults: 1Ne gative Date of Service: 02/03/24Follow Up: 1 Year From Orig inal Mammogram Procedure(s): MM tomosynthesis screening BI Accession Number(s): [id number] cc: Laxmi Spera MD EXAMINATION: MM SCREENING DIGITAL BREAST TOMOSYNTHESIS, [...] in OV> 02/29/24 1104 DD/ 1040 TD/TT: [employer]: us Laxmi Spear MD IMG BI PROCEDURES Final Result * HPV mRNA E6/E7 w/Reflex to HPV Genotypes 16, 18/45 (12/20/2022 10:30 AM EST) HPV nRNA E6/E7 Not Detected Not Detected [facility] Comment:Methodology: Transcr iption-Mediated AmplificationThis assay detects E6/E7 viral messenger RNA (mRNA) from 14high-risk HPV types (16,18,31,33,35,39,45,51,52,56,58,59,66,68).Cervical sources are required for HPV testing.If a vaginal source from a patient who has had atotal hysterectomy with removal of cervix wassubmitted, please contact the testing laboratoryfor alternative testing options.For additional information, please refer tohttp://education.[employer]/faq/WQX905w9(This link if provided for information/educational purposes only.)THIS TEST WAS PERFORMED AT:[facility] [address] ([facility])[place] [phone] CONRAD MD HPV mRNA E6/E7 [facility] HPV 16 RNA [facility] HPV 18/45 RNA [facility] 12/20/2022 10:3 0 AM EST 12/20/2022 4:15 PM EST us [facility] External Provider LAB CYT OLOGY ORDERABLES Final Result [facility] [address] [place] [phone] * Pap Smear (12/20/2022 10:30 AM EST) 12/20/2022 10:3 0 AM EST 12/20/2022 4:15 PM EST Narrative [facility] - 12/28/2022 6:32 PM EST ----- ------- Name: Magnolia Rodas ? Age/Sex: 42/F ? : 1980 Unit#: [id number] ?? Attend Dr: Catalina Richards CNM ?Re12/20/22 ?Status: DEP REF ? Location: HO.LNP ?Disch: ? ----- ------- SPEC : [id number] ? RECD: 12/20/22-161 ? STATUS: ??SOUT ? REQ NUM: [id number] ? OLENA: 12/20/22-1030 ? SUBM DR: Catalina Richards CNM ? [...] 66, 68) ? HPV testing performed by [facility], [place], [place]. ??See reference laboratory ?? portion of the EMR for entire report. Copies To: ?? Laxmi Spear MD ?? [address] [facility] ?? [place] [address] ? Catalina Richards CNM ?? [address] [place] [address] Dr. Nagel [facility] ?? [place] [address] ?? [phone] ----- ------- Signed (signature on file) Alisa Cristina Keila 12/28/221831 ? ----- ------- ? END OF REPORT ? [facility] External Provider LAB CYT OLOGY ORDERABLES Final Result [facility] [address] [place] [phone] from Last 3 Months or Most Recently Relevant to Health Maintenance Insurance [facility] Care Teams Photographic Machine Operator Relationship Specialty Start Date End Date Laxmi Spear MD [address] [place] [phone] PCP - General Family Medicine 07/15/17
--- OUTSIDE RECORDS SUMMARY | 2025-02-11 12:27 | XMS_ITS | Encounter Summary ---
Author Organization [employer] Address [address] [facility] 7t [place] [address] Care Team Providers Care Youth Coordinator Name Role Phone Laxmi Spear MD Primary Care Provider + Encounter Details Date Type Department Care Team ([facility] st Contact Info) Description 02/08/2025 Orders Only GENERIC EXTERNAL DATA [...] Description 03/19/2025 11:30 AM EDT Office Visit [facility] [address] [place] [phone] Laxmi Spear MD [address] [place], [place] [phone] documented as of this encounter Procedures Procedure Name Priority Date/Time Associated Diagnosis Comments SYPHILIS SCREEN Routine 02/08/2025 12:12 PM EDT HEPATITIS C ANTIBODY Routine 02/08/2025 12:12 PM EDT HEPATITIS B SURFACE ANTIGEN, EIA Routine 02/08/2025 12:12 PM EDT HIV 1/2 ANTIGEN/ANTIBODY, FOURTH GENERATION W/RFL Routine 02/08/2025 12:12 PM EDT documented in this encounter Results * Hepatitis B surface antigen, EIA (02/08/2025 12:12 PM EDT) Hepatitis B Surface Ag Negative Negative [facility] 02/08/2025 12:1 2 PM EDT 02/08/2025 12:12 PM EDT us Generic External Data Provider LAB BLOOD ORDERAB LES Final Result [facility] [address] [place] [phone] * HIV-1/2 Antigen and Antibodies, Fourth Generation, with Reflexes (02/08/2025 12:12 PM EDT) Pathologist [facility] HIV AB/AG Nonreactive Nonreactive [facility] Comment:HIV-1 p24 Ag and/or HIV-1/HIV-2 Ab not detected.A test result that is nonreactive does not exclude thepossibility of exposure to or infection with HIV-1 and/orHIV-2. Nonreactive results in this assay for individualswith prior exposure to HIV-1 and/or HIV-2 may be due toantigen and antibody levels that are below the limit ofdetection of this assay.The [employer] HIV Ag/Ab Combo assay result andsupplemental assay results should be interpreted inconjunction with the patient's clinical presentation,history and other laboratory results. If the results areinconsistent with clinical evidence, additional testing issuggested to confirm the result. 02/08/2025 12:1 2 PM EDT 02/08/2025 12:12 PM EDT Generic External Data Provider LAB BLOOD ORDERAB LES Final Result Performing Organization Address City/[facility]/ZIP Co de Phone Number [facility] [address] [place] [phone] * Hepatitis C Ab (02/08/2025 12:12 PM EDT) [facility] Hepatitis C Antibody Nonreactive Nonreactive [facility] Comment:Antibodies to HCV no t detected; does not exclude early acuteHCV infection. 02/08/2025 12:1 2 PM EDT 02/08/2025 12:12 PM EDT Generic External Data Provider LAB BLOOD ORDERAB LES Final Result Performing Organization Address City/[facility]/ZIP Co de Phone Number [facility] [address] [place] [phone] * Syphilis Screen (02/08/2025 12:12 PM EDT) [facility] Syphilis Screen Nonreactive Nonreactive [facility] 02/08/2025 12:1 2 PM EDT 02/08/2025 12:12 PM EDT us Generic External Data Provider LAB BLOOD ORDERAB LES Final Result [facility] [address] [place] [phone] documented in this encounter Visit Diagnoses Not on filedocumented in this encounter Additional Health Concerns Assessment Noted Time PHQ-9 Depression Total Score: 0 12/21/19 25 10:49 AM EST documented as of this encounter Care Teams Youth Coordinator Relationship Specialty Start Date End Date Laxmi Spear MD [address] [place] [phone] PCP - General Family Medicine 07/15/17 documented as of this encounter
--- OUTSIDE RECORDS SUMMARY | 2025-02-11 12:27 | XMS_ITS | Encounter Summary ---
Author Organization [email or web address] Address [address] [facility] 7t [place] [address] Care Team Providers Care Director Digital Name Role Phone Laxmi Spear MD Primary Care Provider + Reason for Visit * Reason Onset Date Comments Nurse Triage 12/03/2023 Encounter Details Date Type Department Care Team ([facility] st Contact Info) Description 12/03/2023 Telephone [facility] [address] [place], [place] [phone] Laxmi Spear MD [address] [place], [place] [phone] Nurse Triage Social History Tobacco Use Types [...] the 5th day. Pt is given 3rd green party tele visit for joes f , number is [phone]. Pt reports this is the 3rd time Pt has had Covid. 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 No further questions offered. Pt agrees with [...] accepted this outcome Please contact pt @ [phone] Pt is requesting the AntiBiotics documented in this encounter Plan of Treatment Upcoming Encounters Date Type Department Care Team (Late st Contact Info) Description 03/19/2025 11:30 AM EDT Office Visit [facility] [address] [place] [address] Laxmi Spear MD [address] [place] [address] documented as of this encounter Visit Diagnoses Not on filedocumented in this encounter Care Teams Director Digital Relationship Specialty Start Date End Date Laxmi Spear MD [address] [place] [phone] PCP - General Family Medicine 07/15/17 documented as of this encounter
--- OUTSIDE RECORDS SUMMARY | 2025-02-11 12:27 | XMS_ITS | Encounter Summary ---
Author Organization [employer] [facility] Address [address] [place] [address] 7[address] [place] [address] Care Team Providers Care Vehicle Technician Name Role Phone Laxmi Spear MD Primary Care Provider + Encounter Details Date Type Department Care Team (Late st Contact Info) Description 08/30/2023 Abstract [facility] [address] [place] [phone] Annel Campos Social History Tobacco Use Types [...] Description 03/19/2025 11:30 AM EDT Office Visit [facility] [address] [place] [phone] Laxmi Spear MD [address] [place] [address] documented as of this encounter Procedures Procedure [...] on filedocumented in this encounter Care Teams Vehicle Technician Relationship Specialty Start Date End Date Laxmi Spear MD [address] [place] [phone] PCP - General Family Medicine 07/15/17 documented as of this encounter
== END 2025-02-11 10:40 | disposition home or self-care (01) ==
LOC: HO.MAMMO 10:39
PROVIDERS: PCP Internal Medicine; Visit Provider Internal Medicine
DX: Z12.31 Encounter for screening mammogram for malignant neoplasm of breast (principal)
CPT/HCPCS: 77063; 77067

== ENCOUNTER 2025-03-05 13:45 | Outpatient (REF) | payer OTHER, SELFPAY ==
--- OUTSIDE RECORDS SUMMARY | 2025-03-05 14:55 | XMS_ITS | Encounter Summary ---
Author Organization [employer] Address [address] [facility] 7t [place] [address] Care Team Providers Care [employer] Name Role Phone Laxmi Spear MD Primary Care Provider + Reason for Visit * Reason Onset Date Comments Nurse Triage 12/03/2023 Encounter Details Date Type Department Care Team ([facility] st Contact Info) Description 12/03/2023 Telephone [facility] [address] [place], [place] [phone] Laxmi Spear MD [address] [place], [place] [phone] Nurse Triage Social History Tobacco Use Types [...] visit for jose f , number is [phone]. Pt reports this is the 3rd time Pt has had Covid. 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 No further questions offered. Pt agrees with [...] accepted this outcome Please contact pt @ [phone] Pt is requesting the AntiBiotics documented in this encounter Plan of Treatment Upcoming Encounters Date Type Department Care Team (Late st Contact Info) Description 03/19/2025 11:30 AM EDT Office Visit [facility] [address] [place] [phone] Laxmi Spear MD [address] [place] [phone] 04/09/2025 3:00 PM EDT Office Visit [facility] [address] [place] [phone] Elizabeth Johnson MD [address] [place] [address] documented as of this encounter Visit Diagnoses Not on filedocumented in this encounter Care Teams [employer] Relationship Specialty Start Date End Date Laxmi Spear MD [address] [place] [phone] PCP - General Family Medicine 07/15/17 documented as of this encounter
--- OUTSIDE RECORDS SUMMARY | 2025-03-05 14:55 | XMS_ITS | Clinical Summary ---
Author Organization [employer] Address [address] [facility] 7t [place] [address] Care Team Providers Care Bar Catcher Name Role Phone Laxmi Spear MD [...] 4 Active ergocalciferol (Vitamin D2) 1.25 MG (98659 UT) capsule Take 1 capsule (1.25 mg) [...] Description 02/22/2025 3:00 PM EDT Office Visit [facility]ALK[facility] [address] [place] [address] [phone] Name, MD Rene Influenza B (Primary Dx); COVID-19 02/11/2025 Orders Only [facility] MEDICINE [address] [place] [address] [phone] Laxmi Spear MD 02/08/2025 Orders Only GENERIC EXTERNAL DATA DEPARTMENT Provider, Generic External Data 02/05/2025 Orders Only GENERIC EXTERNAL DATA DEPARTMENT Provider, Generic External Data 12/21/2024 11:15 AM EST Office Visit [address] [address] Laxmi Spear MD Elevated blood pressure reading (Primary Dx); Weight loss; Hair loss 12/21/[address] [phone] Laxmi Spear MD 12/21/2024 Travel 12/18/[address] [address] Tara Bella [place] Chart prep from Last [...] Description 03/19/2025 11:30 AM EDT Office Visit [facility] MEDICINE [address] [place] [address] [phone] Laxmi Spear MD [address] [place], [place] [phone] 04/09/2025 3:00 PM EDT Office Visit [facility] MEDICINE [address] [place] [address] [phone] Elizabeth Johnson MD [address] [place], [place] [phone] Health Maintenance Due Date Last Done Comments [...] EDT) Influenza B Positive( A) Negative, Indeterminate [facility] Swab 02/22/2025 2:31 PM EDT us Rene Ziegler MD POINT OF CARE TEST ENTER/EDIT OR DERABLES Final Result Performing Organization Address [facility] [[email or web address]] de Phone Number [facility] [address] [place] [address] [phone] * Influenza A (ID NOW Rapid Molecular) (02/22/2025 2:31 PM EDT) Influenza A Negative Negative, Indeterminate [facility] Swab 02/22/2025 2:31 PM EDT us Rene Ziegler MD POINT OF CARE TEST ENTER/EDIT OR DERABLES Final Result Performing Organization Address [facility] [[email or web address]] de Phone Number [facility] [address] [place] [address] [phone] * (ABNORMAL) POCT COVID-19 Ag [facility] ID NOW (02/22/2025 2:31 PM EDT) Pathologist [facility] Coronavirus Antigen PCR Positive (A) Negative, Indeterminate, None Detected, Invalid, Specimen unsatisfactory for evaluation, Weakly Positive [facility] Swab 02/22/2025 2:31 PM EDT Rene Ziegler MD POINT OF CARE TEST ENTER/EDIT OR DERABLES Final Result Performing Organization Address [facility] [[email or web address]] de Phone Number [facility] [address] [place] [address] [phone] * BI Mammogram Screening Tomosynthesis Bilateral (02/11/2025 10:45 AM EDT) Anatomical Region Laterality Modality Breast Bilateral Mammography 02/11/2025 10:4 5 AM EDT Narrative 02/19/2025 2:21 PM EDT ? [facility] ? [address] ?[place] [address] ?[phone] ? Mammography Report ? Signed ? Patient: Rodas,Magnolia ?MR#: [id number] ? : 1980 ?Acct:[id number] ? Age/Sex: 44 / F ?ADM Date: 02/11/25 ? Loc: HO.MAMMO ? Attending Dr: Laxmi Spear MD ? Ordering Physician: Laxmi Spear MD ?Results: 1Ne ?? gative ? Date of Service: 02/11/25 ?Follow Up: 1 Year From Orig ?? inal Mammogram ? Procedure(s): MM tomosynthesis screening BI ?? Accession Number(s): [id number] ? cc: Laxmi Spear MD ? EXAMINATION: [...] DD/ 1045 ? TD/TT: 02/11/25 1100 ? Weight Control Engineer: ? Procedure Note Shanon, Image - 02/19/2025 [facility] [address] [place] [address] Mammography Report Signed Patient: Delicia Rodas#: [id number] : 1980Acct:[id number] Age/Sex: 44 / FADM Date: 02/11/25 Loc: HO.MAMMO Attending Dr: Laxmi Spear MD Ordering Physician: Laxmi Spear MDResults: 1Ne gative Date of Service: 02/11/25Follow Up: 1 Year From Orig ina Mammogram Procedure(s): MM tomosynthesis screening BI Accession Number(s): [id number] cc: Laxmi Spear MD EXAMINATION: MM SCREENING [...] 02/19/25 1418 DD/ 1045 TD/TT: 02/11/25 1100 Weight Control Engineer: us Laxmi Spear MD IMG BI PROCEDURES Final Result * Syphilis Screen (02/08/2025 12:12 PM EDT) Syphilis Screen Nonreactive Nonreactive [facility] 02/08/2025 12:1 2 PM EDT 02/08/2025 12:12 PM EDT us Generic External Data Provider LAB BLOOD ORDERAB LES Final Result Performing Organization Address [facility] Co de Phone Number [facility] [address] [place] [address] [phone] * Hepatitis C Ab (02/08/2025 12:12 PM EDT) Hepatitis C Antibody Nonreactive Nonreactive [facility] Comment:Antibodies to HCV no t detected; does not exclude early acuteHCV infection. 02/08/2025 12:1 2 PM EDT 02/08/2025 12:12 PM EDT us Generic External Data Provider LAB BLOOD ORDERAB LES Final Result Performing Organization Address [facility]/ZIP Co de Phone Number [facility] [address] [place] [address] [phone] * Hepatitis B surface antigen, EIA (02/08/2025 12:12 PM EDT) Pathologist [facility] Hepatitis B Surface Ag Negative Negative [facility] 02/08/2025 12:1 2 PM EDT 02/08/2025 12:12 PM EDT Generic External Data Provider LAB BLOOD ORDERAB LES Final Result Performing Organization Address City/[facility]/ZIP Co de Phone Number [facility] [address] [place] [phone] [phone] * HIV-1/2 Antigen and Antibodies, Fourth Generation, with Reflexes (02/08/2025 12:12 PM EDT) [facility] HIV AB/AG Nonreactive Nonreactive [facility] Comment:HIV-1 p24 Ag and/or HIV-1/HIV-2 Ab not detected.A test result that is nonreactive does not exclude thepossibility of exposure to or infection with HIV-1 and/orHIV-2. Nonreactive results in this assay for individualswith prior exposure to HIV-1 and/or HIV-2 may be due toantigen and antibody levels that are below the limit ofdetection of this assay.The [employer] HIV Ag/Ab Combo assay result andsupplemental assay results should be interpreted inconjunction with the patient's clinical presentation,history and other laboratory results. If the results areinconsistent with clinical evidence, additional testing issuggested to confirm the result. 02/08/2025 12:1 2 PM EDT 02/08/2025 12:12 PM EDT us Generic External Data Provider LAB BLOOD ORDERAB LES Final Result Performing Organization Address City/[facility]/ZIP Co de Phone Number [facility] [address] [place] [address] [phone] * (ABNORMAL) Bacterial Vaginosis (02/05/2025 10:00 AM EDT) Pathologist [facility] TRICHOMONAS VAGINALIS DETECTION BY PCR NOT DETECTED Not Detect [facility] BACTERIAL VAGINOSIS DETECTION BY PCR POSITIVE(A) Negative [facility] Comment:The BV organism targ ets [...] DETECTION BY PCR NOT DETECTED Not Detect [facility] Leeanna glab krusei PCR NOT DETECTED Not Detect [facility] 02/05/2025 10:0 0 AM EDT 02/05/2025 3:05 PM EDT us Generic External Data Provider LAB MICROBIOLOGY - GENERAL ORDERABLES Final Result [facility] [address] [place] [address] [phone] * Chlamydia/N. Gonorrhoeae RNA, TMA, Urogenitial (02/05/2025 10:00 AM EDT) Pathologist [facility] CT PCR NOT DETECTED Not Detect. [facility] Comment:A not detected test result [...] psychologicalconsequences. NG PCR NOT DETECTED Not Detect. [facility] Comment:A not detected test result [...] AM EDT 02/05/2025 3:05 PM EDT Narrative [facility] - 02/06/2025 6:10 AM EDT Vaginal us Generic External Data Provider LAB MICROBIOLOGY - GENERAL ORDERABLES Final Result Performing Organization Address [facility] Co de Phone Number [facility] [address] [place] [phone] * T3, Free (12/21/2024 9:20 AM EST) T3, Free 3.4 2.3 - 4.2 pg/mL [facility] Comment:THIS TEST WAS PERFOR MED AT:[facility] [address] [phone] CONRAD MD Blood Venous blood specimen / Unknown 12/21/2024 9:20 AM EST 12/21/2024 11:30 AM EST us Laxmi Spear MD LAB BLOOD ORDERABLES Fin al Result Performing Organization Address [facility] Co de Phone Number [facility] [address] [place] [phone] * T3, Total (12/21/2024 9:20 AM EST) T3, Total 84 76 - 181 ng/dL [facility] Comment:THIS TEST WAS PERFOR MED AT:[facility] [address] [phone] CONRAD MD Blood Venous blood specimen / Unknown 12/21/2024 9:20 AM EST 12/21/2024 11:30 AM EST us Laxmi Spear MD LAB BLOOD ORDERABLES Fin al Result Performing Organization Address City/[facility] Co de Phone Number [facility] [address] [place] [address] [phone] * TSH (12/21/2024 9:20 AM EST) Thyroid Stimulating Hormone 1.89 0.32 - 4.0 uIU/mL [facility] Comment:TSH 3rd Generation ( [facility]) Blood Venous blood specimen / Unknown 12/21/2024 9:20 AM EST 12/21/2024 11:30 AM EST Laxmi Spear MD LAB BLOOD ORDERABLES Fin al Result Performing Organization Address [facility] Co de Phone Number [facility] [address] [place] [address] [phone] * T4, Free (12/21/2024 9:20 AM EST) Free T4 (Free Thyroxine) 0.90 0.71 - 1.85 ng/dL [facility] Blood Venous blood specimen / Unknown 12/21/2024 9:20 AM EST 12/21/2024 11:30 AM EST Laxmi Spear MD LAB BLOOD ORDERABLES Fin al Result Performing Organization Address City/[facility] Co de Phone Number [facility] [address] [place] [phone] * T4 (Thyroxine), Total (12/21/2024 9:20 AM EST) T4 Thyroxine 6.0 4.5 - 12.0 ug/dL [facility] Blood Venous blood specimen / Unknown 12/21/2024 9:20 AM EST 12/21/2024 11:30 AM EST Laxmi Spear MD LAB BLOOD ORDERABLES Fin al Result Performing Organization Address [facility] [[email or web address]] de Phone Number [facility] [address] [place] [address] [phone] * (ABNORMAL) Basic Metabolic Panel (12/21/2024 9:20 AM EST) Pathologist [facility] Sodium 138 135 - 145 mmol/L [facility] Potassium 3.8 3.3 - 5.1 mmol/L [facility] Chloride 107 96 - 108 mmol/L [facility] Carbon Dioxide 24 22 - 29 mmol/L [facility] Anion Gap 11(L) 12 - 20 [facility] Urea Nitrogen (BUN) 10 9 - 16 mg/dL [facility] Creatinine, Serum 0.66 0.5 - 1.4 mg/dL [facility] Estimated Glomerular Filt Rate >60 [facility] Comment:Chronic Kidney Disea se: Estimated GFR < 60 mL/min/1.97a1Wjfzdg Kidney Disease: Estimated GFR < 15 mL/min/1.73m2 Glucose 111 60 - 115 mg/dL [facility] Calcium 8.6 8.4 - 10.2 mg/dL [facility] Blood Venous blood specimen / Unknown 12/21/2024 9:20 AM EST 12/21/2024 11:30 AM EST Laxmi Spear MD LAB BLOOD ORDERABLES Fin al Result Performing Organization Address [facility] Co de Phone Number [facility] [address] [place] [phone] * HPV mRNA E6/E7 w/Reflex to HPV Genotypes 16, 18/45 (12/20/2022 10:30 AM EST) HPV nRNA E6/E7 Not Detected Not Detected [facility] Comment:Methodology: Transcr iption-Mediated AmplificationThis assay detects E6/E7 viral messenger RNA (mRNA) from 14high-risk HPV types (16,18,31,33,35,39,45,51,52,56,58,59,66,68).Cervical sources are required for HPV testing.If a vaginal source from a patient who has had atotal hysterectomy with removal of cervix wassubmitted, please contact the testing laboratoryfor alternative testing options.For additional information, please refer tohttp://education.[employer]/faq/AZR153k5(This link if provided for information/educational purposes only.)THIS TEST WAS PERFORMED AT:[employer] [place] [address] ([address] [phone] CONRAD MD HPV mRNA E6/E7 [facility] HPV 16 RNA [facility] HPV 18/45 RNA [facility] 12/20/2022 10:3 0 AM EST 12/20/2022 4:15 PM EST [facility] External Provider LAB CYT OLOGY ORDERABLES Final Result [facility] [address] [place] [address] [phone] * Pap Smear (12/20/2022 10:30 AM EST) 12/20/2022 10:3 0 AM EST 12/20/2022 4:15 PM EST Narrative [facility] - 12/28/2022 6:32 PM EST ----- ------- Name: ClarkMagnolia ? Age/Sex: 42/F ? : 1980 Unit#: [id number] ?? Attend Dr: Catalina Richards CNM ?Re12/20/22 ?Status: DEP REF ? Location: HO.LNP ?Disch: ? ----- ------- SPEC : [id number] ? RECD: 12/20/22-161 ? STATUS: ??SOUT ? REQ NUM: [id number] ? OLENA: 12/20/22-0 ? SUBM DR: Catalina Richards CNM ? ENTERED: ??12/20/22-413 ?SP TYPE: Pap Smr ?OTHR DR: Laxmi [...] 66, 68) ? HPV testing performed by [facility], [place], [place]. ??See reference laboratory ?? portion of the EMR for entire report. Copies To: ?? Laxmi Spear MD ?? [address] [facility] ?? [place] [id number] ? Catalina Richards CNM ?? [address] [place] [address] Dr. Nagel [facility] ?? [place] [address] ?? [phone] ----- ------- Signed (signature on file) Alisa Cristina Keila 12/28/221831 ? ----- ------- ? END OF REPORT ? us [facility] External Provider LAB CYT OLOGY ORDERABLES Final Result [facility] [address] [place] [phone] from Last 3 Months or Most Recently Relevant to Health Maintenance Insurance [email or web address] Care Teams Bar Catcher Relationship Specialty Start Date End Date Laxmi Spear MD [address] [place] [address] PCP - General Family Medicine 07/15/17
--- OUTSIDE RECORDS SUMMARY | 2025-03-05 14:55 | XMS_ITS | Encounter Summary ---
Author Organization [employer] [facility] Address [address] [place] [address] 7t [place] [address] Care Team Providers Care Oracle Database Consultant Name Role Phone Laxmi Spear MD Primary Care Provider + Reason for Visit * Reason Comments Med Refill Encounter Details Date Type Department Care Team (Late st Contact Info) Description 08/02/2023 Refill [facility] MEDICINE [address] [place] [address] [phone] Laxmi Spear MD [address] [place] [address] [phone] Anxiety Social History Tobacco Use Types Packs/Day [...] 11:30 AM EDT Office Visit [facility] MEDICINE [address] [place] [address] [phone] Laxmi Spear MD [address] [place] [address] [phone] 04/09/2025 3:00 PM EDT Office Visit [facility] MEDICINE [address] [place] [address] [phone] Elizabeth Johnson MD [address] [place] [address] documented as of this encounter Visit Diagnoses Diagnosis Anxiety Anxiety state, unspecified documented in this encounter Care Teams Oracle Database Consultant Relationship Specialty Start Date End Date Laxmi Spear MD [address] [place] [address] PCP - General Family Medicine 07/15/17 documented as of this encounter
--- OUTSIDE RECORDS SUMMARY | 2025-03-05 14:55 | XMS_ITS | Encounter Summary ---
Author Organization [employer] [facility] Address [address] [place] [address] 7t [place] [address] Care Team Providers Care Shower Room Attendant Name Role Phone Laxmi Spear MD Primary Care Provider + Encounter Details Date Type Department Care Team (Late st Contact Info) Description 08/30/2023 Abstract [facility] MEDICINE [address] [place] [phone] Annel Campos Social History Tobacco Use Types [...] Description 03/19/2025 11:30 AM EDT Office Visit [facility] [address] [place] [phone] Laxmi Spear MD [address] [place] [phone] 04/09/2025 3:00 PM EDT Office Visit [facility] [address] [place] [address] [phone] Elizabeth Johnson MD [address] [place] [address] [phone] documented as of this encounter Procedures Procedure Name Priority Date/Time Associated Diagnosis Comments PAP/HPV Routine 10/11/2021 documented in this encounter Results * Pap Smear (10/11/2021) Pap Negative for intraephithelial lesion or malignancy Negative for intraephithelial lesion or malignancy, Other HPV Undetected Historical Provider [facility] Final Result documented in this encounter Visit Diagnoses Not on filedocumented in this encounter Care Teams Shower Room Attendant Relationship Specialty Start Date End Date Laxmi Spear MD [address] [place] [phone] PCP - General Family Medicine 07/15/17 documented as of this encounter
--- OUTSIDE RECORDS SUMMARY | 2025-03-05 14:55 | XMS_ITS | Encounter Summary ---
Author Organization [employer] Address [address] [facility] 7t [place] [address] Care Team Providers Care Machine Burrer Name Role Phone Laxmi Spear MD Primary Care Provider + Encounter Details Date Type Department Care Team ([facility] Contact Info) Description 01/24/2023 Orders Only [facility] [address] [place] [address] Candis Dixon LPN Social History Tobacco Use [...] Upcoming Encounters Date Type Department Care Team ([facility] Contact Info) Description 03/19/2025 11:30 AM EDT Office Visit [facility] MED[facility] [address] [place] [address] [phone] Laxmi Spear MD [address] [place] [address] 04/09/2025 3:00 PM EDT Office Visit [facility] [address] [place] [address] [phone] Elizabeth Johnson MD [address] [place], [place] [phone] documented as of this encounter Visit Diagnoses Not on filedocumented in this encounter Care Teams Machine Burrer Relationship Specialty Start Date End Date Laxmi Spear MD [address] [place] [address] PCP - General Family Medicine 07/15/17 documented as of this encounter
[2025-03-05 16:42] LABS: Bacterial Vaginosis PCR NEGATIVE (Negative); Candida Group PCR NOT DETECTED (Not Detect); Candida glab krusei PCR NOT DETECTED (Not Detect); Trichomonas vaginalis PCR NOT DETECTED (Not Detect)
[2025-03-05 17:03] LABS: CT PCR NOT DETECTED (Not Detect.); NG PCR NOT DETECTED (Not Detect.)
== END 2025-03-05 13:46 | disposition home or self-care (01) ==
LOC: HO.LNP 13:45
PROVIDERS: PCP Internal Medicine; Visit Provider Advanced Practice Midwife
DX: Z01.419 Encounter for gynecological examination (general) (routine) without abnormal findings (principal); Z11.3 Encounter for screening for infections with a predominantly sexual mode of transmission; Z86.19 Personal history of other infectious and parasitic diseases
CPT/HCPCS: 81515; 87491; 87591; 99396; 99459

== ENCOUNTER 2025-03-05 13:45 | Outpatient (AMB) | payer OTHER, SELFPAY ==
--- NOTE | 2025-03-05 13:53 | MHC.OFFVIS ---
Vital Signs 03/05/25 14:00 Height 5 ft 1 in Weight 123 lb BMI 23.2 BP 120/72 Intake Visit Reasons: [employer] annual exam Deputy Attorney General: Deputy Attorney General Present (Annika) Accompanied by: Self / Same As Patient Allergies bee pollen [Bee Stings] Allergy (Mild, Verified 03/05/25 14:00) SWELLING AT SITE Bee stings Allergy (Unknown, Uncoded 03/04/25 09:36) anaphylaxis Medication List - Last Reconciled 03/05/25 by Catalina Richards CNM hydroxyzine HCl 10 mg PO TID PRN metronidazole 0.75%(37.5mg/5gram) 1 appful vaginal BEDTIME 5 days spironolactone 25 mg PO DAILY Is last menstrual period known: Yes Last menstrual period: 02/15/25 Patient : No HPI HPI [employer] annual exam: Details: Patient is here for a annual exam but also for test of cure for STIs. See previous visits for details. She had a mammogram recently. She is not worried about anything in particular she has a little bit nervous about if the test of cure will show anything with STIs, she has 1 partner but there was some question of his fidelity. She had A tubal ligation for control. [facility] Medical History COVID-19 Anxiety No known health problems Surgical History History of tubal ligation Social History Household Members: Children Housing: Other Housing Other:: [employer] Do you presently have visiting nurse or other home services: No Unable to assess alcohol history related to: Unknown Alcohol intake: current Alcohol intake frequency: holidays/special occasions only Patient Tobacco Use Status: Former Tobacco user Substance Use Type: Marijuana Advance Directives Date on File: 11/27/23 service: No Gender identity: Female Female Reproductive History Menstrual Age of Menarche: 17 Duration of menses: 3-5 days Date of last menstrual period: 02/15/25 Total pregnancies: 2 Full term: 2 Date of last pap smear: 12/20/22 (negative pap smear, negative hpv ) History of abnormal pap smear: No History of STI: Yes (Trichomoniasis) Date of Mammogram: 02/11/25 (bi rad 1) Physical Exam Vital Signs: Last Vital Signs BP 120/72 03/05/25 14:00 BMI result Body Mass Index 23.2 Const General: healthy appearing, comfortable, no acute distress, well developed and alert Nutritional Appearance: average body habitus Orientation/consciousness: patient oriented x3 Limitations: no limitations HEENT Head: Yes normocephalic Neck Neck: Yes normal visual inspection Chest Chest palpation & inspection: normal inspection of the chest Breast/axilla inspection: normal inspection of the breasts and normal inspection of the axillae Breast/axilla palpation: normal palpation of the breasts and normal palpation of the axillae Resp Effort & Inspection: normal respiratory effort GI Inspection: Yes normal to inspection, No Abdominal wall edema and No distended Palpation (GI): Soft to palpation and nontender Other: External exam within normal limits vagina is pink and moist there is an abundant whitish discharge but it appears consistent with luteal phase, which appears different from previous exams Cervix multiparous pink smooth long thick closed uterus midposition to anteverted mobile nontender good muscle tone General: Yes bladder normal to palpation External Female Exam: normal external appearance and normal appearance of the urethra Speculum Exam - Vagina: normal appearance of the vagina, normal palpation and normal vaginal discharge Speculum Exam - Cervix: normal appearance of the cervix, normal palpation and nontender Bimanual exam- vagina & uterus: normal bimanual exam, normal palpation, uterine size normal, bladder normal to palpation, consistency normal, normal palpation, uterine mobility normal, uterine shape normal, No Cervical tenderness present, non-tender and no cervical motion tenderness Bimanual Exam- Adnexa, other: normal adnexae, no masses, normal and No adnexal tenderness Neuro General: patient oriented x3 Assessment & Plan Assessment & Plan (1) Well woman exam with routine gynecological exam: Code(s): Z01.419 - Encounter for gynecological examination (general) (routine) without abnormal findings Category: Medical (2) Cervical cancer screening: Comment: Hx [id number], 10/11/21 pap= neg, neg hpv. 12/20/22 pap done= negative with negative HPV. Code(s): Z12.4 - Encounter for screening for malignant neoplasm of cervix Category: Medical (3) Breast cancer screening: Comment: Breast exam negative plus patient just had her mammogram. Code(s): Z12.39 - Encounter for other screening for malignant neoplasm of breast Category: Medical (4) Screen for sexually transmitted diseases: Code(s): Z11.3 - Encounter for screening for infections with a predominantly sexual mode of transmission Category: Medical (5) Hx of sexually transmitted disease: Comment: GC, chlamydia, and trich; Code(s): Z86.19 - Personal history of other infectious and parasitic diseases Category: Medical Plan -----Discussed in this visit the following: healthy balanced diet, regular and consistent exercise, getting recommended health screens, doing the best she can for her particular health concerns, kegel exercises, pap smear screening and followup recommendations, mammography screening and SBE, normal changes in cycles in her life stage--- . Test of cure done today testing done for gonorrhea chlamydia trichomoniasis as well as bacterial vaginosis and yeast if either the latter to show up they do not need to be treated but obviously she would need to be re-treated for any of the 1st 3. She is hoping but a little worried and we will await the results early next week. She declined any blood work for STIs as she has had them done somewhat recently and they were all negative. Coding Level of Care Code Est Pt Prev Care 40-64y(49083) Diagnoses Well woman exam with routine gynecological exam Z01.419 Cervical cancer screening Z12.4 Breast cancer screening Z12.39 Screen for sexually transmitted diseases Z11.3 Hx of sexually transmitted disease Z86.19
[2025-03-05 14:00] VITALS: BP 120/72; BMI 23.2
--- OUTSIDE RECORDS SUMMARY | 2025-03-05 14:06 | XMS_ITS | Encounter Summary ---
Author Organization [employer] [facility] Address [address] [place] [address] [address] [place] [address] Care Team Providers Care Buttoner Name Role Phone Laxmi Spear MD Primary Care Provider + Encounter Details Date Type Department Care Team (Late st Contact Info) Description 08/30/2023 Abstract [facility] MED[facility] [address] [place] [phone] Annel Campos Social History Tobacco Use Types [...] Description 03/19/2025 11:30 AM EDT Office Visit [facility] [address] [place] [phone] Laxmi Spear MD [address] [place] [phone] 04/09/2025 3:00 PM EDT Office Visit [facility] [address] [place] [address] [phone] Elizabeth Johnson MD [address] [place] [address] [phone] documented as of this encounter Procedures Procedure Name Priority Date/Time Associated Diagnosis Comments PAP/HPV Routine 10/11/2021 documented in this encounter Results * Pap Smear (10/11/2021) Pap Negative for intraephithelial lesion or malignancy Negative for intraephithelial lesion or malignancy, Other HPV Undetected Historical Provider [facility] Final Result documented in this encounter Visit Diagnoses Not on filedocumented in this encounter Care Teams Buttoner Relationship Specialty Start Date End Date Laxmi Spear MD [address] [place] [phone] PCP - General Family Medicine 07/15/17 documented as of this encounter
--- OUTSIDE RECORDS SUMMARY | 2025-03-05 14:06 | XMS_ITS | Encounter Summary ---
Author Organization [employer] [facility] Address [address] [place] [address] [address] [place] [address] Care Team Providers Care Transfer Iron Operator Name Role Phone Laxmi Spear MD Primary Care Provider + Reason for Visit * Reason Comments Med Refill Encounter Details Date Type Department Care Team (Late st Contact Info) Description 08/02/2023 Refill [facility] MEDICINE [address] [place] [address] [phone] Laxmi Spear MD [address] [place] [address] [phone] Anxiety Social History Tobacco Use Types Packs/Day [...] Description 03/19/2025 11:30 AM EDT Office Visit [facility] [address] [place] [address] [phone] Laxmi Spear MD [address] [place] [address] [phone] 04/09/2025 3:00 PM EDT Office Visit [facility] [address] [place] [address] [phone] Elizabeth Johnson MD [address] [place] [phone] documented as of this encounter Visit Diagnoses Diagnosis Anxiety Anxiety state, unspecified documented in this encounter Care Teams Transfer Iron Operator Relationship Specialty Start Date End Date Laxmi Spear MD [address] [place] [phone] PCP - General Family Medicine 07/15/17 documented as of this encounter
--- OUTSIDE RECORDS SUMMARY | 2025-03-05 14:06 | XMS_ITS | Encounter Summary ---
Author Organization [employer] Address [address] [facility] [address] [place] [address] Care Team Providers Care Applications Systems Engineer Name Role Phone Laxmi Spear MD Primary Care Provider + Reason for Visit * Reason Onset Date Comments Nurse Triage 12/03/2023 Encounter Details Date Type Department Care Team ([facility] st Contact Info) Description 12/03/2023 Telephone [facility] [address] [place], [place] [phone] Laxmi Spear MD [address] [place], [place] [phone] Nurse Triage Social History Tobacco Use Types [...] visit for jose f , number is [phone]. Pt reports this is the 3rd time Pt has had Covid. 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 No further questions offered. [...] accepted this outcome Please contact pt @ [phone] Pt is requesting the AntiBiotics documented in this encounter Plan of Treatment Upcoming Encounters Date Type Department Care Team (Late st Contact Info) Description 03/19/2025 11:30 AM EDT Office Visit [facility] MED[facility]INE [address] [place] [phone] Laxmi Spear MD [address] [place] [phone] 04/09/2025 3:00 PM EDT Office Visit [facility] [address] [place] [phone] Elizabeth Johnson MD [address] [place] [address] documented as of this encounter Visit Diagnoses Not on filedocumented in this encounter Care Teams Applications Systems Engineer Relationship Specialty Start Date End Date Laxmi Spear MD [address] [place] [phone] PCP - General Family Medicine 07/15/17 documented as of this encounter
--- OUTSIDE RECORDS SUMMARY | 2025-03-05 14:06 | XMS_ITS | Encounter Summary ---
Author Organization [employer] Address [address] [facility] [address] [place] [address] Care Team Providers Care Plant Mechanic Name Role Phone Laxmi Spear MD Primary Care Provider + Encounter Details Date Type Department Care Team ([facility] Contact Info) Description 01/24/2023 Orders Only [facility] [address] [place] [address] Candis Dixon LPN Social History Tobacco Use [...] Upcoming Encounters Date Type Department Care Team ([facility] Contact Info) Description 03/19/2025 11:30 AM EDT Office Visit [facility] MED[facility] [address] [place] [address] [phone] Laxmi Spear MD [address] [place] [address] 04/09/2025 3:00 PM EDT Office Visit [facility] [address] [place] [address] [phone] Elizabeth Johnson MD [address] [place], [place] [phone] documented as of this encounter Visit Diagnoses Not on filedocumented in this encounter Care Teams Plant Mechanic Relationship Specialty Start Date End Date Laxmi Spear MD [address] [place] [address] PCP - General Family Medicine 07/15/17 documented as of this encounter
--- OUTSIDE RECORDS SUMMARY | 2025-03-05 14:06 | XMS_ITS | Clinical Summary ---
Author Organization [employer] Address [address] [facility] [address] [place] [address] Care Team Providers Care Working Foreman Name Role Phone Laxmi Spear MD Primary Care Provider + Allergies Active Allergy Reactions Criticality Noted Date Comments Bee Venom 06/13/2015 Medications acetaminophen (Tylenol) 500 MG tablet Take 2 tablets (1,000 mg) by mouth every 6 (six) hours if needed for moderate pain or fever for up to 25 doses. 50 tablet 3 Active ibuprofen 400 MG tablet Take 1 tablet (400 mg) by mouth every 6 (six) hours if needed for moderate pain or fever for up to 30 doses. 30 tablet 3 Active hydrOXYzine HCl (Atarax) 10 MG tabletIndicatio ns:Anxiety TAKE 1 TO 2 TABLETS BY MOUTH TWICE A DAY NEEDED FOR ANXIETY 180 tablet 1 4 Active Blood Pressure kit 1 kit Once per day. 1 kit 4 Active ergocalciferol (Vitamin D2) 1.25 MG (43521 UT) capsule Take 1 capsule (1.25 mg) by mouth 1 (one) time per week. 12 capsule 1 4 03/07/20 25 Active spironolactone (Aldactone) 25 MG tablet Take 1 tablet (25 mg) by mouth Once per day. 90 tablet 3 5 12/21/19 26 Active acetaminophen (Tylenol Extra Strength) 500 MG tablet Take 1 tablet (500 mg) by mouth every 8 (eight) hours if needed for moderate pain or headaches. 90 tablet 5 03/24/20 25 Active oseltamivir (Tamiflu) 75 MG capsule Take 1 capsule (75 mg) by mouth 2 times daily for 5 days. 10 capsule 5 02/28/20 25 ondansetron (Zofran) 4 MG tablet Take 1 tablet (4 mg) by mouth every 8 (eight) hours if needed for vomiting for up to 7 days. 20 tablet 5 03/01/20 25 Active Problems Problem Noted Date Diagnosed Date [...] Encounters Date Type Department Care Team Description 02/22/2025 3:00 PM EDT Office Visit [facility] [address] [place] [phone] Name, MD Rene Influenza B (Primary Dx); COVID-19 02/11/2025 Orders Only [facility] [address] [place] [phone] Laxmi Spear MD 02/08/2025 Orders Only GENERIC EXTERNAL DATA DEPARTMENT Provider, Generic External Data 02/05/2025 Orders Only GENERIC EXTERNAL DATA DEPARTMENT Provider, Generic External Data 12/21/2024 11:15 AM EST Office Visit [address] [address] Laxmi Spear MD Elevated blood pressure reading (Primary Dx); Weight loss; Hair loss 12/21/[address] [phone] Laxmi Spear MD 12/21/2024 Travel 12/18/[address] [address] Tara Bella [place] Chart prep from Last 3 Months Immunizations Name Administration Dates Next Due DTP 04/25/1987 Hep B, Adolescent or Pediatric 12/23/1998,1997,12/24/1997 Influenza, IIV3, injectable 09/28/2013 MMR 07/06/1993 OPV, Trivalent 04/25/1987 Td (adult), 5 Lf tetanus tox [...] Sign Reading Time Taken Comments Blood Pressure 138/88 02/22/2025 2:24 PM EDT Pulse 106 02/22/2025 2:24 PM EDT Temperature 37.5 ??C (99.5 ??F) 02/22/2025 2:24 PM ED T Respiratory Rate 20 02/22/2025 2:24 PM EDT Oxygen Saturation 95% 02/22/2025 2:24 PM EDT Inhaled Oxygen Concentration - - Weight 56.2 kg (124 lb) 02/22/2025 2:24 PM EDT Height 154.9 cm (5' 1 ) 02/22/2025 2:24 PM EDT Body Mass Index 23.43 02/22/2025 2:24 PM EDT Plan of Treatment Upcoming Encounters Date Type Department Care Team (Late st Contact Info) Description 03/19/2025 11:30 AM EDT Office Visit [facility] [address] [place] [address] [phone] Laxmi Spear MD [address] [place], [place] [phone] 04/09/2025 3:00 PM EDT Office Visit [facility] [address] [place] [address] [phone] Elizabeth Johnson MD [address] [place], [place] [phone] Health Maintenance Due Date Last Done Comments IPV Vaccines (2 of 3 - 4-dose series) 05/23/1987 04/25/1987 Alcohol/Substance Use Screening 1994 COVID-19 Vaccine ( season) 2024 12/29/2021, 12/21/2020, 11/30/2020 SDOH Screening 11/28/2024 11/28/2023 Family Planning (PISQ) 08/28/2025 08/28/2024 Pap Smear 12/20/2025 12/20/2022, 10/11/2021 Depression Screening 12/21/2025 12/21/2024, 12/21/19 Mammogram 02/11/2026 02/11/2025, 02/03/2024 DTaP/Tdap/Td Vaccines (5 - Td or Tdap) 02/21/2026 02/22/2016, 05/24/2011, 08/09/1997, Additional history exists Tobacco Screening 02/22/2026 02/22/2025 Cervical Cancer Screening 12/20/2027 HPV/Cotest 12/20/2027 12/20/2022, [...] Procedure Name Priority Date/Time Associated Diagnosis Comments POCT INFLUENZA A (ID NOW RAPID MOLECULAR) Routine 02/22/2025 2:31 PM EDT Influenza B POCT COVID-19 AG BRENNAN ID NOW Routine 02/22/2025 2:31 PM EDT COVID-19 POCT INFLUENZA B (ID NOW RAPID MOLECULAR) Routine 02/22/2025 2:31 PM EDT Influenza B BI MAMMOGRAM SCREENING TOMOSYNTHESIS BILATERAL Routine 02/11/2025 10:45 AM EDT HEPATITIS B SURFACE ANTIGEN, EIA Routine [...] Routine 12/21/2024 9:20 AM EST Weight loss HPV MRNA E6/E7 REFLEX TO HPV 16, 18/45 Routine 12/20/2022 10:30 AM EST PAP SMEAR Routine 12/20/2022 10:30 AM EST from Last 3 Months or Most Recently Relevant to Health Maintenance Results * (ABNORMAL) Influenza B (ID NOW Rapid Molecular) (02/22/2025 2:31 PM EDT) Influenza B Positive( A) Negative, Indeterminate [facility] Swab 02/22/2025 2:31 PM EDT us Rene Ziegler MD POINT OF CARE TEST ENTER/EDIT OR DERABLES Final Result Performing Organization Address [facility] de Phone Number [facility] [address] [place] [phone] * Influenza A (ID NOW Rapid Molecular) (02/22/2025 2:31 PM EDT) Influenza A Negative Negative, Indeterminate [facility] Swab 02/22/2025 2:31 PM EDT us Rene Ziegler MD POINT OF CARE TEST ENTER/EDIT OR DERABLES Final Result Performing Organization Address [facility] de Phone Number [facility] [address] [place] [phone] * (ABNORMAL) POCT COVID-19 Ag Brennan ID NOW (02/22/2025 2:31 PM EDT) Pathologist [facility] Coronavirus Antigen PCR Positive (A) Negative, Indeterminate, None Detected, Invalid, Specimen unsatisfactory for evaluation, Weakly Positive [facility] Swab 02/22/2025 2:31 PM EDT Rene Ziegler MD POINT OF CARE TEST ENTER/EDIT OR DERABLES Final Result Performing Organization Address [facility] de Phone Number [facility] [address] [place] [phone] * BI Mammogram Screening Tomosynthesis Bilateral (02/11/2025 10:45 AM EDT) Anatomical Region Laterality Modality Breast Bilateral Mammography 02/11/2025 10:4 5 AM EDT Narrative 02/19/2025 2:21 PM EDT ? [facility] ? [address] ?[place] [address] ?[phone] ? Mammography Report ? Signed ? Patient: Rodas,Magnolia ?MR#: [id number] ? : 1980 ?Acct:[id number] ? Age/Sex: 44 / F ?ADM Date: 02/11/25 ? Loc: HO.MAMMO ? Attending Dr: Laxmi Spear MD ? Ordering Physician: Laxmi Spear MD ?Results: 1Ne ?? gative ? Date of Service: 02/11/25 ?Follow Up: 1 Year From Orig ?? inal Mammogram ? Procedure(s): MM tomosynthesis screening BI ?? Accession Number(s): [id number] ? cc: Laxmi Spear MD ? EXAMINATION: ?? MM SCREENING DIGITAL BREAST TOMOSYNTHESIS, BILATERAL ? CLINICAL INFORMATION: ? Screening. Asymptomatic. ? COMPARISON: ?? Mammography: Comparison is made with available priors ? TECHNIQUE: ?? Digital breast mammography with tomosynthesis is performed in both the ?? craniocaudal and mediolateral oblique views along with computer-aided ?? detection (CAD). ? FINDINGS: ?? The breasts are heterogeneously dense, which may obscure small masses ?? (ACR BI-RADS breast composition Category c). ? There are no significant masses, abnormal [...] due date for their next mammogram. ? Electronically signed by: ??Ludy Miles DO ??02/19/2025 02:18 PM EDT ? Dictated By: ?Ludy Miles DO ? Signed By: ?<Electronically signed by Ludy Miles, DO in OV> ? 02/19/25 1418 ? DD/ 1045 ? TD/TT: 02/11/25 1100 ? Manager Net: ? Procedure Note Shanon, Image - 02/19/2025 [facility] [address] [place] [address] Mammography Report Signed Patient: Delicia Rodas#: [id number] : 1980Acct:[id number] Age/Sex: 44 / FADM Date: 02/11/25 Loc: HO.MAMMO Attending Dr: Laxmi Spear MD Ordering Physician: Laxmi Spear MDResults: 1Ne gative Date of Service: 02/11/25Follow Up: 1 Year From Orig ina Mammogram Procedure(s): MM tomosynthesis screening BI Accession Number(s): [id number] cc: Laxmi Spear MD EXAMINATION: MM SCREENING DIGITAL BREAST TOMOSYNTHESIS, BILATERAL CLINICAL INFORMATION: Screening. Asymptomatic. COMPARISON: Mammography: Comparison is made with available priors TECHNIQUE: Digital breast mammography with tomosynthesis is performed in both the craniocaudal and mediolateral oblique views along with computer-aided detection (CAD). FINDINGS: The breasts are heterogeneously dense, which may obscure small masses (ACR BI-RADS breast composition Category c). There are no significant masses, abnormal calcifications, [...] target due date for their next mammogram. Electronically signed by: Ludy Miles DO 02/19/2025 02:18 PM EDT Dictated By: Ludy Miles DO Signed By: <Electronically signed by Ludy Miles DO in OV> 02/19/25 1418 DD/ 1045 TD/TT: 02/11/25 1100 Manager Net: us Laxmi Spear MD IMG BI PROCEDURES Final Result * Syphilis Screen (02/08/2025 12:12 PM EDT) Syphilis Screen Nonreactive Nonreactive [facility] 02/08/2025 12:1 2 PM EDT 02/08/2025 12:12 PM EDT us Generic External Data Provider LAB BLOOD ORDERAB LES Final Result Performing Organization Address [facility] Co de Phone Number [facility] [address] [place] [phone] * Hepatitis C Ab (02/08/2025 12:12 PM EDT) Hepatitis C Antibody Nonreactive Nonreactive [facility] Comment:Antibodies to HCV no t detected; does not exclude early acuteHCV infection. 02/08/2025 12:1 2 PM EDT 02/08/2025 12:12 PM EDT us Generic External Data Provider LAB BLOOD ORDERAB LES Final Result Performing Organization Address [facility]/ZIP Co de Phone Number [facility] [address] [place] [phone] * Hepatitis B surface antigen, EIA (02/08/2025 12:12 PM EDT) Pathologist [facility] Hepatitis B Surface Ag Negative Negative [facility] 02/08/2025 12:1 2 PM EDT 02/08/2025 12:12 PM EDT Generic External Data Provider LAB BLOOD ORDERAB LES Final Result Performing Organization Address City/[facility]/ZIP Co de Phone Number [facility] [address] [place] [phone] * HIV-1/2 Antigen and Antibodies, Fourth Generation, with Reflexes (02/08/2025 12:12 PM EDT) [facility] HIV AB/AG Nonreactive Nonreactive [facility] Comment:HIV-1 p24 Ag and/or HIV-1/HIV-2 Ab not detected.A test result that is nonreactive does not exclude thepossibility of exposure to or infection with HIV-1 and/orHIV-2. Nonreactive results in this assay for individualswith prior exposure to HIV-1 and/or HIV-2 may be due toantigen and antibody levels that are below the limit ofdetection of this assay.The [employer] HIV Ag/Ab Combo assay result andsupplemental assay results should be interpreted inconjunction with the patient's clinical presentation,history and other laboratory results. If the results areinconsistent with clinical evidence, additional testing issuggested to confirm the result. 02/08/2025 12:1 2 PM EDT 02/08/2025 12:12 PM EDT us Generic External Data Provider LAB BLOOD ORDERAB LES Final Result Performing Organization Address City/[facility]/ZIP Co de Phone Number [facility] [address] [place] [phone] * (ABNORMAL) Bacterial Vaginosis (02/05/2025 10:00 AM EDT) Pathologist [facility] TRICHOMONAS VAGINALIS DETECTION BY PCR NOT DETECTED Not Detect [facility] BACTERIAL VAGINOSIS DETECTION BY PCR POSITIVE(A) Negative [facility] Comment:The BV organism targ ets [...] DETECTION BY PCR NOT DETECTED Not Detect [facility] Leeanna glab krusei PCR NOT DETECTED Not Detect [facility] 02/05/2025 10:0 0 AM EDT 02/05/2025 3:05 PM EDT us Generic External Data Provider LAB MICROBIOLOGY - GENERAL ORDERABLES Final Result [facility] [address] [place] [phone] * Chlamydia/N. Gonorrhoeae RNA, TMA, Urogenitial (02/05/2025 10:00 AM EDT) Pathologist [facility] CT PCR NOT DETECTED Not Detect. [facility] Comment:A not detected test result [...] psychologicalconsequences. NG PCR NOT DETECTED Not Detect. [facility] Comment:A not detected test result [...] AM EDT 02/05/2025 3:05 PM EDT Narrative [facility] - 02/06/2025 6:10 AM EDT Vaginal us Generic External Data Provider LAB MICROBIOLOGY - GENERAL ORDERABLES Final Result Performing Organization Address [facility] Co de Phone Number [facility] [address] [place] [address] [phone] * T3, Free (12/21/2024 9:20 AM EST) T3, Free 3.4 2.3 - 4.2 pg/mL [facility] Comment:THIS TEST WAS PERFOR MED AT:[employer] [address] [phone] CONRAD MD Blood Venous blood specimen / Unknown 12/21/2024 9:20 AM EST 12/21/2024 11:30 AM EST us Laxmi Spear MD LAB BLOOD ORDERABLES Fin al Result Performing Organization Address [facility] Co de Phone Number [facility] [address] [place] [phone] * T3, Total (12/21/2024 9:20 AM EST) T3, Total 84 76 - 181 ng/dL [facility] Comment:THIS TEST WAS PERFOR MED AT:[employer] [address] [phone] CONRAD MD Blood Venous blood specimen / Unknown 12/21/2024 9:20 AM EST 12/21/2024 11:30 AM EST us Laxmi Spera MD LAB BLOOD ORDERABLES Fin al Result Performing Organization Address City/[facility] Co de Phone Number [facility] [address] [place] [phone] * TSH (12/21/2024 9:20 AM EST) Thyroid Stimulating Hormone 1.89 0.32 - 4.0 uIU/mL [facility] Comment:TSH 3rd Generation ( [facility]) Blood Venous blood specimen / Unknown 12/21/2024 9:20 AM EST 12/21/2024 11:30 AM EST Laxmi Spear MD LAB BLOOD ORDERABLES Fin al Result Performing Organization Address [facility] Co de Phone Number [facility] [address] [place] [phone] * T4, Free (12/21/2024 9:20 AM EST) Free T4 (Free Thyroxine) 0.90 0.71 - 1.85 ng/dL [facility] Blood Venous blood specimen / Unknown 12/21/2024 9:20 AM EST 12/21/2024 11:30 AM EST Laxmi Spear MD LAB BLOOD ORDERABLES Fin al Result Performing Organization Address City/[facility] Co de Phone Number [facility] [address] [place] [phone] * T4 (Thyroxine), Total (12/21/2024 9:20 AM EST) T4 Thyroxine 6.0 4.5 - 12.0 ug/dL [facility] Blood Venous blood specimen / Unknown 12/21/2024 9:20 AM EST 12/21/2024 11:30 AM EST Laxmi Spear MD LAB BLOOD ORDERABLES Fin al Result Performing Organization Address [facility] de Phone Number [facility] [address] [place] [phone] * (ABNORMAL) Basic Metabolic Panel (12/21/2024 9:20 AM EST) Pathologist [facility] Sodium 138 135 - 145 mmol/L [facility] Potassium 3.8 3.3 - 5.1 mmol/L [facility] Chloride 107 96 - 108 mmol/L [facility] Carbon Dioxide 24 22 - 29 mmol/L [facility] Anion Gap 11(L) 12 - 20 [facility] Urea Nitrogen (BUN) 10 9 - 16 mg/dL [facility] Creatinine, Serum 0.66 0.5 - 1.4 mg/dL [facility] Estimated Glomerular Filt Rate >60 [facility] Comment:Chronic Kidney Disea se: Estimated GFR < 60 mL/min/1.94x7Vulkch Kidney Disease: Estimated GFR < 15 mL/min/1.73m2 Glucose 111 60 - 115 mg/dL [facility] Calcium 8.6 8.4 - 10.2 mg/dL [facility] Blood Venous blood specimen / Unknown 12/21/2024 9:20 AM EST 12/21/2024 11:30 AM EST Laxmi Spear MD LAB BLOOD ORDERABLES Fin al Result Performing Organization Address [facility] Co de Phone Number [facility] [address] [place] [phone] * HPV mRNA E6/E7 w/Reflex to HPV Genotypes 16, 18/45 (12/20/2022 10:30 AM EST) HPV nRNA E6/E7 Not Detected Not Detected [facility] Comment:Methodology: Transcr iption-Mediated AmplificationThis assay detects E6/E7 viral messenger RNA (mRNA) from 14high-risk HPV types (16,18,31,33,35,39,45,51,52,56,58,59,66,68).Cervical sources are required for HPV testing.If a vaginal source from a patient who has had atotal hysterectomy with removal of cervix wassubmitted, please contact the testing laboratoryfor alternative testing options.For additional information, please refer [email or web address]/PCY563z5(This link if provided for information/educational purposes only.)THIS TEST WAS PERFORMED AT:[employer] [place] [address] ([address] [phone] CONRAD MD HPV mRNA E6/E7 [facility] HPV 16 RNA [facility] HPV 18/45 RNA [facility] 12/20/2022 10:3 0 AM EST 12/20/2022 4:15 PM EST [facility] External Provider LAB CYT OLOGY ORDERABLES Final Result [facility] [address] [place] [phone] * Pap Smear (12/20/2022 10:30 AM EST) 12/20/2022 10:3 0 AM EST 12/20/2022 4:15 PM EST Narrative [facility] - 12/28/2022 6:32 PM EST ----- ------- Name: ClarkMagnolia ? Age/Sex: 42/F ? : 1980 Unit#: [id number] ?? Attend Dr: Catalina Richards CNM ?Re12/20/22 ?Status: DEP REF ? Location: HO.LNP ?Disch: ? ----- ------- SPEC : [id number] ? RECD: 12/20/22-161 ? STATUS: ??SOUT ? REQ NUM: [id number] ? OLENA: 12/20/22-0 ? SUBM DR: Catalina Richards CNM ? ENTERED: ??12/20/22-618 ?SP TYPE: Pap Smr ?OTHR DR: Laxmi [...] 66, 68) ? HPV testing performed by [facility], [place], [place]. ??See reference laboratory ?? portion of the EMR for entire report. Copies To: ?? Laxmi Spear MD ?? [address] [facility] ?? [place] [address] ? Catalina Richards CNM ?? [address] [place] [address] Dr. [facility] ?? [place] [address] ?? [phone] ----- ------- Signed (signature on file) Alisa Cristina Keila 12/28/221831 ? ----- ------- ? END OF REPORT ? us [facility] External Provider LAB CYT OLOGY ORDERABLES Final Result [facility] [address] [place] [phone] from Last 3 Months or Most Recently Relevant to Health Maintenance Insurance [facility] Care Teams Working Foreman Relationship Specialty Start Date End Date Laxmi Spear MD [address] [place] [address] PCP - General Family Medicine 07/15/17
== END 2025-03-05 14:29 | disposition home or self-care (01) ==
LOC: HO.HWS 13:45
PROVIDERS: PCP Internal Medicine; Visit Provider Advanced Practice Midwife
DX: Z01.419 Encounter for gynecological examination (general) (routine) without abnormal findings (principal)
CPT/HCPCS: 99396; 99459

== ENCOUNTER 2025-03-16 10:54 | Emergency (ER) | payer OTHER, SELFPAY ==
[2025-03-16 11:02] VITALS: BP 138/88; PULSE 81; RESP 16; TEMP 36.6; O2SAT 99; BMI 23.2
--- NOTE | 2025-03-16 11:04 | ED_ITS ---
HPI - General Adult General Chief complaint: Skin/Abscess/Foreign Body Stated complaint: Rectal pain Time Seen by Provider: 03/16/25 16:05 Related Data Home Medications ?Medication ?Instructions ?Recorded ?Confirmed hydroxyzine HCl 10 mg tablet 10 mg PO TID PRN Anxiety 07/12/22 03/05/25 spironolactone 25 mg tablet 25 mg PO DAILY 02/05/25 03/05/25 Previous Rx's ?Medication ?Instructions ?Recorded metronidazole 0.75 % (37.5 mg/5 1 appful vaginal BEDTIME 5 days 02/08/25 gram) vaginal gel #70 grams doxycycline hyclate 100 mg capsule 100 mg PO BID cough 7 days #14 caps 03/16/25 Allergies Allergy/AdvReac Type Severity Reaction Status Date / Time bee pollen [Bee Stings] Allergy Mild SWELLING Verified 03/16/25 11:03 AT SITE Bee stings Allergy Unknown anaphylaxis Uncoded 03/16/25 11:03 PMFSH Past Medical History Medical History COVID-19 Anxiety No known health problems Surgical History History of tubal ligation Social History Social History Household Members: Children Housing: Other Housing Other:: [employer] Do you presently have visiting nurse or other home services: No Unable to assess alcohol history related to: Unknown Alcohol intake: current Alcohol intake frequency: holidays/special occasions only Patient Tobacco Use Status: Former Tobacco user Smoked in Last 30 Days: No Use of substances other than those prescribed or required for medical reasons: Unknown Substance Use Type: Marijuana Advance Directives: Yes Advance Directives on File: Yes Advance Directives Date on File: 11/27/23 Do you have a plan to hurt others: No Plan service: No Gender identity: Female Physical Exam ED Vital Signs: Vital Signs - 24 hr 03/16/25 11:02 Temperature 98 F Pulse Rate 81 Respiratory Rate 16 Blood Pressure 138/88 Pulse Oximetry 99 Oxygen Delivery Method Room Air BMI result Body Mass Index 23.2 Course Course Course Narrative: RME: You were fever presents to ED for bilateral buttock abscesses of the past couple of days. Patient states have had this before. Patient denies any fever or chills. Patient denies abdominal pain. Patient to be evaluated in the ED. Medications Administered Discontinued Medications Generic Name Dose Route Start Last Admin Trade Name Freq PRN Reason Stop Dose Admin Lidocaine HCl 10 ml 03/16/25 16:32 03/16/25 17:05 Lidocaine Hcl 1 % Mpf 5 Ml Vial SUBCUT 03/16/25 16:33 10 ml ONCE ONE Administration Discharge Plan Discharge Clinical Impression: Abscess Patient Disposition: Home, Self-Care Instructions: Abscess Incision and Drainage (DC) Prescriptions: New doxycycline hyclate 100 mg capsule 100 mg PO BID 7 Days Qty: 14 0RF No Action metronidazole 0.75 % (37.5mg/5 gram) gel 1 appful vaginal BEDTIME 5 Days Qty: 70 0RF hydroxyzine HCl 10 mg tablet 10 mg PO TID PRN (Reason: Anxiety) spironolactone 25 mg tablet 25 mg PO DAILY Referrals: Em Pino MD [Emergency Provider] - 03/18/25 Stand Alone Forms: Work/School Release Print Language: Dominican
--- NOTE | 2025-03-16 16:33 | ED_ITS ---
HPI - Skin/Abscess/Foreign Bdy General Chief complaint: Skin/Abscess/Foreign Body Stated complaint: Rectal pain Time Seen by Provider: 03/16/25 16:05 History of Present Illness HPI narrative: Patient is a 44-year-old female presents today with having pain to the gluteal area for the past few days. Complaint that she has had history of abscess in the past. No history of IV drug use. History of hypertension. Not on blood thinners. No history of IV drug use. Patient is from home. Related Data Home Medications ?Medication ?Instructions ?Recorded ?Confirmed hydroxyzine HCl 10 mg tablet 10 mg PO TID PRN Anxiety 07/12/22 03/05/25 spironolactone 25 mg tablet 25 mg PO DAILY 02/05/25 03/05/25 Previous Rx's ?Medication ?Instructions ?Recorded metronidazole 0.75 % (37.5 mg/5 1 appful vaginal BEDTIME 5 days 02/08/25 gram) vaginal gel #70 grams doxycycline hyclate 100 mg capsule 100 mg PO BID cough 7 days #14 caps 03/16/25 Allergies Allergy/AdvReac Type Severity Reaction Status Date / Time bee pollen [Bee Stings] Allergy Mild SWELLING Verified 03/16/25 11:03 AT SITE Bee stings Allergy Unknown anaphylaxis Uncoded 03/16/25 11:03 Review of Systems Review of Systems: Pain to the gluteal area Yes all other systems are reviewed and are negative [facility] Past Medical History Attestation statement: The following information was validated with the patient. Medical History COVID-19 Anxiety No known health problems Surgical History History of tubal ligation Social History Social History Household Members: Children Housing: Other Housing Other:: [employer] Do you presently have visiting nurse or other home services: No Unable to assess alcohol history related to: Unknown Alcohol intake: current Alcohol intake frequency: holidays/special occasions only Patient Tobacco Use Status: Former Tobacco user Smoked in Last 30 Days: No Use of substances other than those prescribed or required for medical reasons: Unknown Substance Use Type: Marijuana Advance Directives: Yes Advance Directives on File: Yes Advance Directives Date on File: 11/27/23 Do you have a plan to hurt others: No Plan service: No Gender identity: Female Physical Exam Vital Signs: Vital Signs: Last Vital Signs Temp 98 F 03/16/25 11:02 Pulse 81 03/16/25 11:02 Resp 16 03/16/25 11:02 BP 138/88 03/16/25 11:02 Pulse Ox 99 03/16/25 11:02 O2 Del Method Room Air 03/16/25 11:02 BMI result Body Mass Index 23.2 Appearance: Alert. Oriented X3. No acute distress. Eyes: Pupils equal, round and reactive to light. ENT: Pharynx normal. Neck: Normal inspection. Neck supple. No lymph nodes noted. No crepitus CVS: Normal heart rate and rhythm. Pulses normal. Normal S1 and S2 Respiratory: No respiratory distress. Breath sounds normal. No Wheezing. No rales Abdomen: Soft and nontender. No rigidity. No distention. good BS x4 Skin: There is 2 abscess is noted around the anus. Not involving the anus itself. One is in the approximately 11 o'clock position approximately 3 cm x 3 cm in size fluctuant tender to touch. Another smaller lesion in the 3 o'clock position approximately 2 cm x 1 cm in size. Fluctuant minimally tender to touch. Extremities: No lower extremity edema. Neurovascular intact to all extremities. No Lacerations. No Rash Neuro: Oriented X 3. No motor deficit. No sensory deficit. Moving all extermities. No slurred speech Medications Administered Discontinued Medications Generic Name Dose Route Start Last Admin Trade Name Freq PRN Reason Stop Dose Admin Lidocaine HCl 10 ml 03/16/25 16:32 03/16/25 17:05 Lidocaine Hcl 1 % Mpf 5 Ml Vial SUBCUT 03/16/25 16:33 10 ml ONCE ONE Administration Medical Decision Making Medical Decision Making MDM Narrative: Patient has 2 abscesses noted in the perirectal area not involving the anus. Risk and benefit of I and D was explained. Patient wanted the procedure. Two abscesses with I and D. Large amount of pus expressed the loculated and irrigated. Subsequently packed. Patient to be discharged home on antibiotics. Follow-up on an outpatient basis. Differential Diagnosis Differential Diagnoses: The differential diagnosis associated with the presentation includes Abscess, cellulitis Admission/Observation Consideration of admission/observation: Escalation of care including admission/observation considered Drained no need for admission Procedures Abscess I/D Site: other (Gluteal area) Side (if applicable): left (11 o'clock position) and right (3 o'clock position) Local Anesthetic: lidocaine 1% Amount of anesthesia used (mL): 10 Technique: incised with blade Amount of fluid expressed (mL): 5 Sent for culture/gram staining?: No Irrigation: Yes Packing used?: iodoform Discharge Plan Discharge Clinical Impression: Abscess Patient Disposition: Home, Self-Care Instructions: Abscess Incision and Drainage (DC) Prescriptions: New doxycycline hyclate 100 mg capsule 100 mg PO BID 7 Days Qty: 14 0RF No Action metronidazole 0.75 % (37.5mg/5 gram) gel 1 appful vaginal BEDTIME 5 Days Qty: 70 0RF hydroxyzine HCl 10 mg tablet 10 mg PO TID PRN (Reason: Anxiety) spironolactone 25 mg tablet 25 mg PO DAILY Referrals: Pino,Em Garduno MD [Emergency Provider] - 03/18/25 Stand Alone Forms: Work/School Release Print Language: Kinyarwanda
[2025-03-16] MEDS: Lidocaine HCl 1 % MPF 5 ML VIAL 10 ML SUBCUT (17:05)
--- OUTSIDE RECORDS SUMMARY | 2025-03-16 18:11 | XMS_ITS | Encounter Summary ---
Author Organization [employer] Address [address] [facility] [address] [place] [address] Care Team Providers Care Methodologist Name Role Phone Laxmi Spear MD Primary Care Provider + Reason for Visit * Reason Onset Date Comments Nurse Triage 12/03/2023 Encounter Details Date Type Department Care Team ([facility] st Contact Info) Description 12/03/[address] [facility] [address] [place], [place] [phone] Laxmi Spear MD [address] [place], [place] [phone] Nurse Triage Social History Tobacco Use Types [...] the 5th day. Pt is given 3rd democrat tele visit for jose f , number is [phone]. Pt reports this is the 3rd time Pt has had Covid. Pt is a [employer] in a residential. No further questions offered. Pt agrees with [...] accepted this outcome Please contact pt @ [phone] Pt is requesting the AntiBiotics documented in this encounter Plan of Treatment Upcoming Encounters Date Type Department Care Team (Late st Contact Info) Description 03/19/2025 11:30 AM EDT Office Visit [facility] [address] [place] [phone] Laxmi Spear MD [address] [place] [phone] 04/09/2025 3:00 PM EDT Office Visit [facility] [address] [place] [phone] Elizabeth Johnson MD [address] [place] [address] documented as of this encounter Visit Diagnoses Not on filedocumented in this encounter Care Teams Methodologist Relationship Specialty Start Date End Date Laxmi Spear MD [address] [place] [phone] PCP - General Family Medicine 07/15/17 documented as of this encounter
--- OUTSIDE RECORDS SUMMARY | 2025-03-16 18:11 | XMS_ITS | Encounter Summary ---
Author Organization [employer] Address [address] [facility] [address] [place] [address] Care Team Providers Care Well Blower Name Role Phone Laxmi Spear MD Primary Care Provider + Encounter Details Date Type Department Care Team ([facility] Contact Info) Description 01/24/2023 Orders Only [facility] [address] [place] [address] Candis Dixon LPN Social History Tobacco Use [...] Upcoming Encounters Date Type Department Care Team ([facility] Contact Info) Description 03/19/2025 11:30 AM EDT Office Visit [facility] [address] [place] [address] [phone] Laxmi Spear MD [address] [place] [address] 04/09/2025 3:00 PM EDT Office Visit [facility] [address] [place] [address] [phone] Elizabeth Johnson MD [address] [place], [place] [phone] documented as of this encounter Visit Diagnoses Not on filedocumented in this encounter Care Teams Well Blower Relationship Specialty Start Date End Date Laxmi Spear MD [address] [place] [address] PCP - General Family Medicine 07/15/17 documented as of this encounter
--- OUTSIDE RECORDS SUMMARY | 2025-03-16 18:11 | XMS_ITS | Encounter Summary ---
Author Organization [facility] [facility] Address [address] [place] [address] [address] [place] [address] Care Team Providers Care Online Banking Specialist Name Role Phone Laxmi Spear MD Primary Care Provider + Reason for Visit * Reason Comments Med Refill Encounter Details Date Type Department Care Team (Late st Contact Info) Description 08/02/[address] [facility] [address] [place] [address] [phone] Laxmi Spear MD [address] [place] [address] [phone] Anxiety Social History Tobacco Use Types Packs/Day [...] Description 03/19/2025 11:30 AM EDT Office Visit [facility] [address] [place] [address] [phone] Laxmi Spear MD [address] [place] [address] [phone] 04/09/2025 3:00 PM EDT Office Visit [facility] [address] [place] [address] [phone] Elizabeth Johnson MD [address] [place] [phone] documented as of this encounter Visit Diagnoses Diagnosis Anxiety Anxiety state, unspecified documented in this encounter Care Teams Online Banking Specialist Relationship Specialty Start Date End Date Laxmi Spear MD [address] [place] [address] PCP - General Family Medicine 07/15/17 documented as of this encounter
--- OUTSIDE RECORDS SUMMARY | 2025-03-16 18:11 | XMS_ITS | Clinical Summary ---
Author Organization [employer] Address [address] [facility] 7[address] [place] [address] Care Team Providers Care Cantilever Crane Operator Name Role Phone Laxmi Spear MD [...] Once per day. 1 kit 4 Active spironolactone (Aldactone) 25 MG tablet Take 1 tablet (25 mg) by mouth Once per day. 90 tablet 3 5 12/21/19 26 Active acetaminophen (Tylenol Extra Strength) 500 MG tablet Take 1 tablet (500 mg) by mouth every 8 (eight) hours if needed for moderate pain or headaches. 90 tablet 5 03/24/20 25 Active ergocalciferol (Vitamin D2) 1.25 MG (25259 UT) capsule Take 1 capsule (1.25 mg) by mouth 1 (one) time per week. 12 capsule 1 4 03/07/20 25 oseltamivir (Tamiflu) 75 MG capsule Take 1 [...] Encounters Date Type Department Care Team Description 03/16/2025 Telephone [facility] [address] [place] [phone] Laxmi Spear MD Chart prep 03/10/2025 Patient Outreach [address] [address] Laxmi Spear MD Pre-visit Planning ((Unable to reach for PVP screening, LVM)) 03/05/2025 Orders Only GENERIC EXTERNAL DATA DEPARTMENT Provider, Generic External Data 02/22/2025 3:00 PM EDT Office Visit [facility] [address] [place] [phone] Rene Ziegler MD Influenza B (Primary Dx); COVID-19 02/11/2025 Orders Only [facility] [address] [place] [phone] Laxmi Spear MD 02/08/2025 Orders Only GENERIC EXTERNAL DATA DEPARTMENT Provider, Generic External Data 02/05/2025 Orders Only GENERIC EXTERNAL DATA DEPARTMENT Provider, Generic External Data 12/21/2024 11:15 AM EST Office Visit [address] [address] Laxmi Spear MD Elevated blood pressure reading (Primary Dx); Weight loss; Hair loss 12/21/2024 Telephone [facility] [address] [place] [address] aLxmi Spear MD 12/21/2024 Travel 12/18/2024 Telephone [facility] [address] [place] [address] Tara Bella MA Chart prep from Last [...] 03/19/2025 11:30 AM EDT Office Visit [facility] [address] [place] [phone] Laxmi Spear MD [address] [place] [phone] 04/09/2025 3:00 PM EDT Office Visit [facility] [address] [place] [address] [phone] Elizabeth Johnson MD [address] [place] [address] [phone] Health Maintenance Due Date Last Done Comments [...] Procedure Name Priority Date/Time Associated Diagnosis Comments CHLAMYDIA/N. GONORRHOEAE RNA, TMA, UROGENITAL Routine 03/05/2025 1:45 PM EDT BACTERIAL VAGINOSIS PANEL Routine 03/05/2025 1:45 PM EDT POCT INFLUENZA A (ID NOW RAPID MOLECULAR) [...] Recently Relevant to Health Maintenance Results * Bacterial Vaginosis (03/05/2025 1:45 PM EDT) Only the most recent of2 resultswithin the time period is included. TRICHOMONAS VAGINALIS DETECTION BY PCR NOT DETECTED Not Detect [facility] BACTERIAL VAGINOSIS DETECTION BY PCR NEGATIVE Negative [facility] Comment:The BV organism targ ets [...] DETECTION BY PCR NOT DETECTED Not Detect [facility] Leeanna glab krusei PCR NOT DETECTED Not Detect [facility] 03/05/2025 1:45 PM EDT 03/05/2025 3:09 PM EDT us Generic External Data Provider LAB MICROBIOLOGY - GENERAL ORDERABLES Final Result [facility] [address] [place] [phone] * Chlamydia/N. Gonorrhoeae RNA, TMA, Urogenitial (03/05/2025 1:45 PM EDT) Only the most recent of2 resultswithin the time period is included. CT PCR NOT DETECTED Not Detect. [facility] Comment:A not detected test result [...] psychologicalconsequences. NG PCR NOT DETECTED Not Detect. [facility] Comment:A not detected test result [...] lead to adverse medical, social or psychologicalconsequences. 03/05/2025 1:45 PM EDT 03/05/2025 3:09 PM EDT Narrative [facility] - 03/05/2025 5:04 PM EDT Vaginal us Generic External Data Provider LAB MICROBIOLOGY - GENERAL ORDERABLES Final Result [facility] [address] [place] [phone] * (ABNORMAL) Influenza B (ID NOW Rapid Molecular) (02/22/2025 2:31 PM EDT) Influenza B Positive( A) Negative, Indeterminate [facility] Swab 02/22/2025 2:31 PM EDT us Rene Ziegler MD POINT OF CARE TEST ENTER/EDIT OR DERABLES Final Result Performing Organization Address City/[facility]/ZIP Co de Phone Number [facility] [address] [place] [phone] * Influenza A (ID NOW Rapid Molecular) (02/22/2025 2:31 PM EDT) Influenza A Negative Negative, Indeterminate [facility] Swab 02/22/2025 2:31 PM EDT us Rene Ziegler MD POINT OF CARE TEST ENTER/EDIT OR DERABLES Final Result Performing Organization Address [facility] Co de Phone Number [facility] [address] [place] [phone] * (ABNORMAL) POCT COVID-19 Ag [facility] ID NOW (02/22/2025 2:31 PM EDT) Coronavirus Antigen PCR Positive (A) Negative, Indeterminate, None Detected, Invalid, Specimen unsatisfactory for evaluation, Weakly Positive [facility] Swab 02/22/2025 2:31 PM EDT us Rene Ziegler MD POINT OF CARE TEST ENTER/EDIT OR DERABLES Final Result Performing Organization Address [facility] Co de Phone Number [facility] [address] [place] [phone] * BI Mammogram Screening Tomosynthesis Bilateral (02/11/2025 10:45 AM EDT) Anatomical Region Laterality Modality Breast Bilateral Mammography 02/11/2025 10:4 5 AM EDT Narrative 02/19/2025 2:21 PM EDT ? [facility] ? [address] ?[place] [address] ?[phone] ? Mammography Report ? Signed ? Patient: Rodas,Magnolia ?MR#: [id number] ? : 1980 ?Acct:[id number] ? Age/Sex: 44 / F ?ADM Date: 02/11/25 ? Loc: HO.MAMMO ? Attending Dr: Laxmi Spear MD ? Ordering Physician: Laxmi Spear MD ?Results: 1Ne ?? gative ? Date of Service: 02/11/25 ?Follow Up: 1 Year From Orig ?? inal Mammogram ? Procedure(s): MM tomosynthesis screening BI ?? Accession Number(s): [id number] ? cc: Laxmi Spear MD ? EXAMINATION: [...] next mammogram. ? Electronically signed by: ??Ludy Miels DO ??02/19/2025 02:18 PM EDT ? Dictated By: ?Ludy Miles DO ? Signed By: ?<Electronically signed by Ludy Miles, DO in OV> ? 02/19/25 1418 ? DD/ 1045 ? TD/TT: 02/11/25 1100 ? Mold Design Engineer: ? Procedure Note Shanon, Image - 02/19/2025 [place] [facility] [address] [place] [address] Mammography Report Signed Patient: [place] Rodas#: [id number] : 1980Acct:[id number] Age/Sex: 44 / FADM Date: 02/11/25 Loc: HO.MAMMO Attending Dr: Laxmi Spear MD Ordering Physician: Laxmi Spear MDResults: 1Ne gative Date of Service: 02/11/25Follow Up: 1 Year From Orig inal Mammogram Procedure(s): MM tomosynthesis screening BI Accession Number(s): [id number] cc: Laxmi Spear MD EXAMINATION: MM SCREENING [...] Ludy Miles DO 02/19/2025 02:18 PM EDT RP Dictated By: Ludy Miles DO Signed By: <Electronically signed by Ludy Miles DO in OV> 02/19/25 1418 DD/ 1045 TD/TT: 02/11/25 1100 Mold Design Engineer: us Laxmi Spear MD IMG BI PROCEDURES Final Result * Syphilis Screen (02/08/2025 12:12 PM EDT) Syphilis Screen Nonreactive Nonreactive [facility] 02/08/2025 12:1 2 PM EDT 02/08/2025 12:12 PM EDT us Generic External Data Provider LAB BLOOD ORDERAB LES Final Result Performing Organization Address [facility] Co de Phone Number [facility] [address] [place] [phone] * Hepatitis C Ab (02/08/2025 12:12 PM EDT) Hepatitis C Antibody Nonreactive Nonreactive [facility] Comment:Antibodies to HCV no t detected; does not exclude early acuteHCV infection. 02/08/2025 12:1 2 PM EDT 02/08/2025 12:12 PM EDT us Generic External Data Provider LAB BLOOD ORDERAB LES Final Result [facility] [address] [place] [phone] * Hepatitis B surface antigen, EIA (02/08/2025 12:12 PM EDT) Hepatitis B Surface Ag Negative Negative [facility] 02/08/2025 12:1 2 PM EDT 02/08/2025 12:12 PM EDT Generic External Data Provider LAB BLOOD ORDERAB LES Final Result Performing Organization Address [facility] de Phone Number [facility] [address] [place] [phone] * HIV-1/2 Antigen and Antibodies, Fourth Generation, with Reflexes (02/08/2025 12:12 PM EDT) HIV AB/AG Nonreactive Nonreactive [facility] Comment:HIV-1 p24 Ag and/or HIV-1/HIV-2 Ab not detected.A test result that is nonreactive does not exclude thepossibility of exposure to or infection with HIV-1 and/orHIV-2. Nonreactive results in this assay for individualswith prior exposure to HIV-1 and/or HIV-2 may be due toantigen and antibody levels that are below the limit ofdetection of this assay.The [employer] HIV Ag/Ab Combo assay result andsupplemental assay results should be interpreted inconjunction with the patient's clinical presentation,history and other laboratory results. If the results areinconsistent with clinical evidence, additional testing issuggested to confirm the result. 02/08/2025 12:1 2 PM EDT 02/08/2025 12:12 PM EDT us Generic External Data Provider LAB BLOOD ORDERAB LES Final Result Performing Organization Address [facility] Co de Phone Number [facility] [address] [place] [phone] * T3, Free (12/21/2024 9:20 AM EST) T3, Free 3.4 2.3 - 4.2 pg/mL [facility] Comment:THIS TEST WAS PERFOR MED AT:[employer] [place] [phone] CONRAD MD Blood Venous blood specimen / Unknown 12/21/2024 9:20 AM EST 12/21/2024 11:30 AM EST Laxmi Spear MD LAB BLOOD ORDERABLES Fin al Result [facility] [address] [place] [phone] * T3, Total (12/21/2024 9:20 AM EST) T3, Total 84 76 - 181 ng/dL [facility] Comment:THIS TEST WAS PERFOR MED AT:[employer] [address] [phone] CONRAD MD Blood Venous blood specimen / Unknown 12/21/2024 9:20 AM EST 12/21/2024 11:30 AM EST us Laxmi Spear MD LAB BLOOD ORDERABLES Fin al Result [facility] [address] [place] [phone] * TSH (12/21/2024 9:20 AM EST) Pathologist [facility] Thyroid Stimulating Hormone 1.89 0.32 - 4.0 uIU/mL [facility] Comment:TSH 3rd Generation ( [facility]) Blood Venous blood specimen / Unknown 12/21/2024 9:20 AM EST 12/21/2024 11:30 AM EST Laxmi Spear MD LAB BLOOD ORDERABLES Fin al Result [facility] [address] [place] [phone] * T4, Free (12/21/2024 9:20 AM EST) [facility] Free T4 (Free Thyroxine) 0.90 0.71 - 1.85 ng/dL [facility] Blood Venous blood specimen / Unknown 12/21/2024 9:20 AM EST 12/21/2024 11:30 AM EST Laxmi Spear MD LAB BLOOD ORDERABLES Fin al Result Performing Organization Address [facility] de Phone Number [facility] [address] [place] [phone] * T4 (Thyroxine), Total (12/21/2024 9:20 AM EST) [facility] T4 Thyroxine 6.0 4.5 - 12.0 ug/dL [facility] Blood Venous blood specimen / Unknown 12/21/2024 9:20 AM EST 12/21/2024 11:30 AM EST Laxmi Spear MD LAB BLOOD ORDERABLES Fin al Result Performing Organization Address [facility] de Phone Number [facility] [address] [place] [phone] * (ABNORMAL) Basic Metabolic Panel (12/21/2024 9:20 AM EST) [facility] Sodium 138 135 - 145 mmol/L [facility] Potassium 3.8 3.3 - 5.1 mmol/L [facility] Chloride 107 96 - 108 mmol/L [facility] Carbon Dioxide 24 22 - 29 mmol/L [facility] Anion Gap 11(L) 12 - 20 [facility] Urea Nitrogen (BUN) 10 9 - 16 mg/dL [facility] Creatinine, Serum 0.66 0.5 - 1.4 mg/dL [facility] Estimated Glomerular Filt Rate >60 [facility] Comment:Chronic Kidney Disea se: Estimated GFR < 60 mL/min/1.43s9Fcyooc Kidney Disease: Estimated GFR < 15 mL/min/1.73m2 Glucose 111 60 - 115 mg/dL [facility] Calcium 8.6 8.4 - 10.2 mg/dL [facility] Blood Venous blood specimen / Unknown 12/21/2024 9:20 AM EST 12/21/2024 11:30 AM EST Laxmi Spear MD LAB BLOOD ORDERABLES Fin al Result [facility] [address] [place] [phone] * HPV mRNA E6/E7 w/Reflex to HPV Genotypes 16, 18/45 (12/20/2022 10:30 AM EST) HPV nRNA E6/E7 Not Detected Not Detected [facility] Comment:Methodology: Transcr iption-Mediated AmplificationThis assay detects E6/E7 viral messenger RNA (mRNA) from 14high-risk HPV types (16,18,31,33,35,39,45,51,52,56,58,59,66,68).Cervical sources are required for HPV testing.If a vaginal source from a patient who has had atotal hysterectomy with removal of cervix wassubmitted, please contact the testing laboratoryfor alternative testing options.For additional information, please refer tohttp://education.Merge Social/faq/PJU707x6(This link if provided for information/educational purposes only.)THIS TEST WAS PERFORMED AT:[employer] [place] [address] (1)[place] [phone] CONRAD MD HPV mRNA E6/E7 TNP [facility] HPV 16 RNA TNP [facility] HPV 18/45 RNA [facility] 12/20/2022 10:3 0 AM EST 12/20/2022 4:15 PM EST us [facility] External Provider LAB CYT OLOGY ORDERABLES Final Result [facility] [address] [place] [phone] * Pap Smear (12/20/2022 10:30 AM EST) 12/20/2022 10:3 0 AM EST 12/20/2022 4:15 PM EST Narrative [facility] - 12/28/2022 6:32 PM EST ----- ------- Name: Magnolia Rodas ? Age/Sex: 42/F ? : 1980 Unit#: [id number] ?? Attend Dr: Catalina Richards CNM ?Re12/20/22 ?Status: DEP REF ? Location: HO.LNP ?Disch: ? ----- ------- SPEC : [id number] ? RECD: 12/20/22 ? STATUS: ??SOUT ? REQ NUM: [id number] ? OLENA: 12/20/22-0 ? SUBM DR: Catalina Richards CNM ? ENTERED: ??12/20/22 ?SP TYPE: Pap Smr [...] 66, 68) ? HPV testing performed by [employer], [place], [place]. ??See reference laboratory ?? portion of the EMR for entire report. Copies To: ?? Laxmi Spear MD ?? [address] ?? [place] [address] ? Catalina Richards CNM ?? [address] [place] [address] [address] ?? [place] [address] ?? [phone] ----- ------- Signed (signature on file) Alisa Pedraza 12/28/221831 ? ----- ------- ? END OF REPORT ? [facility] External Provider LAB [facility] ORDERABLES Final Result [facility] [address] [place] [phone] from Last 3 Months or Most Recently Relevant to Health Maintenance Insurance [facility] Care Teams Cantilever Crane Operator Relationship Specialty Start Date End Date Laxmi Spear MD [address] [place] [address] PCP - General Family Medicine 07/15/17
--- OUTSIDE RECORDS SUMMARY | 2025-03-16 18:11 | XMS_ITS | Encounter Summary ---
Author Organization [employer] Address [address] [facility] 7[address] [place] [address] Care Team Providers Care Digital Media Buyer Name Role Phone Laxmi Spear MD Primary Care Provider + Reason for Visit * Reason Onset Date Comments Chart prep 03/16/2025 Encounter Details Date Type Department Care Team ([facility] Contact Info) Description 03/16/2025 Telephone [facility] [address] [place], [place] [phone] Laxmi Spear MD [address] [place] [address] Chart prep Social History Tobacco Use Types [...] your housing situation today? I have yoli sing 11/28/[address] you li [...] Telephone Encounter - Tara Bella MA - 03/16/2025 10:44 AM EDT Chart Prep Labs: done Images: done Referrals: appointment pending Vaccines due: yes Screenings: not applicable Overdue care gaps: SDOH documented in this encounter Plan of Treatment Upcoming Encounters Date Type Department Care Team (Late st Contact Info) Description 03/19/2025 11:30 AM EDT Office Visit [facility] [address] [place] [phone] Laxmi Spear MD [address] [place] [phone] 04/09/2025 3:00 PM EDT Office Visit [facility] [address] [place] [phone] Elizabeth Johnson MD [address] [place] [phone] documented as of this encounter Visit Diagnoses Not on filedocumented in this encounter Additional Health Concerns Assessment Noted Time PHQ-9 Depression Total Score: 0 12/21/19 10:49 AM EST documented as of this encounter Care Teams Digital Media Buyer Relationship Specialty Start Date End Date Laxmi Spear MD [address] [place] [address] PCP - General Family Medicine 07/15/17 documented as of this encounter
--- OUTSIDE RECORDS SUMMARY | 2025-03-16 18:11 | XMS_ITS | Encounter Summary ---
Author Organization [facility] Address [address] [place] [address] 7t [place] [address] Care Team Providers Care Industry Operations Investigator Name Role Phone Laxmi Spear MD Primary Care Provider + Encounter Details Date Type Department Care Team (Late st Contact Info) Description 08/30/2023 Abstract [facility] [address] [place] [phone] Annel Campos Social History Tobacco Use Types [...] 03/19/2025 11:30 AM EDT Office Visit [facility] [address] [place] [phone] Laxmi Spear MD [address] [place] [phone] 04/09/2025 3:00 PM EDT Office Visit [facility] [address] [place] [address] [phone] Elizabeth Johnson MD [address] [place] [address] [phone] documented as of this encounter Procedures Procedure Name Priority Date/Time Associated Diagnosis Comments PAP/HPV Routine 10/11/2021 documented in this encounter Results * Pap Smear (10/11/2021) Pap Negative for intraephithelial lesion or malignancy Negative for intraephithelial lesion or malignancy, Other HPV Undetected Historical Provider [facility] Final Result documented in this encounter Visit Diagnoses Not on filedocumented in this encounter Care Teams Industry Operations Investigator Relationship Specialty Start Date End Date Laxmi Spear MD [address] [place] [phone] PCP - General Family Medicine 07/15/17 documented as of this encounter
[2025-03-16 18:30] VITALS: BP 138/88; PULSE 81; RESP 16; TEMP 36.6; O2SAT 99
== END 2025-03-16 18:30 | disposition home or self-care (01) ==
PROVIDERS: Emergency Provider Emergency Medicine Emergency Medical Services; PCP Internal Medicine
DX: L02.31 Cutaneous abscess of buttock (principal); K62.89 Other specified diseases of anus and rectum; Z79.899 Other long term (current) drug therapy; Z87.891 Personal history of nicotine dependence
CPT/HCPCS: 10060; 99283; 99284; J2003

== ENCOUNTER 2025-03-18 16:28 | Emergency (ER) | payer OTHER, SELFPAY ==
[2025-03-18 16:36] VITALS: BP 114/75; PULSE 92; RESP 16; TEMP 36.7; O2SAT 98; BMI 23.2
--- NOTE | 2025-03-18 16:54 | ED.RECABL ---
HPI - Recheck/Abnormal Lab/Rx General Chief Complaint: Recheck/Abnormal Lab/Rx Stated Complaint: return visit to see ER Time Seen by Provider: 03/18/25 16:37 History of Present Illness HPI narrative: Patient is 44 years old presents today with having an abscess that was drained 2 days ago. Came in for recheck there is no fever no chills no systemic complaints patient has been doing well Related Data Home Medications ?Medication ?Instructions ?Recorded ?Confirmed hydroxyzine HCl 10 mg tablet 10 mg PO TID PRN Anxiety 07/12/22 03/05/25 spironolactone 25 mg tablet 25 mg PO DAILY 02/05/25 03/05/25 Previous Rx's ?Medication ?Instructions ?Recorded metronidazole 0.75 % (37.5 mg/5 1 appful vaginal BEDTIME 5 days 02/08/25 gram) vaginal gel #70 grams doxycycline hyclate 100 mg capsule 100 mg PO BID cough 7 days #14 caps 03/16/25 Allergies Allergy/AdvReac Type Severity Reaction Status Date / Time bee pollen [Bee Stings] Allergy Mild SWELLING Verified 03/18/25 16:38 AT SITE Bee stings Allergy Unknown anaphylaxis Uncoded 03/16/25 11:03 Review of Systems Review of Systems: No fever no chills came in for recheck Yes all other systems are reviewed and are negative PMFSH Past Medical History Attestation statement: The following information was validated with the patient. Medical History COVID-19 Anxiety No known health problems Surgical History History of tubal ligation Social History Social History Household Members: Children Housing: Other Housing Other:: [employer] Do you presently have visiting nurse or other home services: No Unable to assess alcohol history related to: Unknown Alcohol intake: current Alcohol intake frequency: holidays/special occasions only Patient Tobacco Use Status: Former Tobacco user Substance Use Type: Marijuana Advance Directives: Yes Advance Directives on File: Yes Advance Directives Date on File: 11/27/23 Do you have a plan to hurt others: No Plan service: No Gender identity: Female Physical Exam Vital Signs: Vital Signs: Last Vital Signs Temp 98.0 F 03/18/25 16:36 Pulse 92 03/18/25 16:36 Resp 16 03/18/25 16:36 BP 114/75 03/18/25 16:36 Pulse Ox 98 03/18/25 16:36 O2 Del Method Room Air 03/18/25 16:36 BMI result Body Mass Index 23.2 Appearance: Alert. Oriented X3. No acute distress. Eyes: Pupils equal, round and reactive to light. ENT: Pharynx normal. Neck: Normal inspection. Neck supple. No lymph nodes noted. No crepitus CVS: Normal heart rate and rhythm. Pulses normal. Normal S1 and S2 Respiratory: No respiratory distress. Breath sounds normal. No Wheezing. No rales Abdomen: Soft and nontender. No rigidity. No distention. good BS x4 Skin: Skin warm and dry. Normal skin color. Normal skin turgor. Examination of the gluteal area with nursing present pa to be healing . No redness. The packing was removed from both abscess. Extremities: No lower extremity edema. Neurovascular intact to all extremities. No Lacerations. No Rash Neuro: Oriented X 3. No motor deficit. No sensory deficit. Moving all extermities. No slurred speech Medical Decision Making Medical Decision Making [facility] Narrative: Patient well-appearing packing was removed with no distress. Will discharge home continue antibiotics. Differential Diagnosis Differential Diagnoses: The differential diagnosis associated with the presentation includes Abscess, cellulitis Admission/Observation Consideration of admission/observation: Escalation of care including admission/observation considered Lab Data [facility] Lab Attestation statement: I reviewed the patient's lab results. Discharge Plan Discharge Clinical Impression: Abscess Patient Disposition: Home, Self-Care Instructions: Abscess Follow-up (ED) Prescriptions: No Action metronidazole 0.75 % (37.5mg/5 gram) gel 1 appful vaginal BEDTIME 5 Days Qty: 70 0RF doxycycline hyclate 100 mg capsule 100 mg PO BID 7 Days Qty: 14 0RF hydroxyzine HCl 10 mg tablet 10 mg PO TID PRN (Reason: Anxiety) spironolactone 25 mg tablet 25 mg PO DAILY Referrals: Laxmi Spear MD [Primary Care Provider] - 03/22/25 Print Language: Lithuanian
[2025-03-18 17:06] VITALS: BP 114/75; PULSE 92; RESP 16; TEMP 36.7; O2SAT 98
--- OUTSIDE RECORDS SUMMARY | 2025-03-18 18:51 | XMS_ITS | Encounter Summary ---
Author Organization [employer] [facility] Address [address] [place] [address] 7t [place] [address] Care Team Providers Care Channeler Runner Name Role Phone Laxmi Spear MD Primary Care Provider + Encounter Details Date Type Department Care Team (Late st Contact Info) Description 08/30/2023 Abstract [facility] [address] [place] [phone] Annel Campos Social History Tobacco Use Types [...] Description 03/19/2025 11:30 AM EDT Office Visit [facility] [address] [place] [address] [phone] Laxmi Spear MD [address] [place] [address] [phone] 04/09/2025 3:00 PM EDT Office Visit [facility] [address] [place] [address] [phone] Elizabeth Johnson MD [address] [place] [address] [phone] documented as of this encounter Procedures Procedure Name Priority Date/Time Associated Diagnosis Comments PAP/HPV Routine 10/11/2021 documented in this encounter Results * Pap Smear (10/11/2021) Pap Negative for intraephithelial lesion or malignancy Negative for intraephithelial lesion or malignancy, Other HPV Undetected Historical Provider [facility] Final Result documented in this encounter Visit Diagnoses Not on filedocumented in this encounter Care Teams Channeler Runner Relationship Specialty Start Date End Date Laxmi Spear MD [address] [place] [address] [phone] PCP - General Family Medicine 07/15/17 documented as of this encounter
--- OUTSIDE RECORDS SUMMARY | 2025-03-18 18:51 | XMS_ITS | Encounter Summary ---
Author Organization [employer] [facility] Address [address] [place] [address] 7t [place] [address] Care Team Providers Care Inspector Cold Working Name Role Phone Laxmi Spear MD Primary Care Provider + Reason for Visit * Reason Comments Med Refill Encounter Details Date Type Department Care Team (Late st Contact Info) Description 08/02/2023 Refill [facility] [address] [place] [address] [phone] Laxmi Spear MD [address] [place] [address] [phone] Anxiety Social History Tobacco Use Types Packs/Day [...] [facility] [address] [place] [address] [phone] Laxmi Spear MD [address] [place] [address] [phone] 04/09/2025 3:00 PM EDT Office Visit [facility] [address] [place] [address] [phone] Elizabeth Johnson MD [address] [place] [address] documented as of this encounter Visit Diagnoses Diagnosis Anxiety Anxiety state, unspecified documented in this encounter Care Teams Inspector Cold Working Relationship Specialty Start Date End Date Laxmi Spear MD [address] [place] [phone] PCP - General Family Medicine 07/15/17 documented as of this encounter
--- OUTSIDE RECORDS SUMMARY | 2025-03-18 18:51 | XMS_ITS | Encounter Summary ---
Author Organization [employer] Address [address] [facility] 7t [place] [address] Care Team Providers Care Entertainment Director Name Role Phone Laxmi Spear MD Primary Care Provider + Reason for Visit * Reason Onset Date Comments Nurse Triage 12/03/2023 Encounter Details Date Type Department Care Team ([facility] st Contact Info) Description 12/03/2023 Telephone [facility] [address] [place], [place] [phone] Laxmi Spear MD [address] [place], [place] [phone] Nurse Triage Social History Tobacco Use Types [...] visit for jose f , number is [phone]. Pt reports this is the 3rd time Pt has had Covid. 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 No further questions offered. Pt agrees with [...] accepted this outcome Please contact pt @ [phone] Pt is requesting the AntiBiotics documented in this encounter Plan of Treatment Upcoming Encounters Date Type Department Care Team (Late st Contact Info) Description 03/19/2025 11:30 AM EDT Office Visit [facility] [address] [place] [address] [phone] Laxmi Spear MD [address] [place] [address] [phone] 04/09/2025 3:00 PM EDT Office Visit [facility] [address] [place] [address] [phone] Elizabeth Johnson MD [address] [place] [address] documented as of this encounter Visit Diagnoses Not on filedocumented in this encounter Care Teams Entertainment Director Relationship Specialty Start Date End Date Laxmi Spear MD [address] [place] [address] [phone] PCP - General Family Medicine 07/15/17 documented as of this encounter
--- OUTSIDE RECORDS SUMMARY | 2025-03-18 18:51 | XMS_ITS | Encounter Summary ---
Author Organization [employer] Address [address] [facility] 7t [place] [address] Care Team Providers Care Printed Circuit Boards Beveler Name Role Phone Laxmi Spear MD Primary Care Provider + Encounter Details Date Type Department Care Team ([facility] Contact Info) Description 01/24/2023 Orders Only [facility] [address] [place] [address] Candis Dixon LPN Social History Tobacco Use [...] Upcoming Encounters Date Type Department Care Team ([facility] Contact Info) Description 03/19/2025 11:30 AM EDT Office Visit [facility] [address] [place] [address] [phone] Laxmi Spear MD [address] [place] [address] 04/09/2025 3:00 PM EDT Office Visit [facility] [address] [place] [address] [phone] Elizabeth Johnson MD [address] [place], [place] [phone] documented as of this encounter Visit Diagnoses Not on filedocumented in this encounter Care Teams Printed Circuit Boards Beveler Relationship Specialty Start Date End Date Laxmi Spear MD [address] [place] [address] PCP - General Family Medicine 07/15/17 documented as of this encounter
--- OUTSIDE RECORDS SUMMARY | 2025-03-18 18:51 | XMS_ITS | Clinical Summary ---
Author Organization [employer] Address 75 [facility] 7t [place] [address] Care Team Providers Care Pc Analyst Name Role Phone Laxmi Spear MD Primary [...] 25 Active ergocalciferol (Vitamin D2) 1.25 MG (62612 UT) capsule Take 1 capsule (1.25 mg) [...] Type Department Care Team Description 03/16/2025 Telephone [facility] [address] [place] [phone] Laxmi Spear MD Chart prep 03/10/2025 Patient Outreach [address] [address] Laxmi Spear MD Pre-visit Planning ((Unable to reach for PVP screening, LVM)) 03/05/2025 Orders Only GENERIC EXTERNAL DATA DEPARTMENT Provider, Generic External Data 02/22/2025 3:00 PM EDT Office Visit [facility] [address] [place] [address] [phone] Rene Ziegler MD Influenza B (Primary Dx); COVID-19 02/11/2025 Orders Only [facility] [address] [place] [phone] Laxmi Spear MD 02/08/2025 Orders Only GENERIC EXTERNAL DATA DEPARTMENT Provider, Generic External Data 02/05/2025 Orders Only GENERIC EXTERNAL DATA DEPARTMENT Provider, Generic External Data 12/21/2024 11:15 AM EST Office Visit [address] [address] Laxmi Spear MD Elevated blood pressure reading (Primary Dx); Weight loss; Hair loss 12/21/2024 Telephone [facility] [address] [place] [address] Laxmi Spear MD 12/21/2024 Travel 12/18/2024 Telephone [facility] [address] [place] [address] Tara Bella MA Chart prep from Last [...] 11:30 AM EDT Office Visit [facility] [address] [place] [address] 11432 Laxmi Spear MD [address] [place] [phone] 04/09/2025 3:00 PM EDT Office Visit [facility] [address] [place] [address] [phone] Elizabeth Johnson MD [address] [place] [address] [phone] Health Maintenance Due Date Last Done Comments [...] DETECTION BY PCR NOT DETECTED Not Detect [facility] BACTERIAL VAGINOSIS DETECTION BY PCR NEGATIVE Negative [facility] Comment:The BV organism targ ets [...] DETECTION BY PCR NOT DETECTED Not Detect [facility] Leeanna glab krusei PCR NOT DETECTED Not Detect [facility] 03/05/2025 1:45 PM EDT 03/05/2025 3:09 PM EDT us Generic External Data Provider LAB MICROBIOLOGY - GENERAL ORDERABLES Final Result [facility] [address] [place] [phone] * Chlamydia/N. Gonorrhoeae RNA, TMA, Urogenitial (03/05/2025 1:45 PM EDT) Only the most recent of2 resultswithin the time period is included. CT PCR NOT DETECTED Not Detect. [facility] Comment:A not detected test result [...] psychologicalconsequences. NG PCR NOT DETECTED Not Detect. [facility] Comment:A not detected test result [...] PM EDT 03/05/2025 3:09 PM EDT Narrative [facility] - 03/05/2025 5:04 PM EDT Vaginal us Generic External Data Provider LAB MICROBIOLOGY - GENERAL ORDERABLES Final Result [facility] [address] [place] [address] [phone] * (ABNORMAL) Influenza B (ID NOW Rapid Molecular) (02/22/2025 2:31 PM EDT) Influenza B Positive( A) Negative, Indeterminate [facility] Swab 02/22/2025 2:31 PM EDT us Rene Ziegler MD POINT OF CARE TEST ENTER/EDIT OR DERABLES Final Result Performing Organization Address City/[facility]/ZIP Co de Phone Number [facility] [address] [place] [address] [phone] * Influenza A (ID NOW Rapid Molecular) (02/22/2025 2:31 PM EDT) Influenza A Negative Negative, Indeterminate [facility] Swab 02/22/2025 2:31 PM EDT us Rene Ziegler MD POINT OF CARE TEST ENTER/EDIT OR DERABLES Final Result Performing Organization Address [facility] Co de Phone Number [facility] [address] [place] [address] [phone] * (ABNORMAL) POCT COVID-19 Ag [facility] ID NOW (02/22/2025 2:31 PM EDT) Coronavirus Antigen PCR Positive (A) Negative, Indeterminate, None Detected, Invalid, Specimen unsatisfactory for evaluation, Weakly Positive [facility] Swab 02/22/2025 2:31 PM EDT us Rene Ziegler MD POINT OF CARE TEST ENTER/EDIT OR DERABLES Final Result Performing Organization Address [facility] Co de Phone Number [facility] [address] [place] [address] [phone] * BI Mammogram Screening Tomosynthesis Bilateral (02/11/2025 10:45 AM EDT) Anatomical Region Laterality Modality Breast Bilateral Mammography 02/11/2025 10:4 5 AM EDT Narrative 02/19/2025 2:21 PM EDT ? [facility] ? [address] ?[place] [address] ?[phone] ? Mammography Report ? Signed ? Patient: Rodas,Magnolia ?MR#: [id number] ? : 1980 ?Acct:[id number] ? Age/Sex: 44 / F ?ADM Date: 02/11/25 ? Loc: HO.MAMMO ? Attending Dr: Laxmi Spear MD ? Ordering Physician: Laxmi Spear MD ?Results: 1Ne ?? gative ? Date of Service: 02/11/25 ?Follow Up: 1 Year From Orig ?? inal Mammogram ? Procedure(s): MM tomosynthesis screening BI ?? Accession Number(s): [id number] ? cc: Laxmi Spear MD ? EXAMINATION: [...] DD/ 1045 ? TD/TT: 02/11/25 1100 ? Collections Clerk: ? Procedure Note Shanon, Image - 02/19/2025 [place] [facility] [address] [place] [address] Mammography Report Signed Patient: Del[place] Rodas#: [id number] : 1980Acct:[id number] Age/Sex: 44 / FADM Date: 02/11/25 Loc: HO.MAMMO Attending Dr: Laxmi Spear MD Ordering Physician: Laxmi Spear MDResults: 1Ne gative Date of Service: 02/11/25Follow Up: 1 Year From Orig inal Mammogram Procedure(s): MM tomosynthesis screening BI Accession Number(s): [id number] cc: Laxmi Spear MD EXAMINATION: MM SCREENING [...] 02/19/25 1418 DD/ 1045 TD/TT: 02/11/25 1100 Collections Clerk: us Laxmi Spear MD IMG BI PROCEDURES Final Result * Syphilis Screen (02/08/2025 12:12 PM EDT) Syphilis Screen Nonreactive Nonreactive [facility] 02/08/2025 12:1 2 PM EDT 02/08/2025 12:12 PM EDT us Generic External Data Provider LAB BLOOD ORDERAB LES Final Result Performing Organization Address [facility] Co de Phone Number [facility] [address] [place] [address] [phone] * Hepatitis C Ab (02/08/2025 12:12 PM EDT) Hepatitis C Antibody Nonreactive Nonreactive [facility] Comment:Antibodies to HCV no t detected; does not exclude early acuteHCV infection. 02/08/2025 12:1 2 PM EDT 02/08/2025 12:12 PM EDT us Generic External Data Provider LAB BLOOD ORDERAB LES Final Result [facility] [address] [place] [address] [phone] * Hepatitis B surface antigen, EIA (02/08/2025 12:12 PM EDT) Hepatitis B Surface Ag Negative Negative [facility] 02/08/2025 12:1 2 PM EDT 02/08/2025 12:12 PM EDT Generic External Data Provider LAB BLOOD ORDERAB LES Final Result Performing Organization Address [facility] de Phone Number [facility] [address] [place] [address] [phone] * HIV-1/2 Antigen and Antibodies, Fourth Generation, with Reflexes (02/08/2025 12:12 PM EDT) HIV AB/AG Nonreactive Nonreactive [facility] Comment:HIV-1 p24 Ag and/or HIV-1/HIV-2 Ab not detected.A test result that is nonreactive does not exclude thepossibility of exposure to or infection with HIV-1 and/orHIV-2. Nonreactive results in this assay for individualswith prior exposure to HIV-1 and/or HIV-2 may be due toantigen and antibody levels that are below the limit ofdetection of this assay.The uberlifenimycirQle HIV Ag/Ab Combo assay result andsupplemental assay results should be interpreted inconjunction with the patient's clinical presentation,history and other laboratory results. If the results areinconsistent with clinical evidence, additional testing issuggested to confirm the result. 02/08/2025 12:1 2 PM EDT 02/08/2025 12:12 PM EDT us Generic External Data Provider LAB BLOOD ORDERAB LES Final Result Performing Organization Address [facility] Co de Phone Number [facility] [address] [place] [address] [phone] * T3, Free (12/21/2024 9:20 AM EST) T3, Free 3.4 2.3 - 4.2 pg/mL [facility] Comment:THIS TEST WAS PERFOR MED AT:[facility] [place] [phone] CONRAD MD Blood Venous blood specimen / Unknown 12/21/2024 9:20 AM EST 12/21/2024 11:30 AM EST Laxmi Spear MD LAB BLOOD ORDERABLES Fin al Result [facility] [address] [place] [phone] * T3, Total (12/21/2024 9:20 AM EST) T3, Total 84 76 - 181 ng/dL [facility] Comment:THIS TEST WAS PERFOR MED AT:[facility] [address] [phone] CONRAD MD Blood Venous blood specimen / Unknown 12/21/2024 9:20 AM EST 12/21/2024 11:30 AM EST us Laxmi Spear MD LAB BLOOD ORDERABLES Fin al Result [facility] [address] [place] [address] [phone] * TSH (12/21/2024 9:20 AM EST) Pathologist [facility] Thyroid Stimulating Hormone 1.89 0.32 - 4.0 uIU/mL [facility] Comment:TSH 3rd Generation ( [facility]) Blood Venous blood specimen / Unknown 12/21/2024 9:20 AM EST 12/21/2024 11:30 AM EST Laxmi Spear MD LAB BLOOD ORDERABLES Fin al Result [facility] [address] [place] [phone] * T4, Free (12/21/2024 9:20 AM EST) [facility] Free T4 (Free Thyroxine) 0.90 0.71 - 1.85 ng/dL [facility] Blood Venous blood specimen / Unknown 12/21/2024 9:20 AM EST 12/21/2024 11:30 AM EST Laxmi Spear MD LAB BLOOD ORDERABLES Fin al Result Performing Organization Address [facility] de Phone Number [facility] [address] [place] [phone] * T4 (Thyroxine), Total (12/21/2024 9:20 AM EST) [facility] T4 Thyroxine 6.0 4.5 - 12.0 ug/dL [facility] Blood Venous blood specimen / Unknown 12/21/2024 9:20 AM EST 12/21/2024 11:30 AM EST Laxmi Spear MD LAB BLOOD ORDERABLES Fin al Result Performing Organization Address [facility] de Phone Number [facility] [address] [place] [phone] * (ABNORMAL) Basic Metabolic Panel (12/21/2024 9:20 AM EST) [facility] Sodium 138 135 - 145 mmol/L [facility] Potassium 3.8 3.3 - 5.1 mmol/L [facility] Chloride 107 96 - 108 mmol/L [facility] Carbon Dioxide 24 22 - 29 mmol/L [facility] Anion Gap 11(L) 12 - 20 [facility] Urea Nitrogen (BUN) 10 9 - 16 mg/dL [facility] Creatinine, Serum 0.66 0.5 - 1.4 mg/dL [facility] Estimated Glomerular Filt Rate >60 [facility] Comment:Chronic Kidney Disea se: Estimated GFR < 60 mL/min/1.53v6Kcyuee Kidney Disease: Estimated GFR < 15 mL/min/1.73m2 Glucose 111 60 - 115 mg/dL [facility] Calcium 8.6 8.4 - 10.2 mg/dL [facility] Blood Venous blood specimen / Unknown 12/21/2024 9:20 AM EST 12/21/2024 11:30 AM EST Laxmi Spear MD LAB BLOOD ORDERABLES Fin al Result [facility] [address] [place] [phone] * HPV mRNA E6/E7 w/Reflex to HPV Genotypes 16, 18/45 (12/20/2022 10:30 AM EST) HPV nRNA E6/E7 Not Detected Not Detected [facility] Comment:Methodology: Transcr iption-Mediated AmplificationThis assay detects E6/E7 viral messenger RNA (mRNA) from 14high-risk HPV types (16,18,31,33,35,39,45,51,52,56,58,59,66,68).Cervical sources are required for HPV testing.If a vaginal source from a patient who has had atotal hysterectomy with removal of cervix wassubmitted, please contact the testing laboratoryfor alternative testing options.For additional information, please refer tohttp://education.AppTrigger/faq/HQI810m0(This link if provided for information/educational purposes only.)THIS TEST WAS PERFORMED AT:[facility] [place] [address] (1)[place] [phone] CONRAD MD HPV mRNA E6/E7 TNP [facility] HPV 16 RNA TNP [facility] HPV 18/45 RNA [facility] 12/20/2022 10:3 0 AM EST 12/20/2022 4:15 PM EST us [facility] External Provider LAB CYT OLOGY ORDERABLES Final Result [facility] [address] [place] [phone] [phone] * Pap Smear (12/20/2022 10:30 AM EST) 12/20/2022 10:3 0 AM EST 12/20/2022 4:15 PM EST Narrative [facility] - 12/28/2022 6:32 PM EST ----- ------- Name: Magnolia Rodas ? Age/Sex: 42/F ? : 1980 Unit#: [id number] ?? Attend Dr: Catalina Richards CNM ?Re12/20/22 ?Status: DEP REF ? Location: HO.LNP ?Disch: ? ----- ------- SPEC : [id number] ? RECD: 12/20/22 ? STATUS: ??SOUT ? REQ NUM: [id number] ? OLENA: 12/20/22-0 ? SUBM DR: Catalina [...] 66, 68) ? HPV testing performed by [employer], [place], [place]. ??See reference laboratory ?? portion of the EMR for entire report. Copies To: ?? Laxmi Spear MD ?? [address] ?? [place] [address] ? Catalina Richards CNM ?? [address] [place] [address] [address] ?? [place] [address] ?? [phone] ----- ------- Signed (signature on file) Alisa Pedraza 12/28/221831 ? ----- ------- ? END OF REPORT ? [facility] External Provider LAB [facility] ORDERABLES Final Result [facility] [address] [place] [address] [phone] from Last 3 Months or Most Recently Relevant to Health Maintenance Insurance [facility] Care Teams Pc Analyst Relationship Specialty Start Date End Date Laxmi Spear MD [address] [place] [address] PCP - General Family Medicine 07/15/17
--- OUTSIDE RECORDS SUMMARY | 2025-03-18 18:51 | XMS_ITS | Encounter Summary ---
Author Organization [employer] Address 75 [facility] 7t [place] [address] Care Team Providers Care Steam Finisher Name Role Phone Laxmi Spear MD Primary Care Provider + Reason for Visit * Reason Onset Date Comments Chart prep 03/16/2025 Encounter Details Date Type Department Care Team ([facility] Contact Info) Description 03/16/2025 Telephone [facility] [address] [place], [place] [phone] Laxmi Spear MD [address] [place] [address] Chart prep Social History Tobacco Use Types [...] Description 03/19/2025 11:30 AM EDT Office Visit [facility] [address] [place] [phone] Laxmi Spear MD [address] [place] [address] 04/09/2025 3:00 PM EDT Office Visit [facility] [address] [place] [phone] Elizabeth Johnson MD [address] [place] [phone] documented as of this encounter Visit Diagnoses Not on filedocumented in this encounter Additional Health Concerns Assessment Noted Time PHQ-9 Depression Total Score: 0 12/21/19 10:49 AM EST documented as of this encounter Care Teams Steam Finisher Relationship Specialty Start Date End Date Laxmi Spear MD [address] [place] [address] PCP - General Family Medicine 07/15/17 documented as of this encounter
== END 2025-03-18 17:07 | disposition home or self-care (01) ==
PROVIDERS: Emergency Provider Emergency Medicine Emergency Medical Services; PCP Internal Medicine
DX: Z48.00 Encounter for change or removal of nonsurgical wound dressing (principal); L02.31 Cutaneous abscess of buttock; Z87.891 Personal history of nicotine dependence
CPT/HCPCS: 99282

== ENCOUNTER 2025-04-09 15:25 | Outpatient (REF) | payer OTHER, SELFPAY ==
--- OUTSIDE RECORDS SUMMARY | 2025-04-09 15:27 | XMS_ITS | Encounter Summary ---
Author Organization [employer] Address [address] [facility] 7t [place] [address] Care Team Providers Care Teaching Young Name Role Phone Laxmi Spear MD Primary Care Provider + Encounter Details Date Type Department Care Team (Late st Contact Info) Description 08/30/2023 Abstract [facility] [address] [place], [place] [phone] Annel Campos Social History Tobacco Use Types [...] as of this encounter Plan of Treatment Not on file documented as of this encounter Procedures Procedure Name Priority Date/Time Associated Diagnosis Comments PAP/HPV Routine 10/11/2021 documented in this encounter Results * Hm Pap Smear (10/11/2021) Pap Negative for intraephithelial lesion or malignancy Negative for intraephithelial lesion or malignancy, Other HPV Undetected Historical Provider HEALTH MAINTENANCE Final Result documented in this encounter Visit Diagnoses Not on filedocumented in this encounter Care Teams Teaching Young Relationship Specialty Start Date End Date Laxmi Spear MD [address] [place] [address] PCP - General Family Medicine 07/15/17 documented as of this encounter
--- OUTSIDE RECORDS SUMMARY | 2025-04-09 15:27 | XMS_ITS | Encounter Summary ---
Author Organization [employer] Address [address] [facility] [address]t [place] [address] Care Team Providers Care Printing Equipment Mechanic Apprentice Name Role Phone Laxmi Spear MD Primary Care Provider + Reason for Visit * Reason Comments Med Refill Encounter Details Date Type Department Care Team ([facility] st Contact Info) Description 08/02/2023 Refill [facility] [address] [place], [place] [phone] Laxmi Spear MD [address] [place] [address] Anxiety Social History Tobacco Use Types Packs/Day [...] on file documented as of this encounter Visit Diagnoses Diagnosis Anxiety Anxiety state, unspecified documented in this encounter Care Teams Printing Equipment Mechanic Apprentice Relationship Specialty Start Date End Date Laxmi Spear MD [address] [place], [place] [phone] PCP - General Family Medicine 07/15/17 documented as of this encounter
--- OUTSIDE RECORDS SUMMARY | 2025-04-09 15:27 | XMS_ITS | Encounter Summary ---
Author Organization [employer] Address [address] [facility] 7t [place] [address] Care Team Providers Care Branch Chief Name Role Phone Laxmi Spear MD Primary Care Provider + Encounter Details Date Type Department Care Team (Late st Contact Info) Description 01/24/2023 Orders Only [facility] [address] [place] [address] Candis Dixon LPN Social History Tobacco Use [...] on filedocumented in this encounter Care Teams Branch Chief Relationship Specialty Start Date End Date Laxmi Spear MD [address] [place] [address] PCP - General Family Medicine 07/15/17 documented as of this encounter
--- OUTSIDE RECORDS SUMMARY | 2025-04-09 15:27 | XMS_ITS | Encounter Summary ---
Author Organization [employer] Address [address] [facility] [address] [place] [address] Care Team Providers Care Print Cutter Name Role Phone Laxmi Spera MD Primary Care Provider + Encounter Details Date Type Department Care Team (Latest Contact Info) Description 04/09/2025 Travel Social History Tobacco Use Types Packs/Day [...] documented as of this encounter Care Teams Print Cutter Relationship Specialty Start Date End Date Laxmi Spear MD [address] [place] [phone] PCP - General Family Medicine 07/15/17 documented as of this encounter
--- OUTSIDE RECORDS SUMMARY | 2025-04-09 15:27 | XMS_ITS | Encounter Summary ---
Author Organization [employer] Address [address] [facility] 7t [place] [address] Care Team Providers Care Clinical Pharmacy Coordinator Name Role Phone Laxmi Spear MD Primary Care Provider + Reason for Referral * Medications - Closed Specialty Diagnoses / Procedures Referred By Contac t Referred To Contact Diagnoses Other acne Elizabeth Johnson MD [address] [place] [address] Phone: tel: fax: Referral ID Status Reason Start Date Expiration Date Visits Re quested Visits Authorized [id number] Closed 1 1 Encounter Details Date Type Department Care Team (Late st Contact Info) Description 04/09/2025 3:00 PM EDT Office Visit [facility] [address] [place] [address] [phone] Elizabeth Johnson MD [address] [place] [address] [phone] Hirsutism (Primary Dx); Other acne Social History Tobacco Use Types Packs/Day Years [...] AM EDT documented as of this encounter Last Filed Vital Signs Vital Sign Reading Time Taken Comments Blood Pressure 110/80 04/09/2025 3:06 PM EDT Pulse 58 04/09/2025 3:06 PM EDT Temperature 36.2 ??C (97.1 ??F) 04/09/2025 3:06 PM ED T Respiratory Rate 17 04/09/2025 3:06 PM EDT Oxygen Saturation - - Inhaled Oxygen Concentration - - Weight 59.4 kg (131 lb) 04/09/2025 3:06 PM EDT Height 154.9 cm (5' 1 ) 04/09/2025 3:06 PM EDT Body Mass Index 24.75 04/09/2025 3:06 PM EDT documented in this encounter Progress Notes * Elizabeth Johnson MD - 04/09/2025 3:00 PM EDT Subjective Patient ID: Magnolia Rodas is a 44 y.o. female who presents for No chief complaint on file.. HPI 44 yr old woman with extra hair on chin. She sometimes gets pimples on forehead for yrs. Review of Systems Constitutional: Negative for diaphoresis, fatigue and fever. HENT: Negative for ear discharge, ear pain, facial swelling and hearing loss. Respiratory: Negative for cough, choking, chest tightness and shortness of breath. Cardiovascular: Negative for chest pain and leg swelling. Gastrointestinal: Negative for abdominal distention, abdominal pain and anal bleeding. Endocrine: Negative for cold intolerance and heat intolerance. Genitourinary: Negative for enuresis, flank pain and frequency. Musculoskeletal: Negative for arthralgias, back pain and gait problem. Neurological: Negative for dizziness, facial asymmetry and headaches. Psychiatric/Behavioral: Negative for agitation, behavioral problems and confusion. Objective Physical Exam Constitutional: Appearance: Normal appearance. HENT: Head: Normocephalic and atraumatic. Nose: Nose normal. Eyes: Pupils: Pupils are equal, round, and reactive to light. Pulmonary: Effort: Pulmonary effort is normal. Musculoskeletal: General: Normal range of motion. Cervical back: Normal range of motion. Neurological: General: No focal deficit present. Mental Status: She is alert. Assessment/Plan Diagnoses and all orders for this visit: Hirsutism Affecting chin Regular menstruation, less likely PCOS Advised to use Laser hair removal for permanent solution Increased dose of Spironolactone to 100mg every day for antiandrogen effect Monitor K level Other acne Affecting face Likely hormonal Spironolactone increase may help Adding Tretinoin crm at night Continue with gentle face wash - tretinoin (Retin-A) 0.025 % cream; Apply topically at bedtime. Other orders - spironolactone (Aldactone) 100 MG tablet; Take 1 tablet (100 mg) by mouth Once per day. documented in this encounter Plan of Treatment Not on file documented as of this encounter Visit Diagnoses Diagnosis Hirsutism- Primary Other acne documented in this encounter Additional Health Concerns Assessment Noted Time PHQ-9 Depression Total Score: 0 12/21/19 25 10:49 AM EST documented as of this encounter Care Teams Clinical Pharmacy Coordinator Relationship Specialty Start Date End Date Laxmi Spear MD [address] [place] [phone] PCP - General Family Medicine 07/15/17 documented as of this encounter
--- OUTSIDE RECORDS SUMMARY | 2025-04-09 15:27 | XMS_ITS | Clinical Summary ---
Author Organization [employer] Address [address] [facility] 7t [place] [address] Care Team Providers Care Dust Box Worker Name Role Phone Laxmi Spear MD Primary Care Provider + Allergies Active Allergy Reactions Criticality Noted Date Comments Bee Venom 06/13/2015 Medications ibuprofen 400 MG tablet Take 1 tablet (400 mg) by mouth every 6 (six) hours if needed for moderate pain or fever for up to 30 doses. 30 tablet 11/20/20 23 Active Blood Pressure kit 1 kit Once per day. 1 kit 08/18/20 24 Active hydrOXYzine HCl (Atarax) 10 MG tabletIndicati ons:Anxiety TAKE 1 TO 2 TABLETS BY MOUTH TWICE A DAY NEEDED FOR ANXIETY 120 tablet 1 03/19/20 25 Active clotrimazole (Lotrimin) 1 % cream Apply topically 2 times daily for 28 days. 30 g 03/25/20 25 025 Active spironolactone (Aldactone) 100 MG tablet Take 1 tablet (100 mg) by mouth Once per day. 90 tablet 3 04/09/20 25 026 Active tretinoin (Retin-A) 0.025 % creamIndicatio ns:Other acne Apply topically at bedtime. 45 g 2 04/09/20 25 026 Active acetaminophen (Tylenol) 500 MG tablet Take 2 tablets (1,000 mg) by mouth every 6 (six) hours if needed for moderate pain or fever for up to 25 doses. 50 tablet 11/20/20 23 025 Discontinued(Du plicate order (will not trigger notification to Pharmacy)) hydrOXYzine HCl (Atarax) 10 MG tabletIndicati ons:Anxiety TAKE 1 TO 2 TABLETS BY MOUTH TWICE A DAY NEEDED FOR ANXIETY 180 tablet 1 02/11/20 24 025 Discontinued(Re order (will not trigger notification to Pharmacy)) spironolactone (Aldactone) 25 MG tablet Take 1 tablet (25 mg) by mouth Once per day. 90 tablet 3 12/21/19 25 025 Discontinued(Do se adjustment) acetaminophen (Tylenol Extra Strength) 500 MG tablet Take 1 tablet (500 mg) by mouth every 8 (eight) hours if needed for moderate pain or headaches. 90 tablet 02/23/20 25 025 Active Problems Problem Noted Date Diagnosed Date Perirectal abscess 03/19/2025 Assessment & Plan (03/25/2025 4:04 PM EDT): Significantly improved status post antibiotic Rx. Continue to keep area clean and dry, use clotrimazole and Desitin ointment on perilesional area Reconsult as needed if lesion has not completely closed within 1 month Use clotrimazole + Desitin ointment on affected skin Assessment & Plan (03/19/2025 3:04 PM EDT): Status post I&D at the ED. Continue antibiotics to complete 10 days and follow-up with me next week RTC as needed she develops fever, persistent perirectal discharge, or worsening of pain Hair loss 10/15/2024 Assessment & Plan (12/21/2024 12:02 PM EST): Continue on Spironolactone and FU lab results. We will call Dermatology to schedule an appointment. Hirsutism 08/28/2024 Assessment & Plan (03/19/2025 3:05 PM EDT): Hormonal profile last year was within normal limits. Continue spironolactone, advised against shaving overgrown hair Follow-up with dermatology, referral sent last year Assessment & Plan (10/15/2024 2:00 PM EST): [...] pressure reading 12/12/2023 12/12/2023 Assessment & Plan (03/25/2025 4:05 PM EDT): It is probably essential hypertension, she will continue spironolactone and check BP BIW and follow-up with me within 3 months Order labs prior to next appointment Counseled re low salt diet/increase moderate physical activity. Check home BP BIW and prn CP/HAMEED/MCQUEEN Assessment & Plan (03/19/2025 3:03 PM EDT): It seems to be prehypertension, advised to check BP at home at least 3 times per week and follow-up with me in 2 or 3 months Continue spironolactone that has been prescribed for acne and hirsutism, check BMP Counseled re low salt diet/increase moderate physical activity. Check home BP BIW and prn CP/HAMEED/MCQUEEN Assessment & Plan (12/21/2024 11:57 AM EST): [...] Comedonal acne 04/07/2019 12/12/2023 Assessment & Plan (03/19/2025 3:04 PM EDT): Failed topical creams, continue spironolactone and referred to dermatology Assessment & Plan (10/15/2024 2:01 PM EST): Failed topical creams. Start Spironolactone. Fu with me in 4-6 weeks. Allergic rhinitis 03/22/2014 12/12/2023 Impaired glucose tolerance 03/22/201412/12 Assessment & Plan (10/15/2024 1:59 PM EST): Resolved, pt lost 8 pounds in 1 year. No need for additional fu. Resolved Problems Problem Noted Date Diagnosed Date Resolved Date Weight loss 10/15/2024 03/19/2025 Assessment & Plan (12/21/2024 5:14 PM EST): Still pending lab results. CT scan abd was declined by insurance She gained 5 lbs within the past 2 months, unclear if related to recent URI/COVID. FU in 3 months. Assessment & Plan (10/15/2024 2:02 PM EST): Rule out Hyperthyroidism, order labs. Baseline initial malignancy is negative and utd, order CT scan of the abdomen. Encounters Date Type Department Care Team Description 04/09/2025 3:00 PM EDT Office Visit [facility] [address] [place] [phone] Elizabeth Johnson MD Hirsutism (Primary Dx); Other acne 04/09/2025 Travel 03/30/[address] [address] Laxmi Spear MD June03/25/2025 11:30 AM EDT Office Visit [facility] [address] [place] [address] Laxmi Spear MD Perirectal abscess (Primary Dx); Elevated blood pressure reading 03/25/2025 Travel 03/19/2025 11:30 AM EDT Office Visit [facility] [address] [place] [address] Laxmi Spear MD Hirsutism (Primary Dx); Comedonal acne; Elevated blood pressure reading; Perirectal abscess; Anxiety 03/19/2025 Telephone [facility] [address] [place] [phone] Laxmi Spear MD Chart prep 03/19/2025 Travel 03/16/[address] [address] Laxmi Spear MD Chart prep 03/10/2025 Patient Outreach [facility] [address] [place] [phone] Laxmi Spear MD Pre-visit Planning ((Unable to reach for PVP screening, LVM)) 03/05/2025 Orders Only GENERIC EXTERNAL DATA DEPARTMENT Provider, Generic External Data 02/22/2025 3:00 PM EDT Office Visit [facility] [address] [place] [phone] Rene Ziegler MD Influenza B (Primary Dx); COVID-19 02/11/2025 Orders Only [facility] [address] [place] [phone] Laxmi Spear MD 02/08/2025 Orders Only GENERIC EXTERNAL DATA DEPARTMENT Provider, Generic External Data 02/05/2025 Orders Only GENERIC EXTERNAL DATA DEPARTMENT Provider, Generic External Data from Last 3 Months Immunizations Immunization Administration Dates Next Due DTP 04/25/1987 Hep [...] 17 04/09/2025 3:06 PM EDT Oxygen Saturation 98% 03/25/2025 11:49 AM EDT Inhaled Oxygen Concentration - - Weight 59.4 kg (131 lb) 04/09/2025 3:06 PM EDT Height 154.9 cm (5' 1 ) 04/09/2025 3:06 PM EDT Body Mass Index 24.75 04/09/2025 3:06 PM EDT Plan of Treatment Health Maintenance Due Date Last Done Comments [...] 05/24/2011, 08/09/1997, Additional history exists Tobacco Screening 03/25/2026 03/25/2025 Cervical Cancer Screening 12/20/2027 HPV/Cotest 12/20/2027 12/20/2022, [...] patient's age to complete this topic Meningococcal B Vaccine Aged Out No l onger eligible based on patient's age to complete [...] TMA, UROGENITAL Routine 02/05/2025 10:00 AM EDT HPV MRNA E6/E7 REFLEX TO HPV 16, 18/45 Routine 12/20/2022 10:30 AM EST PAP SMEAR Routine 12/20/2022 10:30 AM EST from Last 3 Months or Most Recently Relevant to Health Maintenance Results * Bacterial Vaginosis (03/05/2025 1:45 PM EDT) Only the most recent of2 resultswithin the time period is included. TRICHOMONAS VAGINALIS DETECTION BY PCR NOT DETECTED Not Detect [facility] BACTERIAL VAGINOSIS DETECTION BY PCR NEGATIVE Negative [facility] Comment:The BV organism targ ets of [...] DETECTION BY PCR NOT DETECTED Not Detect [facility] Leeanna glab krusei PCR NOT DETECTED Not Detect [facility] 03/05/2025 1:45 PM EDT 03/05/2025 3:09 PM EDT us Generic External Data Provider LAB MICROBIOLOGY - GENERAL ORDERABLES Final Result [facility] [address] [place] [phone] * Chlamydia/N. Gonorrhoeae RNA, TMA, Urogenitial (03/05/2025 1:45 PM EDT) Only the most recent of2 resultswithin the time period is included. CT PCR NOT DETECTED Not Detect. [facility] Comment:A not detected test result does [...] psychologicalconsequences. NG PCR NOT DETECTED Not Detect. [facility] Comment:A not detected test result does [...] PM EDT 03/05/2025 3:09 PM EDT Narrative [facility] - 03/05/2025 5:04 PM EDT Vaginal us Generic External Data Provider LAB MICROBIOLOGY - GENERAL ORDERABLES Final Result Performing Organization Address [facility]/ZIP Co de Phone Number [facility] [address] [place] [phone] * (ABNORMAL) Influenza B (ID NOW Rapid Molecular) (02/22/2025 2:31 PM EDT) Influenza B Positive( A) Negative, Indeterminate [facility] Swab 02/22/2025 2:31 PM EDT Rene Ziegler MD POINT OF CARE TEST ENTER/EDIT OR DERABLES Final Result Performing Organization Address [facility]/ZIP Co de Phone Number [facility] [address] [place] [address] [place] [phone] * Influenza A (ID NOW Rapid Molecular) (02/22/2025 2:31 PM EDT) Pathologist [facility] Influenza A Negative Negative, Indeterminate [facility] Swab 02/22/2025 2:31 PM EDT us Rene Ziegler MD POINT OF CARE TEST ENTER/EDIT OR DERABLES Final Result Performing Organization Address [facility] de Phone Number [facility] [address] [place] [address] [phone] * (ABNORMAL) POCT COVID-19 Ag Brennan ID NOW (02/22/2025 2:31 PM EDT) Pathologist [facility] Coronavirus Antigen PCR Positive (A) Negative, Indeterminate, None Detected, Invalid, Specimen unsatisfactory for evaluation, Weakly Positive [facility] Swab 02/22/2025 2:31 PM EDT us Rene Ziegler MD POINT OF CARE TEST ENTER/EDIT OR DERABLES Final Result Performing Organization Address [facility] de Phone Number [facility] [address] [place] [address] [phone] * BI Mammogram Screening Tomosynthesis Bilateral (02/11/2025 10:45 AM EDT) Anatomical Region Laterality Modality Breast Bilateral Mammography 02/11/2025 10:4 5 AM EDT Narrative 02/19/2025 2:21 PM EDT ? [facility] ? [address] ?[place] [address] ?[phone] ? Mammography Report ? Signed ? Patient: Rodas,Magnolia ?MR#: [id number] ? : 1980 ?Acct:[id number] ? Age/Sex: 44 / F ?ADM Date: 03/20/25 ? Loc: HO.MAMMO ? Attending Dr: Laxmi Spear MD ? Ordering Physician: Laxmi Spear MD ?Results: 1Ne ?? gative ? Date of Service: 02/11/25 ?Follow Up: 1 Year From Orig ?? inal Mammogram ? Procedure(s): MM tomosynthesis screening BI ?? Accession Number(s): [id number] ? cc: Laxmi Spear MD ? EXAMINATION: [...] DD/ 1045 ? TD/TT: 02/11/25 1100 ? Fish Roe Technician: ? Procedure Note Donotuseinterpreter, Image - 02/19/2025 [place] [facility] [address] [place] [address] Mammography Report Signed Patient: Delicia Rodas#: [id number] : 1980Acct:[id number] Age/Sex: 44 / FADM Date: 02/11/25 Loc: HO.MAMMO Attending Dr: Laxmi Spear MD Ordering Physician: Laxmi Spear MDResults: 1Ne gative Date of Service: 02/11/25Follow Up: 1 Year From Orig inal Mammogram Procedure(s): MM tomosynthesis screening BI Accession Number(s): [id number] cc: Laxmi Spear MD EXAMINATION: MM SCREENING [...] 02/19/25 1418 DD/ 1045 TD/TT: 02/11/25 1100 Fish Roe Technician: us Laxmi Spear MD IMG BI PROCEDURES Final Result * Syphilis Screen (02/08/2025 12:12 PM EDT) Syphilis Screen Nonreactive Nonreactive [facility] 02/08/2025 12:1 2 PM EDT 02/08/2025 12:12 PM EDT us Generic External Data Provider LAB BLOOD ORDERAB LES Final Result Performing Organization Address [facility] Co de Phone Number [facility] [address] [place] [phone] * Hepatitis C Ab (02/08/2025 12:12 PM EDT) [facility] Hepatitis C Antibody Nonreactive Nonreactive [facility] Comment:Antibodies to HCV no t detected; does not exclude early acuteHCV infection. 02/08/2025 12:1 2 PM EDT 02/08/2025 12:12 PM EDT us Generic External Data Provider LAB BLOOD ORDERAB LES Final Result Performing Organization Address [facility]/ZIP Co de Phone Number [facility] [address] [place] [phone] * Hepatitis B surface antigen, EIA (02/08/2025 12:12 PM EDT) Pathologist [facility] Hepatitis B Surface Ag Negative Negative [facility] 02/08/2025 12:1 2 PM EDT 02/08/2025 12:12 PM EDT us Generic External Data Provider LAB BLOOD ORDERAB LES Final Result Performing Organization Address [facility] Co de Phone Number [facility] [address] [place] [address] [phone] * HIV-1/2 Antigen and Antibodies, Fourth Generation, with Reflexes (02/08/2025 12:12 PM EDT) HIV AB/AG Nonreactive Nonreactive [facility] Comment:HIV-1 p24 Ag and/or HIV-1/HIV-2 Ab not detected.A test result that is nonreactive does not exclude thepossibility of exposure to or infection with HIV-1 and/orHIV-2. Nonreactive results in this assay for individualswith prior exposure to HIV-1 and/or HIV-2 may be due toantigen and antibody levels that are below the limit ofdetection of this assay.The [employer]ch[employer] HIV Ag/Ab Combo assay result andsupplemental assay results should be interpreted inconjunction with the patient's clinical presentation,history and other laboratory results. If the results areinconsistent with clinical evidence, additional testing issuggested to confirm the result. 02/08/2025 12:1 2 PM EDT 02/08/2025 12:12 PM EDT Generic External Data Provider LAB BLOOD ORDERAB LES Final Result Performing Organization Address [facility] Co de Phone Number [facility] [address] [place] [address] [phone] * HPV mRNA E6/E7 w/Reflex to HPV Genotypes 16, 18/45 (12/20/2022 10:30 AM EST) HPV nRNA E6/E7 Not Detected Not Detected [facility] Comment:Methodology: Transcr iption-Mediated AmplificationThis assay detects E6/E7 viral messenger RNA (mRNA) from 14high-risk HPV types (16,18,31,33,35,39,45,51,52,56,58,59,66,68).Cervical sources are required for HPV testing.If a vaginal source from a patient who has had atotal hysterectomy with removal of cervix wassubmitted, please contact the testing laboratoryfor alternative testing options.For additional information, please refer tohttp://[email or web address]/faq/FWT542h1(This link if provided for information/educational purposes only.)THIS TEST WAS PERFORMED AT:[facility] [place] [address] (1)[place] [address]YQKYJOPHELIA CONRAD MD HPV mRNA E6/E7 [facility] HPV 16 RNA TNP [facility] HPV 18/45 RNA TNP [facility] 12/20/2022 10:3 0 AM EST 12/20/2022 4:15 PM EST [facility] External Provider LAB CYT OLOGY ORDERABLES Final Result Performing Organization Address City/State/[facility] de Phone Number [facility] [address] [place] [phone] * Pap Smear (12/20/2022 10:30 AM EST) 12/20/2022 10:3 0 AM EST 12/20/2022 4:15 PM EST Narrative [facility] - 12/28/2022 6:32 PM EST ----- ------- Name: Magnolia Rodas ? Age/Sex: 42/F ? : 1980 Unit#: [id number] ?? Attend Dr: Catalina Richards CNM ?Re12/20/22 ?Status: DEP REF ? Location: HO.LNP ?Disch: ? ----- ------- SPEC : [id number] ? RECD: 12/20/22 ? STATUS: ??SOUT ? REQ NUM: [id number] ? OLENA: 12/20/22-0 ? SUBM DR: Catalina [...] 66, 68) ? HPV testing performed by [facility], [place], [place]. ??See reference laboratory ?? portion of the EMR for entire report. Copies To: ?? Laxmi Spear MD ?? [address] [facility] ?? [place] [address] ? SusieCatalina JIGNA ?? [address] [facility] [address] [facility] ?? [place] ?? [phone] ----- ------- Signed (signature on file) Alisa Cristina Keila 12/28/221831 ? ----- ------- ? END OF REPORT ? us [facility] External Provider LAB CYT OLOGY ORDERABLES Final Result [facility] [address] [place] [address] [phone] from Last 3 Months or Most Recently Relevant to Health Maintenance Insurance [facility] Care Teams Dust Box Worker Relationship Specialty Start Date End Date Laxmi Spear MD [address] [place] [address] PCP - General Family Medicine 07/15/17
[2025-04-09 16:38] LABS: Anion Gap 11 (12-20); Blood Urea Nitrogen 12 mg/dL (9-16); Calcium 9.4 mg/dL (8.4-10.2); Carbon Dioxide 26 mmol/L (22-29); Chloride 105 mmol/L (96-108); Estimated Glomerular Filt Rate > 60; Glucose Random 114 mg/dL (60-115); Potassium 3.8 mmol/L (3.3-5.1); Sodium 138 mmol/L (135-145)
== END 2025-04-09 15:26 | disposition home or self-care (01) ==
LOC: HO.HHCL 15:25
PROVIDERS: Visit Provider Internal Medicine
DX: R03.0 Elevated blood-pressure reading, without diagnosis of hypertension (principal)
CPT/HCPCS: 36415; 80048

== ENCOUNTER 2025-07-14 15:19 | Outpatient (REF) | payer OTHER, SELFPAY ==
--- OUTSIDE RECORDS SUMMARY | 2025-07-14 16:37 | XMS_ITS | Encounter Summary ---
Author Organization [employer] Address [address] [facility] [address] [place] [address] Care Team Providers Care Cook Chili Name Role Phone Laxmi Spear MD Primary Care Provider + Reason for Visit * Reason Onset Date Comments Nurse Triage 12/03/2023 Encounter Details Date Type Department Care Team ([facility] Contact Info) Description 12/03/[address] [facility] MEDICINE [address] [place], [place] [phone] Laxmi Spear MD [address] [place], [place] [phone] Nurse Triage Social History Tobacco Use Types [...] visit for jose f , number is [phone]. Pt reports this is the 3rd time Pt has had Covid. 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 No further questions offered. [...] Your Hands Often * Telephone Encounter - [email or web address] Colton Leonard - 12/03/2023 12:25 PM EST Symptom: COVID-19 Suspected Outcome: Schedule a same-day appointment or talk to a nurse or provider today Reason: Caller denied all higher acuity questions The caller accepted this outcome Please contact pt @ [phone] Pt is requesting the AntiBiotics documented in this encounter Plan of Treatment Not on file documented as of this encounter Visit Diagnoses Not on filedocumented in this encounter Care Teams Cook Chili Relationship Specialty Start Date End Date Laxmi Spear MD [address] [place] [id number] PCP - General Family Medicine 07/15/17 documented as of this encounter
== END 2025-07-14 15:20 | disposition home or self-care (01) ==
LOC: HO.LNP 15:19
PROVIDERS: PCP Internal Medicine; Visit Provider Advanced Practice Midwife
DX: N89.8 Other specified noninflammatory disorders of vagina (principal); Z20.2 Contact with and (suspected) exposure to infections with a predominantly sexual mode of transmission; L02.91 Cutaneous abscess, unspecified
CPT/HCPCS: 99212

== ENCOUNTER 2025-07-14 15:19 | Outpatient (AMB) | payer OTHER, SELFPAY ==
--- NOTE | 2025-07-14 15:26 | MHC.OFFVIS ---
Vital Signs 07/14/25 15:28 Height 5 ft 1 in Weight 131 lb BMI 24.7 BP 112/68 Blood Pressure Location Rt brachial Position Sitting Intake Visit Reasons: vaginal itching Intake Note: vaginal itching for about a weak with bad odor Aboriginal Liaison Officer Required: No Information Interpreted: non-clinical & clinical Mortar Mixer Operator: Mortar Mixer Operator Present (Yue) Accompanied by: Self / Same As Patient Allergies bee pollen (Bee Stings) Allergy (Mild, Verified 07/14/25 16:37) SWELLING AT SITE Bee stings Allergy (Unknown, Uncoded 07/14/25 15:31) anaphylaxis Medication List - Last Reconciled 07/14/25 by Linda Cat LPN doxycycline hyclate 100 mg PO BID 7 days hydroxyzine HCl 10 mg PO TID PRN metronidazole 0.75%(37.5mg/5gram) 1 appful vaginal BEDTIME 5 days spironolactone 25 mg PO DAILY Is last menstrual period known: Yes Last menstrual period: 06/27/25 Post menopausal: No Patient : No Do you need a note to return to daycare/school/sports/work: No HPI Comments Details: Patient is here today with concerns about a reoccurring bacterial vaginosis infection, has discharge and odor. Additionally she also reports an infection on her right buttocks since Saturday, using warm compress, history of abscesses. She desires additional STD blood work done today. [facility] Medical History COVID-19 Anxiety No known health problems Surgical History History of tubal ligation Social History Household Members: Children Housing: Other Housing Other:: [employer] Do you presently have visiting nurse or other home services: No Unable to assess alcohol history related to: Unknown Alcohol intake: current Alcohol intake frequency: holidays/special occasions only Patient Tobacco Use Status: Former Tobacco user Substance Use Type: Marijuana Advance Directives Date on File: 11/27/23 service: No Gender identity: Female Female Reproductive History Menstrual Age of Menarche: 17 Date of last menstrual period: 06/27/25 control method: permanent sterilization Total pregnancies: 2 Number of Living Children: 2 Review of Systems Const All systems reviewed & are unremarkable except as noted in HPI and below Physical Exam Vital Signs: Last Vital Signs BP 112/68 07/14/25 15:28 BMI result Body Mass Index 24.7 Const General: cooperative, healthy appearing and no acute distress Orientation/consciousness: patient oriented x3 GI Inspection: Yes normal to inspection Palpation (GI): Soft to palpation and Other GI palpation findings present (Nontender) Rectal Exam - Female: visual inspection normal General: Yes bladder normal to palpation External Female Exam: normal appearance of the urethra Speculum Exam - Vagina: normal appearance of the vagina, normal palpation and abnormal vaginal discharge (Thick milky) Speculum Exam - Cervix: normal appearance of the cervix and normal palpation Bimanual exam- vagina & uterus: normal bimanual exam, normal palpation, uterine size normal, bladder normal to palpation, normal palpation, uterine shape normal and non-tender Bimanual Exam- Adnexa, other: normal adnexae Female genitals images:  1. Erythema and induration Neuro General: patient oriented x3 Assessment & Plan Assessment & Plan (1) Vaginal odor: Code(s): N89.8 - Other specified noninflammatory disorders of vagina Plan: BV panel obtained. Await culture for final plan of care. (2) Possible exposure to STD: Code(s): Z20.2 - Contact with and (suspected) exposure to infections with a predominantly sexual mode of transmission Plan: GC chlamydia obtained. Await labs for final plan of care. The patient expressed understanding and agreement with the plan of care. All of her questions and concerns were addressed to the best of my ability. (3) Abscess: Code(s): L02.91 - Cutaneous abscess, unspecified Plan Continue with warm compresses, initiate Augmentin. Surgical department notified unable to schedule an appointment today or tomorrow. Patient was advised to go to the emergency room for immediate care, report called to CHYNA Santiago in ED. The patient expressed understanding and agreement with the plan of care. All of her questions and concerns were addressed to the best of my ability. This note is constructed using voice recognition software. While every effort has been made to ensure accuracy, crosscutter rolled glass errors may have been included. Orders: Orders HIV Ab/Ag Today Z20.2 - Contact with and (suspected) exposure to infections with a predominantly sexual mode of transmission Hepatitis C Antibody Reflex Today Z20.2 - Contact with and (suspected) exposure to infections with a predominantly sexual mode of transmission Hepatitis B Core Antibody Today Z20.2 - Contact with and (suspected) exposure to infections with a predominantly sexual mode of transmission Bacterial Vaginosis Panel Today Z11.3 - Encounter for screening for infections with a predominantly sexual mode of transmission Syphilis Screen Today Z20.2 - Contact with and (suspected) exposure to infections with a predominantly sexual mode of transmission CT NG by PCR Vag/Cerv Today Z11.3 - Encounter for screening for infections with a predominantly sexual mode of transmission Medications: New amoxicillin-pot clavulanate 875-125 mg 1 tab PO BID 20 tabs 0RF 10 days Coding Level of Care Code Est Pt Level 3 (52249) Diagnoses Vaginal odor N89.8 Possible exposure to STD Z20.2 Abscess L02.91
[2025-07-14 15:28] VITALS: BP 112/68; BMI 24.7
== END 2025-07-14 18:56 ==
LOC: HO.HWS 15:19
PROVIDERS: PCP Internal Medicine; Visit Provider Advanced Practice Midwife
DX: N89.8 Other specified noninflammatory disorders of vagina (principal); Z20.2 Contact with and (suspected) exposure to infections with a predominantly sexual mode of transmission; L02.91 Cutaneous abscess, unspecified
CPT/HCPCS: 99213

== ENCOUNTER 2025-07-14 16:04 | Emergency (ER) | payer OTHER, SELFPAY ==
[2025-07-14 16:35] VITALS: BP 143/82; PULSE 85; RESP 18; TEMP 36.9; O2SAT 99; BMI 24.3
--- NOTE | 2025-07-14 16:38 | ED.GENADULT ---
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 Related Data Home Medications ?Medication ?Instructions ?Recorded ?Confirmed hydroxyzine HCl 10 mg tablet 10 mg PO TID PRN Anxiety 07/12/22 07/14/25 spironolactone 25 mg tablet 25 mg PO DAILY 02/05/25 07/14/25 Previous Rx's ?Medication ?Instructions ?Recorded metronidazole 0.75 % (37.5 mg/5 1 appful vaginal BEDTIME 5 days 02/08/25 gram) vaginal gel #70 grams doxycycline hyclate 100 mg capsule 100 mg PO BID cough 7 days #14 caps 03/16/25 amoxicillin 875 mg-potassium 1 tab PO BID 10 days #20 tabs 07/14/25 clavulanate 125 mg tablet cephalexin 500 mg capsule 500 mg PO QID 5 days #20 caps 07/14/25 Allergies Allergy/AdvReac Type Severity Reaction Status Date / Time bee pollen (Bee Stings) Allergy Mild SWELLING Verified 07/14/25 16:37 AT SITE Bee stings Allergy Unknown anaphylaxis Uncoded 07/14/25 15:31 Review of Systems Constitutional: Constitutional: Reports as per [facility] Past Medical History Medical History COVID-19 Anxiety No known health problems Surgical History History of tubal ligation Social History Social History Household Members: Children Housing: Other Housing Other:: [employer] Do you presently have visiting nurse or other home services: No Unable to assess alcohol history related to: Unknown Alcohol intake: current Alcohol intake frequency: holidays/special occasions only Patient Tobacco Use Status: Former Tobacco user Substance Use Type: Marijuana Advance Directives: Yes Advance Directives on File: Yes Advance Directives Date on File: 11/27/23 service: No Gender identity: Female Physical Exam ED Vital Signs: Vital Signs - 24 hr 07/14/25 16:35 07/14/25 19:55 Temperature 98.4 F 97.7 F Pulse Rate 85 80 Respiratory Rate 18 20 Blood Pressure 143/82 H 136/89 Pulse Oximetry 99 98 Oxygen Delivery Method Room Air Room Air BMI result Body Mass Index 24.3 Const Other: Alert and oriented x4 exam with a female second chef in the room: Patient has small area of erythema and early abscess on the inner proximal thigh and buttock without any extension to the vaginal area, there was no drainage Course Course Course Narrative: RME, this is a rapid medical exam performed by Jack Goldman please refer to primary provider for complete H&P- 44-year-old female presents for evaluation of an abscess in the perineal region. The patient was seen by he OBGYN office and was felt to have cellulitis with an abscess that he had to be drained. Medications Administered Discontinued Medications Generic Name Dose Route Start Last Admin Trade Name Toniq PRN Reason Stop Dose Admin Acetaminophen 975 mg 07/14/25 16:38 07/14/25 16:40 Acetaminophen 325 Mg Tablet PO 07/14/25 16:39 975 mg ONCE ONE Administration Medical Decision Making Medical Decision Making [facility] Narrative: Patient has early abscess formation without anything to drain at this time there was no induration, there was no evidence for any Bartholin gland cyst or perianal abscess, no vaginal discharge, no evidence for STDs such as herpetic lesions, I am going to prescribe medications to her to a pharmacy that is open 24 hours so she can pick it up. She did call her mechanical manufacturing engineer was prescribed antibiotics and I told her to take the antibiotics I am prescribing instead. Differential Diagnosis Differential Diagnoses: The differential diagnosis associated with the presentation includes (See above) Tests considered The following testing was considered but not selected: Blood work such as CBC, Prescription Management I considered prescription management with: Pain Medication and Antibiotic Discharge Plan Discharge Clinical Impression: Abscess of right buttock Patient Disposition: Home, Self-Care Instructions: Abscess (ED) Additional Instructions: You have a very early abscess developing on the right buttock, there was nothing to drain at this time, as discussed use antibiotics I prescribed instead of use and antibiotics that you were OBGYN sent, and we discussed Sitz baths twice a day in warm water In the next 2-3 days I am hoping that with the antibiotics and warm compresses it either he is going to resolve or increase in size and then I will be ready to drain and you can come back to the ER. Prescriptions: New cephalexin 500 mg capsule 500 mg PO QID 5 Days Qty: 20 0RF No Action metronidazole 0.75 % (37.5mg/5 gram) gel 1 appful vaginal BEDTIME 5 Days Qty: 70 0RF doxycycline hyclate 100 mg capsule 100 mg PO BID 7 Days Qty: 14 0RF hydroxyzine HCl 10 mg tablet 10 mg PO TID PRN (Reason: Anxiety) amoxicillin-pot clavulanate 875-125 mg tablet 1 tab PO BID 10 Days Qty: 20 0RF spironolactone 25 mg tablet 25 mg PO DAILY Print Language: Citizen Of [place]
[2025-07-14 19:55] VITALS: BP 136/89; PULSE 80; RESP 20; TEMP 36.5; O2SAT 98
== END 2025-07-15 04:04 | disposition home or self-care (01) ==
PROVIDERS: Emergency Provider Emergency Medicine; PCP Internal Medicine
DX: L02.31 Cutaneous abscess of buttock (principal)
CPT/HCPCS: 99283

== ENCOUNTER 2025-07-14 19:13 | Outpatient (REF) | payer OTHER, SELFPAY ==
[2025-07-16 10:00] LABS: Bacterial Vaginosis PCR POSITIVE (Negative); Candida Group PCR NOT DETECTED (Not Detect); Candida glab krusei PCR NOT DETECTED (Not Detect); Trichomonas vaginalis PCR NOT DETECTED (Not Detect)
[2025-07-16 10:32] LABS: CT PCR NOT DETECTED (Not Detect.); NG PCR NOT DETECTED (Not Detect.)
== END 2025-07-14 19:14 | disposition home or self-care (01) ==
LOC: HO.LNP 19:13
PROVIDERS: Visit Provider Advanced Practice Midwife
DX: Z11.3 Encounter for screening for infections with a predominantly sexual mode of transmission (principal); Z11.8 Encounter for screening for other infectious and parasitic diseases
CPT/HCPCS: 81515; 87491; 87591

== ENCOUNTER 2025-07-21 13:29 | Outpatient (REF) | payer OTHER, SELFPAY ==
--- OUTSIDE RECORDS SUMMARY | 2025-07-21 14:20 | XMS_ITS | Encounter Summary ---
Author Organization [employer] Address [address] [place] [address] [address] [place] [address] Care Team Providers Care Electrical Integrator Name Role Phone Laxmi Spear MD Primary Care Provider + Reason for Visit * Reason Comments Med Refill Encounter Details Date Type Department Care Team ([facility] st Contact Info) Description 08/02/2023 Refill [facility] MEDICINE [address] [place], [place] [phone] Laxmi Spear MD [address] [place] [address] Anxiety Social History Tobacco Use Types Packs/Day [...] unspecified documented in this encounter Care Teams Electrical Integrator Relationship Specialty Start Date End Date Laxmi Spear MD [address] [place], [place] [phone] PCP - General Family Medicine 07/15/17 documented as of this encounter
--- OUTSIDE RECORDS SUMMARY | 2025-07-21 14:20 | XMS_ITS | Encounter Summary ---
Author Organization [employer] Address [address] [facility] [address] [place] [address] Care Team Providers Care Hydraulics Engineer Name Role Phone Laxmi Spear MD Primary Care Provider + Reason for Visit * Reason Onset Date Comments Nurse Triage 12/03/2023 Encounter Details Date Type Department Care Team ([facility] Contact Info) Description 12/03/2023 Telephone [facility] MED[facility]INE [address] [place], [place] [phone] Laxmi Spear MD [address] [place], [place] [phone] Nurse Triage Social History Tobacco Use Types [...] visit for jose f , number is [phone]. Pt reports this is the 3rd time Pt has had Covid. 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 No further questions offered. Pt agrees with [...] accepted this outcome Please contact pt @ [phone] Pt is requesting the AntiBiotics documented in this encounter Plan of Treatment Not on file documented as of this encounter Visit Diagnoses Not on filedocumented in this encounter Care Teams Hydraulics Engineer Relationship Specialty Start Date End Date Laxmi Spear MD [address] [place] [id number] PCP - General Family Medicine 07/15/17 documented as of this encounter
--- OUTSIDE RECORDS SUMMARY | 2025-07-21 14:20 | XMS_ITS | Clinical Summary ---
Author Organization [employer] Address [address] [facility] [address] [place] [address] Care Team Providers Care Hydrotechnical Specialist Name Role Phone Laxmi Spear MD Primary Care Provider + Allergies Active Allergy Reactions Criticality Noted Date Comments Bee Venom 06/13/2015 Medications ibuprofen 400 MG tablet Take 1 tablet (400 mg) by mouth every 6 (six) hours if needed for moderate pain or fever for up to 30 doses. 30 tablet 3 Active Blood Pressure kit 1 kit Once per day. 1 kit 4 Active hydrOXYzine HCl (Atarax) 10 MG tabletIndicatio ns:Anxiety TAKE 1 TO 2 TABLETS BY MOUTH TWICE A DAY NEEDED FOR ANXIETY 120 tablet 1 5 Active tretinoin (Retin-A) 0.025 % creamIndication s:Other acne Apply topically at bedtime. 45 g 2 5 04/09/20 26 Active spironolactone (Aldactone) 100 MG tablet TAKE 1 TABLET BY MOUTH EVERY DAY 90 tablet 3 5 Active ergocalciferol (Vitamin D-2) 1.25 MG (51382 UT) capsule TAKE 1 CAPSULE BY MOUTH ONCE PER WEEK 12 capsule 1 5 Active Active Problems Problem Noted Date Diagnosed [...] Encounters Date Type Department Care Team Description 06/03/2025 Refill [facility] [address] [place] [address] Laxmi Spear MD from Last 3 Months Immunizations Immunization Administration [...] 58 04/09/2025 3:06 PM EDT Temperature 36.2 C (97.1 F) 04/09/2025 3:06 PM EDT Respiratory Rate 17 04/09/2025 3:06 PM EDT Oxygen Saturation 98% 03/25/2025 11:49 AM EDT Inhaled Oxygen Concentration - - Weight 59.4 kg (131 lb) 04/09/2025 3:06 PM EDT Height 154.9 cm (5' 1 ) 04/09/2025 3:06 PM EDT Body Mass Index 24.75 04/09/2025 3:06 PM EDT Plan of Treatment Health Maintenance Due Date Last Done Comments Disability Screening 1980 IPV Vaccines (2 of 3 - 4-dose series) 05/23/1987 04/25/1987 Alcohol/Substance Use Screening 1994 HPV Vaccines (1 - 3-dose series) 1997 COVID-19 Vaccine ( - season) 2024 12/29/2021, 12/21/2020, 11/30/2020 SDOH Screening 11/28/2024 11/28/2023 Influenza Vaccine (#1) 2025 09/22/2024, 2012 Family Planning (PISQ) 08/28/2025 08/28/2024 Pap Smear 12/20/2025 12/20/2022, 10/11/2021 Depression Screening 12/21/2025 12/21/2024, 12/21/19 25 Mammogram 02/11/2026 02/11/2025, 02/03/2024 DTaP/Tdap/Td Vaccines (5 - Td or Tdap) 02/21/2026 02/22/2016, 05/24/2011, 08/09/1997, Additional history exists Tobacco Screening 04/09/2026 04/09/2025 Cervical Cancer Screening 12/20/2027 HPV/Cotest 12/20/2027 12/20/2022, 09/25, 10/11/2021, Additional history exists Zoster Vaccines (1 of 2) 2032 RSV Patients and Patients Aged 60 years or older (1 - 1-dose 75+ series) 2057 Hepatitis B Vaccines Completed 12/23/1998, 02/22/1998, 12/24/1997 HIV Screening Completed 02/08/2025, 05/2024, 10/24/2023, Additional [...] Years) and At-Risk Patients (6 to 49) Years Aged Out No longer eligible based on patient's age to complete this topic RSV under 20 months Aged Out No longe r eligible based on patient's age to complete this topic Rotavirus Vaccines Aged Out No longer eligible based on patient's age to complete this topic Procedures Procedure Name Priority Date/Time Associated Diagnosis Comments BI MAMMOGRAM SCREENING TOMOSYNTHESIS BILATERAL Routine 02/11/2025 10:45 AM EDT HEPATITIS C ANTIBODY Routine 02/08/2025 12:12 PM EDT HIV 1/2 ANTIGEN/ANTIBODY, FOURTH GENERATION W/RFL Routine 02/08/2025 12:12 PM EDT HPV MRNA E6/E7 REFLEX TO HPV 16, 18/45 Routine 12/20/2022 10:30 AM EST PAP SMEAR Routine 12/20/2022 10:30 AM EST from Last 3 Months or Most Recently Relevant to Health Maintenance Results * BI Mammogram Screening Tomosynthesis Bilateral (02/11/2025 10:45 AM EDT) Anatomical Region Laterality Modality Breast Bilateral Mammography 02/11/2025 10:4 5 AM EDT Narrative 02/19/2025 2:21 PM EDT [facility] [address] [place] [address] Mammography Report Signed Patient: Magnolia Rodas MR#: [id number] : 1980 Acct:[id number] Age/Sex: 44 / F ADM Date: 02/11/25 Loc: HO.MAMMO Attending Dr: Laxmi Spear MD Ordering Physician: Laxmi Spear MD Results: 1Ne gative Date of Service: 02/11/25 Follow Up: 1 Year From [facility] Mammogram Procedure(s): MM tomosynthesis screening BI Accession Number(s): [id number] cc: Laxmi Spear MD EXAMINATION: MM SCREENING [...] signed by Ludy Miles DO in OV> 03/28/25 1418 DD/ 1045 TD/TT: 02/11/25 1100 [employer] Coating Machine Operator: Procedure Note Donotwaqasinterpreter, Image - 02/19/2025 [facility] [address] [place] [address] Mammography Report Signed Patient: Delicia Rodas#: [id number] : 1980Acct:[id number] Age/Sex: 44 / FADM Date: 02/11/25 Loc: HO.MAMMO Attending Dr: Laxmi Spear MD Ordering Physician: Laxmi Spear MDResults: 1Ne gative Date of Service: 02/11/25Follow Up: 1 Year From Orig inal Mammogram Procedure(s): MM tomosynthesis screening BI Accession Number(s): [id number] cc: Laxmi Spear MD EXAMINATION: MM SCREENING [...] 02/19/25 1418 DD/ 1045 TD/TT: 02/11/25 1100 [employer] Coating Machine Operator: us Laxmi Spear MD IMG BI PROCEDURES Final Result * Hepatitis C Ab (02/08/2025 12:12 PM EDT) Hepatitis C Antibody Nonreactive Nonreactive [facility] Comment:Antibodies to HCV no t detected; does not exclude early acuteHCV infection. 02/08/2025 12:1 2 PM EDT 02/08/2025 12:12 PM EDT us Generic External Data Provider LAB BLOOD ORDERAB LES Final Result Performing Organization Address [facility] Co de Phone Number [facility] [address] [place] [phone] * HIV-1/2 Antigen and Antibodies, Fourth Generation, with Reflexes (02/08/2025 12:12 PM EDT) Pathologist [facility] HIV AB/AG Nonreactive Nonreactive [facility] Comment:HIV-1 p24 Ag and/or HIV-1/HIV-2 Ab not detected.A test result that is nonreactive does not exclude thepossibility of exposure to or infection with HIV-1 and/orHIV-2. Nonreactive results in this assay for individualswith prior exposure to HIV-1 and/or HIV-2 may be due toantigen and antibody levels that are below the limit ofdetection of this assay.The [employer] HIV Ag/Ab Combo assay result andsupplemental assay results should be interpreted inconjunction with the patient's clinical presentation,history and other laboratory results. If the results areinconsistent with clinical evidence, additional testing issuggested to confirm the result. 02/08/2025 12:1 2 PM EDT 02/08/2025 12:12 PM EDT us Generic External Data Provider LAB BLOOD ORDERAB LES Final Result Performing Organization Address [facility]/ZIP Co de Phone Number [facility] [address] [place] [phone] * HPV mRNA E6/E7 w/Reflex to HPV Genotypes 16, 18/45 (12/20/2022 10:30 AM EST) HPV nRNA E6/E7 Not Detected Not Detected [facility] Comment:Methodology: Transcr iption-Mediated AmplificationThis assay detects E6/E7 viral messenger RNA (mRNA) from 14high-risk HPV types (16,18,31,33,35,39,45,51,52,56,58,59,66,68).Cervical sources are required for HPV testing.If a vaginal source from a patient who has had atotal hysterectomy with removal of cervix wassubmitted, please contact the testing laboratoryfor alternative testing options.For additional information, please refer [email or web address]/DSI336l1(This link if provided for information/educational purposes only.)THIS TEST WAS PERFORMED AT:[facility] [place] [address] ([facility] [address]VESKXOPHELIA CONRAD MD HPV mRNA E6/E7 [facility] HPV 16 RNA [facility] HPV 18/45 RNA [facility] 12/20/2022 10:3 0 AM EST 12/20/2022 4:15 PM EST [facility] External Provider LAB CYT [place]LOG[place] ORDERABLES Final Result Performing Organization Address City/State/[facility] Co de Phone Number [facility] [address] [place] [phone] * Pap Smear (12/20/2022 10:30 AM EST) 12/20/2022 10:3 0 AM EST 12/20/2022 4:15 PM EST Narrative [facility] - 12/28/2022 6:32 PM EST ----- ------- Name: Magnolia Rodas Age/Sex: 42/F : 1980 Unit#: [id number] Attend Dr: Catalina Richards [facility] Re12/20/22 Status: DEP REF Location: [facility] Disch: ----- ------- SPEC : [id number] RECD: 12/20/22-1615 STATUS: RALPH PAIGE NUM: [id number] OLENA: 12/20/22-[address] [facility] [address]: Catalina Richards [facility] ENTERED: 12/20/22-1719 SP TYPE: Pap Smr OTHR DR: Laxmi Spear MD ORDERED: Pap Smear Interpretation Satisfactory for evaluation. Negative for intraepithelial lesion or malignancy. HPV mRNA E6/E7: NOT DETECTED This assay detects E6/E7 viral messenger RNA (mRNA) from 14 high-risk HPV types (16, 18, 31, 33, 35, 39, 45, 51, 52, 56, 58, 59, 66, 68) HPV testing performed by [employer], [place], [place]. See reference laboratory portion of the EMR for entire report. Copies To: Laxmi Spear MD [address] [place] [address] [id number] Catalina Richards [address] [address] ----- ------- Signed (signature on file) Alisa Pedraza 12/28/22 1832 ----- ------- END OF REPORT [facility] External Provider LAB CYT [place] ORDERABLES Final Result [facility] [address] [place] [phone] [phone] from Last 3 Months or Most Recently Relevant to Health Maintenance Insurance Care Teams Hydrotechnical Specialist Relationship Specialty Start Date End Date Laxmi Spear MD [address] [place] [address] PCP - General Family Medicine 07/15/17
--- OUTSIDE RECORDS SUMMARY | 2025-07-21 14:20 | XMS_ITS | Encounter Summary ---
Author Organization [employer] Address [address] [facility] [address] [place] [address] Care Team Providers Care Outreach Counselor Name Role Phone Laxmi Spear MD Primary Care Provider + Encounter Details Date Type Department Care Team ([facility] st Contact Info) Description 08/30/2023 Abstract [facility] [address] [place] [address] Annel Campos Social History Tobacco Use Types [...] on filedocumented in this encounter Care Teams Outreach Counselor Relationship Specialty Start Date End Date Laxmi Spear MD [address] [place] [address] PCP - General Family Medicine 07/15/17 documented as of this encounter
--- OUTSIDE RECORDS SUMMARY | 2025-07-21 14:20 | XMS_ITS | Encounter Summary ---
Author Organization [employer] Address [address] [facility] [address] [place] [address] Care Team Providers Care Supervisor Coal Handling Name Role Phone Laxmi Spear MD Primary Care Provider + Encounter Details Date Type Department Care Team (Late st Contact Info) Description 01/24/2023 Orders Only [facility] [address] [place] [address] Candis Dixon LPN Social History Tobacco Use [...] on filedocumented in this encounter Care Teams Supervisor Coal Handling Relationship Specialty Start Date End Date Laxmi Spear MD [address] [place] [address] PCP - General Family Medicine 07/15/17 documented as of this encounter
[2025-07-22 03:41] LABS: Syphilis Screen Nonreactive (Nonreactive)
[2025-07-22 03:53] LABS: HBc Num1 0.08 S/CO (0.00-0.79); HIV Num 1 0.05 S/CO (0.00-0.99); ~HepC Num1 0.08 S/CO (0.00-0.79); ~Hepatitis C Antibody Nonreactive (Nonreactive)
== END 2025-07-21 13:30 | disposition home or self-care (01) ==
LOC: HO.LAB 13:29
PROVIDERS: PCP Internal Medicine; Visit Provider Advanced Practice Midwife
DX: Z20.2 Contact with and (suspected) exposure to infections with a predominantly sexual mode of transmission (principal); Z11.3 Encounter for screening for infections with a predominantly sexual mode of transmission; Z11.4 Encounter for screening for human immunodeficiency virus [HIV]; Z11.59 Encounter for screening for other viral diseases
CPT/HCPCS: 36415; 86704; 86780; 86803; 87389

== ENCOUNTER 2025-10-19 15:02 | Outpatient (REF) | payer OTHER, SELFPAY ==
[2025-10-20 13:06] LABS: Bacterial Vaginosis PCR POSITIVE (Negative); Candida Group PCR NOT DETECTED (Not Detect); Candida glab krusei PCR NOT DETECTED (Not Detect); Trichomonas vaginalis PCR DETECTED (Not Detect)
[2025-10-20 13:39] LABS: CT PCR NOT DETECTED (Not Detect.); NG PCR NOT DETECTED (Not Detect.)
== END 2025-10-19 15:03 | disposition home or self-care (01) ==
LOC: HO.LNP 15:02
PROVIDERS: PCP Internal Medicine; Visit Provider Advanced Practice Midwife
DX: Z20.2 Contact with and (suspected) exposure to infections with a predominantly sexual mode of transmission (principal)
CPT/HCPCS: 81515; 87491; 87591

== ENCOUNTER 2025-11-11 11:05 | Outpatient (REF) | payer OTHER, SELFPAY ==
[2025-11-11 15:49] LABS: Bacterial Vaginosis PCR NEGATIVE (Negative); Candida Group PCR NOT DETECTED (Not Detect); Candida glab krusei PCR NOT DETECTED (Not Detect); Trichomonas vaginalis PCR NOT DETECTED (Not Detect)
[2025-11-11 16:24] LABS: CT PCR NOT DETECTED (Not Detect.); NG PCR NOT DETECTED (Not Detect.)
== END 2025-11-11 11:06 | disposition home or self-care (01) ==
LOC: HO.LNP 11:05
PROVIDERS: PCP Internal Medicine; Visit Provider Advanced Practice Midwife
DX: Z20.2 Contact with and (suspected) exposure to infections with a predominantly sexual mode of transmission (principal)
CPT/HCPCS: 81515; 87491; 87591